=== PATIENT | male | born 1945 | race Caucasian/White ===

== ENCOUNTER → 2024-03-26 14:04 | Outpatient (CLI) | payer OTHER, SELFPAY ==
--- NOTE | 2024-03-26 14:12 | CR.HP_ITS ---
CR - History & Physical General Arrival date:: 03/26/24 Arrival time:: 14:13 Date of Referral:: 02/23/24 Date of CR Evaluation:: 03/26/24 Referring Physician: CLINTON Primary Diagnosis: CAD s/p successful PCI of LAD and RCA History of Present Cardiac Event Onset Date PTCA or coronary stenting:: Yes (01/27/2024 onset) Vessel: LAD, RCA Sleep Disorder Evaluation Hx of Sleep Apnea: Yes Do you snore loudly (louder than talking or can be heard through closed doors)?: No Do you often feel tired/ fatigued/ sleepy during daytime?: No Has anyone observed you stop breathing during sleep?: No History of Hypertension (for STOP score): Yes STOP Results: Negative Advanced Directives Advanced Directives Power of Joint Finisher: No Living Will: No Advance Directives Information Provided: No Advance Directives on File: No DNR Order?:: No Past Medical History Covid-19 Screening Physicial Symptoms Other Clinical Concerns Exposure Risk Pertinent Comorbidities 65 years or older:: Yes Has a serious heart condition:: Yes Has liver disease:: Yes Social History Smoking History Smoking Status: Former smoker Years Smokin Packs Smoked per Day: 2 (stopped in 1988) Alcohol Use Alcohol Usage: No Substance Abuse Hx Substance Use: No Occupation Occupation (List type of work in comments):: Retired Hobbies, Recreation, Social Activities Hobbies: Other (hunting and fishing) Recreational Activities: I am able to engage in all my recreational activities Social Environment Status Marital Status: Current Living Arrangements Living Environment:: Alone Safety Do you feel safe in your surroundings?: Yes Assistance Do you need any assistance at home?: no Review of Systems Review of Systems Hints Review of Present Symptoms: Reports Fatigue, Heart Arrhythmia/Irregularities, Appetite - Normal, Appetite - Special Diet and Sleep - Normal; Denies Shortness of Breath at Rest, Shortness of Breath with Exertion, PVD, Operative Discomfort, Angina, Wound Healing, Dizziness/Lightheadedness or Sexual Changes Pain Is Patient Pain Free?: Yes Pain Location: neck, upper extremity and lower extremity Pain Level: 6/10 Risk Factor Assessment Chief Complaint Chief Complaint: CAD s/p successful PCI of LAD and RCA Vital Signs Pulse Ox: 96 Blood Pressure: 100/60 Pulse Pulse Rate: 90 Pulse Rhythm: Regular Hypertension How long have you been treated?: 20 years Blood Pressure Sitting - Left Arm: 100/60 Obesity Height: 6 ft 3 in Weight:: 240 lb Weight in Pounds: 240.0 lbs Body Mass Index (BMI): 29.9 Nutritional Referral for Obesity: No Physical Inactivity Physical Inactivity: Reg Exercise 30 min/day Risk Stratification Risk Guidelines: Lowest Risk: Risk Factor for Smoking, Moderate Risk: Risk Factor for Dyslipidemia, Risk Factor for Diabetes, Risk Factor for Obesity and Risk Factor for Sedentary Lifestyle and Highest Risk: Risk Factor for Hypertension and Risk Factor for Depression For Smoking Smoking Risk Guidelines For Dyslipidemia Dyslipidemia Risk Guidelines For Diabetes Mellitus Diabetes Risk Guidelines For Obesity/Overweight Obesity/Overweight Risk Guidelines For Hypertension Hypertension Risk Guidelines For Sedentary Lifestyle Sedentary Lifestyle Risk Guidelines For Depression Depression Risk Guidelines Motivation Motivation to Participate On a scale of 1 to 10, how prepared are you to commit to attending program?: 10 What do you see as barriers to successfully being able to complete the program?: nothing What do you see as the benefits of succesfully completing the program? In other words, what do you hope to get out of participating in the program?: more energy Are there issues you are dealing with that will interfere with completing the program?: no Do you have a spouse or signficant other, family or friends who will help suppo rt you to complete the program?: yes
--- NOTE | 2024-03-26 14:21 | CR.ITP_ITS ---
Diagnosis General Information Admitting Diagnosis: CAD s/p successful PCI of LAD and RCA Personal Learning Style:: Audio/Visual Barriers to Learning: Hearing Impairment Stage of change r/t lifestyle modifications:: Contemplation Gave educational material for:: Treating Heart Disease, How The Heart Works, What it means to have Heart Disease, How Coronary Artery Disease is Diagnosed, Heart Procedures, What Heart Medications Do, Risk Factors & Modifications, Living an Active Life, Nutrition, Emotions & Heart Disease, Stress Management & Relaxation and Sleep Disorders & Heart Disease Education/Goals Cardiac Rehabilitation Goals Personal Goals: Initial Assessment: Improve energy level and Improve muscle strength and endurance Scale for measuring improvement of personal goals Diagnosis & Disease Process Outcomes/Goals: Pt IDs own risk factors & lifestyle modifications by Session 10, Verbalizes symptoms of angina & response by session 3., Pt independently manages and Other Additional Outcomes/Goals: Plan/Interventions: Assist Pt to ID & engage in lifestyle modification to reduce CVD risk, Instruct on individual risk factors, Review symptoms of angina & emergency actions, Review secondary diagnosis & identify educational needs. and Other see comment 30 day Reassessments:: Not Met 30 day Reassessments:: Not Met 30 day Reassessments:: Not Met 30 day Reassessments:: Not Met Final Reassessments:: Not Met Safety Referral to Physical Therapy: No Fall Risk Assessed:: Yes Assistive Devices:: None Exercise - Initial Assessment Visit Date of Eval: 03/26/24 (initial eval ) Mets: Pre-: >3 METS for 30 minutes by discharge, >5 METS for 30 minutes by discharge, >7 METS for 30 minutes by discharge and Unable to meet goal due to: (see comment below) Physician Prescribed Exercise Modalities: Treadmill, Rower, Rosalba Formandyne AD-7, SciFit Stepper, The JetstreamFit Pro- II Ergometer and The JetstreamFit Lateral Maturity Checker Frequency: 2x/week for 18 weeks [36 sessions] and 3x/week for 12 weeks [36 sessions] Intensity: 60-80% of age predicted maximum heart rate reserve Duration: 30 - 45 minutes Current METSs:: 3 Target Heart Rate:: 86-108 Resting Blood Pressure: 100/60 Outcomes & Goals Goals:: Verbalizes understanding of THR, RPE & goal METS by session 6, Documents in home exercise log/reports 30 min aerobic 5 day/wk by DC, Demonstrates accurate pulse taking by DC and Other additional outcome/goals: see below Intervention & Plan Exercise Program Goals: Instruct on personal THR & RPE, Instruct on MET level & personal MET goal, Show patient to take own pulse /validate performance until accurate, Instruct on home exercise and Other additional plan/int Physical Activity Home Exercise Physical Activity - Home Exercise: Safe Exercise, Warm-up, Self-monitoring, Cool-Down, Home Exercise > 30 min Daily and Sitting Time <3 hours/daily Outcomes & Goals Outcomes/Goals: Demonstrates correct Warm-up/exercise Cool-Down (S3) if = 2.5 METs, Verbalizes symptoms of exercise intolerance by Session 3 (S3), Demonstrate safe equipment use (S3) & follows exercise prescrition (6) and Other: See below Intervention & Plan Plan/Intervention: Instruct warm-up & cool-down if exercising at > 2 METs, Instruct on symptoms of exercise intolerance & actions to take, Instruct & monitor on saf, Assess intial functional capacity & safety risk and Other See below Nutrition - Initial Assessment Program Goals Nutrition Program Goals Patient has diagnosis of Hyperlipidemia (ICD E78)?: No Visit Date of Eval: 03/26/24 (initial eval ) Cholesterol/Lipids (Other Core Measures) Determine presence & major risk factors that modify LDL goal: Hypertension or hypertensive medication, Low HDL cholesterol <40 mg/dL*, Family history of premature CHD in Male < 55 years: female <65 yearsFa and Age men > 45 years; women >/= 55 years Outcomes/Goals: Pt IDs own risk factors & lifestyle modifications by Session 10, Verbalizes symptoms of angina & response by session 3., Pt independently manages and Other Additional Outcomes/Goals: Intervention/Plan: Advocate for lipid panel cholesterol medication if applicable, Instruct on personal lipid levels & lipid goals/NCEP guidelines, Instruct on cholesterol and Other additional plan/int Referral to dietitian:: No (declines) Diabetes (Other Core Measures) Diabetes Type: Not Applicable Weight Mgt (Other Care) Height: 6 ft 3 in Weight:: 240 lb BMI: 29.9 Diagnosis Overweight/Obesity BMI> 30% ICD-10 E66: No Diagnosis High BMI/Morbid Obesity BMI> 35% ICD-10 Z68: No Outcomes/Goals: Pt sets, maintains & shows weight loss goal & trend during rehab and Other additional outcomes/goals Intervention/Plan: Instruct on ideal BMI & set weight loss goal w/patient, Assist pt to ID & incorporate diet changes for weight loss by S9, Refer to Structured Weight Loss program as appropriate, Encourage goal of using 250- 300dcal per session for weight loss and Other additional plan/interventions Healthy Eating Habits Will attend diet classes:: Yes Outcomes/Goals:: Consume diet rich in vegs,fruits,whole grain/high fiber,fish,lean meat, Limit sat/trans fats,cholesterol & added salts & sugars and Other additional outcome/goals: Intervention/Plan:: Assess current eating habits and Other Additional plan/interventions Education Gave educational materials for:: Signs & symptoms of hypoglycemia, Signs & symptoms of hyperglycemia, Relate diabetes to coronary artery disease and Healthy eating Core - Initial Assessment Visit Date of Eval: 03/26/24 (initial eval) Medication Compliance Preventative Medication(s):: Aspirin, LYLY inhibitor, Clopidogrel/P2Y12 inhibit, Statin/lipid and Beta duncan H/O mental health issues: depression, anxiety, or addiction?: Yes Doesn?t believe in the benefits of treatment?: No Believes medications are unnecessary or harmful?: No Has a concern about medication side effects?: No Expresses concern over the cost of medications?: No Outcomes/Goals: Verbalizes medications,desired effect & common side effects @ DC, Pt self-reports following medication regimen, Keeps card in wallet w/medications listed by DC and Other additional outcome/goals: Interventions/plans: Instruct on medication effects & side effects, Review medication list w/patient every two weeks, Instruct importance of taking meds as ordered & assist problem solving and Other additional Tobacco Use Tobacco Use: Non-smoker How long ago did you quit using tobacco products?: Greater than or equal to 6 months ago Years Smokin (stopped in 1988) Hypertension Hypertension Diagnosis:: Hypertension ICD-10 I10 Resting Blood Pressure:: 100/60 [employer] Hypertension Guidelines Outcomes/Goals: Able to verbalize/achieve optimal blood pressure <130/80, Incorporates diet changes & exercise for blood pressure control by DC and Other additional outcomes/goals Interventions/plan: Instruct on optimal blood pressure, hypertension & medications, Instruct on effects of sodium, alcohol, stress, exercise &hy pertension and Other additional plan/interventions Tobacco Cessation Referral Smoking Cessation Referral:: No Individual Education/Counseling:: No Education Schedule Given:: Yes Psychosocial - Initial Assess VIsit Date of Eval: 03/26/24 (initial eval ) History of previous Mental disease:: Yes History of Emotional Disorders: Anxious and Depression Self-reported stressors Other/Comments:: Pt denies any feelings of anxiety of depression Target Goals Target Goals Psychosocial Test Tool Used:: Elisabetans Dejon QOL Cardiac and PHQ-9 Questionnaire phq-9 Severity Referral to Behavioral Health PS - Interventions: Yes: Attend Stress Management Classes Outcomes/Goals: See list Psychosocial Outcomes/Goals:: ID's personal stressors & 2 strategies to manage stress by discharge and Other Additional outcome/goals: Intervention/Plan: See List Interventions/Plan:: Assess stressors,coping strategies & signs of derpression on admission, Instruct/assist pt to develop coping & personal stress Mgt strategies, Refer to Behavioral Health if appropriate, Refer to Physician if appropriate, Instruct patient to recognize signs & symptoms of depression, Instruct patient to recog and Other additional plan/intervention Patient Health Questionnaire PHQ-9 Screening Initial Assessment: 1. Little interest or pleasure in doing things: Not at all 2. Feeling down, depressed, or hopeless: Not at all 3. Trouble falling or staying asleep, or sleeping too much: Not at all 4. Feeling tired or having little energy: Several days 5. Poor appetite or overeating: Not at all 6. Feeling bad about yourself -- or that you are a failure or have let yourself or your family down: Not at all 7. Trouble concentrating on things, such as reading the newspaper or watching television: Not at all 8. Moving or speaking so slowly that other people could have noticed. Or the opposite - being so fidgety or restless that you have been moving around a lot more than usual: Not at all 9. Thoughts that you would be better off , or of hurting yourself in some way: Not at all How difficult have these problems made it for you to do your work, take care of things at home, or get along with other people?: Somewhat difficult Total Score: 1 MAXIMILIANO-Q SV Test Statements CAD is a disease of the arteries in the heart: False Examples of risk factors for heart disease: True Angina is chest pain or discomfort: True The benefits of resistance training include: True Eating more meat and dairy products: False Anti-platelet medications such as aspirin are important: True The only effective way to manage stress: False An exercise warm-up slowly increases heart rate: I Don't Know Prepared, processed foods usually have high sodium: True Depression is common after a heart attack: I Don't Know The statin medications lower cholesterol: True To control blood pressure, lower the amount of sodium: True If someone gets chest discomfort during walking: False Transfats are partially hydrogenated vegetable oils: I Don't Know Sleep apnea that is not treated increases the risk: I Don't Know To control cholesterol, one should become a vegetarian: I Don't Know Someone knows if he/she is exercising at the right level: I Don't Know Diabetes cannot be prevented with exercise & health eating: I Don't Know Stress is a large risk for heart attack: True A diet that can help lower blood pressure is rich in: True Total Score Total Correct Responses: 13 Self-Efficacy 6-Item Scale Initial Assessment: We would like to know how confident you are in doing certain activities. Please select your confidence level for: Fatigue Select Number: 5 Physical Discomfort or Pain Select Number: 5 Emotional Distress Select Number: 7 Other Symptoms or Health Problems Select Number: 5 Different Tasks and Activities Select Number: 10 Medication Select Number: 10 Total Score:: 7 Nutrition Survey Nutrition Survey Instructions Scoring Instructions Nutrition Survey Initial: Have you lost >10 lbs over the past 2 months without trying?: No Are you following a special diet at home for diabetes, low fat, or low salt?: Yes Are you interested in meeting with a dietitian for help understanding your diet?: No Do you eat less than 3 meals a day?: No Do you eat fatty meats (tee, sausage, ribs, etc), fried foods, desserts, large amounts of salad dressings, margarine, butter, or cheese most days?: No Do you have food allergies? [Enter types in comment field]: No Do you eat in restaurants more than 3 times a week?: No Do you season food with salt, seasoning salt, or garlic salt?: No Do you used canned, boxed, frozen meals, or soups, seasoning packets?: No Total Score:: 1 Exercise - 30-day Assessment Physician Prescribed Exercise Modalities: Treadmill, RowerRosalba AD-7, SciFit Stepper, SciFit Pro- II Ergometer and SciFit Lateral [place] Exercise - 60-day Assessment Physician Prescribed Exercise Modalities: Treadmill, Rower, Rosalba Kelseyne AD-7, SciFit Stepper, SciFit Pro- II Ergometer and SciFit Lateral [place] Exercise - 90-day Assessment Physician Prescribed Exercise Modalities: Treadmill, Rower, Schwinn Airdyne AD-7, SciFit Stepper, SciFit Pro- II Ergometer and SciFit Lateral Maturity Checker Exercise - Final/Discharge Physician Prescribed Exercise Modalities: Treadmill, Rower, Schwinn Airdyne AD-7, SciFit Stepper, SciFit Pro- II Ergometer and SciFit Lateral [place] Frequency: 2x/week for 18 weeks [36 sessions] and 3x/week for 12 weeks [36 sessions] Intensity: 60-80% of age predicted maximum heart rate reserve Current METSs:: 3 Target Heart Rate:: 86-108 Nutrition - 30-Day Assessment Weight Mgt (Other Care) Height: 6 ft 3 in Weight:: 240 lb BMI: 29.9 Nutrition - 60-Day Assessment Weight Mgt (Other Care) Height: 6 ft 3 in Weight:: 240 lb BMI: 29.9 Core - 30-Day Assessment Tobacco Use Years Smokin (stopped in 1988) Core - Final Assessment Hypertension Resting Blood Pressure:: 100/60 [employer] Hypertension Guidelines Core - 60-Day Assessment Hypertension Resting Blood Pressure:: 100/60 [employer] Hypertension Guidelines Psychosocial - 30-Day Assess Target Goals Target Goals Referral to Behavioral Health PS - Interventions: Yes: Attend Stress Management Classes Psychosocial - 60-Day Assess Target Goals Target Goals Referral to Behavioral Health PS - Interventions: Yes: Attend Stress Management Classes Psychosocial - 90-Day Assess Target Goals Target Goals Referral to Behavioral Health PS - Interventions: Yes: Attend Stress Management Classes Psychosocial - Final Assessmen Target Goals Target Goals Referral to Behavioral Health PS - Interventions: Yes: Attend Stress Management Classes Nutrition - 90-Day Assessment Weight Mgt (Other Care) Height: 6 ft 3 in Weight:: 240 lb BMI: 29.9 Nutrition - Final Assessment Program Goals Patient has diagnosis of Hyperlipidemia (ICD E78)?: No Weight Mgt (Other Care) Height: 6 ft 3 in Weight:: 240 lb BMI: 29.9
[2024-03-26 14:37] VITALS: BP 100/60; PULSE 90; O2SAT 96
[2024-03-26 15:05] VITALS: BP 100/60
[2024-03-26 15:11] VITALS: BP 100/60; BMI 29.9
[2024-03-26 15:12] VITALS: BMI 29.9
== END ==
LOC: CR 14:08
PROVIDERS: PCP Internal Medicine
DX: I25.10 Atherosclerotic heart disease of native coronary artery without angina pectoris (principal)

== ENCOUNTER 2024-04-18 14:15 | Outpatient (RCR) | payer OTHER, SELFPAY ==
[2024-03-26 15:11] VITALS: BMI 29.9
== END 2024-04-21 23:59 ==
LOC: CR 14:15
PROVIDERS: PCP Internal Medicine
DX: I25.10 Atherosclerotic heart disease of native coronary artery without angina pectoris (principal); Z95.5 Presence of coronary angioplasty implant and graft
CPT/HCPCS: 93798

== ENCOUNTER 2024-05-21 14:15 | Outpatient (RCR) | payer OTHER, SELFPAY ==
[2024-03-26 15:11] VITALS: BMI 29.9
--- NOTE | 2024-04-25 10:31 | PCM.CR.ITP ---
Exercise - Initial Assessment Visit Session #:: 10 Physician Prescribed Exercise Modalities: Schwinn Airdyne AD-7, SciFit Stepper and SciFit Lateral [place] Nutrition - Initial Assessment Weight Mgt (Other Care) Height: 6 ft 3 in Weight:: 237 lb 8 oz BMI: 29.7 Core - Initial Assessment Tobacco Use Years Smokin (stopped in 1988) Psychosocial - Initial Assess Target Goals Target Goals Referral to Behavioral Health PS - Interventions: Yes: Attend Stress Management Classes Patient Health Questionnaire PHQ-9 Screening 30-Day Re-eval Assessment: 1. Little interest or pleasure in doing things: Not at all 2. Feeling down, depressed, or hopeless: Not at all 3. Trouble falling or staying asleep, or sleeping too much: Not at all 4. Feeling tired or having little energy: Several days 5. Poor appetite or overeating: Not at all 6. Feeling bad about yourself -- or that you are a failure or have let yourself or your family down: Not at all 7. Trouble concentrating on things, such as reading the newspaper or watching television: Not at all 8. Moving or speaking so slowly that other people could have noticed. Or the opposite - being so fidgety or restless that you have been moving around a lot more than usual: Not at all 9. Thoughts that you would be better off , or of hurting yourself in some way: Not at all How difficult have these problems made it for you to do your work, take care of things at home, or get along with other people?: Somewhat difficult Total Score: 1 Self-Efficacy 6-Item Scale 30-Day Re-eval Assessment: We would like to know how confident you are in doing certain activities. Please select your confidence level for: Fatigue Select Number: 5 Physical Discomfort or Pain Select Number: 5 Emotional Distress Select Number: 7 Other Symptoms or Health Problems Select Number: 5 Different Tasks and Activities Select Number: 10 Medication Select Number: 10 Total Score:: 7 Nutrition Survey Nutrition Survey Instructions Scoring Instructions Exercise - 30-day Assessment Visit Date of Eval: 04/25/24 Session #:: 10 Physician Prescribed Exercise Modalities: Schwinn Airdyne AD-7, SciFit Stepper and SciFit Lateral [place] Frequency: 3x/week for 12 weeks [36 sessions] Intensity: 60-80% of age predicted maximum heart rate reserve Duration: 30 - 45 minutes Current METSs:: 3.7 Target Heart Rate:: 86-108 Current RPE:: 12 Maximum Excercise HR:: 105 Resting Blood Pressure: 126/70 Maximum Exercise Blood Pressure: 130/74 EKG Type: SB-ST w/BBB w/ occas PVC's, rare vent couplet. Outcomes & Goals Goals:: Verbalizes understanding of THR, RPE & goal METS by session 6, Documents in home exercise log/reports 30 min aerobic 5 day/wk by DC, Demonstrates accurate pulse taking by DC and Other additional outcome/goals: see below Intervention & Plan Exercise Program Goals: Instruct on personal THR & RPE, Instruct on MET level & personal MET goal, Show patient to take own pulse /validate performance until accurate, Instruct on home exercise and Other additional plan/int 30-day Reassessments 30 day Reassessments:: Progressing Reassessment Notes & Comments:: RPE explained to pt. Pt is demonstrates understanding Physical Activity Home Exercise Physical Activity - Home Exercise: Safe Exercise, Warm-up, Self-monitoring, Cool-Down, Home Exercise > 30 min Daily and Sitting Time <3 hours/daily Outcomes & Goals Outcomes/Goals: Demonstrates correct Warm-up/exercise Cool-Down (S3) if = 2.5 METs, Verbalizes symptoms of exercise intolerance by Session 3 (S3), Demonstrate safe equipment use (S3) & follows exercise prescrition (6) and Other: See below Intervention & Plan Plan/Intervention: Instruct warm-up & cool-down if exercising at > 2 METs, Instruct on symptoms of exercise intolerance & actions to take, Instruct & monitor on saf, Assess intial functional capacity & safety risk and Other See below 30-day Reassessments 30 day Reassessments:: Progressing Reassessment Notes & Comments:: warm up explained and demonstrated to pt. Pt is able to return demonstration. Exercise - 60-day Assessment Physician Prescribed Exercise Modalities: Rosalba Aguilar AD-7, SciFit Stepper and SciFit Lateral [place] Exercise - 90-day Assessment Physician Prescribed Exercise Modalities: Rosalba Kelseyne AD-7, SciFit Stepper and SciFit Lateral [place] Exercise - Final/Discharge Physician Prescribed Exercise Modalities: Rosalba Kelseyne AD-7, SciFit Stepper and SciFit Lateral [place] Nutrition - 30-Day Assessment Program Goals Nutrition Program Goals Patient has diagnosis of Hyperlipidemia (ICD E78)?: No Visit Date of Eval: 04/25/24 Session #:: 10 Cholesterol/Lipids (Other Core Measures) Determine presence & major risk factors that modify LDL goal: Hypertension or hypertensive medication, Low HDL cholesterol <40 mg/dL*, Family history of premature CHD in Male < 55 years: female <65 yearsFa and Age men > 45 years; women >/= 55 years Outcomes/Goals: Pt IDs own risk factors & lifestyle modifications by Session 10, Verbalizes symptoms of angina & response by session 3., Pt independently manages and Other Additional Outcomes/Goals: Intervention/Plan: Advocate for lipid panel cholesterol medication if applicable, Instruct on personal lipid levels & lipid goals/NCEP guidelines, Instruct on cholesterol and Other additional plan/int 30-day Reassessments:: Progressing Reassessment Notes & Comments:: risk factors reviewed with pt. Lifestyle modifications reviewed. Diabetes (Other Core Measures) Diabetes Type: Not Applicable Weight Mgt (Other Care) Height: 6 ft 3 in Weight:: 237 lb 8 oz BMI: 29.7 Diagnosis Overweight/Obesity BMI> 30% ICD-10 E66: No Diagnosis High BMI/Morbid Obesity BMI> 35% ICD-10 Z68: No Outcomes/Goals: Pt sets, maintains & shows weight loss goal & trend during rehab and Other additional outcomes/goals Intervention/Plan: Instruct on ideal BMI & set weight loss goal w/patient, Assist pt to ID & incorporate diet changes for weight loss by S9, Refer to Structured Weight Loss program as appropriate, Encourage goal of using 250-300dcal per session for weight loss and Other additional plan/interventions 30 day Reassessments:: Progressing Reassessment Notes & Comments:: pt has lost 2 lbs so far Healthy Eating Habits Will attend diet classes:: Yes Outcomes/Goals:: Consume diet rich in vegs,fruits,whole grain/high fiber,fish,lean meat, Limit sat/trans fats,cholesterol & added salts & sugars and Other additional outcome/goals: Intervention/Plan:: Assess current eating habits and Other Additional plan/interventions 30-day Reassessments:: Progressing Reassessment Notes & Comments:: Pt has attended nutrition class. Pt encouraged to keep a food log. Education Gave educational materials for:: Signs & symptoms of hypoglycemia, Signs & symptoms of hyperglycemia, Relate diabetes to coronary artery disease and Healthy eating Nutrition - 60-Day Assessment Weight Mgt (Other Care) Height: 6 ft 3 in Weight:: 237 lb 8 oz BMI: 29.7 Core - 30-Day Assessment Visit Date of Eval: 04/25/24 Session #:: 10 Medication Compliance Preventative Medication(s):: Aspirin, LYLY inhibitor, Clopidogrel/P2Y12 inhibit, Statin/lipid and Beta duncan H/O mental health issues: depression, anxiety, or addiction?: Yes Doesn?t believe in the benefits of treatment?: No Believes medications are unnecessary or harmful?: No Has a concern about medication side effects?: No Expresses concern over the cost of medications?: No Outcomes/Goals: Verbalizes medications,desired effect & common side effects @ DC, Pt self-reports following medication regimen, Keeps card in wallet w/medications listed by DC and Other additional outcome/goals: Interventions/plans: Instruct on medication effects & side effects, Review medication list w/patient every two weeks, Instruct importance of taking meds as ordered & assist problem solving and Other additional 30-day Reassessments:: Progressing Reassessment Notes & Comments:: Benefits of taking meds as prescribed stressed to pt. Pt demonstrates understanding. Tobacco Use Tobacco Use: Non-smoker Years Smokin (stopped in 1988) Do you use smokeless tobacco?: No 30-day Reassessments:: Met Reassessment Notes & Comments:: Pt is currently a nonsmoker Hypertension Hypertension Diagnosis:: Hypertension ICD-10 I10 Resting Blood Pressure:: 126/70 [place] [employer] Hypertension Guidelines Peak Exercise Blood Pressure:: 130/74 Outcomes/Goals: Able to verbalize/achieve optimal blood pressure <130/80, Incorporates diet changes & exercise for blood pressure control by DC and Other additional outcomes/goals Interventions/plan: Instruct on optimal blood pressure, hypertension & medications, Instruct on effects of sodium, alcohol, stress, exercise &hypertension and Other additional plan/interventions 30 day Reassessments:: Progressing Reassessment Notes & Comments:: Pt's BP's are within AHA's normal limits on most days. Low sodium diet and weight loss encouraged. Tobacco Cessation Referral Smoking Cessation Referral:: No Individual Education/Counseling:: No Education Schedule Given:: Yes Psychosocial - 30-Day Assess VIsit Date of Eval: 04/25/24 Session #:: 10 History of previous Mental disease:: Yes History of Emotional Disorders: Anxious and Depression (pt denies feelings of anxiety and depression at this time.) Target Goals Target Goals Psychosocial Test Tool Used:: Ferrans Power QOL Cardiac and PHQ-9 Questionnaire phq-9 Severity Referral to Behavioral Health PS - Interventions: Yes: Attend Stress Management Classes Outcomes/Goals: See list Psychosocial Outcomes/Goals:: ID's personal stressors & 2 strategies to manage stress by discharge and Other Additional outcome/goals: Intervention/Plan: See List Interventions/Plan:: Assess stressors,coping strategies & signs of derpression on admission, Instruct/assist pt to develop coping & personal stress Mgt strategies, Refer to Behavioral Health if appropriate, Refer to Physician if appropriate, Instruct patient to recognize signs & symptoms of depression, Instruct patient to recog and Other additional plan/intervention 30-day Reassessments: 30 day Reassessments:: Met Reassessment Notes & Comments:: pt denies psychosocial issues at this time. Psychosocial - 60-Day Assess Target Goals Target Goals Referral to Behavioral Health PS - Interventions: Yes: Attend Stress Management Classes Outcomes/Goals: See list Psychosocial Outcomes/Goals:: ID's personal stressors & 2 strategies to manage stress by discharge and Other Additional outcome/goals: Psychosocial - 90-Day Assess Target Goals Target Goals Referral to Behavioral Health PS - Interventions: Yes: Attend Stress Management Classes Psychosocial - Final Assessmen Target Goals Target Goals Referral to Behavioral Health PS - Interventions: Yes: Attend Stress Management Classes Nutrition - 90-Day Assessment Weight Mgt (Other Care) Height: 6 ft 3 in Weight:: 237 lb 8 oz BMI: 29.7 Nutrition - Final Assessment Weight Mgt (Other Care) Height: 6 ft 3 in Weight:: 237 lb 8 oz BMI: 29.7
[2024-04-25 10:37] VITALS: BP 126/70
[2024-04-25 10:50] VITALS: BP 126/70; BMI 29.7
== END 2024-05-22 23:59 ==
LOC: CR 14:15
PROVIDERS: PCP Internal Medicine
DX: I25.10 Atherosclerotic heart disease of native coronary artery without angina pectoris (principal)
CPT/HCPCS: 93798

== ENCOUNTER 2024-06-22 14:30 | Outpatient (RCR) | payer OTHER, SELFPAY ==
[2024-04-25 10:50] VITALS: BMI 29.7
[2024-05-23 00:19] VITALS: BP 126/70
--- NOTE | 2024-05-25 11:01 | PCM.CR.ITP ---
Exercise - Initial Assessment Physician Prescribed Exercise Modalities: Rosalba Aguilar AD-7, SciFit Stepper and SciFit Lateral [employer] Nutrition - Initial Assessment Weight Mgt (Other Care) Height: 6 ft 3 in Weight:: 235 lb BMI: 29.3 Core - Initial Assessment Hypertension Resting Blood Pressure:: 96/58 [place] [employer] Hypertension Guidelines Psychosocial - Initial Assess Target Goals Target Goals Referral to Behavioral Health PS - Interventions: Yes: Attend Stress Management Classes Patient Health Questionnaire PHQ-9 Screening 60-Day Re-eval Assessment: 1. Little interest or pleasure in doing things: Not at all 2. Feeling down, depressed, or hopeless: Not at all 3. Trouble falling or staying asleep, or sleeping too much: Not at all 4. Feeling tired or having little energy: Several days 5. Poor appetite or overeating: Not at all 6. Feeling bad about yourself -- or that you are a failure or have let yourself or your family down: Not at all 7. Trouble concentrating on things, such as reading the newspaper or watching television: Not at all 8. Moving or speaking so slowly that other people could have noticed. Or the opposite - being so fidgety or restless that you have been moving around a lot more than usual: Not at all 9. Thoughts that you would be better off , or of hurting yourself in some way: Not at all How difficult have these problems made it for you to do your work, take care of things at home, or get along with other people?: Somewhat difficult Total Score: 1 Self-Efficacy 6-Item Scale 60-Day Re-eval Assessment: We would like to know how confident you are in doing certain activities. Please select your confidence level for: Fatigue Select Number: 5 Physical Discomfort or Pain Select Number: 5 Emotional Distress Select Number: 7 Other Symptoms or Health Problems Select Number: 5 Different Tasks and Activities Select Number: 10 Medication Select Number: 10 Total Score:: 7 Nutrition Survey Nutrition Survey Instructions Scoring Instructions Exercise - 30-day Assessment Physician Prescribed Exercise Modalities: Rosalba Aguilar AD-7, SciFit Stepper and SciFit Lateral [place] Exercise - 60-day Assessment Visit Date of Eval: 05/25/24 Session #:: 19 Physician Prescribed Exercise Modalities: Rosalba Aguilar AD-7, SciFit Stepper and SciFit Lateral [place] Frequency: 3x/week for 12 weeks [36 sessions] Intensity: 60-80% of age predicted maximum heart rate reserve Duration: 30 - 45 minutes Current METSs:: 4.6 Target Heart Rate:: 86-108 Current RPE:: 12-13 Maximum Excercise HR:: 101 Resting Blood Pressure: 126/62 Maximum Exercise Blood Pressure: 132/82 EKG Type: NSR to ST w/BBB with a rare pac, occas pvc, rare vent couplet Outcomes & Goals Goals:: Verbalizes understanding of THR, RPE & goal METS by session 6, Documents in home exercise log/reports 30 min aerobic 5 day/wk by DC, Demonstrates accurate pulse taking by DC and Other additional outcome/goals: see below Intervention & Plan Exercise Program Goals: Instruct on personal THR & RPE, Instruct on MET level & personal MET goal, Show patient to take own pulse /validate performance until accurate, Instruct on home exercise and Other additional plan/int Physical Activity Home Exercise Physical Activity - Home Exercise: Safe Exercise, Warm-up, Self-monitoring, Cool-Down, Home Exercise > 30 min Daily and Sitting Time <3 hours/daily Outcomes & Goals Outcomes/Goals: Demonstrates correct Warm-up/exercise Cool-Down (S3) if = 2.5 METs, Verbalizes symptoms of exercise intolerance by Session 3 (S3), Demonstrate safe equipment use (S3) & follows exercise prescrition (6) and Other: See below Intervention & Plan Plan/Intervention: Instruct warm-up & cool-down if exercising at > 2 METs, Instruct on symptoms of exercise intolerance & actions to take, Instruct & monitor on saf, Assess intial functional capacity & safety risk and Other See below 30-day Reassessments 30 day Reassessments:: Progressing Reassessment Notes & Comments:: Proper warm up demonstrated and explained to pt. Pt is able to return demonstration Exercise - 90-day Assessment Physician Prescribed Exercise Modalities: Rosalba DORADO-7, SciFit Stepper and SciFit Lateral [employer] Exercise - Final/Discharge Physician Prescribed Exercise Modalities: Rosalba Aguilar AD-7, SciFit Stepper and SciFit Lateral [place] Nutrition - 30-Day Assessment Weight Mgt (Other Care) Height: 6 ft 3 in Weight:: 235 lb BMI: 29.3 Nutrition - 60-Day Assessment Program Goals Nutrition Program Goals Patient has diagnosis of Hyperlipidemia (ICD E78)?: No Visit Date of Eval: 05/25/24 Session #:: 19 Cholesterol/Lipids (Other Core Measures) Determine presence & major risk factors that modify LDL goal: Hypertension or hypertensive medication, Low HDL cholesterol <40 mg/dL*, Family history of premature CHD in Male < 55 years: female <65 yearsFa and Age men > 45 years; women >/= 55 years Outcomes/Goals: Pt IDs own risk factors & lifestyle modifications by Session 10, Verbalizes symptoms of angina & response by session 3., Pt independently manages and Other Additional Outcomes/Goals: Intervention/Plan: Advocate for lipid panel cholesterol medication if applicable, Instruct on personal lipid levels & lipid goals/NCEP guidelines, Instruct on cholesterol and Other additional plan/int Diabetes (Other Core Measures) Diabetes Type: Not Applicable Weight Mgt (Other Care) Height: 6 ft 3 in Weight:: 235 lb BMI: 29.3 Diagnosis Overweight/Obesity BMI> 30% ICD-10 E66: No Diagnosis High BMI/Morbid Obesity BMI> 35% ICD-10 Z68: No Outcomes/Goals: Pt sets, maintains & shows weight loss goal & trend during rehab and Other additional outcomes/goals Intervention/Plan: Instruct on ideal BMI & set weight loss goal w/patient, Assist pt to ID & incorporate diet changes for weight loss by S9, Refer to Structured Weight Loss program as appropriate, Encourage goal of using 250-300dcal per session for weight loss and Other additional plan/interventions Healthy Eating Habits Will attend diet classes:: Yes Outcomes/Goals:: Consume diet rich in vegs,fruits,whole grain/high fiber,fish,lean meat, Limit sat/trans fats,cholesterol & added salts & sugars and Other additional outcome/goals: Intervention/Plan:: Assess current eating habits and Other Additional plan/interventions 30-day Reassessments:: Progressing Reassessment Notes & Comments:: Pt has lost 2 more lbs. Pt understands the importance of a heart healthy low sodium diet. Core - Final Assessment Tobacco Use Years Smokin (stopped in 1988) Hypertension Resting Blood Pressure:: 96/58 [place] [employer] Hypertension Guidelines Core - 60-Day Assessment Visit Date of Eval: 05/25/24 Session #:: 19 Medication Compliance Preventative Medication(s):: Aspirin, LYLY inhibitor, Clopidogrel/P2Y12 inhibit, Statin/lipid and Beta duncan H/O mental health issues: depression, anxiety, or addiction?: Yes Doesn?t believe in the benefits of treatment?: No Believes medications are unnecessary or harmful?: No Has a concern about medication side effects?: No Expresses concern over the cost of medications?: No Outcomes/Goals: Verbalizes medications,desired effect & common side effects @ DC, Pt self-reports following medication regimen, Keeps card in wallet w/medications listed by DC and Other additional outcome/goals: Interventions/plans: Instruct on medication effects & side effects, Review medication list w/patient every two weeks, Instruct importance of taking meds as ordered & assist problem solving and Other additional Tobacco Use Tobacco Use: Non-smoker Years Smokin (stopped in 1988) Hypertension Hypertension Diagnosis:: Hypertension ICD-10 I10 Resting Blood Pressure:: 126/62 Resting Blood Pressure:: 96/58 [place] [employer] Hypertension Guidelines Peak Exercise Blood Pressure:: 132/82 Outcomes/Goals: Able to verbalize/achieve optimal blood pressure <130/80, Incorporates diet changes & exercise for blood pressure control by DC and Other additional outcomes/goals Interventions/plan: Instruct on optimal blood pressure, hypertension & medications, Instruct on effects of sodium, alcohol, stress, exercise &hypertension and Other additional plan/interventions 30 day Reassessments:: Progressing Reassessment Notes & Comments:: Pt is encouraged to continue to lose weight and consume a low sodium diet to help lower his BP's. Tobacco Cessation Referral Smoking Cessation Referral:: No Individual Education/Counseling:: No Education Schedule Given:: Yes Psychosocial - 30-Day Assess Target Goals Target Goals Referral to Behavioral Health PS - Interventions: Yes: Attend Stress Management Classes Outcomes/Goals: See list Psychosocial Outcomes/Goals:: ID's personal stressors & 2 strategies to manage stress by discharge and Other Additional outcome/goals: Psychosocial - 60-Day Assess VIsit Date of Eval: 05/25/24 Session #:: 19 History of previous Mental disease:: Yes History of Emotional Disorders: Anxious and Depression (Pt denies feelings of anxiety or depression at this time) Target Goals Target Goals Psychosocial Test Tool Used:: Ferrans Power QOL Cardiac and PHQ-9 Questionnaire phq-9 Severity Referral to Behavioral Health PS - Interventions: Yes: Attend Stress Management Classes Outcomes/Goals: See list Psychosocial Outcomes/Goals:: ID's personal stressors & 2 strategies to manage stress by discharge and Other Additional outcome/goals: Intervention/Plan: See List Interventions/Plan:: Assess stressors,coping strategies & signs of derpression on admission, Instruct/assist pt to develop coping & personal stress Mgt strategies, Refer to Behavioral Health if appropriate, Refer to Physician if appropriate, Instruct patient to recognize signs & symptoms of depression, Instruct patient to recog and Other additional plan/intervention 30-day Reassessments: 30 day Reassessments:: Progressing Reassessment Notes & Comments:: Pt denies feelings of anxiety or depression at this time Psychosocial - 90-Day Assess Target Goals Target Goals Referral to Behavioral Health PS - Interventions: Yes: Attend Stress Management Classes Psychosocial - Final Assessmen Target Goals Target Goals Referral to Behavioral Health PS - Interventions: Yes: Attend Stress Management Classes Nutrition - 90-Day Assessment Weight Mgt (Other Care) Height: 6 ft 3 in Weight:: 235 lb BMI: 29.3 Nutrition - Final Assessment Weight Mgt (Other Care) Height: 6 ft 3 in Weight:: 235 lb BMI: 29.3
[2024-05-25 11:20] VITALS: BP 126/62; BP 96/58; BMI 29.3
== END 2024-06-22 23:59 ==
LOC: CR 14:30
PROVIDERS: PCP Internal Medicine
DX: I25.10 Atherosclerotic heart disease of native coronary artery without angina pectoris (principal)

== ENCOUNTER 2024-07-13 14:30 | Outpatient (RCR) | payer OTHER, MEDICARE, SELFPAY ==
[2024-05-25 11:20] VITALS: BMI 29.3
[2024-06-23 00:44] VITALS: BP 126/62; BP 126/70; BP 96/58
--- NOTE | 2024-06-26 07:04 | CR.ITP_ITS ---
Exercise - Initial Assessment Physician Prescribed Exercise Modalities: Rower, SciFit Stepper and SciFit Lateral Gratis Nutrition - Initial Assessment Weight Mgt (Other Care) Height: 6 ft 3 in Weight:: 235 lb BMI: 29.3 Psychosocial - Initial Assess Target Goals Target Goals Referral to Behavioral Health PS - Interventions: Yes: Attend Stress Management Classes Patient Health Questionnaire PHQ-9 Screening 90-Day Re-eval Assessment: 1. Little interest or pleasure in doing things: Not at all 2. Feeling down, depressed, or hopeless: Not at all 3. Trouble falling or staying asleep, or sleeping too much: Not at all 4. Feeling tired or having little energy: Several days 5. Poor appetite or overeating: Not at all 6. Feeling bad about yourself -- or that you are a failure or have let yourself or your family down: Not at all 7. Trouble concentrating on things, such as reading the newspaper or watching television: Not at all 8. Moving or speaking so slowly that other people could have noticed. Or the opposite - being so fidgety or restless that you have been moving around a lot more than usual: Not at all 9. Thoughts that you would be better off , or of hurting yourself in some way: Not at all How difficult have these problems made it for you to do your work, take care of things at home, or get along with other people?: Somewhat difficult Total Score: 1 Self-Efficacy 6-Item Scale 90-Day Re-eval Assessment: We would like to know how confident you are in doing certain activities. Please select your confidence level for: Fatigue Select Number: 5 Physical Discomfort or Pain Select Number: 5 Emotional Distress Select Number: 7 Other Symptoms or Health Problems Select Number: 5 Different Tasks and Activities Select Number: 10 Medication Select Number: 10 Total Score:: 7 Nutrition Survey Nutrition Survey Instructions Scoring Instructions Exercise - 30-day Assessment Physician Prescribed Exercise Modalities: Rower, SciFit Stepper and SciFit Lateral Administrative Associate Exercise - 60-day Assessment Physician Prescribed Exercise Modalities: Rower, SciFit Stepper and SciFit Lateral Administrative Associate Exercise - 90-day Assessment Visit Date of Eval: 06/26/24 Session #:: 29 Physician Prescribed Exercise Modalities: Rower, SciFit Stepper and SciFit Lateral Administrative Associate Frequency: 3x/week for 12 weeks [36 sessions] Intensity: 60-80% of age predicted maximum heart rate reserve Duration: 30 - 45 minutes Current METSs:: 5.2 Target Heart Rate:: 86-115 Current RPE:: 12-13 Maximum Excercise HR:: 139 Resting Blood Pressure: 112/60 Maximum Exercise Blood Pressure: 160/80 EKG Type: NSR to ST w/BBB w/rare PAC, occas PVC, occas vent bigem, trigem, rare coupl Outcomes & Goals Goals:: Verbalizes understanding of THR, RPE & goal METS by session 6, Documents in home exercise log/reports 30 min aerobic 5 day/wk by DC and Demonstrates accurate pulse taking by DC Intervention & Plan Exercise Program Goals: Instruct on personal THR & RPE, Instruct on MET level & personal MET goal, Show patient to take own pulse /validate performance until accurate and Instruct on home exercise Physical Activity Home Exercise Physical Activity - Home Exercise: Safe Exercise, Warm-up, Self-monitoring, Cool-Down, Home Exercise > 30 min Daily and Sitting Time <3 hours/daily Outcomes & Goals Outcomes/Goals: Demonstrates correct Warm-up/exercise Cool-Down (S3) if = 2.5 METs, Verbalizes symptoms of exercise intolerance by Session 3 (S3), Demonstrate safe equipment use (S3) & follows exercise prescrition (6) and Other: See below Intervention & Plan Plan/Intervention: Instruct warm-up & cool-down if exercising at > 2 METs, Instruct on symptoms of exercise intolerance & actions to take, Instruct & monitor on saf, Assess intial functional capacity & safety risk and Other See below 30-day Reassessments 30 day Reassessments:: Progressing Reassessment Notes & Comments:: Proper cool down explained to pt. Pt can return demonstration. Exercise - Final/Discharge Physician Prescribed Exercise Modalities: Rower, SciFit Stepper and SciFit Lateral Gratis Nutrition - 30-Day Assessment Weight Mgt (Other Care) Height: 6 ft 3 in Weight:: 235 lb BMI: 29.3 Nutrition - 60-Day Assessment Weight Mgt (Other Care) Height: 6 ft 3 in Weight:: 235 lb BMI: 29.3 Core - 30-Day Assessment Hypertension [place] [employer] Hypertension Guidelines Reassessment Notes & Comments:: Pt's BP's are within AHA normal limits on most days. Core - Final Assessment Hypertension [place] [employer] Hypertension Guidelines Reassessment Notes & Comments:: Pt's BP's are within AHA normal limits on most days. Core - Day Assessment Visit Date of Eval: 06/26/24 Session #:: 29 Medication Compliance Preventative Medication(s):: Aspirin, LYLY inhibitor, Clopidogrel/P2Y12 inhibit, Statin/lipid and Beta duncan H/O mental health issues: depression, anxiety, or addiction?: Yes Doesn?t believe in the benefits of treatment?: No Believes medications are unnecessary or harmful?: No Has a concern about medication side effects?: No Expresses concern over the cost of medications?: No Outcomes/Goals: Verbalizes medications,desired effect & common side effects @ DC, Pt self-reports following medication regimen, Keeps card in wallet w/medications listed by DC and Other additional outcome/goals: Interventions/plans: Instruct on medication effects & side effects, Review medication list w/patient every two weeks, Instruct importance of taking meds as ordered & assist problem solving and Other additional Tobacco Use Tobacco Use: Non-smoker How long ago did you quit using tobacco products?: Greater than or equal to 6 months ago Years Smokin (Pt stopped in 1988) 30-day Reassessments:: Met Hypertension Hypertension Diagnosis:: Hypertension ICD-10 I10 Resting Blood Pressure:: 112/60 [place] [employer] Hypertension Guidelines Peak Exercise Blood Pressure:: 160/80 Outcomes/Goals: Able to verbalize/achieve optimal blood pressure <130/80, Incorporates diet changes & exercise for blood pressure control by DC and Other additional outcomes/goals Interventions/plan: Instruct on optimal blood pressure, hypertension & medications, Instruct on effects of sodium, alcohol, stress, exercise &hypertension and Other additional plan/interventions 30 day Reassessments:: Met Reassessment Notes & Comments:: Pt's BP's are within AHA normal limits on most days. Tobacco Cessation Referral Smoking Cessation Referral:: No Individual Education/Counseling:: No Education Schedule Given:: Yes Psychosocial - 30-Day Assess Target Goals Target Goals Referral to Behavioral Health PS - Interventions: Yes: Attend Stress Management Classes Psychosocial - 60-Day Assess Target Goals Target Goals Referral to Behavioral Health PS - Interventions: Yes: Attend Stress Management Classes Psychosocial - 90-Day Assess VIsit Date of Eval: 06/26/24 Session #:: 29 History of previous Mental disease:: Yes History of Emotional Disorders: Anxious and Depression (Pt denies feelings of anxiety or depression at this time) Target Goals Target Goals Psychosocial Test Tool Used:: Shaniqua [employer] QOL Cardiac and PHQ-9 Questionnaire phq-9 Severity Referral to Behavioral Health PS - Interventions: Yes: Attend Stress Management Classes Outcomes/Goals: See list Psychosocial Outcomes/Goals:: ID's personal stressors & 2 strategies to manage stress by discharge and Other Additional outcome/goals: Intervention/Plan: See List Interventions/Plan:: Assess stressors,coping strategies & signs of derpression on admission, Instruct/assist pt to develop coping & personal stress Mgt strategies, Refer to Behavioral Health if appropriate, Refer to Physician if appropriate, Instruct patient to recognize signs & symptoms of depression, Instruct patient to recog and Other additional plan/intervention 30-day Reassessments: 30 day Reassessments:: Met Reassessment Notes & Comments:: Pt denies feelings of anxiety or depression at this time Psychosocial - Final Assessmen Target Goals Target Goals Referral to Behavioral Health PS - Interventions: Yes: Attend Stress Management Classes Nutrition - 90-Day Assessment Program Goals Nutrition Program Goals Patient has diagnosis of Hyperlipidemia (ICD E78)?: No Visit Date of Eval: 06/26/24 Session #:: 29 Cholesterol/Lipids (Other Core Measures) Determine presence & major risk factors that modify LDL goal: Cigarette smoking, Hypertension or hypertensive medication, Low HDL cholesterol <40 mg/dL*, Family history of premature CHD in Male < 55 years: female <65 yearsFa and Age men > 45 years; women >/= 55 years Outcomes/Goals: Pt IDs own risk factors & lifestyle modifications by Session 10, Verbalizes symptoms of angina & response by session 3., Pt independently manages and Other Additional Outcomes/Goals: Intervention/Plan: Advocate for lipid panel cholesterol medication if applicable , Instruct on personal lipid levels & lipid goals/NCEP guidelines, Instruct on cholesterol and Other additional plan/int Diabetes (Other Core Measures) Diabetes Type: Not Applicable Weight Mgt (Other Care) Height: 6 ft 3 in Weight:: 235 lb BMI: 29.3 Diagnosis Overweight/Obesity BMI> 30% ICD-10 E66: No Diagnosis High BMI/Morbid Obesity BMI> 35% ICD-10 Z68: No Outcomes/Goals: Pt sets, maintains & shows weight loss goal & trend during rehab and Other additional outcomes/goals Intervention/Plan: Instruct on ideal BMI & set weight loss goal w/patient, Prudencio t pt to ID & incorporate diet changes for weight loss by S9, Refer to Structured Weight Loss program as appropriate, Encourage goal of using 250-300dcal per session for weight loss and Other additional plan/interventions 30 day Reassessments:: Progressing Healthy Eating Habits Will attend diet classes:: Yes Outcomes/Goals:: Consume diet rich in vegs,fruits,whole grain/high fiber,fish,lean meat, Limit sat/trans fats,cholesterol & added salts & sugars and Other additional outcome/goals: Intervention/Plan:: Assess current eating habits and Other Additional plan/interventions 30-day Reassessments:: Progressing Reassessment Notes & Comments:: Pt continues to lose weight and understands the benefits. Education Gave educational materials for:: Signs & symptoms of hypoglycemia, Signs & symptoms of hyperglycemia, Relate diabetes to coronary artery disease and Healthy eating Nutrition - Final Assessment Weight Mgt (Other Care) Height: 6 ft 3 in Weight:: 235 lb BMI: 29.3
[2024-06-26 07:09] VITALS: BP 112/60
[2024-06-26 07:38] VITALS: BP 112/60; BMI 29.3
== END 2024-07-20 23:59 ==
LOC: CR 14:30
PROVIDERS: PCP Internal Medicine
DX: I25.10 Atherosclerotic heart disease of native coronary artery without angina pectoris (principal)
CPT/HCPCS: 93798

== ENCOUNTER 2024-08-16 08:00 | Outpatient (RCR) | payer SELFPAY ==
[2024-06-26 07:38] VITALS: BMI 29.3
== END 2024-08-20 23:59 ==
LOC: CR 08:00
PROVIDERS: PCP Internal Medicine
DX: Z00.00 Encounter for general adult medical examination without abnormal findings (principal)

== ENCOUNTER 2024-09-18 08:00 | Outpatient (RCR) | payer SELFPAY ==
[2024-06-26 07:38] VITALS: BMI 29.3
== END 2024-09-19 23:59 ==
LOC: CR 08:00
PROVIDERS: PCP Internal Medicine
DX: Z00.00 Encounter for general adult medical examination without abnormal findings (principal)

== ENCOUNTER 2024-10-18 08:00 | Outpatient (RCR) | payer SELFPAY ==
[2024-06-26 07:38] VITALS: BMI 29.3
== END 2024-10-20 23:59 ==
LOC: CR 08:00
PROVIDERS: PCP Internal Medicine
DX: Z00.00 Encounter for general adult medical examination without abnormal findings (principal)

== ENCOUNTER 2024-11-15 08:00 | Outpatient (RCR) | payer SELFPAY ==
[2024-06-26 07:38] VITALS: BMI 29.3
== END 2024-11-19 23:59 ==
LOC: CR 08:00
PROVIDERS: PCP Internal Medicine
DX: Z00.00 Encounter for general adult medical examination without abnormal findings (principal)

== ENCOUNTER 2024-12-20 08:00 | Outpatient (RCR) | payer SELFPAY ==
[2024-06-26 07:38] VITALS: BMI 29.3
== END 2024-12-20 23:59 ==
LOC: CR 08:00
PROVIDERS: PCP Internal Medicine
DX: Z00.00 Encounter for general adult medical examination without abnormal findings (principal)

== ENCOUNTER 2025-01-17 08:00 | Outpatient (RCR) | payer SELFPAY ==
[2024-06-26 07:38] VITALS: BMI 29.3
== END 2025-01-20 23:59 ==
LOC: CR 08:00
PROVIDERS: PCP Internal Medicine
DX: Z00.00 Encounter for general adult medical examination without abnormal findings (principal)

== ENCOUNTER → 2025-01-17 | Outpatient (CLI) | payer OTHER, SELFPAY ==
[2024-06-26 07:38] VITALS: BMI 29.3
--- NOTE | 2025-01-17 14:12 | CT_ITS ---
PROCEDURE: CTA HEAD W/WO CONTRAST 01/17/2025 REASON FOR EXAM: HOLLENHORST PLAQUE TECHNIQUE: Procedure Code: [id number] Modality: CT Procedure: CTA HEAD W/WO CONTRAST Multiplanar Sagittal and Coronal images were obtained. Three-dimensional reconstructions CONTRAST: The amount of contrast administered was not specified One or more dose reduction techniques were used (e.g., Automated exposure control, adjustment of the mA and/or kV according to patient size, use of iterative reconstruction technique). RADIATION DOSE SUMMARY: Radiation dose not specified FINDINGS: Initial study of the brain without contrast demonstrates no intracranial mass, hemorrhage or edema. The angiographic study demonstrates patent distal vertebral arteries. No basilar stenosis. Patent basilar tip. 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 The contrast bolus is moderately suboptimal. Calcified plaque in the precavernous and cavernous carotid arteries. Normal left and right M1 segments. No visible disruption of the proximal M2 branches, allowing for the use of thick 1.25 mm sections. Negative for venous thrombosis. CT/CTA Head W/WO Contrast IMPRESSION: CT angiogram of the head within normal limits. Reading Location[facility]
--- NOTE | 2025-01-17 14:16 | CT_ITS ---
PROCEDURE: CT CHEST, ABD, PEL W/CONTRAST 01/17/2025 REASON FOR EXAM: ABN WEIGHT LOSS TECHNIQUE: Chest, abdomen and pelvis CT with intravenous contrast. Coronal and Sagittal reconstruction series were provided. One or more dose reduction techniques were used (e.g., Automated exposure control, adjustment of the mA and/or kV according to patient size, use of iterative reconstruction technique. PATIENT PREPARATION: Per protocol ORAL CONTRAST TYPE: Given CONTRAST: Isovue 370 VOLUME: 90mL RADIATION DOSE SUMMARY: CTDlvol: 23.6 mGy DLP: 3285.66 mGycm COMPARISON: None FINDINGS: CT CHEST: Hardware: None Lymph nodes: Small benign-appearing axillary lymph nodes. Small benign- appearing mediastinal lymph nodes. Heart and Vasculature: The heart is not enlarged. Coronary artery calcification. Atherosclerotic calcifications of the thoracic aorta. Pulmonary arteries are unremarkable. Lungs and Airways: The lungs are clear. No pulmonary nodule or consolidation seen. Pleura: No pleural effusion. Bones: Degenerative changes of the thoracic spine. CT ABDOMEN/PELVIS: Liver: Diffuse fatty infiltration. Gallbladder: Unremarkable. Spleen: There is a 1 point 7 cm cyst in the posterior mid lateral aspect of the spleen. Pancreas: Normal size without evidence of mass surrounding inflammation or ductal dilation. Adrenals: Unremarkable Kidneys: There is a 5.2 cm by 5 cm cyst in the posterior upper pole of the right kidney. No evidence of hydronephrosis. 2.2 cm cyst in the anterior lower pole of the right kidney. Mild degree of bilateral renal cortical thinning. Bladder: Not completely filled. Mild degree of diffuse bladder wall thickening. Bowel: Colonic diverticulosis without diverticulitis. Appendix: Unremarkable Lymph nodes: Unremarkable. Vasculature: Mild diffuse atherosclerotic calcifications are noted. Peritoneum / Retroperitoneum: Unremarkable Bones: Degenerative changes of the spine. CT/CT Chest, Abd, Pel w/Contrast IMPRESSION: Bilateral renal cysts. Small cyst in the spleen. Fatty infiltration of the liver. Sigmoid diverticulosis. Reading Location: [id number]
--- OUTSIDE RECORDS SUMMARY | 2025-01-17 19:43 | XMS RPT_ITS | CCD ---
Author Organization [facility] Care Team Providers Care Pocket Machine Operator Name Role Phone Sigifredo Trimble MD Primary Care Provider ANGI KWONG Attending Unavailable ANGI KWONG Admitting Unavailable TRIMBLE, SIGIFREDO G Primary Care Unavailable PRISCILLA CANO Admitting Unavailable TRIMBLE, SIGIFREDO G Primary Care Unavailable LAUREN DE PAZ Referring Unavailable ADRIANA RAO Attending Unavaila DANIELLE Aviles Consulting UnavailARLINE Elliott Consulting Unavailab le TRIMBLE, SIGIFREDO G Primary Care Unavailable EDGAR BLOOM JR Attending Unavaila VIOLET Dickens Admitting Unavailable CONKLE-LAGROUXSKINNY Referring Unavaila ble TRIMBLE, SIGIFREDO G Primary Care Unavailable CONKLE-SKINNY GÓMEZ Attending Unavaila LAUREN River Attending Unavailable TRIMBLE, SIGIFREDO G Primary Care Unavailable SELF Referring Unavailable TRIMBLE, SIGIFREDO G Primary Care Unavailable Laverne Ash MD Unavailable LAVERNE ASH Attending Unavailable TRIMBLE, SIGIFREDO G Primary Care Unavailable ZOYA PARDO Attending Unavailable TRIMBLE, SIGIFREDO G Primary Care Unavailable Dr. Sigifredo Trimble MD Primary Care Provider [facility] [place] Attending [place] [facility] [facility] [place] Referring Provider Unavailable Dr. Sigifredo Trimble MD Attending Provider Dr. Sigifredo Trimble MD Primary Care Provider [facility] Referring Provider Unavailable [facility] [place] Attending Provider Unavailable Dr. Sigifredo Trimble MD Primary Care Provider Dr. Sigifredo Trimble MD [facility] [place] Attending Provider Unavailable Trimble, Sigifredo [facility] [place] Att[place] Unavailable Trimble, Sigifredo [facility] [place] Att[place] Unavailable Trimble, Sigifredo Attending Unavailable Trimble, Sigifredo Referring Unavailable Trimble, Sigifredo Primary Care Unavailable Trimble, Sigifredo Primary Care Unavailable Trimble, Sigifredo Att[facility] [place] Referring Unavailable Trimble, Sigifredo [facility] [place] [facility] Un[facility] Att[facility] Unavailable Trimble, Sigifredo [facility] [place] [facility] Un[facility] [place] [facility] Unavailable Trimble, Sigifredo [facility] [place] [facility] [place] Att[facility] Unavailable Trimble, Sigifredo [facility] [place] Referring Unavailable Trimble, Sigifredo [facility] [place] Att[place] Unavailable Trimble, Sigifredo [facility] [place] Att[place] Unavailable Trimble, Sigifredo [facility] [place] Att[facility] Unavailable Trimble, Sigifredo [facility] [place] [facility] Referring Unavailable Trimble, Sigifredo [facility] [place] Att[place] Unavailable Medications Current Medications Medication Drug Class(es) Dates Sig (Normalized) Sig (Original) aspirin 81 mg delayed release oral tablet (14 sources) Platelet Aggregation Inhibitor, Nonsteroidal Anti-inflammatory Drug Start: 02-18-2014 aspirin, enteric coated (ASPIRIN, ENTERIC COATED) 81 mg EC tablet Take 81 mg by mouth. 02/18/2014 Active atorvastatin 40 mg oral tablet (14 sources) HMG-CoA Reductase Inhibitor Start: 01-04-2024 End: 02-08-2025 take 1 tablet by mouth once daily atorvastatin (LIPITOR) 40 mg tablet Take 1 tablet by mouth once daily. 90 tablet 3 02/09/2024 02/08/2025 Active cholecalciferol 0.05 mg oral tablet (14 sources) Vitamin D Start: 05-19-2022 cholecalciferol (VITAMIN D3) 50 mcg (2,000 unit) tablet Take 50 mcg by mouth. 05/19/2022 Active clopidogrel 75 mg oral tablet (12 sources) P2Y12 Platelet Inhibitor Start: 01-29-2024 End: 02-08-2025 take 1 tablet by mouth once daily clopidogrel (PLAVIX) 75 mg tablet Take 1 tablet by mouth once daily. 90 tablet 3 02/09/2024 02/08/2025 Active famotidine 20 mg oral tablet (14 sources) Histamine-2 Receptor Antagonist Start: 02-17-2024 take 1 tablet by mouth once daily famotidine (PEPCID) 20 mg tablet Take 1 tablet by mouth once daily. 02/17/2024 Active End: 02-17-2024 take 1 tablet by mouth twice daily famotidine (PEPCID) 20 mg tablet Take 20 mg by mouth two times a day. 02/17/2024 Discontinued finasteride 5 mg oral tablet (12 sources) 5-alpha Reductase Inhibitor take 1 tablet by mouth once daily finasteride (PROSCAR) 5 mg tablet Take 5 mg by mouth once daily. Active ketoconazole 20 mg/ml topical cream (14 sources) Azole Antifungal Start: 4 ketoconazole (NIZORAL) 2 % cream Apply to affected area. 01/04/2024 Active lisinopril 20 mg oral tablet (14 sources) Angiotensin Converting Enzyme Inhibitor Start: 4 End: 5 take 1 tablet by mouth once daily lisinopril (ZESTRIL) 20 mg tablet Take 1 tablet by mouth once daily. 90 tablet 3 02/09/2024 02/08/2025 Active loratadine 10 mg oral tablet (14 sources) Start: 4 loratadine (CLARITIN) 10 mg tablet Take 10 mg by mouth. 01/04/2024 Active 24 hr metoprolol succinate 50 mg extended release oral tablet (3 sources) beta-Adrenergic Duncan Start: 4 take 1 tablet by mouth once daily metoprolol succinate ER (TOPROL XL) 50 mg 24 hr tablet Take 1 tablet by mouth once daily. 90 tablet 3 05/02/2024 Active Start: 03-16-2024 take 1 tablet by shantal th once daily metoprolol succinate ER (TOPROL XL) 25 mg 24 hr tablet Take 1 tablet by mouth once daily. 90 tablet 3 03/16/2024 Active Start: 03-07-2024 End: 03-07-2024 take 1 tablet by mouth once daily metoprolol succinate ER (TOPROL XL) 25 mg 24 hr tablet Take 1 tablet by mouth once daily. 90 tablet 3 03/07/2024 03/07/2024 Discontinued Completed/Discontinued Medications Medication Drug Class(es) Dates Sig (Normalized) Sig (Original) doxazosin 2 mg oral tablet (1 source) alpha-Adrenergic Duncan Start: 01-04-2024 End: 01-25-2024 doxazosin (CARDURA) 2 mg tablet Take 2 mg by mouth. 01/04/2024 01/25/2024 Discontinued perflutren lipid microspheres 1.1 mg/mL 1.3 mL injection (DEFINITY) (1 source) Start: 01-31-2024 End: 01-31-2024 1.3 mL, INTRAVENOUS, NEEDED, 1 dose, Starting on Tue01/31/24 at 0832, Until Tue01/31/24 at 0838, per Cardiology protocol, for use during Echo only., Dilute 1.3 mL Definity with 8.7 mL preservative-free saline. If no IV access, insert saline lock prior to administering contrast. Discontinue saline lock post exam. If patient has central line or IVAD, may access for exam, flush and deaccess once exam complete per line specific nursing protocol. Problems Active Problems Problem Classification Problem Date Documented Date Episodic/Chronic Adjustment disorders (14 sources) Adjustment disorder with mixed anxiety and depressed mood; Translations: [Adjustment disorder with mixed anxiety and depressed mood] Onset: 01-20-2024 01-20-2024 Chronic Cardiac dysrhythmias (15 sources) Multiple premature ventricular complexes; Translations: [Ventricular premature depolarization] Onset: 01-20-2024 01-21-2024 Chronic Cataract (14 sources) Cataract; Translations: [Unspecified cataract] Onset: 01-20-2024 01-20-2024 Chronic Conditions associated with dizziness or vertigo (1 source) Conditions associated with dizziness or vertigo Onset: 01-17-2024 Coronary atherosclerosis and other heart disease (20 sources) Coronary arteriosclerosis; Translations: [Atherosclerotic heart disease of [place] coronary artery with other forms of angina pectoris] Onset: 01-20-2024 01-25-2024 Chronic Esophageal disorders (14 sources) Gastroesophageal reflux disease without esophagitis; Translations: [Gastro-esophageal reflux disease without esophagitis] Onset: 01-20-2024 01-20-2024 Chronic Essential hypertension (12 sources) Essential hypertension; Translations: [Essential (primary) hypertension] Onset: 01-27-2024 01-27-2024 Chronic Osteoarthritis (14 sources) Osteoarthritis; Translations: [Unspecified osteoarthritis, unspecified site] Onset: 01-20-2024 01-20-2024 Chronic Other ear and sense organ disorders (14 sources) Hearing loss; Translations: [Unspecified hearing loss, unspecified ear] Onset: 01-20-2024 01-20-2024 Chronic Other liver diseases (14 sources) Chronic liver disease; Translations: [Liver disease, unspecified] Onset: 01-20-2024 01-20-2024 Chronic Other nutritional; endocrine; and metabolic disorders (7 sources) Obese class I; Translations: [Obesity, unspecified] Onset: 02-16-2024 02-16-2024 Chronic Residual codes; unclassified (15 sources) Obstructive sleep apnea syndrome; Translations: [Obstructive sleep apnea (adult) (pediatric)] Onset: 01-20-2024 01-20-2024 Chronic Retinal detachments; defects; vascular occlusion; and retinopathy (1 source) Retinal artery branch occlusion, unspecified eye; Translations: [Retinal artery branch occlusion, unspecified eye] Onset: 01-16-2025 Chronic Past or Other Problems Problem Classification Problem Date Documented Date Episodic/Chronic Cardiac dysrhythmias (20 sources) Palpitations; Translations: [Palpitations] Onset: 01-21-2024 01-21-2024 Episodic Conditions associated with dizziness or vertigo (20 sources) Orthostatic hypotension; Translations: [Dizziness and giddiness] Onset: 01-24-2024 01-24-2024 Episodic Neoplasms of unspecified nature or uncertain behavior (15 sources) Neoplasm of adrenal gland; Translations: [Neoplasm of unspecified behavior of endocrine glands and other parts of nervous system] Onset: 01-20-2024 01-20-2024 Episodic Other aftercare (14 sources) Patient encounter status; Translations: [Aftercare following joint replacement surgery] Onset: 04-23-2021 Resolved: 08-13-2021 08-13-2021 Chronic Other connective tissue disease (14 sources) Atrophy of muscle of left thigh; Translations: [Muscle wasting and atrophy, not elsewhere classified, left thigh] Onset: 04-23-2021 Resolved: 08-13-2021 08-13-2021 Episodic Other nervous system disorders (14 sources) Difficulty walking; Translations: [Difficulty in walking, not elsewhere classified] Onset: 04-23-2021 Resolved: 08-13-2021 08-13-2021 Chronic Other non-traumatic joint disorders (14 sources) Stiffness of left knee; Translations: [Stiffness of left knee, not elsewhere classified] Onset: 04-23-2021 Resolved: 08-13-2021 08-13-2021 Episodic Other screening for suspected conditions (not mental disorders or infectious disease) (14 sources) Thallium stress test abnormal; Translations: [Abnormal result of other cardiovascular function study] Onset: 01-24-2024 01-24-2024 Episodic Syncope (20 sources) Syncope; Translations: [Syncope and collapse] Onset: 01-20-2024 01-20-2024 Episodic Results Test Name Value Interpretation Reference Range Facility [facility] KENDRICK LOOMIS ([id number]) 1945 M Date Time Provider Department 07/24/24 LAVERNE ASH During your visit today, we recorded the following information about you: Gli Hill RN 07/24/2024 9:35 AM Signed Fax received from [facility] received, placed in folder to be scanned into chart Allergies As of Date: 07/24/2024 (No Known Allergies) Date Reviewed: 03/07/2024 Reviewed by: Laverne Ash MD - Fully Assessed Prescriptions as of 07/24/2024 - metoprolol succinate ER (TOPROL XL) 50 mg 24 hr tablet Take 1 tablet by mouth once daily. - famotidine (PEPCID) 20 mg tablet Take 1 tablet by mouth once daily. - atorvastatin (LIPITOR) 40 mg tablet Take 1 tablet by mouth once daily. - clopidogrel (PLAVIX) 75 mg tablet Take 1 tablet by mouth once daily. - lisinopril (ZESTRIL) 20 mg tablet Take 1 tablet by mouth once daily. - finasteride (PROSCAR) 5 mg tablet Take 5 mg by mouth once daily. - aspirin, enteric coated (ASPIRIN, ENTERIC COATED) 81 mg EC tablet Take 81 mg by mouth. - loratadine (CLARITIN) 10 mg tablet Take 10 mg by mouth. - ketoconazole (NIZORAL) 2 % cream Apply to affected area. - cholecalciferol (VITAMIN D3) 50 mcg (2,000 unit) tablet Take 50 mcg by mouth. 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] 01/20/2024 Cataract [H26.9] 01/20/2024 Gastroesophageal reflux disease without esophag*01/20/2024 KAKE (hard of hearing) [H91.90] 01/20/2024 OA (osteoarthritis) [M19.90] 01/20/2024 Chronic liver disease [K76.9] 01/20/2024 DONNA (obstructive sleep apnea) [G47.33] 01/20/2024 Coronary artery disease involving [place] heart *01/20/2024 Syncope [R55] 01/20/2024 Near syncope [R55] 01/20/2024 Palpitations [R00.2] 01/21/2024 PVC's (premature ventricular contractions) [I49*01/21/2024 Orthostatic lightheadedness [R42] 01/24/2024 Abnormal nuclear stress test [R94.39] 01/24/2024 Primary hypertension [I10] 01/27/2024 CAD in [place] artery [I25.10] 01/27/2024 Lightheadedness [R42] 02/16/2024 Obesity, Class I, BMI 30-34.9 [E66.811] 02/16/2024 Sinus bradycardia [R00.1] 02/17/2024 Encounter Status:Closed by GIL HILL on 07/24/24 [facility] Telephone (CARDST) ----- KENDRICK LOOMIS ([id number]) 1945 M Date Time Provider Department 05/02/24 LAVERNE ASH CARDSRafiq During your visit today, we recorded the following information about you: Jackie Banuelos RN 05/02/2024 3:22 PM Signed Received incoming transferred phone call from Clementina at [facility]. Clementina stated patient has been in Cardiac rehab program for about 3 weeks. Previously noted couplets and ectopy. Today patient has triplets and increased ectopy. Also patients resting HR has increased to 90s-low 100's BPM. HR while exercising 130 BPM. Patient asymptomatic per Clementina. Inquired Clementina to fax over any records /reports to office for Dr. Ash to review. Fax number provided. Aware will forward to Dr. Ash for review/advise. Waiting fax reports at this time Laverne sAh MD 05/02/2024 4:13 PM Signed I would like him to increase the dose of Toprol to 50 mg daily. He can take the 2 tablets of 25 mg that he has at present. This will help his heart rate and prevent PVCs and couplets as well as triplets. Laverne Ash MD 05/02/2024 4:14 PM Signed I have reviewed the records from [facility] about his cardiac rehabilitation and arrhythmia. I would like him to increase the dose of Toprol to 50 mg daily. He can take the 2 tablets of 25 mg that he has at present. This will help his heart rate and prevent PVCs and couplets as well as triplets. Gil Hill RN 05/02/2024 4:25 PM Signed Spoke with patient, verbalized understanding. Is requesting that his metoprolol to [place] pharmacy please. Patient has been identified by name and date of : Yes Last office visit in this department: 03/07/2024 RX INSTRUCTIONS: Patient aware RX will be sent to pharmacy. No need to notify patient. Patient phones requesting refills as follows: Requested Prescriptions Pending Prescriptions Disp Refills metoprolol succinate ER (TOPROL XL) 50 mg 24 hr tablet 90 tablet 3 Sig: Take 1 tablet by mouth once daily. Signed Prescriptions Disp Refills metoprolol succinate ER (TOPROL XL) 50 mg 24 hr tablet 90 tablet 3 Sig: Take 1 tablet by mouth once daily. Authorizing Provider: LAVERNE ASH Please review and advise. JUDE Hu Qarab Hasnain, MD 05/02/2024 4:27 PM Signed I signed the prescription for the [place] pharmacy for Toprol 50 mg. Jackie Banuelos RN 05/03/2024 8:27 AM Addendum Called [facility], spoke with Corey (educational programming director). Aware of Toprol increase and cardiology office previously informed patient as well. No further question or concerns. Jackie Banuelos RN 05/03/2024 9:11 AM Signed Received fax cardiac rehab reports sent to medical records Allergies As of Date: 05/02/2024 (No Known Allergies) Date Reviewed: 03/07/2024 Reviewed by: Laverne Ash MD - Fully Assessed Reason for Visit: Patient Update [1234] Cardiac Rehab [3551] Order(s):metoprolol succinate ER (TOPROL XL) 50 mg 24 hr tabletTake 1 tablet by mouth once daily.Disp: 90 tabletRfl: 3 Prescriptions as of 05/03/2024 - metoprolol succinate ER (TOPROL XL) 50 mg 24 hr tablet Take 1 tablet by mouth once daily. - famotidine (PEPCID) 20 mg tablet Take 1 tablet by mouth once daily. - atorvastatin (LIPITOR) 40 mg tablet Take 1 tablet by mouth once daily. - clopidogrel (PLAVIX) 75 mg tablet Take 1 tablet by mouth once daily. - lisinopril (ZESTRIL) 20 mg tablet Take 1 tablet by mouth once daily. - finasteride (PROSCAR) 5 mg tablet Take 5 mg by mouth once daily. - aspirin, enteric coated (ASPIRIN, ENTERIC COATED) 81 mg EC tablet Take 81 mg by mouth. - loratadine (CLARITIN) 10 mg tablet Take 10 mg by mouth. - ketoconazole (NIZORAL) 2 % cream Apply to affected area. - cholecalciferol (VITAMIN D3) 50 mcg (2,000 unit) tablet Take 50 mcg by mouth. 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] 01/20/2024 Cataract [H26.9] 01/20/2024 Gastroesophageal reflux disease without esophag*01/20/2024 KAKE (hard of hearing) [H91.90] 01/20/2024 OA (osteoarthritis) [M19.90] 01/20/2024 Chronic liver disease [K76.9] 01/20/2024 DONNA (obstructive sleep apnea) [G47.33] 01/20/2024 Coronary artery disease involving [place] heart *01/20/2024 Syncope [R55] 01/20/2024 Near syncope [R55] 01/20/2024 Palpitations [R00.2] 01/21/2024 PVC's (premature ventricular contractions) [I49*01/21/2024 Orthostatic lightheadedness [R42] 01/24/2024 Abnormal nuclear stress test [R94.39] 01/24/2024 Primary hypertens (more content not included)... Normal [facility] CR - History AND Physicalon 03-26-2024 CR - History & Physical [facility] Re[facility] [address] [place] [address] CR - History Physical MR#: [id number] Acct: [id number] Name: KENDRICK LOOMIS Rep #: [id number] : 1945 78 From: Corey DOUGLAS, RVT PCP: Dr. Sigifredo Trimble MD DOS: 03/26/24 CR - History Physical General Arrival date:: 03/26/24 Arrival time:: 14:13 Date of Referral:: 02/23/24 Date of CR Evaluation:: 03/26/24 Referring Physician: CLINTON Primary Diagnosis: CAD s/p successful PCI of LAD and RCA History of Present Cardiac Event Onset Date PTCA or coronary stenting:: Yes (01/27/2024 onset) Vessel: LAD, RCA Sleep Disorder Evaluation Hx of Sleep Apnea: Yes Do you snore loudly (louder than talking or can be heard through closed doors)?: No Do you often feel tired/ fatigued/ sleepy during daytime?: No Has anyone observed you stop breathing during sleep?: No History of Hypertension (for STOP score): Yes STOP Results: Negative Advanced Directives Advanced Directives Power of Pantry Steward/Stewardess: No Living Will: No Advance Directives Information Provided: No Advance Directives on File: No DNR Order?:: No Past Medical History Covid-19 Screening Physicial Symptoms Other Clinical Concerns Exposure Risk Pertinent Comorbidities 65 years or older:: Yes Has a serious heart condition:: Yes Has liver disease:: Yes Social History Smoking History Smoking Status: Former smoker Years Smokin Packs Smoked per Day: 2 (stopped in 1988) Alcohol Use Alcohol Usage: No Substance Abuse Hx Substance Use: No Occupation Occupation (List type of work in comments):: Retired Hobbies, Recreation, Social Activities Hobbies: Other (hunting and fishing) Recreational Activities: I am able to engage in all my recreational activities Social Environment Status Marital Status: Current Living Arrangements Living Environment:: Alone Safety Do you feel safe in your surroundings?: Yes Assistance Do you need any assistance at home?: no Review of Systems Review of Systems Hints Review of Present Symptoms: Reports Fatigue, Heart Arrhythmia/Irregularities , Appetite - Normal, Appetite - Special Diet and Sleep - Normal; Denies Shortness of Breath at Rest, Shortness of Breath with Exertion, PVD, Operative Discomfort, Angina, Wound Healing, Dizziness/Lightheadedness or Sexual Changes Pain Is Patient Pain Free?: Yes Pain Location: neck, upper extremity and lower extremity Pain Level: 10/30 Risk Factor Assessment Chief Complaint Chief Complaint: CAD s/p successful PCI of LAD and RCA Vital Signs Pulse Ox: 96 Blood Pressure: 100/60 Pulse Pulse Rate: 90 Pulse Rhythm: Regular Hypertension How long have you been treated?: 20 years Blood Pressure Sitting - Left Arm: 100/60 Obesity Height: 6 ft 3 in Weight:: 240 lb Weight in Pounds: 240.0 lbs Body Mass Index (BMI): 29.9 Nutritional Referral for Obesity: No Physical Inactivity Physical Inactivity: Reg Exercise 30 min/day Risk Stratification Risk Guidelines: Lowest Risk: Risk Factor for Smoking, Moderate Risk: Risk Factor for Dyslipidemia, Risk Factor for Diabetes, Risk Factor for Obesity and Risk Factor for Sedentary Lifestyle and Highest Risk: Risk Factor for Hypertension and Risk Factor for Depression For Smoking Smoking Risk Guidelines For Dyslipidemia Dyslipidemia Risk Guidelines For Diabetes Mellitus Diabetes Risk Guidelines For Obesity/Overweight Obesity/Overweight Risk Guidelines For Hypertension Hypertension Risk Guidelines For Sedentary Lifestyle Sedentary Lifestyle Risk Guidelines For Depression Depression Risk Guidelines Motivation Motivation to Participate On a scale of 1 to 10, how prepared are you to commit to attending program?: 10 What do you see as barriers to successfully being able to complete the program?: nothing What do you see as the benefits of succesfully completing the program? In other words, what do you hope to get out of participating in the program?: more energy Are there issues you are dealing with that will interfere with completing the program?: no Do you have a spouse or signficant other, family or friends who will help support you to complete the program?: yes 03/26/24 151 Date Corey DOUGLAS, RVT Outcome assessment reviewed. Exercise plan approved as documented. Treatment plan and goals support patient needs/abilities. Continue with current plan. I certify the patient demonstrates improvement and remains willing and capable of participation. the patient continues to benefit from cardiac rehab services/training. The patient may continue at current intensity, endurance and modality and progress per protocol. 03/26/24 [id number] Cosigner Signature: Date Sabas Villafana MD CC: Signed [facility] 03-16-2024 [facility] Telephone (CARDST) ----- KENDRICK LOOMIS ([id number]) 1945 M Date Time Provider Department 03/16/24 LAVERNE ASH During your visit today, we recorded the following information about you: Troy Piedra 03/16/2024 12:09 PM Signed Patient called and asked if Dr Ash has reviewed the results of the Holter monitor. Please advise Jackie Banuelos RN 03/16/2024 1:11 PM Signed Forward to Dr. Ash Please advise on Zio results. 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 Predominant underlying rhythm was Sinus Rhythm. First Degree AV Block was present. Bundle Branch Block/IVCD was present. 3 Ventricular Tachycardia runs occurred, the run with the fastest interval lasting 4 beats with a max rate of 146 bpm, the longest lasting 7 beats with an avg rate of 107 bpm. 24 Supraventricular Tachycardia runs occurred, the run with the fastest interval lasting 6 beats with a max rate of 203 bpm, the longest lasting 27.9 secs with an avg rate of 96 bpm. Some episodes of Supraventricular Tachycardia may be possible Atrial Tachycardia with variable block. Isolated SVEs were rare (<1.0%), SVE Couplets were rare (<1.0%), and SVE Triplets were rare (<1.0%). Isolated VEs were occasional (1.7%, [id number]), VE Couplets were rare (<1.0%, 397), and VE Triplets were rare (< 1.0%, 30). Ventricular Bigeminy and Trigeminy were present. Laverne Ash MD 03/16/2024 8:57 PM Signed I reviewed his event monitor. He has few extra beats and will benefit from Toprol 25 mg daily that I have ordered today Gil Hill, JUDE 03/19/2024 9:19 AM Signed Spoke with patient, verbalized understanding. Patient is inquiring om if it is ok for him to start cardiac rehab now? (He stated he was waiting for the monitor results to come back prior to starting) ANTONIO: 03/07/2024- Blue CAD status post 3 stents to the right and left coronary arteries. - Zio patch until 03/09 - continue with DAPT (Plavix and Aspirin 81 mg daily). - continue with blood pressure maintenance, uptitrating lisinopril as necessary - recommend cardiac rehabilitation s/p URMILA placement at [place] that will be started next week Forward to Dr. Ash. Please advise. Mahesh Ruiz 03/20/2024 9:04 AM Signed Patient calling about restarting Cardiac Rehab and if Dr. Ash cleared him yet. He said they keep calling him wanting to schedule him in an open slot that they have and can't hold it much longer. Please advise patient when we have an answer from Dr. Ash. He's asking to be called at [phone]. Thank you, Gil Ann, JUDE 03/20/2024 1:46 PM Signed Laverne Ash MD Yes, patient can start cardiac rehabilitation now. Attempt to call x1, LDVM. PSS, upon return call, OK to relay message Allergies As of Date: 03/16/2024 (No Known Allergies) Date Reviewed: 03/07/2024 Reviewed by: Laverne Ash MD - Fully Assessed Reason for Visit: Results [95] Order(s):metoprolol succinate ER (TOPROL XL) 25 mg 24 hr tabletTake 1 tablet by mouth once daily.Disp: 90 tabletRfl: 3 Prescriptions as of 03/20/2024 - metoprolol succinate ER (TOPROL XL) 25 mg 24 hr tablet Take 1 tablet by mouth once daily. - famotidine (PEPCID) 20 mg tablet Take 1 tablet by mouth once daily. - atorvastatin (LIPITOR) 40 mg tablet Take 1 tablet by mouth once daily. - clopidogrel (PLAVIX) 75 mg tablet Take 1 tablet by mouth once daily. - lisinopril (ZESTRIL) 20 mg tablet Take 1 tablet by mouth once daily. - finasteride (PROSCAR) 5 mg tablet Take 5 mg by mouth once daily. - aspirin, enteric coated (ASPIRIN, ENTERIC COATED) 81 mg EC tablet Take 81 mg by mouth. - loratadine (CLARITIN) 10 mg tablet Take 10 mg by mouth. - ketoconazole (NIZORAL) 2 % cream Apply to affected area. - cholecalciferol (VITAMIN D3) 50 mcg (2,000 unit) tablet Take 50 mcg by mouth. 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 Normal [facility] CNOVon 03-07-2024 CNOV Office Visit (CARDST ) ----- KENDRICK LOOMIS ([id number]) 1945 M Date Time Provider Department 03/07/24 1:00 PM LAVERNE ASH During your visit today, we recorded the following information about you: Pulse Blood pressure 76/minute 148/76 Laverne Ash MD 05/04/2024 4:58 PM Addendum [facility] Department of Cardiovascular Medicine SECTION OF REGIONAL CARDIOLOGY [facility] March 07, 2024 OUTPATIENT VISIT TYPE Follow Up Follow up after recent hospitalization (02/16/2024 - 02/17/2024) for lightheadedness. Patient records from [facility] reviewed. HISTORY OF PRESENT ILLNESS: Mr. Loomis is a 78 year old male with past medical hx of DONNA on Bipap, obesity, HTN CAD, recent hospital stay for palpitations/presyncope with finding of + stress test at [place], transferred to [facility] where he underwent cardiac catheterization and URMILA placement in distal RCA and proximal LAD (01/27/2024). He was hospitalized recently at [facility] for lightheadedness. He presented with lightheadedness while driving. Patient stated he was driving when he suddenly felt lightheaded and dizzy for a few minutes but then resolved. States he had a fluttering sensation in his chest at the time, but no chest tightness or pain. After the episode he felt unwell and his legs felt weak. Denied any chest pain/SOB/palpitations/new leg edema. Reported that he had been feeling well after the stent placement and this was the first time he had an episode of dizziness since placement of the stents. Patient here today for cardiology follow up. Currently wearing Zio Patch and will wear until 03/09. He has an adrenal mass which is being followed by the [facility]. Patient has no symptoms of chest pain. Patient has mild exertional shortness of breath. Dizziness - No Palpitations - Intermittent Leg swelling - No Fatigue - No Snoring - Yes Sleep apnea - Yes Reports he is taking DAPT. Reports good compliance with his BIPAP at night. Drinks one cup of coffee/tea per day. He does not drink soda but drinks green tea intermittently. Patient does not smoke tobacco products. Patient denies alcohol use. Patient denies recreational drug use / abuse. Social History Tobacco Use Smoking status: Former Types: Cigarettes Smokeless tobacco: Never Vaping Use Vaping status: Never Used Substance Use Topics Alcohol use: Not Currently Drug use: Never No family history on file. PAST MEDICAL HISTORY Diagnosis Date Aftercare following left knee joint replacement surgery 04/23/2021 Arthritis Coronary artery disease Hypertension Sleep apnea PAST SURGICAL HISTORY Procedure Laterality Date CARDIAC CATHETERIZATION HX ORTHOPEDICS SURGERY HX REVIEW OF SYSTEMS: SYSTEMIC: No fever, chills, or change in weight or appetite HEENT: No recent change in vision or hearing. Respiratory: No hemoptysis, cough. CARDIOVASCULAR: See HPI. GI: No recent nausea, vomiting or diarrhea. : No recent hematuria or dysuria. SKIN: No recent itching or eruption. PSYCH: No recent active anxiety or depression. HEMATOLOGY/ONCOLOGY: No recent diagnosis of bleeding or cancer. ENDOCRINE: No recent polyuria or heat intolerance. NEURO: No recent TIA, stroke or seizures. MSK / RHEUMATOLOGY: No recent active connective tissue disease. Rest of the review of system is unremarkable. ALLERGIES No Known Allergies CURRENT MEDICATIONS: famotidine (PEPCID) 20 mg tablet Take 1 tablet by mouth once daily. atorvastatin (LIPITOR) 40 mg tablet Take 1 tablet by mouth once daily. clopidogrel (PLAVIX) 75 mg tablet Take 1 tablet by mouth once daily. lisinopril (ZESTRIL) 20 mg tablet Take 1 tablet by mouth once daily. finasteride (PROSCAR) 5 mg tablet Take 5 mg by mouth once daily. aspirin, enteric coated (ASPIRIN, ENTERIC COATED) 81 mg EC tablet Take 81 mg by mouth. loratadine (CLARITIN) 10 mg tablet Take 10 mg by mouth. cholecalciferol (VITAMIN D3) 50 mcg (2,000 unit) tablet Take 50 mcg by mouth. ketoconazole (NIZORAL) 2 % cream Apply to affected area. PHYSICAL EXAM: BP 148/76 Pulse 76 There is no height or weight on file to calculate BMI. After resting for 10 minutes repeat blood pressure taken in the left brachial artery was 138/72 mmHg Last 2 Encounter Wt Readings: Date: Wt: 02/16/2024 110.2 kg (242 lb 15.2 oz) 02/16/2024 109.3 kg (241 lb) Awake, alert, oriented times 3. Patient is not in acute respiratory distress. SKIN: No petechial rash or ecchymosis noted. Head : Normocephalic. Face is symmetrical NECK: Supple. No JVD. No carotid bruit. No thyromegaly. ENT: Pharyngeal structures are crowded and uvula is well visualized. Mallampati 4 LUNGS: Clear to auscultation bilaterally. CARDIAC: Normal S1 and S2, no systolic murmur. ABDOMEN: Soft, nontender, bowel (more content not included)... Normal [facility] 02-20-2024 CNPN Telephone (CARDST) ----- KENDRICK LOOMIS ([id number]) 1945 M Date Time Provider Department 02/20/24 LAVERNE ASH During your visit today, we recorded the following information about you: Troy Piedra 02/20/2024 10:14 AM Signed Patient called and asked if its okay for him to do PT. Please advise Skye Sanders, RN 02/20/2024 11:41 AM Signed Attempt made to reach patient - call unable to be placed (number out of service per recorded message). Contact made with Arlette (patient's sister) who states she will relay message to patient regarding contacting his PCP for advice regarding PT participation. If calls back please warm call / call cardiology department to see if nurse available phone transfer Rehana Lemus 02/20/2024 1:19 PM Signed PT returned call. I spoke with Nila who told me I could relay the message below. Message relayed and PT expressed understanding. Pt will reach out to PCP to advise when to begin physical therapy. Thank you Allergies As of Date: 02/20/2024 (No Known Allergies) Date Reviewed: 02/17/2024 Reviewed by: Louise Cerrato RN - Fully Assessed Reason for Visit: Patient Question [1057] Prescriptions as of 02/20/2024 - famotidine (PEPCID) 20 mg tablet Take 1 tablet by mouth once daily. - atorvastatin (LIPITOR) 40 mg tablet Take 1 tablet by mouth once daily. - clopidogrel (PLAVIX) 75 mg tablet Take 1 tablet by mouth once daily. - lisinopril (ZESTRIL) 20 mg tablet Take 1 tablet by mouth once daily. - finasteride (PROSCAR) 5 mg tablet Take 5 mg by mouth once daily. - aspirin, enteric coated (ASPIRIN, ENTERIC COATED) 81 mg EC tablet Take 81 mg by mouth. - loratadine (CLARITIN) 10 mg tablet Take 10 mg by mouth. - ketoconazole (NIZORAL) 2 % cream Apply to affected area. - cholecalciferol (VITAMIN D3) 50 mcg (2,000 unit) tablet Take 50 mcg by mouth. 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] 01/20/2024 Cataract [H26.9] 01/20/2024 Gastroesophageal reflux disease without esophag*01/20/2024 KAKE (hard of hearing) [H91.90] 01/20/2024 OA (osteoarthritis) [M19.90] 01/20/2024 Chronic liver disease [K76.9] 01/20/2024 DONNA (obstructive sleep apnea) [G47.33] 01/20/2024 Coronary artery disease involving [place] heart *01/20/2024 Syncope [R55] 01/20/2024 Near syncope [R55] 01/20/2024 Palpitations [R00.2] 01/21/2024 PVC's (premature ventricular contractions) [I49*01/21/2024 Orthostatic lightheadedness [R42] 01/24/2024 Abnormal nuclear stress test [R94.39] 01/24/2024 Primary hypertension [I10] 01/27/2024 CAD in [place] artery [I25.10] 01/27/2024 Lightheadedness [R42] 02/16/2024 Obesity, Class I, BMI 30-34.9 [E66.9] 02/16/2024 Sinus bradycardia [R00.1] 02/17/2024 Encounter Status:Closed by SKYE SANDERS on 02/20/24 Normal [facility] ALLIED HEALTHon 02-17-2024 ALLIED HEALTH HNO ID: [id number] Author: EDITH BROWN Tech Service: Radiology Author Type: Grooving Machine Operator Type: Allied Health Filed: 02/17/2024 14:39 Note Text: Radiology Service Progress Note PATIENT NAME: Kendrick Loomis DATE OF SERVICE: February 17, 2024 TIME: 2:39 PM PATIENT IDENTITY VERIFICATION COMPLETED USING TWO (2) IDENTIFIERS: Name and Date of confirmed by patient verbally and Name and Date of confirmed by identification band. FALL SCREENING: Has the patient had 2 falls in the last year or 1 fall with injury or currently using an Ambulatory Assistive Device (Walker, Cane, Wheelchair, Crutches, etc.)? Inpatient: Screened on floor PATIENT GENDER DATA: Male PATIENT RELEVANT IMPLANT DATA REVIEWED: Not Applicable PATIENT PRESENTS WITH AN IMPLANTABLE OR ATTACHED IMPREGNATOR AND DRIER: N/A RADIOLOGY DEPARTMENT: Ultrasound PERIPHERAL IV DATA: Not applicable SIGNED BY: Kelly Barrientos February 17, 2024 2:39 PM [facility] Basic metabolic 2000 panelon 02-17-2024 Anion gap [Moles/Vol] 8 mmol/L Normal 8-15 [facility] Comment on above: Order Comment: Speci men Type: BLOOD SPECIMEN Ordering Facility: [facility] Address: [address] [place] [address] Performed By: #### 2 777-1, 46624-6 #### [facility] CLIA [id number] [address] [place] [address] [place] Calcium [Mass/Vol] 9.2 mg/dL Normal 8.5-10.2 [facility] Comment on above: Order Comment: Speci men Type: BLOOD SPECIMEN Ordering Facility: [facility] Address: [address] [place] [address] Performed By: #### 2 777-1, 67166-9 #### [facility] CLIA [id number] [address] [place] [address] [place] Chloride [Moles/Vol] 103 mmol/L Normal 98-107 [facility] Comment on above: Order Comment: Speci men Type: BLOOD SPECIMEN Ordering Facility: [facility] Address: [address] [place] [address] Performed By: #### 2 777-1, 81607-3 #### [facility] CLIA [id number] [address] [place] [address] [place] CO2 [Moles/Vol] 26 mmol/L Normal 22-30 [facility] Comment on above: Order Comment: Speci men Type: BLOOD SPECIMEN Ordering Facility: [facility] Address: [address] [place] [address] Performed By: #### 2 777-1, 71978-8 #### [facility] CLIA [id number] [address] [place] [address] [place] Creatinine [Mass/Vol] 1.20 mg/dL Normal 0.73-1.22 [facility] Comment on above: Order Comment: Speci men Type: BLOOD SPECIMEN Ordering Facility: [facility] Address: [address] [place] [address] Performed By: #### 2 777-1, 79747-5 #### [facility] CLIA [id number] [address] Creatinine and Glomerular filtration rate.predicted panel (S/P/Bld) 63 mL/min/1.73m??? Normal >=60 [facility] Comment on above: Order Comment: Speci men Type: BLOOD SPECIMEN Ordering Facility: [facility] Address: [address] [place] [address] Result Comment: Hilda mated Glomerular Filtration Rate (eGFR) is calculated using the 2020 CKD-EPI creatinine equation. This equation utilizes serum creatinine, sex, and age as parameters. The creatinine assay has traceable calibration to isotope dilution-mass spectrometry. Refer to KDIGO guidelines for clinical interpretation. In patients with unstable renal function, e.g. those with acute kidney injury, the eGFR may not accurately reflect actual GFR. Performed By: #### 2 777-1, 23628-8 #### [facility] CLIA [id number] [address] [place] [address] [place] Glucose [Mass/Vol] 101 mg/dL High 74-99 [facility] Comment on above: Order Comment: Thom nagel Type: BLOOD SPECIMEN Ordering Facility: [facility] Address: [address] [place] [address] Result Comment: The [place] Diabetes [employer] (ADA) provides guidance for cutoff values for fasting glucose and random glucose. The ADA defines fasting as no caloric intake for at least 8 hours. Fasting plasma glucose results between 100 to 125 mg/dL indicate increased risk for diabetes (prediabetes). Fasting plasma glucose results greater than or equal to 126 mg/dL meet the criteria for diagnosis of diabetes. In the absence of unequivocal hyperglycemia, results should be confirmed by repeat testing. In a patient with classic symptoms of hyperglycemia or hyperglycemic crisis, random plasma glucose results greater than or equal to 200 mg/dL meet the criteria for diagnosis of diabetes. Reference: Standards of Medical Care in Diabetes 2016, [place] [employer] Association. Diabetes Care. 2016.39(Suppl 1). Performed By: #### 2 777-1, 98609-1 #### [facility] CLIA [id number] [address] [place] Potassium [Moles/Vol] 4.6 mmol/L Normal 3.7-5.1 [facility] Comment on above: Order Comment: Thom nagel Type: BLOOD SPECIMEN Ordering Facility: [facility] Address: [address] [place] [id number] Performed By: #### 2 777-1, 22930-6 #### [facility] CLIA [id number] [address] [place] [address] [place] Sodium [Moles/Vol] 137 mmol/L Normal 136-144 [facility] Comment on above: Order Comment: Thom nagel Type: BLOOD SPECIMEN Ordering Facility: [facility] Address: [address] [place], [place] [id number] Performed By: #### 2 777-1, 04865-5 #### [facility] CLIA [id number] [address] [place] [address] [place] [facility] Urea nitrogen [Mass/Vol] 15 mg/dL Normal 9-24 [facility] Comment on above: Order Comment: Speci men Type: BLOOD SPECIMEN Ordering Facility: [facility] Address: [facility] [place] [id number] Performed By: #### 2 777-1, 13974-6 #### [facility] CLIA [id number] [address] [place] [id number] [facility] [place] CASE MGT INIT ASSESon 2023 CASE MGT INIT ASSES HNO ID: [id number] Author: CHIN DUENAS RN Service: ? Author Type: Registered Nurse Type: Care Mgt Initial Assessment Filed: 02/17/2024 11:33 Note Text: CARE MANAGEMENT: ASSESSMENT AND DISCHARGE PLAN SERVICE DATE: February 17, 2024 SERVICE TIME: 11:28 AM PCP: Sigifredo Trimble MD Primary Contact: Extended Emergency Contact Information Primary Emergency Contact: Arlette Smith Mobile Relation: Sister Secondary Emergency Contact: Magdy Hooker Mobile Relation: Relative Admission Status: Observation Insurance Provider: [employer] A[employer] MEDICARE PPO Discharge Planning requested by: Per Department Practice Potential Transition Plans Home Advance Directives Current Advance Directive: Health Care Power of Pantry Steward/Stewardess;Living Will In Chart: No Current Living Arrangements and Support Lives with: Alone Type of Residence: Private Residence (House) Does the patient have to climb stairs at home?: Yes;stairs within the home Support: Family members, Friends/neighbors How do you manage to accomplish the following: Independent: Ambulation;Transportation to appointments/community;Ba the/Shower;Dress;Meals/Me al Prep;Going to the bathroom;Medication Management Current Services/Equipment Current Post-Acute Service(s): DME Current DME Type: Bi-level Positive Airway Pressure Current Post-Acute Service(s) Provider: BIPAP - provider unknown Discharge Planning Patient Goal(s): Be able to go home, General wellness [place] of Choice Explained: [place] of Choice Given: No Reason Not Given: No placements necessary Are you interested in bedside delivery of your medications? No Discharge Planning Participant(s): Patient Patient/Family Comments: Caregiver Assessment: Caregiver is ready, willing and able to meet the patient's needs as recommended by the inter-professional team: No Transport at Discharge: Transportation Arrangements: Car Needs Prior to Discharge: Needs Prior to Discharge: To Be Determined Post-Acute Discharge Plan: EMR reviewed. Patient is 78 years old admitted for lightheadedness. Cardiology consult. CM me with patient to complete assessment. Patient is from home alone and IPTA. Patient with strong family support. Patient with recent cardiac stent placement this month. Patient in the process of establishing outpatient cardiac rehab. Patient uses BIPAP at (provider unknown). Anticipate basic needs upon discharge. Patient will have DC transport. CM will follow. SIGNATURE: Chin Duenas RN PATIENT NAME: Kendrick Loomis DATE: February 17, 2024 TIME: 11:28 AM CONTACT #: [phone] Normal [facility] CBC panel Auto (Bld)on 02-16 Erythrocyte distribution width (RBC) [Ratio] 12.5 % Normal 11.5-15.0 [facility] Comment on above: Order Comment: Thom nagel Type: BLOOD SPECIMEN Ordering Facility: [facility] Address: [address] [place] [address] Performed By: #### 2 777-1, 14400-5 #### [facility] CLIA [id number] [address] STATES OF [facility] Hematocrit (Bld) [Volume fraction] 42.9 % Normal 39.0-51.0 [facility] Comment on above: Order Comment: Thom nagel Type: BLOOD SPECIMEN Ordering Facility: [facility] Address: [address] [place] [address] Performed By: #### 2 777-1, 47964-1 #### [facility] CLIA [id number] [address] [place] Hemoglobin (Bld) [Mass/Vol] 14.4 g/dL Normal 13.0-17.0 [facility] Comment on above: Order Comment: Thom nagel Type: BLOOD SPECIMEN Ordering Facility: [facility] Address: [address] [place] [address] Performed By: #### 2 777-1, 45264-7 #### [facility] CLIA [id number] [address] MCH (RBC) [Entitic mass] 31.9 pg Normal 26.0-34.0 [facility] Comment on above: Order Comment: Speci men Type: BLOOD SPECIMEN Ordering Facility: [facility] Address: [address] [place] [address] Performed By: #### 2 777-1, 35471-1 #### [facility] CLIA [id number] [address] MCHC (RBC) [Mass/Vol] 33.6 g/dL Normal 30.5-36.0 [facility] Comment on above: Order Comment: Speci men Type: BLOOD SPECIMEN Ordering Facility: [facility] Address: [address] [place] [address] Performed By: #### 2 777-1, 23294-8 #### [facility] CLIA [id number] [address] MCV (RBC) [Entitic vol] 94.9 fL Normal 80.0-100.0 [facility] Comment on above: Order Comment: Speci men Type: BLOOD SPECIMEN Ordering Facility: [facility] Address: [address] [place] [address] Performed By: #### 2 777-1, 55805-8 #### [facility] CLIA [id number] [address] Nucleated RBC (Bld) [#/Vol] 10*3/uL Normal <0.01 [facility] Comment on above: Order Comment: Speci men Type: BLOOD SPECIMEN Ordering Facility: [facility] Address: [address] [place] [address] Performed By: #### 2 777-1, 67129-6 #### [facility] CLIA [id number] [address] Platelet mean volume (Bld) [Entitic vol] 10.8 fL Normal 9.0-12.7 [facility] Comment on above: Order Comment: Speci men Type: BLOOD SPECIMEN Ordering Facility: [facility] Address: [address] [place] [address] Performed By: #### 2 777-1, 68403-7 #### [facility] CLIA [id number] [address] [place] Platelets (Bld) [#/Vol] 192 10*3/uL Normal 150-400 [facility] Comment on above: Order Comment: Speci men Type: BLOOD SPECIMEN Ordering Facility: [facility] Address: [address] [place] [address] Performed By: #### 2 777-1, 64098-4 #### [facility] CLIA [id number] [address] [place] RBC (Bld) [#/Vol] 4.52 10*6/uL Normal 4.20-6.[address] [facility] Comment on above: Order Comment: Speci men Type: BLOOD SPECIMEN Ordering Facility: [facility] Address: [address] [place] [address] Performed By: #### 2 777-1, 83946-5 #### [facility] CLIA [id number] [address] [place] WBC (Bld) [#/Vol] 7.92 10*3/uL Normal 3.70-11.[address] [facility] Comment on above: Order Comment: Speci men Type: BLOOD SPECIMEN Ordering Facility: [facility] Address: [address] [place] [address] Performed By: #### 2 777-1, 91561-4 #### [facility] CLIA [id number] [address] [place] CNCOon 02-17-2024 CNCO Letter Text Normal [facility] CNDSon 02-17-2024 CNDS HNO ID: [id number] Author: EDGAR BLOOM JR, MD Service: Hospital Medicine Author Type: Physician Type: Discharge Summary Filed: 02/17/2024 18:03 Note Text: DISCHARGE SUMMARY PATIENT NAME: Kendrick Loomis Code Status: Full Code Highest Readmission Risk Score: 11 The 30 day readmissions risk score is derived from an internally validated risk model which evaluates patient level characteristics, utilization history, medication orders and lab results up until the day of discharge. Patients with a score of 40 or above are considered highest risk for readmission. Specific patient level drivers will be listed at the bottom of the summary. Admission Information Admission Information ADMIT DATE: 02/16/2024 DISCHARGE DATE: 02/17/2024 [facility] TE[facility]: [facility] Doctor: Edgar Bloom Primary Care Provider: Sigifredo Trimble MD My Medical Team Members: Treatment Team: Attending Provider: Edgar Bloom MD Primary Service: , [facility] Consulting: Arline Fair, MY CONDITION AT DISCHARGE: Stable REASON I WAS IN THE HOSPITAL: Lightheadedness SUMMARY OF WHAT HAPPENED WHILE I WAS IN THE HOSPITAL: You were admitted to the hospital on 02/16/24 after an episode of lightheadedness while you were driving. You felt like you might pass out. An abnormal heart rhythm was suspected. You were placed on a heart monitor which showed a slow heart rate in the 50s, but not too slow. Cardiology was consulted. An Ultrasound of your Carotid arteries did not show any significant blockages that could cause lightheadedness. An outpatient heart monitor (Zio Patch) for 2 weeks was recommended. Your blood pressure remained stable with position changes (laying to sitting to standing). You were discharged to home on 02/17/24. 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 Follow-up with Cardiology as scheduled on 03/07/24. Follow-up with your PCP in 1-2 weeks. Follow-up sooner for any recurrent episodes. You should not drive until your heart evaluation is complete. OTHER PROBLEMS/DIAGNOSIS: Principal Problem: Lightheadedness Active Problems: Sinus bradycardia CAD in [place] artery DONNA (obstructive sleep apnea) Adjustment disorder with mixed anxiety and depressed mood Adrenal gland neoplasm Gastroesophageal reflux disease without esophagitis Primary hypertension Obesity, Class I, BMI 30-34.9 Resolved Problems: * No resolved hospital problems. * OPERATIONS PERFORMED WHILE IN THE HOSPITAL: None IMPORTANT TEST/PROCEDURES: No procedures performed TEST RESULTS NOT AVAILABLE AT THIS TIME: No pending results Discharge Disposition Discharge Disposition: Home With Self Care Activity When You Leave the Hospital No driving for: Until heart evaluation is complete Resume pre-hospital activity Diet Instructions Low Cholesterol Low Salt Follow Up Appointments Follow-Up Appointment 1-2 weeks (appointment requested) When: In: Sigifredo Trimble MD [phone] [facility] [address] PCP Requested Referral Follow-Up Appointment As scheduled on 03/07/24 When: In: Laverne Ash MD [phone] [id number] [facility] [address] PCP Requested Referral Additional Provider to Provider Information: This is a 78 yo M, with a PMH of CAD (s/p URMILA to distal RCA and proximal LAD 01/27/24), HTN, Hyperlipidemia, DONNA on CPAP, PVCs, GERD, Fatty Liver Disease, Adrenal Neoplasm and BPH, who presented to the [facility] ED on 02/16/24 after an episode of lightheadedness while driving. He reported that while he was driving, he started to feel lightheaded and felt like he might pass out. This was associated with a fluttering feeling in his chest. He pulled over and went to [facility]. He continued to feel off for a while but was back to his baseline in the ED. He denied any fevers, chills or chest pain. He had had episodes of lightheadedness in the past. In the ED, BP 130/90 and HR 87. Na 133, K 4.0, Cr 1.2, Mg 1.8, WBC 8.0, Hgb 14.8. HS Troponins 25 - 23 - 23. EKG showed NSR, HR 72 and a RBBB. D-dimer 650. CXR showed NAD. CT Brain showed NAD, chronic ischemic changes and volume loss. CTA Chest showed no PE, simple cyst upper pole right kidney, a 19 mm left adrenal nodule and indeterminate peripheral lesion in the spleen measuring 17 mm (recommend CT Adrenal wo/w IV contrast mass evaluation if not evaluated in the past). He was transferred to [facility] for observation. cardiac monitor technician showed sinus bradycardia in the 50s, down to the 40s when sleeping. He had no tachyarrhythmias. He denied any recurrent symptoms. Cardiology was consulted and recommended Carotid Dopplers and an outpatient Zio Patch for 2 weeks. US of Carotid Arteries showed a 30-49% R ICA narrowing, no hemodynamically significant lesion seen in the left carotid arteries and modera (more content not included)... Normal [facility] 02-17-2024 [facility] Telephone (CARDST) ----- KENDRICK LOOMIS ([id number]) 1945 M Date Time Provider Department 02/17/24 LAVERNE ASH During your visit today, we recorded the following information about you: Junior Deluca MA 02/17/2024 11:25 AM Signed ----- Message from Laverne Ash MD sent at 02/17/2024 11:17 AM EDT ----- This patient needs a follow-up appointment after his hospital admission. I can see him on 07 March in the afternoon appointments. Junior Deluca MA 02/17/2024 11:26 AM Signed Left Message for Patient [place] would like to see you Mar 07@1pm already scheduled just need to make sure this works for patient Allergies As of Date: 02/17/2024 (No Known Allergies) Date Reviewed: 02/17/2024 Reviewed by: Louise Cerrato, JUDE - Fully Assessed Prescriptions as of 02/17/2024 - atorvastatin (LIPITOR) 40 mg tablet Take 1 tablet by mouth once daily. - clopidogrel (PLAVIX) 75 mg tablet Take 1 tablet by mouth once daily. - lisinopril (ZESTRIL) 20 mg tablet Take 1 tablet by mouth once daily. - finasteride (PROSCAR) 5 mg tablet Take 5 mg by mouth once daily. - aspirin, enteric coated (ASPIRIN, ENTERIC COATED) 81 mg EC tablet Take 81 mg by mouth. - loratadine (CLARITIN) 10 mg tablet Take 10 mg by mouth. - ketoconazole (NIZORAL) 2 % cream Apply to affected area. - cholecalciferol (VITAMIN D3) 50 mcg (2,000 unit) tablet Take 50 mcg by mouth. - famotidine (PEPCID) 20 mg tablet Take 20 mg by mouth two times a day. Facility-Administered Medications as of 02/17/2024 - aspirin, enteric coated 81 mg tab(s) - clopidogrel 75 mg tab(s) (PLAVIX) - atorvastatin 40 mg tab(s) (LIPITOR) - lisinopril 20 mg tab(s) (ZESTRIL) - famotidine 20 mg tab(s) (PEPCID) - finasteride 5 mg tab(s) (PROSCAR) - prochlorperazine 10 mg injection (COMPAZINE) - melatonin 3 mg tab(s) - benzocaine-menthol 1 Lozenge (CEPACOL) - polyethylene glycol 3350 17 g packet - acetaminophen 1,000 mg tab(s) (TYLENOL) - traMADol 50 mg tab(s) (ULTRAM) Problem List As Of Date 02/17/2024 Noted Resolved Aftercare following left knee joint replacement*04/23/2021 08/13/2021 Difficulty walking [R26.2] 04/23/2021 08/13/2021 Stiffness of knee joint, left [M25.662] 04/23/2021 08/13/2021 Muscle wasting and atrophy, not elsewhere class*04/23/2021 08/13/2021 Adjustment disorder with mixed anxiety and depr*01/20/2024 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] 01/20/2024 Cataract [H26.9] 01/20/2024 Gastroesophageal reflux disease without esophag*01/20/2024 KAKE (hard of hearing) [H91.90] 01/20/2024 OA (osteoarthritis) [M19.90] 01/20/2024 Chronic liver disease [K76.9] 01/20/2024 DONNA (obstructive sleep apnea) [G47.33] 01/20/2024 Coronary artery disease involving [place] heart *01/20/2024 Syncope [R55] 01/20/2024 Near syncope [R55] 01/20/2024 Palpitations [R00.2] 01/21/2024 PVC's (premature ventricular contractions) [I49*01/21/2024 Orthostatic lightheadedness [R42] 01/24/2024 Abnormal nuclear stress test [R94.39] 01/24/2024 Primary hypertension [I10] 01/27/2024 CAD in [place] artery [I25.10] 01/27/2024 Lightheadedness [R42] 02/16/2024 Obesity, Class I, BMI 30-34.9 [E66.9] 02/16/2024 Encounter Status:Closed by JUNIOR DELUCA on 02/17/24 [facility] Telephone (CARDST) ----- JESSCIAKENDRICK Roger ([id number]) 1945 M Date Time Provider Department 02/17/24 LAVERNE ASH During your visit today, we recorded the following information about you: Jackie Banuelos RN 02/17/2024 3:14 PM Signed Laverne Ash MD1 hour ago (1:38 PM) Can you send him a Zio patch for two weeks Note Zio monitor registration faxed to [facility]. Confirmation [place] Results Report received, sending is complete. Allergies As of Date: 02/17/2024 (No Known Allergies) Date Reviewed: 02/17/2024 Reviewed by: Louise Cerrato RN - Fully Assessed Reason for Visit: Orders [681] Prescriptions as of 02/17/2024 - atorvastatin (LIPITOR) 40 mg tablet Take 1 tablet by mouth once daily. - clopidogrel (PLAVIX) 75 mg tablet Take 1 tablet by mouth once daily. - lisinopril (ZESTRIL) 20 mg tablet Take 1 tablet by mouth once daily. - finasteride (PROSCAR) 5 mg tablet Take 5 mg by mouth once daily. - aspirin, enteric coated (ASPIRIN, ENTERIC COATED) 81 mg EC tablet Take 81 mg by mouth. - loratadine (CLARITIN) 10 mg tablet Take 10 mg by mouth. - ketoconazole (NIZORAL) 2 % cream Apply to affected area. - cholecalciferol (VITAMIN D3) 50 mcg (2,000 unit) tablet Take 50 mcg by mouth. - famotidine (PEPCID) 20 mg tablet Take 20 mg by mouth two times a day. Facility-Administered Medications as of 02/17/2024 - influenza vaccine ts 180 mcg (Patients 65 years and older) (PF) 0.5 mL injection (FLUZONE HIGH DOSE ) - aspirin, enteric coated 81 mg tab(s) - clopidogrel 75 mg tab(s) (PLAVIX) - atorvastatin 40 mg tab(s) (LIPITOR) - lisinopril 20 mg tab(s) (ZESTRIL) - famotidine 20 mg tab(s) (PEPCID) - finasteride 5 mg tab(s) (PROSCAR) - prochlorperazine 10 mg injection (COMPAZINE) - melatonin 3 mg tab(s) - benzocaine-menthol 1 Lozenge (CEPACOL) - polyethylene glycol 3350 17 g packet - acetaminophen 1,000 mg tab(s) (TYLENOL) - traMADol 50 mg tab(s) (ULTRAM) Problem List As Of Date 02/17/2024 Noted Resolved Aftercare following left knee joint replacement*04/23/2021 08/13/2021 Difficulty walking [R26.2] 04/23/2021 08/13/2021 Stiffness of knee joint, left [M25.662] 04/23/2021 08/13/2021 Muscle wasting and atrophy, not elsewhere class*04/23/2021 08/13/2021 Adjustment disorder with mixed anxiety and depr*01/20/2024 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] 01/20/2024 Cataract [H26.9] 01/20/2024 Gastroesophageal reflux disease without esophag*01/20/2024 KAKE (hard of hearing) [H91.90] 01/20/2024 OA (osteoarthritis) [M19.90] 01/20/2024 Chronic liver disease [K76.9] 01/20/2024 DONNA (obstructive sleep apnea) [G47.33] 01/20/2024 Coronary artery disease involving [place] heart *01/20/2024 Syncope [R55] 01/20/2024 Near syncope [R55] 01/20/2024 Palpitations [R00.2] 01/21/2024 PVC's (premature ventricular contractions) [I49*01/21/2024 Orthostatic lightheadedness [R42] 01/24/2024 Abnormal nuclear stress test [R94.39] 01/24/2024 Primary hypertension [I10] 01/27/2024 CAD in [place] artery [I25.10] 01/27/2024 Lightheadedness [R42] 02/16/2024 Obesity, Class I, BMI 30-34.9 [E66.9] 02/16/2024 Encounter Status:Closed by JACKIE BANUELOS on 02/17/24 [facility] CONSULTon 02-17-2024 CONSULT HNO ID: [id number] Author: LAVERNE ASH MD Service: Clinical Cardiology Author Type: Physician Type: Consults Filed: 02/17/2024 11:17 Note Text: CONSULT: CARDIOLOGY SERVICE SERVICE DATE: 02/17/2024 SERVICE TIME: 8:36 AM Consult requested by: Edgar Bloom Jr.* PCP: Sigifredo Trimble MD REASON FOR CONSULT: Lightheadedness [R42] HISTORY OF PRESENT ILLNESS: Mr. Loomis is a 78 year old male with past medical hx of DONNA on Bipap, obesity, HTN CAD, recent hospital stay for palpitations/presyncope with finding of + stress test at [place], transferred to [facility] where he underwent cardiac catheterization and URMILA placement in distal RCA and proximal LAD presenting with lightheadedness while driving today. Patient stated he was driving when he suddenly felt lightheaded and dizzy for a few minutes but then resolved. States he had a fluttering sensation in his chest at the time, but no chest tightness or pain. After the episode he felt unwell and his legs felt weak. Denied any chest pain/SOB/palpitations/new leg edema. Reported that he had been feeling well after the stent placement and this was the first time he had an episode of dizziness since placement of the stents. Reports he is taking DAPT. Reports good compliance with his BIPAP at night. Drinks one cup of coffee/tea per day. PAST MEDICAL HISTORY Diagnosis Date Aftercare following left knee joint replacement surgery 04/23/2021 Arthritis Coronary artery disease Hypertension Sleep apnea PAST SURGICAL HISTORY Procedure Laterality Date CARDIAC CATHETERIZATION HX ORTHOPEDICS SURGERY HX No family history on file. Social History Tobacco Use Smoking status: Former Types: Cigarettes Smokeless tobacco: Never Vaping Use Vaping status: Never Used Substance Use Topics Alcohol use: Not Currently Drug use: Never Prior to Admission Medications Prescriptions Last Dose Informant Patient Reported? Taking? aspirin, enteric coated (ASPIRIN, ENTERIC COATED) 81 mg EC tablet 02/15/2024 Yes Yes Sig: Take 81 mg by mouth. atorvastatin (LIPITOR) 40 mg tablet 02/16/2024 No Yes Sig: Take 1 tablet by mouth once daily. cholecalciferol (VITAMIN D3) 50 mcg (2,000 unit) tablet 02/16/2024 Yes Yes Sig: Take 50 mcg by mouth. clopidogrel (PLAVIX) 75 mg tablet 02/15/2024 No Yes Sig: Take 1 tablet by mouth once daily. famotidine (PEPCID) 20 mg tablet 02/15/2024 Yes Yes Sig: Take 20 mg by mouth two times a day. finasteride (PROSCAR) 5 mg tablet 02/15/2024 Yes Yes Sig: Take 5 mg by mouth once daily. ketoconazole (NIZORAL) 2 % cream Yes No Sig: Apply to affected area. lisinopril (ZESTRIL) 20 mg tablet 02/16/2024 No Yes Sig: Take 1 tablet by mouth once daily. loratadine (CLARITIN) 10 mg tablet 02/16/2024 Yes Yes Sig: Take 10 mg by mouth. Facility-Administered Medications: None Current Facility-Administered Medications Medication Dose Route Frequency aspirin, enteric coated 81 mg tab(s) 81 mg ORAL DAILY clopidogrel 75 mg tab(s) (PLAVIX) 75 mg ORAL DAILY atorvastatin 40 mg tab(s) (LIPITOR) 40 mg ORAL DAILY lisinopril 20 mg tab(s) (ZESTRIL) 20 mg ORAL DAILY famotidine 20 mg tab(s) (PEPCID) 20 mg ORAL DAILY finasteride 5 mg tab(s) (PROSCAR) 5 mg ORAL DAILY prochlorperazine 10 mg injection (COMPAZINE) 10 mg INTRAVENOUS q 6 H PRN melatonin 3 mg tab(s) 3 mg ORAL AT BEDTIME PRN benzocaine-menthol 1 Lozenge (CEPACOL) 1 Lozenge MUCOUS MEMBRANE (TOPICAL MOUTH AND THROAT) q 2 H PRN polyethylene glycol 3350 17 g packet 17 g ORAL DAILY PRN acetaminophen 1,000 mg tab(s) (TYLENOL) 1,000 mg ORAL q 6 H PRN traMADol 50 mg tab(s) (ULTRAM) 50 mg ORAL q 6 H PRN ALLERGIES No Known Allergies REVIEW OF SYSTEMS: SYSTEMIC: No fever, chills, or change in weight or appetite HEENT: No recent change in vision or hearing. Respiratory: No hemoptysis, cough. Mild exertional SOB is present CARDIOVASCULAR: See HPI. GI: No recent nausea, vomiting or diarrhea. : No recent hematuria or dysuria. SKIN: No recent itching or eruption. PSYCH: No recent active anxiety or depression. HEMATOLOGY/ONCOLOGY: No recent diagnosis of bleeding or cancer. ENDOCRINE: No recent polyuria or heat intolerance. NEURO: No recent TIA, stroke or seizures. RHEUMATOLOGY: No recent active connective tissue disease. REST OF THE REVIEW OF SYSTEMS IS UNREMARKABLE. Objective PHYSICAL EXAM: Patient Vitals for the past 24 hrs: BP Temp Temp src Pulse Resp SpO2 Height Weight 02/17/24 0800 -- -- -- (!) 54 -- -- -- -- 02/17/24 0400 161/76 -- -- (!) 47 -- -- -- -- 02/17/24 0300 161/76 36.4 ?C (97.5 ?F) Axillary (!) 54 16 99 % -- -- 02/17/24 0000 -- -- -- (!) 54 -- -- -- -- 02/16/24 2212 158/85 -- -- -- -- -- 190.5 cm (6' 3) 110.2 kg (242 lb 15.2 oz) Body mass index is 30.37 kg/m?. No intake or output data in the 24 hours ending 02/17/24 0836 General: Pt is able to communicate. Patient is not in acute respiratory distress. SKIN: No rash or lumps. Eyes. (more content not included)... Normal [facility] CAROTID BILon 02-17-2024 CAROTID RUBEN * * *Final Report* * * DATE OF EXAM: Feb 17 2024 2:39PM AKANKSHA 1077 - CAROTID RUBEN / PROCEDURE REASON: Transient ischemic attack (TIA) * * * * Physician Interpretation * * * * Duplex Ultrasound with Color Flow analysis of Carotid Arteries: HISTORY: Transient ischemic attack (TIA) TECHNIQUE: Grayscale and color-flow Doppler ultrasound were used to examine the carotid arterial systems bilaterally.Images stored and permanent archive. RESULT: FINDINGS: Plaque: moderate amount of plaque in the distal common and proximal internal carotid arteries is seen bilaterally ICA Peak Systolic Velocity (cm/sec) Right: 139 Left: 116 ICA End Diastolic Velocity (cm/sec) Right: 28 Left: 37 CCA Peak Systolic Velocity (cm/sec) Right: 128 Left: 93 ECA Peak Systolic Velocity (cm/sec) Right: 120 Left: 86 Vertebrals Right: Antegrade Left: Antegrade ICA/CCA Systolic Velocity Ratio Right: 1.1 Left: 1.2 ICA Stenosis Estimation per NASCET criteria. Right: 30-49% Left: <30% IMPRESSION: 1. Findings in the RIGHT internal carotid suggest 30-49% narrowing 2. No hemodynamically significant lesion is seen in the LEFT carotid arteries 3. Moderate plaque formation distal common proximal internal carotid arteries. Consulting Project Director: PSCAlex Transcribe Date/Time: Feb 17 2024 3:29P Dictated by : TG VIVAR DO This examination was interpreted and the report reviewed and electronically signed by: TG VIVAR DO on Feb 17 2024 3:37PM EST [id number] [facility] 02-16-2024 ALLIED [facility]ALTH HNO ID: [id number] Author: JUAN BARBER CT Service: Radiology Author Type: Technologist Type: Allied Health Filed: 02/16/2024 18:33 Note Text: Radiology Service Progress Note DATE OF SERVICE: February 16, 2024 TIME: 6:33 PM PATIENT IDENTITY VERIFICATION COMPLETED USING TWO (2) STANDARD IDENTIFIERS: Name and Date of confirmed by patient verbally and Name and Date of confirmed by identification band. FALL SCREENING: Has the patient had 2 falls in the last year or 1 fall with injury or currently using an Ambulatory Assistive Device (Walker, Cane, Wheelchair, Crutches, etc.)? No PATIENT GENDER DATA: Male PATIENT RELEVANT IMPLANT DATA REVIEWED: Not Applicable PATIENT PRESENTS WITH AN IMPLANTABLE OR ATTACHED IMPREGNATOR AND DRIER: No ALLERGIES: Reviewed and unchanged CONTRAST ALLERGY: NO. EXAM: CT -CONTRAST INDUCED NEPHROPATHY RISK FACTORS: Patient age > 60 years CREATININE: Creatinine Date Value Ref Range Status 02/16/2024 1.16 0.73 - 1.22 mg/dL Final 01/28/2024 1.08 0.73 - 1.22 mg/dL Final 01/27/2024 1.20 0.73 - 1.22 mg/dL Final Estimated Glomerular Filtration Rate Date Value Ref Range Status 02/16/2024 65 >=60 mL/min/1.73m? Final Comment: Estimated Glomerular Filtration Rate (eGFR) is calculated using the 2020 CKD-EPI creatinine equation. This equation utilizes serum creatinine, sex, and age as parameters. The creatinine assay has traceable calibration to isotope dilution-mass spectrometry. Refer to KDIGO guidelines for clinical interpretation. In patients with unstable renal function, e.g. those with acute kidney injury, the eGFR may not accurately reflect actual GFR. P.O.C.T. RESULTS: POC done: Yes, See Lab Tab February 16, 2024 TREATMENT: N/A PERIPHERAL IV DATA: Inpatient - refer to LDA documentation RADIOLOGY DEPARTMENT: CT; Exam(s) Completed: PE Study SIGNATURE: GABY Bernal PATIENT NAME: Kendrick Loomis DATE: February 16, 2024 TIME: 6:33 PM Normal [facility] ALLIED HEALTH HNO ID: [id number] Author: MAXIMILIANO MUNOZ RT(R) Service: ? Author Type: Technologist Type: Allied Health Filed: 02/16/2024 17:46 Note Text: Radiology Service Progress Note PATIENT NAME: Kendrick Loomis DATE OF SERVICE: February 16, 2024 TIME: 5:46 PM PATIENT IDENTITY VERIFICATION COMPLETED USING TWO (2) IDENTIFIERS: Name and Date of confirmed by patient verbally. FALL SCREENING: Has the patient had 2 falls in the last year or 1 fall with injury or currently using an Ambulatory Assistive Device (Walker, Cane, Wheelchair, Crutches, etc.)? Emergency Room Patient: Screened in ED PATIENT GENDER DATA: Male PATIENT RELEVANT IMPLANT DATA REVIEWED: Not Applicable PATIENT PRESENTS WITH AN IMPLANTABLE OR ATTACHED IMPREGNATOR AND DRIER: No RADIOLOGY DEPARTMENT: General X-ray: Exam(s) Completed: Chest X-Ray PERIPHERAL IV DATA: Not applicable SIGNED BY: RT Rafaela(R) February 16, 2024 5:46 PM Normal [facility] ALLIED HEALTH HNO ID: [id number] Author: JUAN BARBER CT Service: Radiology Author Type: Technologist Type: Allied Health Filed: 02/16/2024 17:29 Note Text: Radiology Service Progress Note PATIENT NAME: Kendrick Loomis DATE OF SERVICE: February 16, 2024 TIME: 5:28 PM PATIENT IDENTITY VERIFICATION COMPLETED USING TWO (2) IDENTIFIERS: Name and Date of confirmed by patient verbally and Name and Date of confirmed by identification band. FALL SCREENING: Has the patient had 2 falls in the last year or 1 fall with injury or currently using an Ambulatory Assistive Device (Walker, Cane, Wheelchair, Crutches, etc.)? No PATIENT GENDER DATA: Male PATIENT RELEVANT IMPLANT DATA REVIEWED: Not Applicable PATIENT PRESENTS WITH AN IMPLANTABLE OR ATTACHED IMPREGNATOR AND DRIER: No RADIOLOGY DEPARTMENT: CT; Exam(s) Completed: Brain PERIPHERAL IV DATA: Not applicable SIGNED BY: GABY Bernal February 16, 2024 5:28 PM Normal [facility] Basic metabolic 2000 panelon 02-16-2024 Anion gap [Moles/Vol] 13 mmol/L Normal 8-15 [facility] Comment on above: Order Comment: Speci men Type: BLOOD SPECIMEN Ordering Facility: [facility] Address: [address] [place] [address] Performed By: #### L [id number] #### [facility] CLIA [id number] [address] [place] [address] [place] Calcium [Mass/Vol] 9.6 mg/dL Normal 8.5-10.2 [facility] Comment on above: Order Comment: Speci men Type: BLOOD SPECIMEN Ordering Facility: [facility] Address: [address] [place] [address] Performed By: #### L [id number] #### [facility] CLIA [id number] [address] [place] [id number] [place] Chloride [Moles/Vol] 99 mmol/L Normal 98-107 [facility] Comment on above: Order Comment: Speci men Type: BLOOD SPECIMEN Ordering Facility: [facility] Address: [address] [place] [address] Performed By: #### L [id number] #### [facility] CLIA [id number] [address] [place] [address] [place] CO2 [Moles/Vol] 21 mmol/L Low 22-30 [facility] Comment on above: Order Comment: Thom nagel Type: BLOOD SPECIMEN Ordering Facility: [facility] Address: [address] [place] [address] Performed By: #### L [id number] #### [facility] CLIA [id number] [address] [place] [address] [place] Creatinine [Mass/Vol] 1.16 mg/dL Normal 0.73-1.22 [facility] Comment on above: Order Comment: Thom nagel Type: BLOOD SPECIMEN Ordering Facility: [facility] Address: [address] [place] [address] Performed By: #### L [id number] #### [facility] CLIA [id number] [address] [place] [address] Creatinine and Glomerular filtration rate.predicted panel (S/P/Bld) 65 mL/min/1.73m??? Normal >=60 [facility] Comment on above: Order Comment: Thom nagel Type: BLOOD SPECIMEN Ordering Facility: [facility] Address: [address] [place] [address] Result Comment: Hilda mated Glomerular Filtration Rate (eGFR) is calculated using the 2020 CKD-EPI creatinine equation. This equation utilizes serum creatinine, sex, and age as parameters. The creatinine assay has traceable calibration to isotope dilution-mass spectrometry. Refer to KDIGO guidelines for clinical interpretation. In patients with unstable renal function, e.g. those with acute kidney injury, the eGFR may not accurately reflect actual GFR. Performed By: #### L [id number] #### [facility] CLIA [id number] [address] [place] [id number] [place] Glucose [Mass/Vol] 115 mg/dL High 74-99 [facility] Comment on above: Order Comment: Thom nagel Type: BLOOD SPECIMEN Ordering Facility: [facility] Address: [address] [place] [address] Result Comment: The [place] [employer] (ADA) provides guidance for cutoff values for fasting glucose and random glucose. The ADA defines fasting as no caloric intake for at least 8 hours. Fasting plasma glucose results between 100 to 125 mg/dL indicate increased risk for diabetes (prediabetes). Fasting plasma glucose results greater than or equal to 126 mg/dL meet the criteria for diagnosis of diabetes. In the absence of unequivocal hyperglycemia, results should be confirmed by repeat testing. In a patient with classic symptoms of hyperglycemia or hyperglycemic crisis, random plasma glucose results greater than or equal to 200 mg/dL meet the criteria for diagnosis of diabetes. Reference: Standards of Medical Care in Diabetes 2016, [place] [employer]. Diabetes Care. 2016.39(Suppl 1). Performed By: #### L [id number] #### [facility] CLIA [id number] [address] [place] [address] [place] Potassium [Moles/Vol] 4.0 mmol/L Normal 3.7-5.1 [facility] Comment on above: Order Comment: Speci men Type: BLOOD SPECIMEN Ordering Facility: [facility] Address: [address] [place] [address] Performed By: #### L [id number] #### [facility] CLIA [id number] [address] [place] [address] [place] Sodium [Moles/Vol] 133 mmol/L Low 136-144 [facility] Comment on above: Order Comment: Thom men Type: BLOOD SPECIMEN Ordering Facility: [facility] Address: [address] [place] [address] Performed By: #### L [id number] #### [facility] CLIA [id number] [address] [place] [address] [place] Urea nitrogen [Mass/Vol] 16 mg/dL Normal 9-24 [facility] Comment on above: Order Comment: Thom men Type: BLOOD SPECIMEN Ordering Facility: [facility] Address: [address] [id number] Performed By: #### L [id number] #### [facility] CLIA [id number] [address] [place] [address] [place] CBC W Auto Differential pane l (Bld)on 02-16-2024 Basophils (Bld) [#/Vol] 0.03 10*3/uL Normal <0.11 [facility] Comment on above: Order Comment: Speci men Type: BLOOD SPECIMEN Ordering Facility: [facility] Address: [address] [place] [address] Performed By: #### L [id number] #### [facility] CLIA [id number] [address] [place] [address] [place] Basophils/100 WBC (Bld) 0.4 % Normal [facility] Comment on above: Order Comment: Speci men Type: BLOOD SPECIMEN Ordering Facility: [facility] Address: [address] [place] [address] Performed By: #### L [id number] #### [facility] CLIA [id number] [address] [place] [address] [place] Differential cell count method Nom (Bld) Auto Normal [facility] Comment on above: Order Comment: Speci men Type: BLOOD SPECIMEN Ordering Facility: [facility] Address: [address] [place] [address] Performed By: #### L [id number] #### [facility] CLIA [id number] [address] [place] [address] [place] Eosinophils (Bld) [#/Vol] 0.07 10*3/uL Normal <0.46 [facility] Comment on above: Order Comment: Speci men Type: BLOOD SPECIMEN Ordering Facility: [facility] Address: [address] [place] [address] Performed By: #### L [id number] #### [facility] CLIA [id number] [address] [place] Eosinophils/100 WBC (Bld) 0.9 % Normal [facility] Comment on above: Order Comment: Speci men Type: BLOOD SPECIMEN Ordering Facility: [facility] Address: [address] [place] [address] Performed By: #### L [id number] #### [facility] CLIA [id number] [address] [place] [address] [place] Erythrocyte distribution width (RBC) [Ratio] 12.3 % Normal 11.5-15.0 [facility] Comment on above: Order Comment: Speci men Type: BLOOD SPECIMEN Ordering Facility: [facility] Address: [address] [place] [address] Performed By: #### L [id number] #### [facility] CLIA [id number] [address] [place] [address] [place] Hematocrit (Bld) [Volume fraction] 42.6 % Normal 39.0-51.0 [facility] Comment on above: Order Comment: Speci men Type: BLOOD SPECIMEN Ordering Facility: [facility] Address: [address] [place] [address] Performed By: #### L [id number] #### [facility] CLIA [id number] [address] [place], [place] [id number] [place] Hemoglobin (Bld) [Mass/Vol] 14.8 g/dL Normal 13.0-17.0 [facility] Comment on above: Order Comment: Speci men Type: BLOOD SPECIMEN Ordering Facility: [facility] Address: [address] [place] [address] Performed By: #### L [id number] #### [facility] CLIA [id number] [address] [place] [address] [place] Immature granulocytes (Bld) [#/Vol] 10*3/uL Normal <0.10 [facility] Comment on above: Order Comment: Speci men Type: BLOOD SPECIMEN Ordering Facility: [facility] Address: [address] [place] [address] Performed By: #### L [id number] #### [facility] CLIA [id number] [address] [place] [address] [place] Immature granulocytes/100 WBC (Bld) 0.1 % Normal [facility] Comment on above: Order Comment: Speci men Type: BLOOD SPECIMEN Ordering Facility: [facility] Address: [address] [place] [address] Performed By: #### L [id number] #### [facility] CLIA [id number] [address] [place], [place] [address] [place] [address] [place] Lymphocytes (Bld) [#/Vol] 1.04 10*3/uL Normal 1.00-4.00 [facility] Comment on above: Order Comment: Speci men Type: BLOOD SPECIMEN Ordering Facility: [facility] Address: [address] [place] [address] Performed By: #### L [id number] #### [facility] CLIA [id number] [address] [place] [address] Lymphocytes/100 WBC (Bld) 13.0 % Normal [facility] Comment on above: Order Comment: Speci men Type: BLOOD SPECIMEN Ordering Facility: [facility] Address: [address] [place] [address] Performed By: #### L [id number] #### [facility] CLIA [id number] [address] [place] MCH (RBC) [Entitic mass] 32.5 pg Normal 26.0-34.0 [facility] Comment on above: Order Comment: Speci men Type: BLOOD SPECIMEN Ordering Facility: [facility] Address: [address] [place] [address] Performed By: #### L [id number] #### [facility] CLIA [id number] [address] [place], [place] [address] [place] [address] [place] MCHC (RBC) [Mass/Vol] 34.7 g/dL Normal 30.5-36.0 [facility] Comment on above: Order Comment: Speci men Type: BLOOD SPECIMEN Ordering Facility: [facility] Address: [address] [place] [address] Performed By: #### L [id number] #### [facility] CLIA [id number] [address] [place] MCV (RBC) [Entitic vol] 93.6 fL Normal 80.0-100.0 [facility] Comment on above: Order Comment: Speci men Type: BLOOD SPECIMEN Ordering Facility: [facility] Address: [address] [place] [address] Performed By: #### L [id number] #### [facility] CLIA [id number] [address] [place] [address] [place] Monocytes (Bld) [#/Vol] 0.64 10*3/uL Normal <0.87 [facility] Comment on above: Order Comment: Speci men Type: BLOOD SPECIMEN Ordering Facility: [facility] Address: [address] [place] [address] Performed By: #### L [id number] #### [facility] CLIA [id number] [address] [place] Monocytes/100 WBC (Bld) 8.0 % Normal [facility] Comment on above: Order Comment: Speci men Type: BLOOD SPECIMEN Ordering Facility: [facility] Address: [address] [place] [address] Performed By: #### L [id number] #### [facility] CLIA [id number] [address] [place] [address] [place] Neutrophils (Bld) [#/Vol] 6.18 10*3/uL Normal 1.45-7.50 [facility] Comment on above: Order Comment: Speci men Type: BLOOD SPECIMEN Ordering Facility: [facility] Address: [address] [place] [address] Performed By: #### L [id number] #### [facility] CLIA [id number] [address] [place] Neutrophils/100 WBC (Bld) 77.6 % Normal [facility] Comment on above: Order Comment: Speci men Type: BLOOD SPECIMEN Ordering Facility: [facility] Address: [address] [place] [address] Performed By: #### L [id number] #### [facility] CLIA [id number] [address] [place] [address] [place] Nucleated RBC (Bld) [#/Vol] Normal [facility] Comment on above: Order Comment: Speci men Type: BLOOD SPECIMEN Ordering Facility: [facility] Address: [address] [place] [address] Performed By: #### L [id number] #### [facility] CLIA [id number] [address] [place] [address] [place] Nucleated RBC/100 WBC (Bld) [Ratio] Normal [facility] Comment on above: Order Comment: Speci men Type: BLOOD SPECIMEN Ordering Facility: [facility] Address: [address] [place] [address] Performed By: #### L [id number] #### [facility] CLIA [id number] [address] [place] [address] [place] Platelet mean volume (Bld) [Entitic vol] 10.9 fL Normal 9.0-12.7 [facility] Comment on above: Order Comment: Speci men Type: BLOOD SPECIMEN Ordering Facility: [facility] Address: [address] [place] [address] Performed By: #### L [id number] #### [facility] CLIA [id number] [address] [place] [address] [place] Platelets (Bld) [#/Vol] 187 10*3/uL Normal 150-400 [facility] Comment on above: Order Comment: Speci men Type: BLOOD SPECIMEN Ordering Facility: [facility] Address: [address] [place] [address] Performed By: #### L [id number] #### [facility] CLIA [id number] [address] [place] [address] [place] RBC (Bld) [#/Vol] 4.55 10*6/uL Normal 4.20-6.00 [facility] Comment on above: Order Comment: Speci men Type: BLOOD SPECIMEN Ordering Facility: [facility] Address: [address] [place] [address] Performed By: #### L [id number] #### [facility] CLIA [id number] [address] [place] [address] [facility] [place] WBC (Bld) [#/Vol] 7.97 10*3/uL Normal 3.70-11.00 [facility] Comment on above: Order Comment: Speci men Type: BLOOD SPECIMEN Ordering Facility: [facility] Address: [address] [place] [address] Performed By: #### L [id number] #### [facility] CLIA [id number] [address] [place] [address] [facility] CT BRAIN WO IVCONon 02-16-20 CT BRAIN WO IVCON * * *Final Report* * * DATE OF EXAM: Feb 16 2024 5:23PM [facility] 0504 - CT BRAIN WO IVCON / PROCEDURE REASON: Dizziness, non-specific * * * * Physician Interpretation * * * * EXAMINATION: CT BRAIN WO IVCON CLINICAL HISTORY: Dizziness TECHNIQUE: Serial axial images without IV contrast were obtained from the vertex to the foramen magnum. MQ: CTBWO_3 CT Radiation dose: Integrated Dose-Length Product (DLP) for this visit = 706.22 mGy*cm CT Dose Reduction Employed: No dose reduction techniques were required COMPARISON: 01/21/2024 RESULT: Localizer images: No additional findings. Post-operative change: None. Acute change: No evidence of an acute infarct or other acute parenchymal process. Hemorrhage: No evidence of acute intracranial hemorrhage. ECASS hemorrhagic transformation score: Not Applicable Mass Lesion / Mass Effect: There is no evidence of an intracranial mass or extraaxial fluid collection. No significant mass effect. Chronic change: Scattered patchy foci of low attenuation are present within supratentorial white matter which is a nonspecific finding but likely represents mild microvascular ischemia. Parenchyma: There is mild generalized volume loss. Ventricles: Ventricular enlargement concordant with the degree of parenchymal volume loss. Paranasal sinuses and skull base: The visualized paranasal sinuses are grossly clear. The skull base and imaged soft tissues are unremarkable. IMPRESSION: No CT evidence of an acute intracranial process or hemorrhage. Chronic ischemic changes and volume loss. Consulting Project Director: SABINA Transcribe Date/Time: Feb 16 2024 5:26P Dictated by : JUAN DANIEL SERRANO MD This examination was interpreted and the report reviewed and electronically signed by: JUAN DANIEL SERRANO MD on Feb 16 2024 5:30PM EST [id number] Normal [facility] CT CHEST W IVCON PEon 2023 CT CHEST W IVCON PE * * *Final Report* * * DATE OF EXAM: Feb 16 2024 6:32PM [facility] 0540 - CT CHEST W IVCON PE / PROCEDURE REASON: Pulmonary embolism (PE) suspected, high prob * * * * Physician Interpretation * * * * EXAMINATION: CHEST CT WITH CONTRAST (PULMONARY EMBOLISM PROTOCOL) CLINICAL HISTORY: The patient is a 78-year-old male with recent cardiac stent placement to developed sudden onset of dizziness and lightheadedness. There is an elevated d-dimer. Technique: Spiral CT acquisition of the chest from the thoracic inlet to the upper abdomen following IV contrast. Axial 1 and 3 mm thick slices plus coronal and sagittal reformatted images. MQ: CTCP_5 Contrast: 100 mL Omnipaque [address] Radiation dose: Integrated Dose-length product (DLP) for this visit = 633.83 mGy*cm CT Dose Reduction Employed: Automated exposure control(AEC) and iterative recon Comparison: No relevant prior studies available. RESULT: Limitations: None. Evaluation for thromboembolic disease: - Right heart chambers: No thromboembolic disease. - Main pulmonary arteries: No thromboembolic disease. - Lobar pulmonary arteries: No thromboembolic disease. - Segmental pulmonary arteries: No thromboembolic disease. - Subsegmental pulmonary arteries: No thromboembolic disease. - Additional pulmonary artery findings: The main pulmonary artery is normal in caliber. Lines, tubes, and devices: None. Lung parenchyma and airways: There is some linear atelectasis in the lingula. No consolidation. No suspicious pulmonary nodule. The central airways are patent. Pleural space: No pleural effusion. No pleural thickening. Lower neck, lymph nodes, and mediastinum: The imaged thyroid gland is normal. No lymphadenopathy in the supraclavicular, axillary, mediastinal, or hilar regions. Heart, pericardium, and thoracic vessels: The thoracic aorta is normal in caliber. The cardiac chambers are normal in size. Some coronary artery atherosclerotic calcifications are noted, although the study is not optimized for coronary assessment. Coronary stents are also identified. No pericardial effusion or thickening. Bones and soft tissues: No destructive bone lesion. Chest wall is unremarkable. Upper abdomen: There is a 6 cm simple cyst of the upper pole of the right kidney. There is a 17 mm low-attenuation lesion of the posterior lateral aspect of the spleen. No other abnormality in the imaged upper abdomen. Localizer images: Lungs appear clear. Abdominal bowel gas pattern is normal. IMPRESSION: No CT evidence of pulmonary embolism. There is no other active disease in the chest. There is a simple cyst of the upper pole of the right kidney that requires no further follow-up. There is a 19 mm left adrenal nodule. There is an indeterminate peripheral lesion in the spleen measuring 17 mm. This lesion can be followed up at the same time the left adrenal nodule is evaluated. 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 COMMUNICATION: Results will be communicated with the ordering provider via [employer] staff message or phone message by [employer] within 2 business days of report finalization. Algorithms for management of incidental imaging findings can be found on the [facility] Intranet Sharepoint site at: [email or web address] [email or web address]/ [email or web address] Consulting Project Director: SABINA Transcribe Date/Time: Feb 16 2024 6:42P Dictated by : VALDEMAR MOSCOSO MD This examination was interpreted and the report reviewed and electronically signed by: VALDEMAR MOSCOSO MD on Feb 16 2024 6:52PM EST [id number] ACTIONABLE Invalid Interpretation Code [facility] D dimer FEU PPP-mCncon 02-15 Fibrin D-dimer FEU (PPP) [Mass/Vol] 650 ng/mL FEU High <500 [facility] Comment on above: Order Comment: Speci men Type: BLOOD SPECIMEN [facility]ing Facility: [facility] Address: [address] [place] [address] Performed By: #### B [id number] #### [facility] [place] [id number] [address] [place], [place] [id number] [facility] ECG COMPLETEon 02-16-2024 ECG COMPLETE Ventricular Rate : 7 2 BPM Atrial Rate : 72 BPM P-R Interval : 176 ms QRS Duration : 140 ms Q-T Interval : 432 ms QTC Calculation(Bazett) : 473 ms Calculated P Phoenix : 40 degrees Calculated R Phoenix : -30 degrees Calculated T Phoenix : 14 degrees NORMAL SINUS RHYTHM LEFT AXIS DEVIATION RIGHT BUNDLE BRANCH BLOCK ABNORMAL ECG NO PREVIOUS ECGS AVAILABLE Confirmed by MD CROWDER VINAYAK ([id number]) on 02/18/2024 10:19:22 PM NAME : KENDRICK LOOMIS PID : [id number] : 1945 Gender : Male Race : ORD : [id number] Procedure Date : Feb 16 2024 17:47:44 Edit Date : Feb 18 2024 22:19:23 Diagnosis: NORMAL SINUS RHYTHM LEFT AXIS DEVIATION RIGHT BUNDLE BRANCH BLOCK ABNORMAL ECG NO PREVIOUS ECGS AVAILABLE Confirmed by MD CROWDER VINAYAK ([id number]) on 02/18/2024 10:19:22 PM Test Reason : Dizziness Location : 191 : [facility] ED Overread By : MD CROWDER VINAYAK Edited By : MD CROWDER VINAYAK Referred By : , Acquired by : KELTON SANABRIA Normal [facility] ECG COMPLETE Ventricular Rate : 8 7 BPM Atrial Rate : 87 BPM P-R Interval : 172 ms QRS Duration : 140 ms Q-T Interval : 400 ms QTC Calculation(Bazett) : 481 ms Calculated P Phoenix : 51 degrees Calculated R Phoenix : -24 degrees Calculated T Phoenix : 24 degrees SINUS RHYTHM WITH FREQUENT PREMATURE VENTRICULAR COMPLEXES RIGHT BUNDLE BRANCH BLOCK ABNORMAL ECG NO PREVIOUS ECGS AVAILABLE Confirmed by MD CROWDER VINAYAK ([id number]) on 02/18/2024 10:19:18 PM NAME : KENDRICK LOOMIS PID : [id number] : 1945 Gender : Male Race : ORD : [id number] Procedure Date : Feb 16 2024 16:28:10 Edit Date : Feb 18 2024 22:19:21 Diagnosis: SINUS RHYTHM WITH FREQUENT PREMATURE VENTRICULAR COMPLEXES RIGHT BUNDLE BRANCH BLOCK ABNORMAL ECG NO PREVIOUS ECGS AVAILABLE Confirmed by MD CROWDER VINAYAK ([id number]) on 02/18/2024 10:19:18 PM Test Reason : Chest Pain Location : 191 : [facility] Overread By : MD CROWDER VINAYAK Edited By : MD CROWDER VINAYAK Referred By : , Acquired by : KELTON SANABRIA [facility] ED NOTEon 02-16-2024 ED NOTE HNO ID: [id number] Author: ANDRESSA MCPHERSON, JUDE Service: ? Author Type: Registered Nurse Type: ED Notes Filed: 02/16/2024 20:27 Note Text: Repot to rafiq pardo rn [facility] ED NOTE HNO ID: [id number] Author: ANDRESSA MCPHERSON, JUDE Service: ? Author Type: Registered Nurse Type: ED Notes Filed: 02/16/2024 20:14 Note Text: Meal tray delivered to pt [facility] ED NOTE HNO ID: [id number] Author: CLEMENTINA SWIFT, JUDE Service: Emergency Medicine Author Type: Registered Nurse Type: ED Notes Filed: 02/16/2024 19:53 Note Text: Transfer line called with bed assignment [facility] 245-1 -report number [phone] -[facility] called for transport,eta 1 hour [facility] ED NOTE HNO ID: [id number] Author: ANDRESSA MCPHERSON, JUDE Service: ? Author Type: Registered Nurse Type: ED Notes Filed: 02/16/2024 16:28 Note Text: Pt had cardiac stents placed on 01-26 pt has been feeling better. Today pt was driving and felt dizzy and lightheaded. Pt felt like he was going to pass out, pt states his bp has been running low lately. Pt also reports some numbness in his R arm. [facility] ED PROV NOTEon 02-16-2024 ED PROV NOTE HNO ID: [id number] Author: SKINNY MANE DO Service: Emergency Medicine Author Type: Physician Type: ED Provider Notes Filed: 02/16/2024 23:51 Note Text: ED Provider Note Patient Name: Kendrick Loomis : 1945 SERVICE DATE: 02/16/24 History Patient presents with: Dizziness Kendrick Loomis is a 78 year old male with history of multiple chronic medical problems who presents with Dizziness. - Symptoms began today. - Severity: moderate - Timing: intermittent - Quality: lightheaded - Symptoms are associated with lightheaded, feeling like he is going to pass out. - Symptoms are not associated with abdominal pain, chest pain, chills, diarrhea, fever, nausea, shortness of breath, URI symptoms, vomiting, syncope, palpitations, room spinning sensation. Patient reports he was driving and started to feel lightheaded almost like he was going to pass out. He states he pulled off and went into [employer]. He states that he continued to feel off. He states that he occasionally gets headaches, but denies headache currently. He denies numbness or weakness. No syncope. No palpitations. No chest pain or shortness of breath. No abdominal pain. No vomiting or diarrhea. He did have cardiac stents placed on 01/27/24 at [facility]. He reports he is on Plavix and aspirin. PAST MEDICAL HISTORY Diagnosis Date Aftercare following left knee joint replacement surgery 04/23/2021 Arthritis Coronary artery disease Hypertension Sleep apnea PAST SURGICAL HISTORY Procedure Laterality Date CARDIAC CATHETERIZATION HX ORTHOPEDICS SURGERY HX No family history on file. Social History Tobacco Use Smoking status: Former Types: Cigarettes Smokeless tobacco: Never Vaping Use Vaping status: Never Used Substance and Sexual Activity Alcohol use: Not Currently Drug use: Never Sexual activity: Not on file ALLERGIES No Known Allergies Review of Systems Constitutional: Negative for chills and fever. Eyes: Negative for visual disturbance. Respiratory: Negative for cough and shortness of breath. Cardiovascular: Negative for chest pain, palpitations and leg swelling. Gastrointestinal: Negative for abdominal pain, nausea and vomiting. Musculoskeletal: Negative for neck stiffness. Skin: Negative for rash. Neurological: Positive for dizziness, light-headedness and headaches (Occasionally, intermittently, no headache currently). Negative for syncope, weakness and numbness. Psychiatric/Behavioral: Negative for agitation and confusion. Physical Exam Vitals [02/16/24 1628] BP Pulse Temp Temp src Resp SpO2 Weight Height 130/90 87 36.9 ?C (98.4 ?F) Temporal Art 20 100 % 109.3 kg (241 lb) -- Physical Exam Vitals and nursing note reviewed. Constitutional: Appearance: He is not toxic-appearing or diaphoretic. HENT: Head: Normocephalic and atraumatic. Mouth/Throat: Mouth: Mucous membranes are moist. Eyes: Extraocular Movements: Extraocular movements intact. Conjunctiva/sclera: Conjunctivae normal. Pupils: Pupils are equal, round, and reactive to light. Cardiovascular: Rate and Rhythm: Normal rate and regular rhythm. Pulses: Normal pulses. Pulmonary: Effort: Pulmonary effort is normal. Breath sounds: Normal breath sounds. Abdominal: General: Abdomen is flat. Bowel sounds are normal. There is no distension. Palpations: Abdomen is soft. Tenderness: There is no abdominal tenderness. Skin: General: Skin is warm and dry. Capillary Refill: Capillary refill takes less than 2 seconds. Neurological: General: No focal deficit present. Mental Status: He is alert and oriented to person, place, and time. GCS: GCS eye subscore is 4. GCS verbal subscore is 5. GCS motor subscore is 6. Cranial Nerves: Cranial nerves 2-12 are intact. Sensory: Sensation is intact. Motor: Motor function is intact. Coordination: Lxafin-Fcpu-Ftvaom Test normal. Diagnostic Testing ED Labs Ordered and Reviewed BASIC METABOLIC PANEL - Abnormal; Notable for the following components: Result Value Ref Range Glucose 115 (*) 74 - 99 mg/dL Sodium 133 (*) 136 - 144 mmol/L CO2 21 (*) 22 - 30 mmol/L All other components within normal limits HIGH SENSITIVITY TROPONIN T (INITIAL) - Abnormal; Notable for the following components: MELL High Sensitivity 25 (*) <12 ng/L All other components within normal limits D-DIMER - Abnormal; Notable for the following components: D Dimer 650 (*) <500 ng/mL FEU All other components within normal limits Narrative: 500 ng/mL FEU is the D Dimer cutoff to exclude DVT (deep vein thrombosis) and PE (pulmonary embolism) in patients with a low pre test probability. Supplemental Comment: In patients over 50 years with a low pre test probability for DVT and/or PE, an age adjusted D dimer cutoff can be calculated as [age x 10] ng/mL FEU. For example, a patient of 88 years would have an age adjusted D dimer cutoff of 880 ng/mL FEU. (more content not included)... Normal [facility] Fibrin D-dimer FEU (PPP) [Ma ss/Vol]on 02-16-2024 D DIMER AGE-RELATED CUTOFF 760 ng/mL FEU Normal [facility] Comment on above: Order Comment: Macoi men Type: BLOOD SPECIMEN Ordering Facility: [facility] Address: [address] [place] [address] Performed By: #### B [id number] #### [facility] CLIA [id number] [address] [place] [address] [place] HIGH SENSITIVITY TROPONIN T (INITIAL)on 02-16-2024 Troponin T.cardiac High sensitivity method [Mass/Vol] 25 ng/L High <12 [facility] Comment on above: Order Comment: Speci men Type: BLOOD SPECIMEN Ordering Facility: [facility] Address: [address] [place] [address] Performed By: #### L [id number] #### [facility] CLIA [id number] [address] [place] [id number] [place] [facility] HIGH SENSITIVITY TROPONIN T (SECOND)on 02-16-2024 Troponin T.cardiac High sensitivity method [Mass/Vol] 23 ng/L High <12 [facility] Comment on above: Order Comment: Speci men Type: BLOOD SPECIMEN Ordering Facility: [facility] Address: [address] [place] [address] Performed By: #### L [id number] #### [facility] CLIA [id number] [address] [place] [address] [facility] HIGH SENSITIVITY TROPONIN T (THIRD) 3 HRS AFTER INITIALon 02-16-2024 Troponin T.cardiac High sensitivity method [Mass/Vol] 23 ng/L High <12 [facility] Comment on above: Order Comment: Speci men Type: BLOOD SPECIMEN Ordering Facility: [facility] Address: [address] [place] [address] Performed By: #### B CRET1 #### [facility] CLIA [id number] [address] [place] [address] [place] HISTORY PHYSICALon HISTORY PHYSICAL HNO ID: [id number] Author: VIOLET LYMAN MD Service: Hospital Medicine Author Type: Physician Type: H&P Filed: 02/16/2024 22:54 Note Text: HISTORY AND PHYSICAL EXAMINATION PRIMARY CARE PHYSICIAN: Sigifredo Trimble MD HPI: 78 yo man with hx of DONNA on Bipap, obesity, HTN CAD, recent hospital stay for palpitations/presyncope with finding of + stress test at [facility] leading to URMILA x2 at [facility] presenting with lightheadedness while driving today. He reports it lasted maybe about 15-20 mins and went away. Associated with it was a fluttering feeling in his chest. No chest pain leg swelling or ULLOA. No fevers chills URI symptoms cough sputum. PAST MEDICAL HISTORY Diagnosis Date Aftercare following left knee joint replacement surgery 04/23/2021 Arthritis Coronary artery disease Hypertension Sleep apnea PAST SURGICAL HISTORY Procedure Laterality Date CARDIAC CATHETERIZATION HX ORTHOPEDICS SURGERY HX No family history on file. Social History Tobacco Use Smoking status: Former Types: Cigarettes Smokeless tobacco: Never Vaping Use Vaping status: Never Used Substance Use Topics Alcohol use: Not Currently Drug use: Never atorvastatin (LIPITOR) 40 mg tablet, Take 1 tablet by mouth once daily., Disp: 90 tablet, Rfl: 3, 02/16/2024 clopidogrel (PLAVIX) 75 mg tablet, Take 1 tablet by mouth once daily., Disp: 90 tablet, Rfl: 3, 02/15/2024 lisinopril (ZESTRIL) 20 mg tablet, Take 1 tablet by mouth once daily., Disp: 90 tablet, Rfl: 3, 02/16/2024 finasteride (PROSCAR) 5 mg tablet, Take 5 mg by mouth once daily., Disp: , Rfl: , 02/15/2024 aspirin, enteric coated (ASPIRIN, ENTERIC COATED) 81 mg EC tablet, Take 81 mg by mouth., Disp: , Rfl: , 02/15/2024 loratadine (CLARITIN) 10 mg tablet, Take 10 mg by mouth., Disp: , Rfl: , 02/16/2024 cholecalciferol (VITAMIN D3) 50 mcg (2,000 unit) tablet, Take 50 mcg by mouth., Disp: , Rfl: , 02/16/2024 famotidine (PEPCID) 20 mg tablet, Take 20 mg by mouth two times a day., Disp: , Rfl: , 02/15/2024 ketoconazole (NIZORAL) 2 % cream, Apply to affected area., Disp: , Rfl: ALLERGIES No Known Allergies REVIEW OF SYSTEMS: Review of Systems Respiratory: Negative for shortness of breath. Cardiovascular: Negative for chest pain. Gastrointestinal: Negative for abdominal pain. EXAM: BP 158/85 Ht 190.5 cm (6' 3) Wt 110.2 kg (242 lb 15.2 oz) BMI 30.37 kg/m? Body mass index is 30.37 kg/m?. Physical Exam Constitutional: General: He is not in acute distress. Appearance: He is not diaphoretic. HENT: Head: Normocephalic. Cardiovascular: Rate and Rhythm: Normal rate. Pulmonary: Effort: Pulmonary effort is normal. Abdominal: General: There is no distension. Palpations: Abdomen is soft. Musculoskeletal: General: No swelling. Skin: General: Skin is warm. Neurological: Mental Status: He is alert and oriented to person, place, and time. DATA: Assessment: Mr. Loomis, your 78 years have been affected by DONNA on Bipap, obesity, HTN CAD, recent hospital stay for palpitations/presyncope with finding of + stress test at [facility] leading to UMRILA x2 at [facility] . You presented to the hospital with transient lightheadedness and palpitations. Workup so far doesn't show signs of stent thrombosis, PE, or other acute disease. Patient reports his left [facility] nod[facility] and not new for him. Will watch for tachy/cuba arrhythmias overnight and would recommend checking orthostatics tomorrow later morning after receiving his am meds. Will consult cardiology to discuss if he should wear a Zio patch on discharge. Problem list: Transient lightheadedness Mild hyponatremia Kidney cyst Adrenal nodule Risk: Leg blood clot prevention : low risk Code status: full SIGNATURE: Violet Lyman MD DATE: 02/16/2024 TIME: 10:45 PM Normal [facility] Magnesium SerPl-mCncon 02-15 Magnesium [Mass/Vol] 1.8 mg/dL Normal 1.7-2.3 [facility] Comment on above: Order Comment: Speci men Type: BLOOD SPECIMEN Ordering Facility: [facility] Address: [address] [place] [address] Performed By: #### L [id number] #### [facility] CLIA [id number] [address] [place] [address] [facility] PT panel Coag (PPP)on 2023 INR Coag (PPP) [Relative time] 1.0 {INR} Normal 0.9-1.3 [facility] Comment on above: Order Comment: Thom nagel Type: BLOOD SPECIMEN Ordering Facility: [facility] Address: [address] [place] [id number] Result Comment: Vera min K Antagonist (VKA) Therapeutic Range: INR 2 to 3 (Target INR of 2.5) Note: For patients treated with VKA drugs, such as warfarin, the [place] [employer] 2012 Guideline recommends a therapeutic INR range of 2 to 3 (target INR of 2.5). This recommendation includes high-risk patients with antiphospholipid syndrome with previous arterial or venous thromboembolism, current-generation mechanical or bioprosthetic aortic heart valve replacement. Note: Patients with mechanical aortic valve replacement and additional risk factors for thromboembolic events (atrial fibrillation, previous thromboembolism, LV dysfunction, hypercoagulable conditions) or an older generation mechanical AVR (i.e., ball in-Cage) or any mechanical MVR should have a INR therapeutic range of 2.5 to 3.5 (target INR of 3). Abraham GH, et al. Chest 2012, 141:7S-47S Juan F RA et al. [facility] 2017, 70: 252-289 Performed By: #### B CRET1 #### [facility] CLIA [id number] [address] [place] [address] [place] [facility] PT Coag (PPP) [Time] 10.6 s Normal <13.1 [facility] Comment on above: Order Comment: Thom nagel Type: BLOOD SPECIMEN Ordering Facility: [facility] Address: [address] [place] [id number] Performed By: #### B CRET1 #### [facility] CLIA [id number] [address] [place] [address] [place] XR CHEST 1V FRONTALon 2023 XR CHEST 1V FRONTAL * * *Final Report* * * DATE OF EXAM: Feb 16 2024 5:45PM LDX 5290 - XR CHEST 1V FRONTAL / PROCEDURE REASON: Dizziness * * * * Physician Interpretation * * * * EXAMINATION: CHEST RADIOGRAPH (SINGLE VIEW AP OR PA) CLINICAL HISTORY: Dizziness MQ: XC1_5 Comparison: 01/17/2024. RESULT: Lines, tubes, and devices: None. Lungs and pleura: No consolidation. No lung mass. No pleural effusion. Cardiomediastinal silhouette: Stable cardiomediastinal silhouette. Other: There are mild degenerative changes involving the left shoulder joint. IMPRESSION: Stable exam with no acute radiographic abnormality. Consulting Project Director: PSCB Transcribe Date/Time: Feb 16 2024 5:47P Dictated by : CATHIE LEWIS MD This examination was interpreted and the report reviewed and electronically signed by: CATHIE LEWIS MD on Feb 16 2024 5:48PM EST [id number] Normal [facility] 02-10-2024 [facility] Telephone (CARDFV) ----- KENDRICK LOOMIS ([id number]) 1945 M Date Time Provider Department 02/10/24 ZOYA PARDO [facility] During your visit today, we recorded the following information about you: Carly Santiago PSS 02/10/2024 9:07 AM Signed Pt had been seen on 02/09/[address] Pardo. Pt stated Dr Pardo never mentioned what pts restrictions were and when he can start physical therapy. Please advise. FREDDY Busby Renee, RN 02/10/2024 11:54 AM Signed Adelaide Quach RN 02/10/2024 11:54 AM Signed Called and spoke to patient regarding message below. Verbalizes understanding. Allergies As of Date: 02/10/2024 (No Known Allergies) Date Reviewed: 02/09/2024 Reviewed by: Vicky Mansfield MA - Fully Assessed Reason for Visit: Patient Question [3871] Prescriptions as of 02/10/2024 - atorvastatin (LIPITOR) 40 mg tablet Take 1 tablet by mouth once daily. - clopidogrel (PLAVIX) 75 mg tablet Take 1 tablet by mouth once daily. - lisinopril (ZESTRIL) 20 mg tablet Take 1 tablet by mouth once daily. - finasteride (PROSCAR) 5 mg tablet Take 5 mg by mouth once daily. - aspirin, enteric coated (ASPIRIN, ENTERIC COATED) 81 mg EC tablet Take 81 mg by mouth. - loratadine (CLARITIN) 10 mg tablet Take 10 mg by mouth. - ketoconazole (NIZORAL) 2 % cream Apply to affected area. - cholecalciferol (VITAMIN D3) 50 mcg (2,000 unit) tablet Take 50 mcg by mouth. - famotidine (PEPCID) 20 mg tablet Take 20 mg by mouth two times a day. 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] 01/20/2024 Cataract [H26.9] 01/20/2024 Gastroesophageal reflux disease without esophag*01/20/2024 KAKE (hard of hearing) [H91.90] 01/20/2024 OA (osteoarthritis) [M19.90] 01/20/2024 Chronic liver disease [K76.9] 01/20/2024 DONNA (obstructive sleep apnea) [G47.33] 01/20/2024 Coronary artery disease involving [place] heart *01/20/2024 Syncope [R55] 01/20/2024 Near syncope [R55] 01/20/2024 Palpitations [R00.2] 01/21/2024 PVC's (premature ventricular contractions) [I49*01/21/2024 Orthostatic lightheadedness [R42] 01/24/2024 Abnormal nuclear stress test [R94.39] 01/24/2024 Primary hypertension [I10] 01/27/2024 CAD in [place] artery [I25.10] 01/27/2024 Encounter Status:Closed by ADELAIDE QUACH on 02/10/24 Normal [facility] CNOVon 02-09-2024 CN Office Visit ([facility]) ----- KENDRICK LOOMIS ([id number]) 1945 Date Time Provider Department 02/09/24 3:30 PM ZOYA PARDO [facility] During your visit today, we recorded the following information about you: Pulse Blood pressure Weight Height 77/minute 124/76 112.3 kg 1.905 m Zoya Pardo MD 02/10/2024 11:50 AM Signed [facility] Department of Cardiovascular Medicine [facility] OUTPATIENT VISIT DATE February 09, 2024 OUTPATIENT VISIT TYPE Established Patient PRIMARY CARE PHYSICIAN: [place] [address] REFERRING PHYSICIAN: D[facility] PAEZ [facility] [place] CHIEF COMPLAINT: Office Follow-Up Visit HISTORY OF PRESENT ILLNESS: Mr. Loomis is a 78 year old male who presents today for follow up . Had complex stent to rca and lad. He denies chest pain, shortness of breath, orthopnea, cough, edema, palpitations, PND, lightheadedness or syncope. 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) Near syncope Palpitations PVC's (premature ventricular contractions) Abnormal nuclear stress test Orthostatic lightheadedness CAD in [place] artery Primary hypertension RISK FACTORS FOR CORONARY ARTERY DISEASE: PAST MEDICAL HISTORY Diagnosis Date Aftercare following left knee joint replacement surgery 04/23/2021 Arthritis Coronary artery disease Hypertension Sleep apnea PAST SURGICAL HISTORY Procedure Laterality Date ORTHOPEDICS SURGERY HX SOCIAL HISTORY Social History Tobacco Use Smoking status: Former Types: Cigarettes Substance Use Topics Alcohol use: Not Currently Drug use: Never No family history on file. ALLERGIES: ALLERGIES No Known Allergies MEDICATIONS: clopidogrel (PLAVIX) 75 mg tablet Take 1 tablet by mouth once daily. finasteride (PROSCAR) 5 mg tablet Take 5 mg by mouth once daily. aspirin, enteric coated (ASPIRIN, ENTERIC COATED) 81 mg EC tablet Take 81 mg by mouth. atorvastatin (LIPITOR) 40 mg tablet Take 40 mg by mouth. lisinopril (ZESTRIL) 20 mg tablet Take 20 mg by mouth. loratadine (CLARITIN) 10 mg tablet Take 10 mg by mouth. ketoconazole (NIZORAL) 2 % cream Apply to affected area. cholecalciferol (VITAMIN D3) 50 mcg (2,000 unit) tablet Take 50 mcg by mouth. famotidine (PEPCID) 20 mg tablet Take 20 mg by mouth two times a day. REVIEW OF SYSTEMS: GENERAL: Negative for: Weight loss or gain, HEENT: Negative for: Headache, Impaired Vision, NECK: Negative for: Swelling, Pain, GASTROINTESTINAL: Negative for: Trouble swallowing, Heartburn, SKIN: Negative for: Rashes, Itching HEMATOLOGICAL/LYMPHATIC: Negative for: bleeding I personally interviewed, confirmed and edited the above information if obtained by others. PHYSICAL EXAMINATION: BP 124/76 Pulse 77 Ht 190.5 cm (6' 3) Wt 112.3 kg (247 lb 9.2 oz) SpO2 97% BMI 30.94 kg/m? General: Well appearing, in no acute distress. Skin: No clubbing, no cyanosis. Eyes: Extra ocular movements intact Neck: No jugular venous distention, no carotid bruits, carotids have a normal upstroke, no palpable thyromegaly. Lungs: Clear to auscultation bilaterally, no wheezing or rhonchi. Heart: Regular rhythm, PMI not displaced, S1, S2 normal, no S3, no S4, no heaves, no rub and no murmur. Extremities: No peripheral edema . Grade 2/4 distal pulses bilaterally. Neuro: Oriented to person, place and time, alert. CARDIOVASCULAR MEDICINE TESTING: Electrocardiogram: unchanged from previous tracings Recent Lab Values 01/21/2024 LDL 32 HDL 37 Comment for LDL at 4:48 AM on 01/21/2024: <100 mg/dL, Optimal 100-129 mg/dL, Near optimal/above optimal 130-159 mg/dL, Borderline high 160-189 mg/dL, High >189 mg/dL, Very high Secondary prevention optimal LDL Cholesterol levels are recommended to be < 70 mg/dL Comment for HDL at 4:48 AM on 01/21/2024: 40-59 mg/dL, Acceptable >59 mg/dL, High: Negative risk factor for coronary heart disease <40 mg/dL, Low: Positive risk factor for coronary heart disease I have personally reviewed the tests above. IMPRESSION: Mr. Loomis is a 78 year old male stable . (I25.119) Coronary artery disease involving [place] heart with angina pectoris, unspecified vessel or lesion type (HCC) (primary encounter diagnosis) I have reviewed the medications, adjusted it and renew it for another year. During this visit PLAN AND RECOMMENDATIONS: Lipid is managed and blood testing is done by pcp Continue present treatment CONTACT INFORMATION: MD Danielle [facility] Department of Cardiovascular Medicine Heart and V[facility] Cardiology [id number] [place] [address] [address] [place], [place] [address] (more content not included)... Normal [facility] ECG COMPLETEon 02-09-2024 ECG COMPLETE Ventricular Rate : 7 3 BPM Atrial Rate : 73 BPM P-R Interval : 174 ms QRS Duration : 144 ms Q-T Interval : 408 ms QTC Calculation(Bazett) : 449 ms Calculated P Phoenix : 61 degrees Calculated R [place] : -26 degrees Calculated T [place] : 27 degrees NORMAL SINUS RHYTHM COMPLETE RIGHT BUNDLE BRANCH BLOCK ABNORMAL ECG Confirmed by MAHESH WALTON M.D. ([id number]) on 02/15/2024 11:34:52 PM NAME : KENDRICK LOOMIS PID : [id number] : 1945 Gender : Male Race : ORD : [id number] Procedure Date : Feb 09 2024 15:12:55 Edit Date : Feb 15 2024 23:34:56 Diagnosis: NORMAL SINUS RHYTHM COMPLETE RIGHT BUNDLE BRANCH BLOCK ABNORMAL ECG Confirmed by MAHESH WALTON M.D. ([id number]) on 02/15/2024 11:34:52 PM Test Reason : I25.119 Coronary artery disease involving [place] heart with angina pectoris, un Location : 225 : F[facility]ARD Overread By : MAHESH WALTON M.D. Edited By : MAHESH WALTON M.D. Referred By : Serjio Acquired by : Tita north [facility] Braden 02-06-2024 CNPN Telephone (CATHMN) ----- JESSICAKENDRICK Roger ([id number]) 1945 M Date Time Provider Department 02/06/24 OSCAR FLOWERS During your visit today, we recorded the following information about you: Mike Vanessa 02/06/2024 3:51 PM Signed Pt called stating that he sees Dr. Peacock which is an site foreman at [facility]. He wanted to know why he is scheduled to see Dr. Flowers at [facility]. Pt is unable to get transportation to this location. Pt can be reached at [phone] Laverne Ash MD 02/17/2024 1:38 PM Signed Can you send him a Zio patch for two weeks Jackie Banuelos RN 02/17/2024 2:[address] Ash note placed in a new encounter Allergies As of Date: 02/06/2024 (No Known Allergies) Date Reviewed: 01/28/2024 Reviewed by: Katie Yuen, JUDE - Fully Assessed Reason for Visit: Patient Question [1477] Primary Visit Diagnosis:Coronary artery disease involving [place] coronary artery of [place] heart with angina pectoris (HCC) [I25.119] Order(s):OUTSIDE VENDOR CARDIAC OUTPATIENT EXTENDED RHYTHM RECORDING (WITHOUT TELEMETRY) [[id number]] Order #: [id number]: 1 Prescriptions as of 02/17/2024 - atorvastatin (LIPITOR) 40 mg tablet Take 1 tablet by mouth once daily. - clopidogrel (PLAVIX) 75 mg tablet Take 1 tablet by mouth once daily. - lisinopril (ZESTRIL) 20 mg tablet Take 1 tablet by mouth once daily. - finasteride (PROSCAR) 5 mg tablet Take 5 mg by mouth once daily. - aspirin, enteric coated (ASPIRIN, ENTERIC COATED) 81 mg EC tablet Take 81 mg by mouth. - loratadine (CLARITIN) 10 mg tablet Take 10 mg by mouth. - ketoconazole (NIZORAL) 2 % cream Apply to affected area. - cholecalciferol (VITAMIN D3) 50 mcg (2,000 unit) tablet Take 50 mcg by mouth. - famotidine (PEPCID) 20 mg tablet Take 20 mg by mouth two times a day. Facility-Administered Medications as of 02/17/2024 - influenza vaccine ts 180 mcg (Patients 65 years and older) (PF) 0.5 mL injection (FLUZONE HIGH DOSE ) - aspirin, enteric coated 81 mg tab(s) - clopidogrel 75 mg tab(s) (PLAVIX) - atorvastatin 40 mg tab(s) (LIPITOR) - lisinopril 20 mg tab(s) (ZESTRIL) - famotidine 20 mg tab(s) (PEPCID) - finasteride 5 mg tab(s) (PROSCAR) - prochlorperazine 10 mg injection (COMPAZINE) - melatonin 3 mg tab(s) - benzocaine-menthol 1 Lozenge (CEPACOL) - polyethylene glycol 3350 17 g packet - acetaminophen 1,000 mg tab(s) (TYLENOL) - traMADol 50 mg tab(s) (ULTRAM) Problem List As Of Date 02/06/2024 Noted Resolved Aftercare following left knee joint replacement*04/23/2021 08/13/2021 Difficulty walking [R26.2] 04/23/2021 08/13/2021 Stiffness of knee joint, left [M25.662] 04/23/2021 08/13/2021 Muscle wasting and atrophy, not elsewhere class*04/23/2021 08/13/2021 Adjustment disorder with mixed anxiety and depr*01/20/2024 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] 01/20/2024 Cataract [H26.9] 01/20/2024 Gastroesophageal reflux disease without esophag*01/20/2024 KAKE (hard of hearing) [H91.90] 01/20/2024 OA (osteoarthritis) [M19.90] 01/20/2024 Chronic liver disease [K76.9] 01/20/2024 DONNA (obstructive sleep apnea) [G47.33] 01/20/2024 Coronary artery disease involving [place] heart *01/20/2024 Syncope [R55] 01/20/2024 Near syncope [R55] 01/20/2024 Palpitations [R00.2] 01/21/2024 PVC's (premature ventricular contractions) [I49*01/21/2024 Orthostatic lightheadedness [R42] 01/24/2024 Abnormal nuclear stress test [R94.39] 01/24/2024 Primary hypertension [I10] 01/27/2024 CAD in [place] artery [I25.10] 01/27/2024 Encounter Status:Closed by JACKIE BANUELOS on 02/17/24 [facility] Braden 02-01-2024 CNPN Telephone (CATHMN) ----- KENDRICK LOOMIS ([id number]) 1945 M Date Time Provider Department 02/01/24 OSCAR FLOWERS CATHPOLLY During your visit today, we recorded the following information about you: Allergies As of Date: 02/01/2024 (No Known Allergies) Date Reviewed: 01/28/2024 Reviewed by: Katie Yuen, JUDE - Fully Assessed Reason for Visit: Appointment [186] Cmt: Appt reminder sent via mail Prescriptions as of 02/01/2024 - clopidogrel (PLAVIX) 75 mg tablet Take 1 tablet by mouth once daily. - finasteride (PROSCAR) 5 mg tablet Take 5 mg by mouth once daily. - aspirin, enteric coated (ASPIRIN, ENTERIC COATED) 81 mg EC tablet Take 81 mg by mouth. - atorvastatin (LIPITOR) 40 mg tablet Take 40 mg by mouth. - lisinopril (ZESTRIL) 20 mg tablet Take 20 mg by mouth. - loratadine (CLARITIN) 10 mg tablet Take 10 mg by mouth. - ketoconazole (NIZORAL) 2 % cream Apply to affected area. - cholecalciferol (VITAMIN D3) 50 mcg (2,000 unit) tablet Take 50 mcg by mouth. - famotidine (PEPCID) 20 mg tablet Take 20 mg by mouth two times a day. 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] 01/20/2024 Cataract [H26.9] 01/20/2024 Gastroesophageal reflux disease without esophag*01/20/2024 KAKE (hard of hearing) [H91.90] 01/20/2024 OA (osteoarthritis) [M19.90] 01/20/2024 Chronic liver disease [K76.9] 01/20/2024 DONNA (obstructive sleep apnea) [G47.33] 01/20/2024 Coronary artery disease involving [place] heart *01/20/2024 Syncope [R55] 01/20/2024 Near syncope [R55] 01/20/2024 Palpitations [R00.2] 01/21/2024 PVC's (premature ventricular contractions) [I49*01/21/2024 Orthostatic lightheadedness [R42] 01/24/2024 Abnormal nuclear stress test [R94.39] 01/24/2024 Primary hypertension [I10] 01/27/2024 CAD in [place] artery [I25.10] 01/27/2024 Encounter Status:Closed by LINSEY RICHTER on 02/01/24 Normal [facility] ECHOon 01-31-2024 CONCLUSIONS: - Exam indication: Shortness of Breath - The left ventricle is normal in size. There is no left ventricular hypertrophy. Left ventricular systolic function is normal. EF = 62 5% (2D biplane) Definity contrast used for endocardial border detection. - The right ventricle is moderately dilated. Right ventricular systolic function is normal. Tricuspid annular displacement is 2.5 cm. - The right atrial cavity is mildly dilated. - There are no significant valvular abnormalities. - The visualized aorta is dilated with a maximal dimension of 4.[address]/MR angiography if clinically indicated. - The patient has not had a prior [facility] echocardiographic exam for comparison. * * * Final * * * [facility] Echocardiography Report: Transthoracic Echo [facility] Date of service: 01/31/2024 8:02:55 AM Ordering physician: [facility] PROVIDER Indication: Shortness of Breath Technologist: Clementina Stevens RD Nurse: Sheela Ambriz RN Interpreting physician: Matt Crowder MD PATIENT: Name: KENDRICK LOOMIS : 1945 Age: 78 years Gender: M Primary rhythm: sinus. Height: 190.50 cm BSA: 2.46 m Weight: 114.40 kg BMI: 31.5 kg/m Heart rate 64 bpm Blood pressure 143/74 mmHg Color Doppler was utilized to interrogate the cardiac valves assessed and spectral Doppler was utilized to determine the flow velocities and pressure gradients reported in this exam. MEASUREMENTS: Value Indexed Normal Max aortic dimension 4.2 cm Ao < 3.8 Left atrium diameter 3.4 cm (2D) Left atrial volume 69 ml (biplane A-L) 28 ml/m Edmunod <= 34 LV ID (diastole) 4.7 cm (2D) 1.91 cm/m LV ID (systole) 3.5 cm (2D) 1.44 cm/m IVS, leaflet tips 1.0 cm (2D) Posterior wall thickness 1.0 cm (2D) Left ventricular mass 157 g (2D) 64 g/m LV stroke volume 104 ml (2D biplane) LV cardiac output 7.0 l/min (2D biplane) 2.9 l/min/m LVOT stroke volume 54 ml 22 ml/m LVOT cardiac output 3.4 l/min 1.4 l/min/m LV end diastolic volume 169 ml (2D biplane) 68.7 ml/m 34<=EDVi<75 LV end systolic volume 65 ml (2D biplane) 26.3 ml/m Ejection Fraction 62 % (2D biplane) EF > 52 FINDINGS: LEFT VENTRICLE The left ventricle is normal in size. There is no left ventricular hypertrophy. Left ventricular systolic function is normal. Grade I left ventricular diastolic dysfunction. Mitral annular lateral E/e': 6.2. Mitral annular septal E/e': 6.8. Definity contrast used for endocardial border detection. Wall Motion: All scored segments are normal. RIGHT VENTRICLE The right ventricle is moderately dilated. Right ventricular systolic function is normal. RV systolic tissue Doppler velocity is 13.2 cm/s. Tricuspid annular displacement is 2.5 cm. Estimated right ventricular systolic pressure is 19 mmHg consistent with normal pulmonary artery pressures. Estimated right atrial pressure is 3 mmHg based on IVC assessment. LEFT ATRIUM The left atrial cavity is normal in size. RIGHT ATRIUM The right atrial cavity is mildly dilated. Inferior Vena Cava: The inferior vena cava appears normal measuring 1.6 cm. The vessel decreases greater than 50 percent with inspiration. MITRAL VALVE The mitral valve leaflets are structurally normal. There is no mitral valve regurgitation. The pressure half time is 111 msec. The peak mitral E/A ratio is 0.49. The average mitral E/e' ratio is 6.5. The mitral flow deceleration time is 381 msec. TRICUSPID VALVE The tricuspid valve leaflets are structurally normal. There is trace tricuspid valve regurgitation. AORTIC VALVE The aortic valve cusps are structurally normal. There is no aortic valve regurgitation. Tricuspid aortic valve. The peak gradient is 9 mmHg (peak velocity = 146.2 cm/s). The mean gradient is 5 mmHg. The LVOT mean velocity is 56.8 cm/s. The LVOT diameter is 2.1 cm. The aortic VTI is 27.2 cm. The mean velocity in the aortic valve is 101.0 cm/s. The dimensionless valve index is 0.56. AV area is 1.98 cm (0.80 cm /m ) by continuity, VTI. The LVOT stroke volume index is 22 ml/m . PULMONIC VALVE The pulmonic valve cusps are structurally normal. There is no pulmonic valve regurgitation. AORTA The visualized aorta is dilated. Measurements - Aortic valve annulus 2.1 cm. Sinus: 4.2 cm. Sinotubular junction 3.3 cm. Mid ascending aorta 3.5 cm. PULMONARY ARTERIES The pulmonary arteries are normal. PERICARDIUM There is an epicardial fat pad. [facility] Echocardiography Echocardiography Rep ort: Transthoracic Echo [facility] Date of service: 01/31/2024 8:02:55 AM Ordering physician: [facility] PROVIDER Indication: Shortness of Breath Technologist: Clementina Stevens RDCS Nurse: Sheela Ambriz RN Interpreting physician: Matt Crowder MD PATIENT: Name: KENDRICK LOOMIS : 1945 Age: 78 years Gender: M Primary rhythm: sinus. Height: 190.50 cm BSA: 2.46 m Weight: 114.40 kg BMI: 31.5 kg/m Heart rate 64 bpm Blood pressure 143/74 mmHg Color Doppler was utilized to interrogate the cardiac valves assessed and spectral Doppler was utilized to determine the flow velocities and pressure gradients reported in this exam. MEASUREMENTS: Value Indexed Normal Max aortic dimension 4.2 cm Ao < 3.8 Left atrium diameter 3.4 cm (2D) Left atrial volume 69 ml (biplane A-L) 28 ml/m Edmundo <= 34 LV ID (diastole) 4.7 cm (2D) 1.91 cm/m LV ID (systole) 3.5 cm (2D) 1.44 cm/m IVS, leaflet tips 1.0 cm (2D) Posterior wall thickness 1.0 cm (2D) Left ventricular mass 157 g (2D) 64 g/m LV stroke volume 104 ml (2D biplane) LV cardiac output 7.0 l/min (2D biplane) 2.9 l/min/m LVOT stroke volume 54 ml 22 ml/m LVOT cardiac output 3.4 l/min 1.4 l/min/m LV end diastolic volume 169 ml (2D biplane) 68.7 ml/m 34<=EDVi<75 LV end systolic volume 65 ml (2D biplane) 26.3 ml/m Ejection Fraction 62 % (2D biplane) EF > 52 FINDINGS: LEFT VENTRICLE The left ventricle is normal in size. There is no left ventricular hypertrophy. Left ventricular systolic function is normal. Grade I left ventricular diastolic dysfunction. Mitral annular lateral E/e': 6.2. Mitral annular septal E/e': 6.8. Definity contrast used for endocardial border detection. Wall Motion: All scored segments are normal. RIGHT VENTRICLE The right ventricle is moderately dilated. Right ventricular systolic function is normal. RV systolic tissue Doppler velocity is 13.2 cm/s. Tricuspid annular displacement is 2.5 cm. Estimated right ventricular systolic pressure is 19 mmHg consistent with normal pulmonary artery pressures. Estimated right atrial pressure is 3 mmHg based on IVC assessment. LEFT ATRIUM The left atrial cavity is normal in size. RIGHT ATRIUM The right atrial cavity is mildly dilated. Inferior Vena Cava: The inferior vena cava appears normal measuring 1.6 cm. The vessel decreases greater than 50 percent with inspiration. MITRAL VALVE The mitral valve leaflets are structurally normal. There is no mitral valve regurgitation. The pressure half time is 111 msec. The peak mitral E/A ratio is 0.49. The average mitral E/e' ratio is 6.5. The mitral flow deceleration time is 381 msec. TRICUSPID VALVE The tricuspid valve leaflets are structurally normal. There is trace tricuspid valve regurgitation. AORTIC VALVE The aortic valve cusps are structurally normal. There is no aortic valve regurgitation. Tricuspid aortic valve. The peak gradient is 9 mmHg (peak velocity = 146.2 cm/s). The mean gradient is 5 mmHg. The LVOT mean velocity is 56.8 cm/s. The LVOT diameter is 2.1 cm. The aortic VTI is 27.2 cm. The mean velocity in the aortic valve is 101.0 cm/s. The dimensionless valve index is 0.56. AV area is 1.98 cm (0.80 cm /m ) by continuity, VTI. The LVOT stroke volume index is 22 ml/m . PULMONIC VALVE The pulmonic valve cusps are structurally normal. There is no pulmonic valve regurgitation. AORTA The visualized aorta is dilated. Measurements - Aortic valve annulus 2.1 cm. Sinus: 4.2 cm. Sinotubular junction 3.3 cm. Mid ascending aorta 3.5 cm. PULMONARY ARTERIES The pulmonary arteries are normal. PERICARDIUM There is an epicardial fat pad. CONCLUSIONS: - Exam indication: Shortness of Breath - The left ventricle is normal in size. There is no left ventricular hypertrophy. Left ventricular systolic function is normal. EF = 62 5% (2D biplane) Definity contrast used for endocardial border detection. - The right ventricle is moderately dilated. Right ventricular systolic function is normal. Tricuspid annular displacement is 2.5 cm. - The right atrial cavity is mildly dilated. - There are no significant valvular abnormalities. - The visualized aorta is dilated with a maximal dimension of 4.[address]/MR angiography if clinically indicated. - The patient has not had a prior CC echocardiographic exam for comparison. * * * Final * * * [facility] [employer] [facility] Image : [id number] [facility] NURSING PROGon 01-31-2024 NURSING PROG HNO ID: [id number] Author: BRIAN AMBRIZ RN Service: ? Author Type: Registered Nurse Type: Nursing Progress Note Filed: 01/31/2024 08:44 Note Text: #22 Darren yu AC per Gabby Pickett RN. 1 attempt. Site clear, flushes easily. Venigard to site. Pt diana w/o c/o [facility] CNPNon 01-30-2024 CNPN Telephone (REFPHY) ----- LOOMISKENDRICK Roger ([id number]) 1945 M Date Time Provider Department 01/30/24 NO ONE (HISTORICAL) REFPHY During your visit today, we recorded the following information about you: YeungChloe 01/30/2024 8:55 AM Signed Patient: Kendrick Kana Loomis Date of : 1945 Patient phone number: [phone] Referring Provider for the encounter: Sigifredo Trimble Requesting Provider: n/a Reason for requesting visit (RFV/signs and symptoms/diagnosis): Coronary atherosclerosis due to calcified coronary lesion ([id number]). Person calling: caregiver: Chloe Return call to: self Medical Records/Insurance Card scanned into [employer] Yes Comments: Allergies As of Date: 01/30/2024 (No Known Allergies) Date Reviewed: 01/28/2024 Reviewed by: Katie Yuen, JUDE - Fully Assessed Reason for Visit: External Referrals/resources [909] Prescriptions as of 01/30/2024 - clopidogrel (PLAVIX) 75 mg tablet Take 1 tablet by mouth once daily. - finasteride (PROSCAR) 5 mg tablet Take 5 mg by mouth once daily. - aspirin, enteric coated (ASPIRIN, ENTERIC COATED) 81 mg EC tablet Take 81 mg by mouth. - atorvastatin (LIPITOR) 40 mg tablet Take 40 mg by mouth. - lisinopril (ZESTRIL) 20 mg tablet Take 20 mg by mouth. - loratadine (CLARITIN) 10 mg tablet Take 10 mg by mouth. - ketoconazole (NIZORAL) 2 % cream Apply to affected area. - cholecalciferol (VITAMIN D3) 50 mcg (2,000 unit) tablet Take 50 mcg by mouth. - famotidine (PEPCID) 20 mg tablet Take 20 mg by mouth two times a day. 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] 01/20/2024 Cataract [H26.9] 01/20/2024 Gastroesophageal reflux disease without esophag*01/20/2024 KAKE (hard of hearing) [H91.90] 01/20/2024 OA (osteoarthritis) [M19.90] 01/20/2024 Chronic liver disease [K76.9] 01/20/2024 DONNA (obstructive sleep apnea) [G47.33] 01/20/2024 Coronary artery disease involving [place] heart *01/20/2024 Syncope [R55] 01/20/2024 Near syncope [R55] 01/20/2024 Palpitations [R00.2] 01/21/2024 PVC's (premature ventricular contractions) [I49*01/21/2024 Orthostatic lightheadedness [R42] 01/24/2024 Abnormal nuclear stress test [R94.39] 01/24/2024 Primary hypertension [I10] 01/27/2024 CAD in [place] artery [I25.10] 01/27/2024 Encounter Status:Closed by CHLOE YEUNG on 01/30/24 Normal [facility] Basic metabolic 2000 panelon 01-28-2024 Anion gap [Moles/Vol] 11 mmol/L Normal 8-15 [facility] Comment on above: Order Comment: Speci men Type: BLOOD SPECIMEN Ordering Facility: [facility] Address: [address] [place] [address] Performed By: #### 2 4321-2 #### [facility] CLIA [id number] [address] [place] [address] [place] Calcium [Mass/Vol] 9.0 mg/dL Normal 8.5-10.2 [facility] Comment on above: Order Comment: Macoi men Type: BLOOD SPECIMEN Ordering Facility: [facility] Address: [address] [place] [address] Performed By: #### 2 4321-2 #### [facility] CLIA [id number] [place] [address] [place] Chloride [Moles/Vol] 106 mmol/L Normal 98-107 [facility] Comment on above: Order Comment: Speci men Type: BLOOD SPECIMEN Ordering Facility: [facility] Address: [address] [place] [address] Performed By: #### 2 4321-2 #### [facility] CLIA [id number] [place] [address] [place] CO2 [Moles/Vol] 22 mmol/L Normal 22-30 [facility] Comment on above: Order Comment: Thom nagel Type: BLOOD SPECIMEN Ordering Facility: [facility] Address: [address] [place] [address] Performed By: #### 2 4321-2 #### [facility] CLIA [id number] [place] [address] [place] Creatinine [Mass/Vol] 1.08 mg/dL Normal 0.73-1.22 [facility] Comment on above: Order Comment: Thom men Type: BLOOD SPECIMEN Ordering Facility: [facility] Address: [address] [place] [address] Performed By: #### 2 4321-2 #### [facility] CLIA [id number] [address] [place] [address] Creatinine and Glomerular filtration rate.predicted panel (S/P/Bld) 71 mL/min/1.73m??? Normal >=60 [facility] Comment on above: Order Comment: Thom nagel Type: BLOOD SPECIMEN Ordering Facility: [facility] Address: [address] [place] [address] Result Comment: Hilda mated Glomerular Filtration Rate (eGFR) is calculated using the 2020 CKD-EPI creatinine equation. This equation utilizes serum creatinine, sex, and age as parameters. The creatinine assay has traceable calibration to isotope dilution-mass spectrometry. Refer to KDIGO guidelines for clinical interpretation. In patients with unstable renal function, e.g. those with acute kidney injury, the eGFR may not accurately reflect actual GFR. Performed By: #### 2 4321-2 #### [facility] CLIA [id number] [address] [place] [address] [place] Glucose [Mass/Vol] 104 mg/dL High 74-99 [facility] Comment on above: Order Comment: Thom shona Type: BLOOD SPECIMEN Ordering Facility: [facility] Address: [address] [place] [address] Result Comment: The [place] Diabetes [employer] (ADA) provides guidance for cutoff values for fasting glucose and random glucose. The ADA defines fasting as no caloric intake for at least 8 hours. Fasting plasma glucose results between 100 to 125 mg/dL indicate increased risk for diabetes (prediabetes). Fasting plasma glucose results greater than or equal to 126 mg/dL meet the criteria for diagnosis of diabetes. In the absence of unequivocal hyperglycemia, results should be confirmed by repeat testing. In a patient with classic symptoms of hyperglycemia or hyperglycemic crisis, random plasma glucose results greater than or equal to 200 mg/dL meet the criteria for diagnosis of diabetes. Reference: Standards of Medical Care in Diabetes 2016, [place] [employer]. Diabetes Care. 2016.39(Suppl 1). Performed By: #### 2 4321-2 #### [facility] CLIA [id number] [address] [place] [address] [place] Potassium [Moles/Vol] 4.1 mmol/L Normal 3.7-5.1 [facility] Comment on above: Order Comment: Thom nagel Type: BLOOD SPECIMEN Ordering Facility: [facility] Address: [address] [place] [address] Performed By: #### 2 4321-2 #### [facility] CLIA [id number] [address] [place] [address] [place] Sodium [Moles/Vol] 139 mmol/L Normal 136-144 [facility] Comment on above: Order Comment: Thom nagel Type: BLOOD SPECIMEN Ordering Facility: [facility] Address: [address] [place] [address] Performed By: #### 2 4321-2 #### [facility] CLIA [id number] [address] [place] [address] [place] Urea nitrogen [Mass/Vol] 15 mg/dL Normal 9-24 [facility] Comment on above: Order Comment: Macoi shona Type: BLOOD SPECIMEN Ordering Facility: [facility] Address: [address] [place] [address] Performed By: #### 2 4321-2 #### [facility] CLIA [id number] [address] [place] [address] [place] CBC panel Auto (Bld)on 01-27 Erythrocyte distribution width (RBC) [Ratio] 12.9 % Normal 11.5-15.0 [facility] Comment on above: Order Comment: Thom nagel Type: BLOOD SPECIMEN Ordering Facility: [facility] Address: [address] [place] [address] Performed By: #### 5 8410-2 #### [facility] CLIA [id number] [address] [place] [address] [place] Hematocrit (Bld) [Volume fraction] 40.3 % Normal 39.0-51.0 [facility] Comment on above: Order Comment: Speci men Type: BLOOD SPECIMEN Ordering Facility: [facility] Address: [address] [place] [address] Performed By: #### 5 8410-2 #### [facility] CLIA [id number] [address] [place] [address] [place] Hemoglobin (Bld) [Mass/Vol] 13.7 g/dL Normal 13.0-17.0 [facility] Comment on above: Order Comment: Speci men Type: BLOOD SPECIMEN Ordering Facility: [facility] Address: [address] [place] [address] Performed By: #### 5 8410-2 #### [facility] CLIA [id number] [address] [place] [address] [place] MCH (RBC) [Entitic mass] 31.9 pg Normal 26.0-34.0 [facility] Comment on above: Order Comment: Speci men Type: BLOOD SPECIMEN Ordering Facility: [facility] Address: [address] [place] [address] Performed By: #### 5 8410-2 #### [facility] CLIA [id number] [address] [place] [address] [place] MCHC (RBC) [Mass/Vol] 34.0 g/dL Normal 30.5-36.0 [facility] Comment on above: Order Comment: Speci men Type: BLOOD SPECIMEN Ordering Facility: [facility] Address: [address] [place] [address] Performed By: #### 5 8410-2 #### [facility] CLIA [id number] [address] [place] [address] [place] MCV (RBC) [Entitic vol] 93.9 fL Normal 80.0-100.0 [facility] Comment on above: Order Comment: Speci men Type: BLOOD SPECIMEN Ordering Facility: [facility] Address: [address] [place] [address] Performed By: #### 5 8410-2 #### [facility] CLIA [id number] [place] [address] [place] Nucleated RBC (Bld) [#/Vol] 10*3/uL Normal <0.01 [facility] Comment on above: Order Comment: Speci men Type: BLOOD SPECIMEN Ordering Facility: [facility] Address: [address] [place] [address] Performed By: #### 5 8410-2 #### [facility] CLIA [id number] [address] [place] [address] [place] Platelet mean volume (Bld) [Entitic vol] 11.1 fL Normal 9.0-12.7 [facility] Comment on above: Order Comment: Speci men Type: BLOOD SPECIMEN Ordering Facility: [facility] Address: [address] [place] [address] Performed By: #### 5 8410-2 #### [facility] CLIA [id number] [address] [place] [address] [place] Platelets (Bld) [#/Vol] 184 10*3/uL Normal 150-400 [facility] Comment on above: Order Comment: Speci men Type: BLOOD SPECIMEN Ordering Facility: [facility] Address: [address] [place] [address] Performed By: #### 5 8410-2 #### [facility] CLIA [id number] [address] [place] [address] [place] RBC (Bld) [#/Vol] 4.29 10*6/uL Normal 4.20-6.00 [facility] Comment on above: Order Comment: Speci men Type: BLOOD SPECIMEN Ordering Facility: [facility] Address: [address] [place] [address] Performed By: #### 5 8410-2 #### [facility] CLIA [id number] [address] [place] [address] [place] WBC (Bld) [#/Vol] 7.70 10*3/uL Normal 3.70-11.00 [facility] Comment on above: Order Comment: Speci men Type: BLOOD SPECIMEN Ordering Facility: [facility] Address: [address] [place] [address] Performed By: #### 5 8410-2 #### [facility] CLIA [id number] [address] [place] CNDSon 01-28-2024 CNDS HNO ID: [id number] Author: ANGI KWONG MD Service: ? Author Type: Physician Type: Discharge Summary Filed: 01/28/2024 20:40 Note Text: Internal Medicine discharge summery PATIENT NAME: Kendrick Loomis Discharge DATE: 01/28/2024 SUBJECTIVE: This is a patient with PMH CKD, DONNA uses cpap, HTN, HLD, chronic back pain, fatty liver, GERD, adrenal neoplasm, CAD sp cardiac cath 01/25/2024 which showed severe triple vessel disease. Patient c/o dizziness/lightheadedness , heart fluttering, pre syncopal, was admitted to [facility], transferred to [facility], had an abnormal NM stress test, and cardiac cath underwent outpatient stress test, which came back abnormal. He was admitted to the hospital. Interventional Cardiology was consulted, underwent cardiac catheterization and intervention Angioplasty and Synergy (Drug Eluting Stent) Placement in Distal RCA Angioplasty and Synergy (Drug Eluting Stent) Placement in Proximal LAD IVUS in LAD and RCA No new complain no cp no sob no abd pain Clear by consultants to D/C meds reviewed /condition is stable emphasize on F/u 1 week with PCP as well as consultants Phone number and cards provided by the consultants and RN Question answered Total time over 30 ms Last EKG reviewed Last CXR reviewed [facility] consultants notes reviewed Labs reviewed Hemoglobin A1C Date Value Ref Range Status 01/21/2024 5.2 4.3 - 5.6 % Final Comment: [place] [employer] guidelines indicate that patients with HgbA1c in the range 5.7-6.4% are at increased risk for development of diabetes, and intervention by lifestyle modification may be beneficial. HgbA1c greater or equal to 6.5% is considered diagnostic of diabetes. 01/27/242099 01/28/24 0000 01/28/24 0400 01/28/24 0710 BP: 127/69 119/78 116/69 134/76 Pulse: (!) 59 (!) 50 (!) 51 (!) 56 Resp: 16 Temp: 36.3 ?C (97.3 ?F) TempSrc: Temporal SpO2: 96% 98% Weight: Height: GENERAL:no distress, cooperative LUNGS: Lungs clear to auscultation. No wheezing,ronchi or rales./CARDIAC: S1 , S2; ABDOMEN: Abdomen soft, non-tender NEURO: same /no new rash ENT unremarkable Plan D/W consultants/PT/available family Medication List START taking these medications clopidogrel 75 mg tablet Commonly known as: PLAVIX Take 1 tablet by mouth once daily. Start taking on: January 29, 2024 CONTINUE taking these medications aspirin, enteric coated 81 mg EC tablet Commonly known as: ASPIRIN, ENTERIC COATED atorvastatin 40 mg tablet Commonly known as: LIPITOR cholecalciferol 50 mcg (2,000 unit) tablet Commonly known as: VITAMIN D3 famotidine 20 mg tablet Commonly known as: PEPCID ketoconazole 2 % cream Commonly known as: NIZORAL lisinopril 20 mg tablet Commonly known as: ZESTRIL loratadine 10 mg tablet Commonly known as: CLARITIN PROSCAR 5 mg tablet Generic drug: finasteride Where to Get Your Medications These medications were sent to [facility] [address] [place] [address] Hours: Tuesday-Tuesday: 7am-7pm, Sat: 9am-1pm clopidogrel 75 mg tablet Angi Kwong MD [facility] ECG COMPLETEon 01-28-2024 ECG COMPLETE Ventricular Rate : 4 9 BPM Atrial Rate : 48 BPM P-R Interval : 188 ms QRS Duration : 157 ms Q-T Interval : 463 ms QTC Calculation(Bazett) : 418 ms Calculated P Phoenix : 40 degrees Calculated R [place] : -42 degrees Calculated T [place] : 21 degrees Sinus bradycardia RBBB and LAFB Abnormal ECG Confirmed by KRISTIAN NGUYỄN, ERIAC W (34) on 01/31/2024 1:20:26 PM NAME : KENDRICK LOOMIS PID : [id number] : 1945 Gender : Male Race : ORD : [id number] Procedure Date : Jan 28 2024 07:35:54 Edit Date : Jan 31 2024 13:25:55 Diagnosis: Sinus bradycardia RBBB and LAFB Abnormal ECG Confirmed by ERICA TOWNSEND MD (34) on 01/31/2024 1:20:26 PM Test Reason : Post-OP Location : 400 : [facility] 3P31 Overread By : ERICA TOWNSEND MD Edited By : ERICA TOWNSEND MD Referred By : , Acquired by : GERARDO POLK [facility] NURSING PROGon 01-28-2024 NURSING PROG HNO ID: [id number] Author: KATIE YUEN, RN Service: Nursing Author Type: Registered Nurse Type: Nursing Progress Note Filed: 01/28/2024 12:08 Note Text: 1205: pt ready for d/c. Left unit via wheelchair in stable condition. IV and tele removed. Instructions reviewed with patient. Plavix picked up by pt at pharmacy. R radial restrictions went over with pt Normal [facility] Basic metabolic 2000 panelon 01-27-2024 Anion gap [Moles/Vol] 12 mmol/L Normal 8-15 [facility] Comment on above: Order Comment: Speci men Type: BLOOD SPECIMEN Ordering Facility: [facility] Address: [address] [place] [address] Performed By: #### 2 4321-2 #### [facility] CLIA [id number] [address] [place] [address] [place] Calcium [Mass/Vol] 9.7 mg/dL Normal 8.5-10.2 [facility] Comment on above: Order Comment: Speci men Type: BLOOD SPECIMEN Ordering Facility: [facility] Address: [address] [place] [address] Performed By: #### 2 4321-2 #### [facility] CLIA [id number] [address] [place] [address] [place] Chloride [Moles/Vol] 103 mmol/L Normal 98-107 [facility] Comment on above: Order Comment: Speci men Type: BLOOD SPECIMEN Ordering Facility: [facility] Address: [address] [place] [address] Performed By: #### 2 4321-2 #### [facility] CLIA [id number] [address] [place] [address] [place] CO2 [Moles/Vol] 25 mmol/L Normal 22-30 [facility] Comment on above: Order Comment: Speci men Type: BLOOD SPECIMEN Ordering Facility: [facility] Address: [address] [place] [address] Performed By: #### 2 4321-2 #### [facility] CLIA [id number] [address] [place] [address] [place] Creatinine [Mass/Vol] 1.20 mg/dL Normal 0.73-1.22 [facility] Comment on above: Order Comment: Speci men Type: BLOOD SPECIMEN Ordering Facility: [facility] Address: [address] [place] [address] Performed By: #### 2 4321-2 #### [facility] CLIA [id number] [address] [place] [address] OF [facility] Creatinine and Glomerular filtration rate.predicted panel (S/P/Bld) 63 mL/min/1.73m??? Normal >=60 [facility] Comment on above: Order Comment: Speci men Type: BLOOD SPECIMEN Ordering Facility: [facility] Address: [address] [place] [address] Result Comment: Hilda mated Glomerular Filtration Rate (eGFR) is calculated using the 2020 CKD-EPI creatinine equation. This equation utilizes serum creatinine, sex, and age as parameters. The creatinine assay has traceable calibration to isotope dilution-mass spectrometry. Refer to KDIGO guidelines for clinical interpretation. In patients with unstable renal function, e.g. those with acute kidney injury, the eGFR may not accurately reflect actual GFR. Performed By: #### 2 4321-2 #### [facility] CLIA [id number] [address] [place] [address] [place] Glucose [Mass/Vol] 110 mg/dL High 74-99 [facility] Comment on above: Order Comment: Speci men Type: BLOOD SPECIMEN Ordering Facility: [facility] Address: [address] [place] [address] Result Comment: The [place] Diabetes [employer] (ADA) provides guidance for cutoff values for fasting glucose and random glucose. The ADA defines fasting as no caloric intake for at least 8 hours. Fasting plasma glucose results between 100 to 125 mg/dL indicate increased risk for diabetes (prediabetes). Fasting plasma glucose results greater than or equal to 126 mg/dL meet the criteria for diagnosis of diabetes. In the absence of unequivocal hyperglycemia, results should be confirmed by repeat testing. In a patient with classic symptoms of hyperglycemia or hyperglycemic crisis, random plasma glucose results greater than or equal to 200 mg/dL meet the criteria for diagnosis of diabetes. Reference: Standards of Medical Care in Diabetes 2016, [place] [employer]. Diabetes Care. 2016.39(Suppl 1). Performed By: #### 2 4321-2 #### [facility] CLIA [id number] [address] [place] [address] [place] Potassium [Moles/Vol] 4.0 mmol/L Normal 3.7-5.1 [facility] Comment on above: Order Comment: Thom nagel Type: BLOOD SPECIMEN Ordering Facility: [facility] Address: [address] [place] [address] Performed By: #### 2 4321-2 #### [facility] CLIA [id number] [address] [place] [address] [place] Sodium [Moles/Vol] 140 mmol/L Normal 136-144 [facility] Comment on above: Order Comment: Thom nagel Type: BLOOD SPECIMEN Ordering Facility: [facility] Address: [address] [place] [address] Performed By: #### 2 4321-2 #### [facility] CLIA [id number] [address] [place] [address] [place] Urea nitrogen [Mass/Vol] 17 mg/dL Normal 9-24 [facility] Comment on above: Order Comment: Thom nagel Type: BLOOD SPECIMEN Ordering Facility: [facility] Address: [address] [place] [address] Performed By: #### 2 4321-2 #### [facility] CLIA [id number] [address] [place] [address] [place] ECG COMPLETEon 01-27-2024 ECG COMPLETE Ventricular Rate : 6 1 BPM Atrial Rate : 60 BPM P-R Interval : 188 ms QRS Duration : 158 ms Q-T Interval : 464 ms QTC Calculation(Bazett) : 468 ms Calculated P [place] : 48 degrees Calculated R [place] : -46 degrees Calculated T [place] : 42 degrees Sinus rhythm RBBB and LAFB Abnormal ECG Confirmed by TURNER LOVE MD ([id number]) on 02/06/2024 3:49:33 PM NAME : KENDRICK LOOMIS PID : [id number] : 1945 Gender : Male Race : ORD : [id number] Procedure Date : Jan 27 2024 14:41:56 Edit Date : Feb 06 2024 15:49:36 Diagnosis: Sinus rhythm RBBB and LAFB Abnormal ECG Confirmed by TURNER LOVE MD ([id number]) on 02/06/2024 3:49:33 PM Test Reason : Chest Pain Location : 400 : FVEKG 225 Overread By : TURNER LOVE MD Edited By : TURNER LOVE MD Referred By : , Acquired by : [id number], Normal [facility] HISTORY PHYSICALon HISTORY PHYSICAL HNO ID: [id number] Author: ANGI KWONG MD Service: ? Author Type: Physician Type: H&P Filed: 01/28/2024 09:22 Note Text: Kendrick Loomis [id number] 01/27/2024 Angi Kwong MD SUBJECTIVE: This is a patient with PMH CKD, DONNA uses cpap, HTN, HLD, chronic back pain, fatty liver, GERD, adrenal neoplasm, CAD sp cardiac cath 01/25/2024 which showed severe triple vessel disease. Patient c/o dizziness/lightheadedness , heart fluttering, pre syncopal, was admitted to [facility], transferred to [facility], had an abnormal NM stress test, and cardiac cath underwent outpatient stress test, which came back abnormal. He was admitted to the hospital. Interventional Cardiology was consulted, underwent cardiac catheterization and intervention Angioplasty and Synergy (Drug Eluting Stent) Placement in Distal RCA Angioplasty and Synergy (Drug Eluting Stent) Placement in Proximal LAD IVUS in LAD and RCA ASSESSMENT AND PLAN: 1. abnormal stress test. Coronary artery disease. Interventional Cardiology consulted, underwent cardiac cath with intervention Angioplasty and Synergy (Drug Eluting Stent) Placement in Distal RCA Angioplasty and Synergy (Drug Eluting Stent) Placement in Proximal LAD IVUS in LAD and RCA 2. [facility] statin Monitor reading and adjust treatment as needed. 3. Hypertension. Resume home medication. 4. DONNA cpap 5. CRF per records f/u cmp post cath Discussed with the consultants. We will follow up. PAST MEDICAL HISTORY 04/23/2021: Aftercare following left knee joint replacement surgery No date: Arthritis No date: Coronary artery disease No date: Hypertension No date: Sleep apnea Social History Tobacco Use Smoking status: Former Types: Cigarettes Substance Use Topics Alcohol use: Not Currently Drug use: Never History reviewed. No pertinent family history. PAST SURGICAL HISTORY No date: ORTHOPEDICS SURGERY HX Lab Results Component Value Date HBA1C 5.2 01/21/2024 R.O.S negative other than HPI AND PMH all other SYS reviewed and negative. Current Facility-Administered Medications Medication Dose Route Frequency Provider Last Rate Last Admin atorvastatin 40 mg tab(s) (LIPITOR) 40 mg ORAL AT BEDTIME Zoya Pardo MD 40 mg at 01/27/242043 lisinopril 20 mg tab(s) (ZESTRIL) 20 mg ORAL DAILY Zoya Pardo MD famotidine 20 mg tab(s) (PEPCID) 20 mg ORAL BID Zoya Pardo MD 20 mg at 01/27/242043 finasteride 5 mg tab(s) (PROSCAR) 5 mg ORAL DAILY Zoya Pardo MD aspirin 81 mg chewable tab(s) 81 mg ORAL DAILY Zoya Pardo MD [START ON 01/28/2024] clopidogrel 75 mg tab(s) (PLAVIX) 75 mg ORAL DAILY Zoya Pardo MD NaCl 0.9% iv flush bag 20 mL INTRAVENOUS PRN Zoya Pardo MD No intake or output data in the 24 hours ending 01/27/242147 DATA: CBC: No results for input(s): WBC, RBC, HB, HCT, PLT, MCV, MCH, MPV, RDW in the last 24 hours. CMP: Recent Labs 01/27/24 1032 NA 140 K 4.0 CHLOR 103 CO2 25 BUN 17 CREAT 1.20 GLUC 110* CA 9.7 ANION 12 Glucose (mg/dL) Date Value 01/27/2024 110 (H) BUN (mg/dL) Date Value 01/27/2024 17 Creatinine (mg/dL) Date Value 01/27/2024 1.20 Sodium (mmol/L) Date Value 01/27/2024 140 Potassium (mmol/L) Date Value 01/27/2024 4.0 Chloride (mmol/L) Date Value 01/27/2024 103 CO2 (mmol/L) Date Value 01/27/2024 25 Protein, Total (g/dL) Date Value 01/23/2024 6.4 Albumin (g/dL) Date Value 01/23/2024 4.1 Calcium, Total (mg/dL) Date Value 01/27/2024 9.7 Alkaline Phosphatase (U/L) Date Value 01/23/2024 104 Bilirubin, Total (mg/dL) Date Value 01/23/2024 0.5 AST (U/L) Date Value 01/23/2024 21 ALT (U/L) Date Value 01/23/2024 14 Hemoglobin (g/dL) Date Value 01/23/2024 14.0 Hematocrit (%) Date Value 01/23/2024 41.1 WBC (k/uL) Date Value 01/23/2024 7.09 [facility] consultants notes reviewed Most recent images Reviewed Last EKG/Rhythm reviewed 01/27/24 19301/27/24195801/27/24199901/27/24 2100 BP: 160/79 153/90 127/69 Pulse: (!) 59 (!) 59 (!) 58 (!) 59 Resp: 19 16 Temp: 36.7 ?C (98 ?F) TempSrc: Temporal SpO2: 98% 97% 96% 96% Weight: Height: SKIN: No rashes . ENT mucosa, Normal/nose normal NECK: no jugulovenous distention NO lymphadenopathy LUNGS:No wheezing,no ronchi no rales. CARDIAC: S1 and S2 ABDOMEN: Abdomen soft, non-tender. EXTREMITIES: Extremities normal. NEURO: non focal PULSES: + pedal / radial No edema No goiter No carotid bruits. Angi Kwong MD [facility] HISTORY PHYSICAL HNO ID: [id number] Author: TOLU DAMIAN APRN.LUNCHROOM ATTENDANT Service: Cardiovascular Medicine Author Type: Nurse Practitioner Type: H&P Filed: 01/27/2024 11:55 Note Text: UPDATED HANDP PRE-CARDIAC CATHETERIZATION SERVICE DATE: 01/27/2024 SERVICE TIME: 11:34 AM PROCEDUREALIST: Surgeons and Role: * Zoya Pardo MD - Primary PHYSICAL EXAM MUST BE COMPLETED ON ADMISSION The History and Physical (completed in the past 30 days) has been reviewed and the patient has been examined. The contents accurately reflect the patient's condition with the following additions or revisions since the HANDP was completed on 01/20/2024 Planned Procedure: Percutaneous Coronary Intervention (PCI) of LAD, RCA Primary Indication for Procedure: Angina Equivalent and sp cardiac cath on 01/25/2024 showed stenosis LAD 75% mid, LCX 65% stenosis, RCA 80% mid AND 75% distal stenosis High Risk Features: History of Prior CABG: No History of Prior PCI: No Cardiomyopathy: No Anti-ischemic Meds in Past 2 Weeks: none Ejection Fraction: 72% from Previous Stress Test Risk Appropriateness: Angina Class in Past 2 Weeks: Class III - Marked limitation of ordinary physical activity Cardiogenic Shock: NoHeart Failure: None Stress Test Performed: Yes, Stress Nuclear completed on 01/24/2024 Results Showed; Positive, Extent of Ischemia; Intermediate, minimal <10% ischemia apical inferior EKG Assessment: Normal, RBBB Family History of Premature CAD: None Evaluation for Preop Clearance: no HISTORY OF BLEEDING: No This HANDP can be found in the Electronic Medical Record dated 01/20/2024. Assessment: Cardiac risk assessment completed with detailed review of cardiac test/results as documented above. A 78 yr old male with past medical history of CKD, DONNA uses cpap, HTN, HLD, chronic back pain, fatty liver, GERD, adrenal neoplasm, CAD sp cardiac cath 01/25/2024 which showed severe triple vessel disease. Patient c/o dizziness/lightheadedness , heart fluttering, pre syncopal, was admitted to [facility], transferred to [facility], had an abnormal NM stress test, and cardiac cath. He denies chest pain, sob today. Here today for PCI/stent of LAD AND RCA. Patient gets care at [facility] but no beds were available when he was hospitalzied. Plan: cbc and BMP EKG. Results reviewed. Proceed with Cardiac Cath as scheduled. I spent a total of 20 minutes on the date of the service which included preparing to see the patient, [id number] patient care, completing clinical documentation, obtaining and/or reviewing separately obtained history, performing a medically appropriate examination, counseling and educating the patient/family/caregiver, and ordering medications, tests, or procedures. SIGNATURE: Tolu Damian APRN.CNP PATIENT NAME: Kendrick Loomis DATE: January 27, 2024 TIME: 11:34 AM [facility] NURSING PROGon 01-27-2024 NURSING PROG HNO ID: [id number] Author: LAUREN MONTEZ RN Service: Nursing Author Type: Registered Nurse Type: Nursing Progress Note Filed: 01/27/2024 21:38 Note Text: 1930 Pt arrived to unit from post procedural unit in stable condition. Tele SR/SB on monitor. Right radial cath site free from hematoma or bleeding Right radial pulse palpable. Pt oriented to room and plan of care [facility] NURSING PROG HNO ID: [id number] Author: JACKIE RODRIGUEZ RN Service: Nursing Author Type: Registered Nurse Type: Nursing Progress Note Filed: 01/27/2024 20:10 Note Text: Nursing Progress Note Topic of Note: Daily Note PATIENT NAME: Kendrick Loomis Patient Location: [facility]/ [facility] Room: [facility] ( INVASIVE CARDIOLOGY) 1450 Assumed care of pt. Cardiac Rehab at bedside. Dr Pardo at bedside, aware of CP, EKG reviewed. R radial site free from bleeding and hematoma. + R radial pulse. Movement and sensation intact to RUE. Pt aware of movement and bedrest restrictions. Tele-SB. 1645 Passive deflation of TR band started. 2 cc air removed. Site remains free from bleeding and hematoma. 1845 TR band removed and site dressed with 2x2 and tegaderm. Site remains free from bleeding and hematoma. 1929 Report called to CPPU RN. Pt transferred to CPPU in stable condition. This note was completed by: Jackie Rodriguez [facility] NURSING PROG HNO ID: [id number] Author: WINIFRED JACOB RN Service: Nursing Author Type: Registered Nurse Type: Nursing Progress Note Filed: 01/27/2024 14:46 Note Text: Nursing Progress Note Topic of Note: post procedure PATIENT NAME: Kendrick Loomis Patient Location: [facility]/ [facility] Room: [facility] ( INVASIVE CARDIOLOGY) 1433 Pt to geophysical laboratory supervisor recovery s/p DESx3 via R radial artery. Pt report from Yamile ROQUE at bedside. Pt R radial TR band inflated and WNL via window, no drainage, no hematoma. Ppp. Pt VSS, c/o CP 5/10. STAT EKG in process. O2via nc applied. IVF infusing. Resp even and unlabored. IV patent. SR on tele. Pt educated on recovery, call ferrell, bedrest, limiting RUE limb movement, and TR band deflation. States understanding. This note was completed by: Winifred Jacob [facility] OPERATIVE NOon 01-27-2024 OPERATIVE NO HNO ID: [id number] Author: ZOYA PARDO MD Service: Cardiovascular Medicine Author Type: Physician Type: Operative Report Filed: 01/27/2024 14:30 Note Text: [facility] [employer] [facility] PROCEDURE REPORT SERVICE DATE: 01/27/2024 SERVICE TIME: HEMODIALYSIS PATIENT CARE SPECIALIST: Zoya Pardo MD ATTENDING: Zoya Pardo MD PRIMARY CARE PHYSICIAN: Sigifredo Trimble MD REFERRING PROVIDER: [facility] STUDY OF HEALTH and AGING SCALE:2=Well CARDIOVASCULAR INSTABILITY:No PRE-PROCEDURE DIAGNOSIS: Abnormal Stress Test POST PROCEDURE DIAGNOSIS: Successful PCI of LAD and RCA PROCEDURE: Angioplasty and Synergy (Drug Eluting Stent) Placement in Distal RCA Angioplasty and Synergy (Drug Eluting Stent) Placement in Proximal LAD IVUS in LAD and RCA MODERATE SEDATION: Moderate Sedation provided by Cardiology Nursing Staff. Moderate sedation consisting of continuous ECG, pulse oximetry and cardiopulmonary monitoring was performed by the Cardiology Nurse, overseen by supervising physician, for an intra-service time of 1 hr. 20 min. Sedative Medications: Drug: Versed Dose: 1.5 mg Route: IV Drug: Fentanyl Dose: 125 mcg Route: IV PRIORITY AT TIME OF PROCEDURE: Elective SITE OF ENTRY: Radial:Right Radial CONTRAST: Omnipaque 350 mg Iodine/mL (iohexol injection, solution): 95 mL PERCUTANEOUS CORONARY INTERVENTION: The catheterization angiogram was reviewed affirming the patient was indicated for PCI. The patient was taken to the cardiac geophysical laboratory supervisor where the entry site was prepped and draped in a sterile manner. Heparin was given for anticoagulation. Under local anesthesic with 2% Lidocaine, the vessel was cannulated with micropuncture technique using an arterial needle and Ultrasound was used to visualize and guide the entry into the vessal and a 5F sheath was introduced. A guiding catheter was advanced under fluoroscopy and the vessel was engaged. Using standard protocol, angioplasty was performed and cardiac stent(s) were placed in the following vessel(s). ADDITIONAL PROCEDURES INTERROGATION AND ASSESSMENT OF LESION: The guidewire engaged the LAD. The guide wire was advanced crossing the lesion and IVUS device was advanced over the guide wire. The lesion was interrogated; images were obtained and recorded. Measurements were completed for lumen and vessel diameter/area. The percent of stenosis was confirmed. Pre PCI: Morphology: none calcified Diameter: 4.0*mm Post PCI: Media dissection: No Stent Apposition: Yes Stent Expansion: Yes The guidewire engaged the RCA. The guide wire was advanced crossing the lesion and IVUS device was advanced over the guide wire. The lesion was interrogated; images were obtained and recorded. Measurements were completed for lumen and vessel diameter/area. The percent of stenosis was confirmed. Pre PCI: Morphology: none calcified Diameter: 4.0-4.5*mm Post PCI: Media dissection: No Stent Apposition: Yes Stent Expansion: Yes LAD Lesion Type: Class C Guiding Catheter(s): EBU 3.5 Pre Dilatation Balloon Size: 3.5 mm X 20 mm 90% Stenosis Location: Proximal Pre DIPIKA Blood Flow: 3 Proximal Stent Placed: Type: Synergy (Drug Eluting Stent) Size: 4.0 mm Length: 24 mm Post Dilatation Balloon Size: 4.0 mm X 20 mm Post DIPIKA Blood Flow: 3 Result: Successful. RCA Lesion Type: Class C Guiding Catheter(s): XBRCA Pre Dilatation Balloon Size: 3.5 mm X 20 mm 99% Stenosis Location: Distal, Tortuous, Ectatic Pre DIPIKA Blood Flow: 3 Distal Stent Placed: Type: Synergy (Drug Eluting Stent) Size: 4.0 mm Length: 48 Post Dilatation Balloon Size: 4.5 mm X 12 mm Tandem stent synergy 3.5x8 Post DIPIKA Blood Flow: 3 Result: Successful. The sheath was removed and hemostatsis was established using manual pressure using wrist band. There was no bleeding at the end of the procedure. The pt was returned to the recovery room in a stable condition. ESTIMATED BLOOD LOSS: Less Than Minimal Unless Noted Here. COMPLICATIONS: None SPECIMENS: No specimens obtained unless noted here. CONDITION: Stable RECOMMENDATIONS: Follow protocol of post-op orders. SIGNATURE: Zoya Pardo MD PATIENT NAME: Kendrick Loomis DATE: January 27, 2024 TIME: 2:23 PM [facility] PT EDon 01-27-2024 PT ED HNO ID: [id number] Author: FRANCINE ROQUE RN Service: Cardiac Rehab Author Type: Registered Nurse Type: Patient Education Filed: 01/27/2024 14:57 Note Text: CARDIAC REHABILITATION PATIENT EDUCATION PROGRESS NOTE Name: Kendrick Loomis Date of Service: 01/27/2024 Time of Service: 2:56 PM ASSESSMENT: Risk Factors Identified: Gender Hypertension Significant Medical History: chronic liver disease RECOMMENDATIONS: Patient interested in Phase II Outpatient Cardiac Rehab: Yes. Facility Preferred: closer to home DIAGNOSIS: Percutaneous Cardiac Intervention: URMILA PCI Teaching Points: -Basic Anatomy and Disease Process -Personal Modifiable Risk Factor Identification -Activity/Physical Exercise Recommendations -Prescribed Medication Reviewed -When patient should call provider -Outpatient Cardiac Rehabilitation READINESS TO LEARN: Cognitive Ability: Alert and Oriented Motivation to Learn: Interested Family Support: None - Unavailable/disinterested Instruction Provided To: Patient Patient Learns Best By: Individual Instruction, Written Instruction - Hand-outs, and Verbal Instruction Factors Affecting Learning: None Physical Limitations Affecting Learning: None LEARNING RESPONSE: Method Of Instruction: Individual instruction Patient/Family Response: Verbalizes understanding of: all recommendations Follow-up Plan: No further educational needs identified at this time. Instructional Aids Used: Anatomical Model/Drawing Cardiac Rehabilitation Brochure Educational Binder [facility] Cardiac Rehab Programs Signature: Francine roque RN Pager: vida Date: January 27, 2024 Time: 2:56 PM [facility] CNCOon 01-25-2024 CNCO Letter Text [facility] CNDSon 01-25-2024 CNDS HNO ID: [id number] Author: ADRIANA RAO MD Service: Hospital Medicine Author Type: Physician Type: Discharge Summary Filed: 01/25/2024 14:56 Note Text: DISCHARGE SUMMARY PATIENT NAME: Kendrick Loomis ADMISSION DATE: 01/20/2024 DISCHARGE DATE:01/25/2024 ATTENDING PHYSICIAN: Adriana Rao,* Code Status: Full Code PCP: Sigifredo Trimble MD Highest Readmission Risk Score: 10 The 30 day readmissions risk score is derived from an internally validated risk model which evaluates patient level characteristics, utilization history, medication orders and lab results up until the day of discharge. Patients with a score of 40 or above are considered highest risk for readmission. Specific patient level drivers will be listed at the bottom of the summary. TRANSITIONS OF CARE CRITICAL ISSUES: THOMAS MEDICATION CHANGES: Stopped Doxazosin REASON FOR HOSPITALIZATION/PRINCIPAL DIAGNOSES: Coronary Artery Disease HOSPITAL PROBLEMS: Principal Problem: Syncope (POA: Yes) Active Problems: Adjustment disorder with mixed anxiety and depressed mood (POA: Yes) Adrenal gland neoplasm (POA: Yes) Cataract (POA: Yes) Gastroesophageal reflux disease without esophagitis (POA: Yes) KAKE (hard of hearing) (POA: Yes) OA (osteoarthritis) (POA: Yes) Chronic liver disease (POA: Yes) DONNA (obstructive sleep apnea) (POA: Yes) Coronary artery disease involving [place] coronary artery of [place] heart without angina pectoris (POA: Yes) Near syncope (POA: Yes) Palpitations (POA: Unknown) PVC's (premature ventricular contractions) (POA: Unknown) Orthostatic lightheadedness (POA: Unknown) Abnormal nuclear stress test (POA: Unknown) Resolved Problems: * No resolved hospital problems. * HOSPITAL COURSE: 78 year old male with PMHx of adjustment disorder, adrenal gland neoplasm, cataract, colon polyps, GERD, KAKE, OA, chronic liver disease, DONNA, CAD and HTN presented with near syncope and palpitations. His hs-cTnT was minimally elevated around 30 with no acute EKG changes. He was seen by cardiology and subsequently had a nuclear stress test done which showed less than 10% fixed defect/ischemia in the RCA territory. Subsequently left heart catheterization was done showed a mid LAD stenosis of 70%, proximal RCA 80% and mid RCA 75% stenosis. He remained asymptomatic and is being discharged home in a stable condition with outpatient PCI at [facility]. OPERATIONS/PROCEDURE DURING THIS HOSPITALIZATION: Procedure(s) (LRB): CORONARY ANGIO W CATH PLACE W IMAGE INJECT AND INTERP W LT HEART CATH W INJECT LT VENTRGRAPHY (N/A) CONSULTS DURING HOSPITALIZATION: Treatment Team: Attending Provider: Adriana Rao MD Consulting: Danielle Alex DO PATIENT CONDITION AT DISCHARGE: Stable DISCHARGE DISPOSITION: Home with Self Care Discharge Physical Exam: VITAL SIGNS: BP 132/67 Pulse (!) 57 Temp 36.4 ?C (97.5 ?F) (Oral) Resp 18 Ht 190.5 cm (6' 3) Wt 116 kg (255 lb 11.7 oz) SpO2 97% BMI 31.96 kg/m? GENERAL: Alert, no distress, cooperative OROPHARYNX: Lips, mucosa, and tongue normal. Teeth and gums normal. Oropharynx normal. LUNGS: Lungs clear to auscultation, Good diaphragmatic excursion CARDIAC: Normal S1 and S2; no rubs, murmurs, or gallops ABDOMEN: Abdomen soft, non-tender, BS normal, No masses or organomegaly EXTREMITIES: Normal exam of the extremities NEURO: Negative WOUND/SURGICAL SITE CARE: None SUPPLIES OR EQUIPMENT: None DIET: Resume pre-hospital diet ACTIVITY AND EXERCISE: Resume pre-hospital activity FOLLOW UP APPOINTMENTS: Future Appointments Date Time Provider Department Center 01/31/2024 8:00 AM CARD/PULM LAB [facility] ALLERGIES No Known Allergies DISCHARGE MEDICATION: Medication List CONTINUE taking these medications aspirin, enteric coated 81 mg EC tablet Commonly known as: ASPIRIN, ENTERIC COATED atorvastatin 40 mg tablet Commonly known as: LIPITOR cholecalciferol 50 mcg (2,000 unit) tablet Commonly known as: VITAMIN D3 famotidine 20 mg tablet Commonly known as: PEPCID ketoconazole 2 % cream Commonly known as: NIZORAL lisinopril 20 mg tablet Commonly known as: ZESTRIL loratadine 10 mg tablet Commonly known as: CLARITIN STOP taking these medications doxazosin 2 mg tablet Commonly known as: CARDURA The patient's risk for 30-day readmission is determined using the following contributing factors: Pt variables contributing to increased readmission risk: 19 Most Recent BUN Result 14 Active Medication Orders 9.3 First Resulted Calcium During Admission 2 Number of Previous ED Visits (6 mos.) 1 Previous ED Visit (6 mos.)? 1 Insurance - Private Coverage 1 Discharge Disposition - Home Plan of care discussed with Provider, RN, Patient I have performed the [id number] and relevant services for a total of >30 minutes. SIGNATURE: Adriana Rao MD (more content not included)... [facility] 01-25-2024 [facility] Telephone ([facility]) ----- KENDRICK LOOMIS ([id number]) 1945 Date Time Provider Department 01/25/24 PAULAGeeta BIANCABlanche Cardona [facility] During your visit today, we recorded the following information about you: Real Isaac HUC 01/25/2024 3:37 PM Signed Received order to schedule Cardiac Stent at . Contacted patient and scheduled for TuesdayJanuary 26. Patient is making arrangements for a ride. Phone number to [facility] provided [phone] he will call if need to reschedule. Instructions provided per protocol. Thank You, Real Isaac Allergies As of Date: 01/25/2024 (No Known Allergies) Date Reviewed: 01/25/2024 Reviewed by: Funmilayo Medrano, RN - Fully Assessed Reason for Visit: Procedure Scheduling [Other] Cmt: Heart Cath Prescriptions as of 01/25/2024 - aspirin, enteric coated (ASPIRIN, ENTERIC COATED) 81 mg EC tablet Take 81 mg by mouth. - atorvastatin (LIPITOR) 40 mg tablet Take 40 mg by mouth. - lisinopril (ZESTRIL) 20 mg tablet Take 20 mg by mouth. - loratadine (CLARITIN) 10 mg tablet Take 10 mg by mouth. - ketoconazole (NIZORAL) 2 % cream Apply to affected area. - cholecalciferol (VITAMIN D3) 50 mcg (2,000 unit) tablet Take 50 mcg by mouth. - famotidine (PEPCID) 20 mg tablet Take 20 mg by mouth two times a day. Facility-Administered Medications as of 01/25/2024 - polyethylene glycol 3350 17 g packet - acetaminophen 650 mg tab(s) (TYLENOL) - carboxymethylcellulose sodium 1 Drop (CELLUVISC) - finasteride 5 mg tab(s) (PROSCAR) - atorvastatin 40 mg tab(s) (LIPITOR) - melatonin 6 mg tab(s) - aspirin, enteric coated 81 mg tab(s) - cetirizine 10 mg tab(s) (ZYRTEC) - ketoconazole 2 % cream (NIZORAL) - cholecalciferol 2,000 Units tab(s) (VITAMIN D3) - pantoprazole DR 40 mg tab(s) (PROTONIX) - NaCl 0.9% iv flush bag - ondansetron orally disintegrating 4 mg tab(s) (ZOFRAN ODT) - ondansetron (PF) 4 mg injection (ZOFRAN) Problem List As Of Date 01/25/2024 Noted Resolved Aftercare following left knee joint replacement*04/23/2021 08/13/2021 Difficulty walking [R26.2] 04/23/2021 08/13/2021 Stiffness of knee joint, left [M25.662] 04/23/2021 08/13/2021 Muscle wasting and atrophy, not elsewhere class*04/23/2021 08/13/2021 Adjustment disorder with mixed anxiety and depr*01/20/2024 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] 01/20/2024 Cataract [H26.9] 01/20/2024 Gastroesophageal reflux disease without esophag*01/20/2024 KAKE (hard of hearing) [H91.90] 01/20/2024 OA (osteoarthritis) [M19.90] 01/20/2024 Chronic liver disease [K76.9] 01/20/2024 DONNA (obstructive sleep apnea) [G47.33] 01/20/2024 Coronary artery disease involving [place]*01/20/2024 Syncope [R55] 01/20/2024 Near syncope [R55] 01/20/2024 Palpitations [R00.2] 01/21/2024 PVC's (premature ventricular contractions) [I49*01/21/2024 Orthostatic lightheadedness [R42] 01/24/2024 Abnormal nuclear stress test [R94.39] 01/24/2024 Encounter Status:Closed by REAL ISAAC on 01/25/24 [facility] OPERATIVE NOon 01-25-2024 OPERATIVE NO HNO ID: [id number] Author: DANIELLE ALEX DO Service: Cardiovascular Disease Author Type: Physician Type: Operative Report Filed: 01/25/2024 12:42 Note Text: [facility] Department of Cardiovascular Medicine SECTION OF [facility] CARDIOLOGY/[facility] INSPECTOR AIR CARRIER PROCEDURE REPORT PATIENT NAME: Kendrick Loomsi SERVICE DATE: January 25, 2024 SERVICE TIME: 10:10 AM HEMODIALYSIS PATIENT CARE SPECIALIST: Danielle Alex DO ATTENDING: Adriana Rao,Abhijit PRIMARY CARE PHYSICIAN: Sigifredo Trimble MD REFERRING PROVIDER: SURINAMESE STUDY OF HEALTH and AGING SCALE:3=Managing Well CARDIOVASCULAR INSTABILITY:No PRE-PROCEDURE DIAGNOSIS: Abnormal Stress Test POST PROCEDURE DIAGNOSIS: Left main trunk was normal Left anterior descending artery 70% mid stenosis after the takeoff of the diagonal branch. Circumflex artery is 65% proximal stenosis at the level of first obtuse marginal branch that was relatively small vessel. Dominant right coronary artery had 80% mid to distal stenosis followed by 75% distal stenosis prior to the takeoff of medium size posterior descending and posterolateral branches with mild diffuse disease throughout. Normal left ventricular systolic function. PROCEDURE: Left Heart Catheterization LV Gram MODERATE SEDATION: Moderate Sedation provided by Cardiology Nursing Staff. Moderate sedation consisting of continuous ECG, pulse oximetry and cardiopulmonary monitoring was performed by the Cardiology Nurse, overseen by supervising physician. Sedative Medications: Drug: Versed Dose: 2 mg Route: IV Drug: Fentanyl Dose: 25 mcg Route: IV PRIORITY AT TIME OF PROCEDURE: Elective SITE OF ENTRY: Radial:Right Radial CONTRAST: Omnipaque 300 mg Iodine/mL (iohexol injection, solution): 65 mL LEFT HEART CATHETERIZATION AND FINDINGS: The patient was taken to the cardiac geophysical laboratory supervisor where the entry site was prepped and draped in a sterile manner. Under local anesthesic with 2% Lidocaine, the vessel was cannulated with micropuncture technique using an arterial needle and a 5F sheath was introduced. Selective injections were made in the left and right coronary arteries and various right, left and oblique views were obtained. The aortic valve was crossed and hemodynamic measurements were recorded. LV Angiogram was performed. ADDITIONAL PROCEDURES CORONARY ANGIOGRAPHY: LEFT MAIN TRUNK: No Stenosis LEFT ANTERIOR DESCENDIN% mid stenosis after the takeoff of the diagonal branch. DIAGONAL #1: Mild to moderate diffuse disease DIAGONAL #2: Mild to moderate diffuse disease LEFT CIRCUMFLEX: 65% mid stenosis at the level of the takeoff of a relatively small first obtuse marginal branch. MARGINAL #1: Mild to moderate diffuse disease and was a relatively small vessel DOMINANT: NO RIGHT CORONARY: Dominant vessel with 80% mid stenosis followed by 75% distal stenosis prior to the takeoff of medium size posterior descending and posterolateral branches that had mild to moderate diffuse disease. LV GRAM: LVEF: Normal (65% ) WALL MOTION: Normal MITRAL VALVE REGURGITATION: Not Assessed HEMODYNAMICS: LVEDP: 16 LV - AORTA: No Gradient The sheath was removed and hemostatsis was established using manual pressure using wrist band. There was no bleeding at the end of the procedure. The pt was returned to the recovery room in a stable condition. ESTIMATED BLOOD LOSS: Less Than Minimal Unless Noted Here. SEDATION TIME: 45 minutes COMPLICATIONS: None SPECIMENS: No specimens obtained unless noted here. CONDITION: Stable RECOMMENDATIONS: Case discussed with Dr. Handy Pardo and agrees for stent placement of the left anterior descending artery and RCA as an outpatient in the next 1 to 2 weeks at [facility]. SIGNATURE: Danielle Alex DO PATIENT NAME: Kendrick Loomis DATE: January 25, 2024 TIME: 10:10 AM [facility] ALLIED HEALTH 01-24-2024 ALLIED HEALTH HNO ID: [id number] Author: SHEELA ANGELES CNMT Service: Radiology Author Type: Technologist Type: Allied Health Filed: 01/24/2024 11:03 Note Text: RADIOLOGY SERVICE PROGRESS NOTE SERVICE DATE: 01/24/2024 SERVICE TIME: 10:50 AM PATIENT IDENTITY VERIFICATION COMPLETED USING TWO (2) STANDARD IDENTIFIERS: Name and Date of confirmed by patient verbally and Name and Date of confirmed by identification band FALL SCREENING: Has the patient had 2 falls in the last year or 1 fall with injury or currently using an Ambulatory Assistive Device (Walker, Cane, Wheelchair, Crutches, etc.)? Inpatient: Screened on floor PATIENT GENDER DATA: .male ALLERGIES: Reviewed and unchanged MEDICATIONS REVIEWED: Not applicable PATIENT RELEVANT IMPLANT DATA REVIEWED: Not Applicable PATIENT PRESENTS WITH AN IMPLANTABLE OR ATTACHED IMPREGNATOR AND DRIER: No CREATININE: Creatinine Date Value Ref Range Status 01/23/2024 1.24 (H) 0.73 - 1.22 mg/dL Final 01/22/2024 1.19 0.73 - 1.22 mg/dL Final 01/21/2024 1.23 (H) 0.73 - 1.22 mg/dL Final Estimated Glomerular Filtration Rate Date Value Ref Range Status 01/23/2024 60 >=60 mL/min/1.73m? Final Comment: Estimated Glomerular Filtration Rate (eGFR) is calculated using the 2020 CKD-EPI creatinine equation. This equation utilizes serum creatinine, sex, and age as parameters. The creatinine assay has traceable calibration to isotope dilution-mass spectrometry. Refer to KDIGO guidelines for clinical interpretation. In patients with unstable renal function, e.g. those with acute kidney injury, the eGFR may not accurately reflect actual GFR. P.O.C.T. RESULTS: N/A January 24, [address] PERFORMED: No IV SITE: Inpatient - refer to LDA documentation POST EXAM PIV STATUS: Inpatient see [facility] documentation PROCEDURE TYPE: NM Stress: 12.8 mCi [id number] was administered IV for Rest Imaging at 9:40 by mg. 35.9 mCi [id number] was administered IV for Stress Imaging at 10:44 by mm. PATIENT DISCHARGED TO: Patient taken to IP transport area for return to RNF/ICU/ED. A Diagnostic radioactive procedure has taken place, with no further precautions necessary other than routine body substance precautions. More information regarding radiation safety can be found using this link: [email or web address] %[email or web address] 20Diagnostic%20Nuclear%20 Medicine%20Procedures.pdf SIGNATURE: Sheela Angeles [facility] PATIENT NAME: Kendrick Loomis DATE: January 24, 2024 TIME: 10:50 AM PAGER/CONTACT #: Normal [facility] NM CARDIAC PERF STRESS/PHARM on 01-24-2024 NM CARDIAC PERF STRESS/PHARM * * *Final Report* * * DATE OF EXAM: Jan 24 2024 11:52AM TYRA 0006 - NM CARDIAC PERF STRESS/PHARM / PROCEDURE REASON: Frequent premature ventricular contractions (PVCs) * * * * Physician Interpretation * * * * Stress Administrative Support Assistant Report: [facility] Date of service: 01/24/2024 10:12:06 AM Supervising physician: Mariela Romano MD PATIENT: Name: KENDRICK LOOMIS Age: 78 years Gender: M The supervising physician was in the department and immediately available. * * * Final * * * ADDENDUM TO PRIOR REPORT Electronically amended by Gato Govea MD on 01/24/2024 at 12:32:48 PM. PATIENT: Name: KENDRICK LOOMIS Age: 78 years Gender: M CONCLUSIONS: 1. SPECT Perfusion Study: Abnormal. 2. There is minimal (<10%) ischemia (apical inferior) superimposed on small (<10%) fixed perfusion defect in the territory of the RCA (inferior/inferolateral). SSS=7, SDS=1. 3. TID Ratio is at upper limits of normal 1.21. 4. Left ventricle is normal in size. The left ventricle systolic function is normal. 5. Right ventricle is normal in size. The right ventricle systolic function is normal. 6. This is an intermediate risk scan. Gated Stress IR:3D LVEF % 72 Prior Study Comparison No prior nuclear cardiology exam available for comparison. Nuclear Med Report:1-Day Gated SPECT Myocardial Perfusion with Regadenoson Stress: Myocardial perfusion imaging was performed at rest 30 minutes following the IV injection of the radiotracer. The patient received 0.4 mg of regadenoson, via rapid IV push, immediately followed by radiotracer IV. Gated post stress tomographic imaging was performed 30 to 60 minutes later. See administered radiotracer and doses below. [facility] Date of service: 01/24/2024 10:12:06 AM Ordering Physician: DANIELLE ALEX. Requesting Physician: Indication: Arrhythmia Interpreting physician: Gato Govea MD Height: 190.50 cm BSA: 2.45 m? Weight: 113.40 kg BMI: 31.2 kg/m? Exam Type: Rest Stress Radiopharm: Tc-99m Tetrofosmin Tc-99m Tetrofosmin Dosage(mCi): 12.8 35.9 Atten Correction: not performed not performed Stress Agent: Regadenoson 0.4mg Supply provided from [facility] Resting Blood Press: 171/68 mmHg Image Quality The overall study imaging quality was deemed to be good. FINDINGS: Stress IR:3D Gated Stress IR:3D LVEF: 72 % ED Volume: 118 ml ES Volume: 33 ml TID: 1.21 Perfusion Findings Stress IR:3D - Summed Score=7 There is a moderate perfusion defect in the inferior wall. There is a mild perfusion defect in the posterior wall and apical inferior segment. All remaining scored segments show normal perfusion. Rest IR:3D - Summed Score=6 There is a moderate perfusion defect in the inferior wall. There is a mild perfusion defect in the posterior wall. All remaining scored segments show normal perfusion. Stress IR:3D Rest IR:3D Summed Score=7 Summed Score=6 LEFT VENTRICLE The left ventricle is normal in size. Left ventricular systolic function is normal. Right Ventricle The right ventricle is normal in size. Right ventricle systolic function is normal. * * * Final (Updated) * * * Stress ECG Report: [facility] Date of service: 01/24/2024 10:12:06 AM Ordering physician: DANIELLE ALEX rx specialist: Jacinda [employer] Pricing Consultant: Vicky Rodriguez Interpreting physician: Mariela Romano MD Patient name: KENDRICK LOOMIS Age: 78 years Gender: M Height: 190.50 cm BSA: 2.45 m? Weight: 113.40 kg BMI: 31.2 kg/m? Indication: Encounter for screening for cardiovascular disorders Stress ECG Conclusion: Conclusion: Normal Stress ECG Summary: The patient's resting heart rate was 65 bpm and blood pressure was 171/68 mmHg. The test was terminated due to end of protocol. Other symptoms during the test included SOB. The maximum heart rate was 111 bpm, which is 77% of the predicted heart rate for age. Peak blood pressure was 143/67 mmHg. The double product achieved was [address]. Medications: Last Used PROSCAR LIPITOR ASPIRIN PROTONIX LISINOPRIL CARDURA PEPCID Resting ECG: Normal Sinus Rhythm and RBBB Symptoms at rest: No symptoms Pharamcologic Protocol: Regadenoson Stress Exercise Table: +-----+---+---+---+ Stage HR SYS CAROL +-----+---+---+---+ 1 96 129 63 +-----+---+---+---+ 2 111 143 67 +-----+---+---+---+ 3 102 134 61 +-----+---+---+---+ 4 102 103 78 +-----+---+---+---+ 5 94 129 68 +-----+---+---+---+ 6 89 141 67 +-----+---+---+---+ +-----+---+---+---+ HR (more content not included)... Normal [facility] NURSING PROGon 01-24-2024 NURSING PROG HNO ID: [id number] Author: IVIS ALLEN, RN Service: Nursing Author Type: Registered Nurse Type: Nursing Progress Note Filed: 01/24/2024 16:27 Note Text: Other: 0740 Pt. is alert and oriented x3 with updated on plan of care. 0920 Pt. went down to Nuclear for test. 1210 Pt. denies any shortness of breath with declines any chest pain.and updated on plan of care. 1615 Dr. Lopez informing nurse that he spoke to Dr. Waldo wraying nuclear stress test results wit new orders. 1620 Pt. aware of the time for cardiac catherization for tomorrow at 9:00am.and NPO after midnight. Normal [facility] CBC panel Auto (Bld)on 01-22 Erythrocyte distribution width (RBC) [Ratio] 12.5 % Normal 11.5-15.0 [facility] Comment on above: Order Comment: Speci men Type: BLOOD SPECIMEN Ordering Facility: [facility] Address: [address] [place], [place] [address] Performed By: #### 5 8410-2 #### [facility] CLIA [id number] [address] Hematocrit (Bld) [Volume fraction] 41.1 % Normal 39.0-51.0 [facility] Comment on above: Order Comment: Speci men Type: BLOOD SPECIMEN Ordering Facility: [facility] Address: [address] [place] [address] Performed By: #### 5 8410-2 #### [facility] CLIA [id number] [address] [place] Hemoglobin (Bld) [Mass/Vol] 14.0 g/dL Normal 13.0-17.0 [facility] Comment on above: Order Comment: Speci men Type: BLOOD SPECIMEN Ordering Facility: [facility] Address: [address] [place] [address] Performed By: #### 5 8410-2 #### [facility] CLIA [id number] [address] MCH (RBC) [Entitic mass] 32.3 pg Normal 26.0-34.0 [facility] Comment on above: Order Comment: Speci men Type: BLOOD SPECIMEN Ordering Facility: [facility] Address: [address] [place] [address] Performed By: #### 5 8410-2 #### [facility] CLIA [id number] [address] [place] MCHC (RBC) [Mass/Vol] 34.1 g/dL Normal 30.5-36.0 [facility] Comment on above: Order Comment: Speci men Type: BLOOD SPECIMEN Ordering Facility: [facility] Address: [address] [place] [address] Performed By: #### 5 8410-2 #### [facility] CLIA [id number] [address] MCV (RBC) [Entitic vol] 94.7 fL Normal 80.0-100.0 [facility] Comment on above: Order Comment: Speci men Type: BLOOD SPECIMEN Ordering Facility: [facility] Address: [address] [place] [address] Performed By: #### 5 8410-2 #### [facility] CLIA [id number] [address] [place] [address] [place] Nucleated RBC (Bld) [#/Vol] 10*3/uL Normal <0.01 [facility] Comment on above: Order Comment: Speci men Type: BLOOD SPECIMEN Ordering Facility: [facility] Address: [address] [place] [address] Performed By: #### 5 8410-2 #### [facility] CLIA [id number] [address] [place] Platelet mean volume (Bld) [Entitic vol] 10.8 fL Normal 9.0-12.7 [facility] Comment on above: Order Comment: Speci men Type: BLOOD SPECIMEN Ordering Facility: [facility] Address: [address] [place] [address] Performed By: #### 5 8410-2 #### [facility] CLIA [id number] [address] [place] Platelets (Bld) [#/Vol] 186 10*3/uL Normal 150-400 [facility] Comment on above: Order Comment: Speci men Type: BLOOD SPECIMEN Ordering Facility: [facility] Address: [address] [place] [address] Performed By: #### 5 8410-2 #### [facility] CLIA [id number] [address] RBC (Bld) [#/Vol] 4.34 10*6/uL Normal 4.20-6.[address] [facility] Comment on above: Order Comment: Speci men Type: BLOOD SPECIMEN Ordering Facility: [facility] Address: [address] [place] [address] Performed By: #### 5 8410-2 #### [facility] CLIA [id number] [address] [place] WBC (Bld) [#/Vol] 7.09 10*3/uL Normal 3.70-11.[address] [facility] Comment on above: Order Comment: Speci men Type: BLOOD SPECIMEN Ordering Facility: [facility] Address: [address] [place] [address] Performed By: #### 5 8410-2 #### [facility] CLIA [id number] [address] [place] [address] [facility] [place] Comprehensive metabolic 2000 panelon 01-23-2024 Albumin [Mass/Vol] 4.1 g/dL Normal 3.9-4.9 [facility] Comment on above: Order Comment: Speci men Type: BLOOD SPECIMEN Ordering Facility: [facility] Address: [address] [place] [address] Performed By: #### 2 777-1, 90920-6 #### [facility] CLIA [id number] [address] [place] [address] [place] ALP [Catalytic activity/Vol] 104 U/L Normal 38-113 [facility] Comment on above: Order Comment: Speci men Type: BLOOD SPECIMEN Ordering Facility: [facility] Address: [address] [place] [address] Performed By: #### 2 777-1, 30067-8 #### [facility] CLIA [id number] [address] [place] [address] [place] ALT [Catalytic activity/Vol] 14 U/L Normal 10-54 [facility] Comment on above: Order Comment: Speci men Type: BLOOD SPECIMEN Ordering Facility: [facility] Address: [address] [place] [address] Performed By: #### 2 777-1, 17803-2 #### [facility] CLIA [id number] [address] [place] Anion gap [Moles/Vol] 11 mmol/L Normal 8-15 [facility] Comment on above: Order Comment: Speci men Type: BLOOD SPECIMEN Ordering Facility: [facility] Address: [address] [place] [address] Performed By: #### 2 777-1, 43063-8 #### [facility] CLIA [id number] [address] [place] AST [Catalytic activity/Vol] 21 U/L Normal 14-40 [facility] Comment on above: Order Comment: Speci men Type: BLOOD SPECIMEN Ordering Facility: [facility] Address: [address] [place] [address] Performed By: #### 2 777-1, 35811-8 #### [facility] CLIA [id number] [address] [place] [address] [place] Bilirubin [Mass/Vol] 0.5 mg/dL Normal 0.2-1.3 [facility] Comment on above: Order Comment: Speci men Type: BLOOD SPECIMEN Ordering Facility: [facility] Address: [address] [place] [address] Performed By: #### 2 777-1, 10044-6 #### [facility] CLIA [id number] [address] [place] [address] [place] Calcium [Mass/Vol] 9.2 mg/dL Normal 8.5-10.2 [facility] Comment on above: Order Comment: Speci men Type: BLOOD SPECIMEN Ordering Facility: [facility] Address: [address] [place] [address] Performed By: #### 2 777-1, 94674-3 #### [facility] CLIA [id number] [address] [place] [address] [place] Chloride [Moles/Vol] 102 mmol/L Normal 98-107 [facility] Comment on above: Order Comment: Speci men Type: BLOOD SPECIMEN Ordering Facility: [facility] Address: [address] [place] [address] Performed By: #### 2 777-1, 07409-5 #### [facility] CLIA [id number] [address] [place] [address] [place] CO2 [Moles/Vol] 26 mmol/L Normal 22-30 [facility] Comment on above: Order Comment: Speci men Type: BLOOD SPECIMEN Ordering Facility: [facility] Address: [address] [place] [address] Performed By: #### 2 777-1, 79937-8 #### [facility] CLIA [id number] [address] [place] [address] [place] Creatinine [Mass/Vol] 1.24 mg/dL High 0.73-1.22 [facility] Comment on above: Order Comment: Thom nagel Type: BLOOD SPECIMEN Ordering Facility: [facility] Address: [address] [place] [address] Performed By: #### 2 777-1, 36256-3 #### [facility] CLIA [id number] [address] [place] [address] [place] Creatinine and Glomerular filtration rate.predicted panel (S/P/Bld) 60 mL/min/1.73m??? Normal >=60 [facility] Comment on above: Order Comment: Thom nagel Type: BLOOD SPECIMEN Ordering Facility: [facility] Address: [address] [place] [address] Result Comment: Hilda mated Glomerular Filtration Rate (eGFR) is calculated using the 2020 CKD-EPI creatinine equation. This equation utilizes serum creatinine, sex, and age as parameters. The creatinine assay has traceable calibration to isotope dilution-mass spectrometry. Refer to KDIGO guidelines for clinical interpretation. In patients with unstable renal function, e.g. those with acute kidney injury, the eGFR may not accurately reflect actual GFR. Performed By: #### 2 777-1, 84425-5 #### [facility] CLIA [id number] [address] [place] [address] [place] Glucose [Mass/Vol] 104 mg/dL High 74-99 [facility] Comment on above: Order Comment: Thom nagel Type: BLOOD SPECIMEN Ordering Facility: [facility] Address: [address] [place] [address] Result Comment: The [place] [employer] (ADA) provides guidance for cutoff values for fasting glucose and random glucose. The ADA defines fasting as no caloric intake for at least 8 hours. Fasting plasma glucose results between 100 to 125 mg/dL indicate increased risk for diabetes (prediabetes). Fasting plasma glucose results greater than or equal to 126 mg/dL meet the criteria for diagnosis of diabetes. In the absence of unequivocal hyperglycemia, results should be confirmed by repeat testing. In a patient with classic symptoms of hyperglycemia or hyperglycemic crisis, random plasma glucose results greater than or equal to 200 mg/dL meet the criteria for diagnosis of diabetes. Reference: Standards of Medical Care in Diabetes 2016, [place] [employer]. Diabetes Care. 2016.39(Suppl 1). Performed By: #### 2 777-1, 92014-9 #### [facility] CLIA [id number] [address] [place] [address] [place] Potassium [Moles/Vol] 4.6 mmol/L Normal 3.7-5.1 [facility] Comment on above: Order Comment: Speci men Type: BLOOD SPECIMEN Ordering Facility: [facility] Address: [address] [place] [address] Performed By: #### 2 777-1, 07355-3 #### [facility] CLIA [id number] [address] [place] [address] [place] Protein [Mass/Vol] 6.4 g/dL Normal 6.3-8.0 [facility] Comment on above: Order Comment: Speci men Type: BLOOD SPECIMEN Ordering Facility: [facility] Address: [address] [place] [address] Performed By: #### 2 777-1, 22061-1 #### [facility] CLIA [id number] [address] [place] [address] [place] Sodium [Moles/Vol] 139 mmol/L Normal 136-144 [facility] Comment on above: Order Comment: Speci men Type: BLOOD SPECIMEN Ordering Facility: [facility] Address: [address] [place] [address] Performed By: #### 2 777-1, 48650-5 #### [facility] CLIA [id number] [address] [place] [address] [place] Urea nitrogen [Mass/Vol] 19 mg/dL Normal 9-24 [facility] Comment on above: Order Comment: Speci men Type: BLOOD SPECIMEN Ordering Facility: [facility] Address: [address] [place] [address] Performed By: #### 2 777-1, 27735-9 #### [facility] CLIA [id number] [address] [place] [address] [place] Magnesium SerPl-mCncon 01-22 Magnesium [Mass/Vol] 2.0 mg/dL Normal 1.7-2.3 [facility] Comment on above: Order Comment: Speci men Type: BLOOD SPECIMEN Ordering Facility: [facility] Address: [address] [place] [address] Performed By: #### 2 777-1, 00169-5 #### [facility] CLIA [id number] [address] [place] [address] [facility] Phosphate SerPl-mCncon 01-22 Phosphate [Mass/Vol] 3.5 mg/dL Normal 2.7-4.8 [facility] Comment on above: Order Comment: Speci men Type: BLOOD SPECIMEN Ordering Facility: [facility] Address: [address] [place] [address] Performed By: #### 2 777-1, 08760-7 #### [facility] CLIA [id number] [address] [place] [address] [place] CASE MGT INIT ASSESon 2023 CASE MGT INIT ASSES HNO ID: [id number] Author: TAWNY TEJADA RN Service: ? Author Type: Registered Nurse Type: Care Mgt Initial Assessment Filed: 01/22/2024 09:36 Note Text: CARE MANAGEMENT: ASSESSMENT AND DISCHARGE PLAN SERVICE DATE: January 22, 2024 SERVICE TIME: 9:32 AM blunger machine operator spoke with patient at bedside to complete Care Management Assessment. Introduction made and role of Care Management explained. PCP: Sigifredo Trimble MD patient confirmed Primary Contact: Primary Emergency Contact: Arlette Smith Mobile Relation: Sister Secondary Emergency Contact: Magdy Hooker Mobile Relation: Nephew Admission Status: Observation Insurance Provider: [facility] [employer] Patient confirms that he does not want to transfer to a [facility]. Discharge Planning requested by: Per Department Practice Potential Transition Plans Home Advance Directives Current Advance Directive: Living Will In Chart: No Current Living Arrangements and Support Lives with: Alone Type of Residence: Private Residence (House) (House: 2 Story with Basement and 5 Entry Steps) Does the patient have to climb stairs at home?: Yes;stairs outside the home;stairs within the home Support: Family members How do you manage to accomplish the following: Independent: Ambulation;Bathe/Shower;D ress;Meals/Meal Prep;Going to the bathroom;Medication Management;Transportation to appointments/community Current Services/Equipment Current Post-Acute Service(s): DME Current DME Type: Cane, Shower seat, Bi-level Positive Airway Pressure (Blood Pressure Monitor. Pulse Ox.) Current Post-Acute Service(s) Provider: None Discharge Planning Patient Goal(s): General wellness, Be able to go home [place] of Choice Explained: [place] of Choice Given: No (Discharge Needs: To be Determined) Are you interested in bedside delivery of your medications? No Patient Preference: [facility] Discharge Planning Participant(s): Patient Patient/Family Comments: Patient reports he plans to return home at discharge. Patient reports his family will transport. Sister: Arlette Smith [phone] or Nephew: Magdy Hooker [phone]. Family phone numbers confirmed with patient. Caregiver Assessment: Caregiver is ready, willing and able to meet the patient's needs as recommended by the inter-professional team: No Caregiver needed Transport at Discharge: Transportation Arrangements: Car Destination: Home Needs Prior to Discharge: Needs Prior to Discharge: To Be Determined Post-Acute Discharge Plan: From home. Lives alone. Reports Independent. Retired. Drives. Active Services: None per patient DME: listed above as reported by patient. Discharge Plan: Home Discharge Transportation: Family CM Dept to Follow. SIGNATURE: Tawny Tejada RN PATIENT NAME: Kendrick Loomis DATE: January 22, 2024 TIME: 9:32 AM CONTACT #: [phone] Normal [facility] CBC panel Auto (Bld)on 01-21 Erythrocyte distribution width (RBC) [Ratio] 12.7 % Normal 11.5-15.0 [facility] Comment on above: Order Comment: Thom nagel Type: BLOOD SPECIMEN Ordering Facility: [facility] Address: [address] [place] [address] Performed By: #### 5 8410-2 #### [facility] CLIA [id number] [address] [place] [address] [place] Hematocrit (Bld) [Volume fraction] 41.4 % Normal 39.0-51.0 [facility] Comment on above: Order Comment: Thom nagel Type: BLOOD SPECIMEN Ordering Facility: [facility] Address: [address] [id number] Performed By: #### 5 8410-2 #### [facility] CLIA [id number] [address] Hemoglobin (Bld) [Mass/Vol] 14.1 g/dL Normal 13.0-17.0 [facility] Comment on above: Order Comment: Speci men Type: BLOOD SPECIMEN Ordering Facility: [facility] Address: [address] [place] [address] Performed By: #### 5 8410-2 #### [facility] CLIA [id number] [address] MCH (RBC) [Entitic mass] 32.1 pg Normal 26.0-34.0 [facility] Comment on above: Order Comment: Speci men Type: BLOOD SPECIMEN Ordering Facility: [facility] Address: [address] [place] [address] Performed By: #### 5 8410-2 #### [facility] CLIA [id number] [address] MCHC (RBC) [Mass/Vol] 34.1 g/dL Normal 30.5-36.0 [facility] Comment on above: Order Comment: Speci men Type: BLOOD SPECIMEN Ordering Facility: [facility] Address: [address] [place] [address] Performed By: #### 5 8410-2 #### [facility] CLIA [id number] [address] MCV (RBC) [Entitic vol] 94.3 fL Normal 80.0-100.0 [facility] Comment on above: Order Comment: Speci men Type: BLOOD SPECIMEN Ordering Facility: [facility] Address: [address] [place] [address] Performed By: #### 5 8410-2 #### [facility] CLIA [id number] [address] Nucleated RBC (Bld) [#/Vol] 10*3/uL Normal <0.01 [facility] Comment on above: Order Comment: Speci men Type: BLOOD SPECIMEN Ordering Facility: [facility] Address: [address] [place] [address] Performed By: #### 5 8410-2 #### [facility] CLIA [id number] [address] [place] [address] [place] Platelet mean volume (Bld) [Entitic vol] 10.5 fL Normal 9.0-12.7 [facility] Comment on above: Order Comment: Speci men Type: BLOOD SPECIMEN Ordering Facility: [facility] Address: [address] [place] [address] Performed By: #### 5 8410-2 #### [facility] CLIA [id number] [address] [place] [address] [place] Platelets (Bld) [#/Vol] 181 10*3/uL Normal 150-400 [facility] Comment on above: Order Comment: Speci men Type: BLOOD SPECIMEN Ordering Facility: [facility] Address: [address] [place] [address] Performed By: #### 5 8410-2 #### [facility] CLIA [id number] [address] [place] [address] [place] RBC (Bld) [#/Vol] 4.39 10*6/uL Normal 4.20-6.[address] [facility] Comment on above: Order Comment: Speci men Type: BLOOD SPECIMEN Ordering Facility: [facility] Address: [address] [place] [address] Performed By: #### 5 8410-2 #### [facility] CLIA [id number] [address] [place] [address] [place] WBC (Bld) [#/Vol] 7.40 10*3/uL Normal 3.70-11.[address] [facility] Comment on above: Order Comment: Speci men Type: BLOOD SPECIMEN Ordering Facility: [facility] Address: [address] [place] [address] Performed By: #### 5 8410-2 #### [facility] CLIA [id number] [address] [place] [address] [facility] [place] Comprehensive metabolic 2000 panelon 01-22-2024 Albumin [Mass/Vol] 4.1 g/dL Normal 3.9-4.9 [facility] Comment on above: Order Comment: Speci men Type: BLOOD SPECIMEN Ordering Facility: [facility] Address: [address] [place] [address] Performed By: #### 1 23-9, 34986-2, 2776- #### [facility] CLIA [id number] [address] [place] ALP [Catalytic activity/Vol] 105 U/L Normal 38-113 [facility] Comment on above: Order Comment: Speci men Type: BLOOD SPECIMEN Ordering Facility: [facility] Address: [address] [place] [address] Performed By: #### 1 23-9, 02334-8, 2776- #### [facility] CLIA [id number] [address] [place] ALT [Catalytic activity/Vol] 16 U/L Normal 10-54 [facility] Comment on above: Order Comment: Speci men Type: BLOOD SPECIMEN Ordering Facility: [facility] Address: [address] [place] [address] Performed By: #### 1 23-9, 93922-5, 2776- #### [facility] CLIA [id number] [address] [place] Anion gap [Moles/Vol] 12 mmol/L Normal 8-15 [facility] Comment on above: Order Comment: Speci men Type: BLOOD SPECIMEN Ordering Facility: [facility] Address: [address] [place] [address] Performed By: #### 1 23-9, 08383-7, 2776- #### [facility] CLIA [id number] [address] [place] [address] [place] AST [Catalytic activity/Vol] 25 U/L Normal 14-40 [facility] Comment on above: Order Comment: Speci men Type: BLOOD SPECIMEN Ordering Facility: [facility] Address: [address] [place] [address] Performed By: #### 1 9123-9, 96040-7, 7-1 #### [facility] CLIA [id number] [address] [place] [address] [place] Bilirubin [Mass/Vol] 0.6 mg/dL Normal 0.2-1.3 [facility] Comment on above: Order Comment: Speci men Type: BLOOD SPECIMEN Ordering Facility: [facility] Address: [address] [place] [address] Performed By: #### 1 9123-9, 97463-2, 277-1 #### [facility] CLIA [id number] [address] [place] [address] [place] Calcium [Mass/Vol] 9.2 mg/dL Normal 8.5-10.2 [facility] Comment on above: Order Comment: Speci men Type: BLOOD SPECIMEN Ordering Facility: [facility] Address: [address] [place] [address] Performed By: #### 1 9123-9, 76043-9, 2776- #### [facility] CLIA [id number] [address] [place] [address] [place] Chloride [Moles/Vol] 102 mmol/L Normal 98-107 [facility] Comment on above: Order Comment: Speci men Type: BLOOD SPECIMEN [facility]ing Facility: [facility] Address: [address] [place] [address] Performed By: #### 1 9123-9, 12451-8, 2776- #### [facility] CLIA [id number] [address] [place] [address] [place] CO2 [Moles/Vol] 24 mmol/L Normal 22-30 [facility] Comment on above: Order Comment: Speci men Type: BLOOD SPECIMEN Ordering Facility: [facility] Address: [address] [place] [address] Performed By: #### 1 9123-9, 50672-6, 2776-1 #### [facility] CLIA [id number] [address] [place] [address] [place] Creatinine [Mass/Vol] 1.19 mg/dL Normal 0.73-1.22 [facility] Comment on above: Order Comment: Speci men Type: BLOOD SPECIMEN Ordering Facility: [facility] Address: [address] [place] [address] Performed By: #### 1 9123-9, 89679-2, 2777- #### [facility] CLIA [id number] [address] [place] Creatinine and Glomerular filtration rate.predicted panel (S/P/Bld) 63 mL/min/1.73m??? Normal >=60 [facility] Comment on above: Order Comment: Thom nagel Type: BLOOD SPECIMEN Ordering Facility: [facility] Address: [address] [place] [address] Result Comment: Hilda mated Glomerular Filtration Rate (eGFR) is calculated using the 2020 CKD-EPI creatinine equation. This equation utilizes serum creatinine, sex, and age as parameters. The creatinine assay has traceable calibration to isotope dilution-mass spectrometry. Refer to KDIGO guidelines for clinical interpretation. In patients with unstable renal function, e.g. those with acute kidney injury, the eGFR may not accurately reflect actual GFR. Performed By: #### 1 9123-9, 27980-5, 2777- #### [facility] CLIA [id number] [address] [place] [address] [place] Glucose [Mass/Vol] 105 mg/dL High 74-99 [facility] Comment on above: Order Comment: Thom nagel Type: BLOOD SPECIMEN Ordering Facility: [facility] Address: [address] [place] [address] Result Comment: The [place] [employer] (ADA) provides guidance for cutoff values for fasting glucose and random glucose. The ADA defines fasting as no caloric intake for at least 8 hours. Fasting plasma glucose results between 100 to 125 mg/dL indicate increased risk for diabetes (prediabetes). Fasting plasma glucose results greater than or equal to 126 mg/dL meet the criteria for diagnosis of diabetes. In the absence of unequivocal hyperglycemia, results should be confirmed by repeat testing. In a patient with classic symptoms of hyperglycemia or hyperglycemic crisis, random plasma glucose results greater than or equal to 200 mg/dL meet the criteria for diagnosis of diabetes. Reference: Standards of Medical Care in Diabetes 2016, [place] [employer]. Diabetes Care. 2016.39(Suppl 1). Performed By: #### 1 9123-9, 62056-9, 2777- #### [facility] CLIA [id number] [address] [place] [address] [place] Potassium [Moles/Vol] 4.3 mmol/L Normal 3.7-5.1 [facility] Comment on above: Order Comment: Speci men Type: BLOOD SPECIMEN Ordering Facility: [facility] Address: [address] [place] [address] Performed By: #### 1 9123-9, 73962-5, 2777-1 #### [facility] CLIA [id number] [address] [place] [address] [place] Protein [Mass/Vol] 6.4 g/dL Normal 6.3-8.0 [facility] Comment on above: Order Comment: Speci men Type: BLOOD SPECIMEN Ordering Facility: [facility] Address: [address] [place] [address] Performed By: #### 1 9123-9, 67214-0, 277-1 #### [facility] CLIA [id number] [address] [place] [address] [place] Sodium [Moles/Vol] 138 mmol/L Normal 136-144 [facility] Comment on above: Order Comment: Speci men Type: BLOOD SPECIMEN [facility]ing Facility: [facility] Address: [address] [place] [address] Performed By: #### 1 9123-9, 63898-2, 2777-1 #### [facility] CLIA [id number] [address] [place] [address] [place] Urea nitrogen [Mass/Vol] 17 mg/dL Normal 9-24 [facility] Comment on above: Order Comment: Speci men Type: BLOOD SPECIMEN Ordering Facility: [facility] Address: [address] [place] [address] Performed By: #### 1 9123-9, 58181-1, 2777-1 #### [facility] CLIA [id number] [address] [place] [address] [place] Magnesium SerPl-mCncon 01-21 Magnesium [Mass/Vol] 1.9 mg/dL Normal 1.7-2.3 [facility] Comment on above: Order Comment: Speci men Type: BLOOD SPECIMEN Ordering Facility: [facility] Address: [address] [place], [place] [address] Performed By: #### 1 9123-9, 99843-0, 2777-1 #### [facility] CLIA [id number] [address] [place] [address] [place] Phosphate SerPl-mCncon 01-21 Phosphate [Mass/Vol] 3.3 mg/dL Normal 2.7-4.8 [facility] Comment on above: Order Comment: Speci men Type: BLOOD SPECIMEN [facility]ing Facility: [facility] Address: [address] [place], [place] [address] Performed By: #### 1 9123-9, 70945-0, 2777-1 #### [facility] CLIA [id number] [address] [id number] [place] ALLIED HEALTHon 01-21-2024 ALLIED HEALTH HNO ID: [id number] Author: ANSHU SYED CT Service: Radiology Author Type: Technologist Type: Allied Health Filed: 01/21/2024 00:11 Note Text: Radiology Service Progress Note PATIENT NAME: Kendrick Loomis DATE OF SERVICE: January 21, 2024 TIME: 12:11 AM PATIENT IDENTITY VERIFICATION COMPLETED USING TWO (2) IDENTIFIERS: Name and Date of confirmed by patient verbally and Name and Date of confirmed by identification band. FALL SCREENING: Has the patient had 2 falls in the last year or 1 fall with injury or currently using an Ambulatory Assistive Device (Walker, Cane, Wheelchair, Crutches, etc.)? Inpatient: Screened on floor PATIENT GENDER DATA: Male PATIENT RELEVANT IMPLANT DATA REVIEWED: Not Applicable PATIENT PRESENTS WITH AN IMPLANTABLE OR ATTACHED IMPREGNATOR AND DRIER: No RADIOLOGY DEPARTMENT: CT; Exam(s) Completed: Brain PERIPHERAL IV DATA: Not applicable SIGNED BY: GABY Funez January 21, 2024 12:11 AM Normal [facility] CBC panel Auto (Bld)on 01-20 Erythrocyte distribution width (RBC) [Ratio] 12.8 % Normal 11.5-15.0 [facility] Comment on above: Order Comment: Speci men Type: BLOOD SPECIMEN [facility] Facility[facility] Address: [address] [place], [place] [address] Performed By: #### 5 8410-2 #### [facility] CLIA [id number] [address] Hematocrit (Bld) [Volume fraction] 43.1 % Normal 39.0-51.0 [facility] Comment on above: Order Comment: Speci men Type: BLOOD SPECIMEN Ordering Facility: [facility] Address: [address] [place] [address] Performed By: #### 5 8410-2 #### [facility] CLIA [id number] [address] OF [facility] Hemoglobin (Bld) [Mass/Vol] 14.4 g/dL Normal 13.0-17.0 [facility] Comment on above: Order Comment: Speci men Type: BLOOD SPECIMEN Ordering Facility: [facility] Address: [address] [place] [address] Performed By: #### 5 8410-2 #### [facility] CLIA [id number] [address] MCH (RBC) [Entitic mass] 31.9 pg Normal 26.0-34.0 [facility] Comment on above: Order Comment: Speci men Type: BLOOD SPECIMEN Ordering Facility: [facility] Address: [address] [place] [address] Performed By: #### 5 8410-2 #### [facility] CLIA [id number] [address] MCHC (RBC) [Mass/Vol] 33.4 g/dL Normal 30.5-36.0 [facility] Comment on above: Order Comment: Speci men Type: BLOOD SPECIMEN Ordering Facility: [facility] Address: [address] [place] [address] Performed By: #### 5 8410-2 #### [facility] CLIA [id number] [address] MCV (RBC) [Entitic vol] 95.6 fL Normal 80.0-100.0 [facility] Comment on above: Order Comment: Speci men Type: BLOOD SPECIMEN Ordering Facility: [facility] Address: [address] [place] [address] Performed By: #### 5 8410-2 #### [facility] CLIA [id number] [address] [place] [address] [place] Nucleated RBC (Bld) [#/Vol] 10*3/uL Normal <0.01 [facility] Comment on above: Order Comment: Speci men Type: BLOOD SPECIMEN Ordering Facility: [facility] Address: [address] [place] [address] Performed By: #### 5 8410-2 #### [facility] CLIA [id number] [address] [place] [address] [place] Platelet mean volume (Bld) [Entitic vol] 10.9 fL Normal 9.0-12.7 [facility] Comment on above: Order Comment: Speci men Type: BLOOD SPECIMEN [facility]ing Facility: [facility] Address: [address] [place] [address] Performed By: #### 5 8410-2 #### [facility] CLIA [id number] [address] [place] [address] [place] Platelets (Bld) [#/Vol] 188 10*3/uL Normal 150-400 [facility] Comment on above: Order Comment: Speci men Type: BLOOD SPECIMEN Ordering Facility: [facility] Address: [address] [place] [address] Performed By: #### 5 8410-2 #### [facility] CLIA [id number] [address] [place] [address] [place] RBC (Bld) [#/Vol] 4.51 10*6/uL Normal 4.20-6.[address] [facility] Comment on above: Order Comment: Speci men Type: BLOOD SPECIMEN Ordering Facility: [facility] Address: [address] [place] [address] Performed By: #### 5 8410-2 #### [facility] CLIA [id number] [address] [place] [address] [place] WBC (Bld) [#/Vol] 8.41 10*3/uL Normal 3.70-11.[address] [facility] Comment on above: Order Comment: Speci men Type: BLOOD SPECIMEN [facility]ing Facility: [facility] Address: [address], [place] [address] Performed By: #### 5 8410-2 #### [facility] CLIA [id number] [address] [place] [address] [place] CONSULTon 01-21-2024 CONSULT HNO ID: [id number] Author: DANIELLE ALEX DO Service: Cardiovascular Disease Author Type: Physician Type: Consults Filed: 01/21/2024 10:11 Note Text: [facility] Department of Cardiovascular Medicine SECTION OF [facility] Consultation Note Name: Kendrick Loomis : 1945 Primary Physician: Sigifredo Trimble MD Consulting Physician: Adriana Rao,* Primary Shampoo Technician: [facility] SERVICE DATE: January 21, 2024 Assessment/ Plan: Probable orthostatic lightheadedness/dizziness secondary to possible hypotension. Patient states he has been running some low blood pressures recently but stable thus far here in the hospital. I question the possibility of side effects from doxazosin. 2. Frequent PVCs and palpitations. Patient will undergo an echocardiogram and Lexiscan nuclear stress test prior to discharge for further evaluation. 3. Benign prostatic hypertrophy. Patient requested to be started on Proscar while in the hospital since his urologist had recommended and consider discontinuing doxazosin due to side effects/orthostatic hypotension. History: Kendrick Loomis is a 78 year old male who presents with PMHx of adjustment disorder, adrenal gland neoplasm, cataract, colon polyps, GERD, KAKE, OA, chronic liver disease, DONNA, CAD, HTN. He [facility] the [facility] of [facility] care through the [facility], and has been working with his PCP to get a full cardiac evaluation. Of note he has been seen prior with similar symptoms, in which workup was negative and he was discharged home. He states that he has had labile blood pressures with episodes of hypotension. He describes these symptoms as sudden onset with flushing, palpitations, lightheadedness, cold sweats and overall unwell feeling. Today, his EKG was c/f multiple PVCs and bigeminy. He had improvement spontaneously, without any intervention. He had a slight troponin elevation, however they are flat. Patient is currently scheduled on 01/30 for an OP ECHO. Due to the frequent recurrence of these episodes patient requested admission. Patient was transferred to [facility] for further management of his pre-syncope and PVC's. Subjective PAST MEDICAL HISTORY 04/23/2021: Aftercare following left knee joint replacement surgery PAST SURGICAL HISTORY No date: ORTHOPEDICS SURGERY HX No family history on file. Social History Tobacco Use Smoking status: Former Types: Cigarettes Substance Use Topics Alcohol use: Not Currently Drug use: Never Current Facility-Administered Medications Medication Dose Route Frequency aspirin, enteric coated 81 mg tab(s) 81 mg ORAL DAILY cetirizine 10 mg tab(s) (ZYRTEC) 10 mg ORAL DAILY ketoconazole 2 % cream (NIZORAL) TOPICAL DAILY cholecalciferol 2,000 Units tab(s) (VITAMIN D3) 2,000 Units ORAL DAILY pantoprazole DR 40 mg tab(s) (PROTONIX) 40 mg ORAL DAILY (6 AM) NaCl 0.9% iv flush bag 20 mL INTRAVENOUS PRN ondansetron orally disintegrating 4 mg tab(s) (ZOFRAN ODT) 4 mg ORAL q 6 H PRN Or ondansetron (PF) 4 mg injection (ZOFRAN) 4 mg INTRAVENOUS q 6 H PRN sodium chloride 0.9 % (flush) 2-10 mL (BD POSIFLUSH) 2-10 mL INTRAVENOUS DIRECTED PRN And perflutren lipid microspheres 1.1 mg/mL 1.3 mL injection (DEFINITY) 1.3 mL INTRAVENOUS DIRECTED PRN [START ON 01/22/2024] atorvastatin 40 mg tab(s) (LIPITOR) 40 mg ORAL DAILY [START ON 01/22/2024] doxazosin 2 mg tab(s) (CARDURA) 2 mg ORAL DAILY carboxymethylcellulose sodium 1 Drop (CELLUVISC) 1 Drop BOTH EYES PRN Allergies As of Date: 01/20/2024 (No Known Allergies) Fully Assessed 01/20/2024 REVIEW OF SYSTEMS: GENERAL: Negative for: Weight loss or gain, Fever or Chills NECK: Negative for: Swelling, Pain, Stiffness RESPIRATORY: Negative for: Cough, Blood in Sputum GASTROINTESTINAL: Negative for: Trouble swallowing, Heartburn, Change in bowel habits, Blood in stool, Dark black stools MUSCULOSKELETAL: Negative for: Severe Muscle or joint pain, Stiffness , Joint swelling NEUROLOGIC/PSYCHIATRIC: Negative for: Paralysis, Numbness, Tingling, Tremor SKIN: Negative for: Rashes, Itching HEMATOLOGICAL/LYMPHATIC: Negative for: Easy bruising , Easy bleeding ENDOCRINE: Negative for: Heat or cold intolerance, Excessive sweating, Frequent urination All other review of systems, per history of present illness. Objective PHYSICAL EXAMINATION: BP 145/78 Pulse 62 Temp 36.5 ?C (97.7 ?F) (Oral) Resp 18 Ht 190.5 cm (6' 3) Wt 114.4 kg (252 lb 3.3 oz) SpO2 97% BMI 31.52 kg/m? BP 145/78 Pulse 62 Temp (Src) 97.7 (Oral) Resp 18 Ht 6' 3 (1.91m) Wt 252 lb 3.3 oz (114.4kg) SpO2 97% BMI 31.52 kg/(m2). O2 Therapy: Room Air General: Well appearing, in no acute distress. Skin: No clubbing, no cyanosis. Eyes: Extra ocular movements intact Neck: No jugular venous distention, no carotid bruits, carotids have a normal upstroke (more content not included)... Normal [facility] CT BRAIN WO IVCONon 01-21-20 CT BRAIN WO IVCON * * *Final Report* * * DATE OF EXAM: Jan 21 2024 12:09AM [facility] 0504 - CT BRAIN WO IVCON / PROCEDURE REASON: Syncope, simple, normal neuro exam * * * * Physician Interpretation * * * * EXAMINATION: CT BRAIN WO IVCON CLINICAL HISTORY: Syncope TECHNIQUE: Serial axial images without IV contrast were obtained from the vertex to the foramen magnum. MQ: CTBWO_3 CT Radiation dose: Integrated Dose-Length Product (DLP) for this visit = 748 mGy*cm CT Dose Reduction Employed: Automated exposure control(AEC) and iterative recon COMPARISON: None. RESULT: Post-operative change: None. Acute change: No evidence of an acute infarct or other acute parenchymal process. Hemorrhage: No evidence of acute intracranial hemorrhage. ECASS hemorrhagic transformation score: Not Applicable Mass Lesion / Mass Effect: There is no evidence of an intracranial mass or extraaxial fluid collection. No significant mass effect. Chronic change: Scattered patchy foci of low attenuation are present within supratentorial white matter which is a nonspecific finding but likely represents mild microvascular ischemia. Parenchyma: There is mild generalized volume loss. The brain parenchyma is otherwise within normal limits for age. Ventricles: The ventricles are within normal limits of size and configuration for age. Paranasal sinuses and skull base: The visualized paranasal sinuses are grossly clear. The skull base and imaged soft tissues are unremarkable. Localizer images: Unremarkable IMPRESSION: No acute intracranial abnormality. Consulting Project Director: PSCAlex Transcribe Date/Time: Jan 21 2024 12:32A Dictated by : ABDOULAYE ZARATE MD This examination was interpreted and the report reviewed and electronically signed by: ABDOULAYE ZARATE MD on Jan 21 2024 12:33AM EST [id number] Normal [facility] Comprehensive metabolic 2000 panelon 01-21-2024 Albumin [Mass/Vol] 4.1 g/dL Normal 3.9-4.9 [facility] Comment on above: Order Comment: Thom nagel Type: BLOOD SPECIMEN Ordering Facility: [facility] Address: [address] [place] [address] Performed By: #### 2 777-1, 21266-1 #### [facility] CLIA [id number] [address] STATES OF [facility] ALP [Catalytic activity/Vol] 96 U/L Normal 38-113 [facility] Comment on above: Order Comment: Macoi shona Type: BLOOD SPECIMEN Ordering Facility: [facility] Address: [address] [place] [address] Performed By: #### 2 777-1, 83919-8 #### [facility] CLIA [id number] [address] [place] ALT [Catalytic activity/Vol] 14 U/L Normal 10-54 [facility] Comment on above: Order Comment: Macoi men Type: BLOOD SPECIMEN Ordering Facility: [facility] Address: [address] [place] [address] Performed By: #### 2 777-1, 47360-9 #### [facility] CLIA [id number] [address] STATES OF [facility] Anion gap [Moles/Vol] 11 mmol/L Normal 8-15 [facility] Comment on above: Order Comment: Speci men Type: BLOOD SPECIMEN Ordering Facility: [facility] Address: [address] [place] [address] Performed By: #### 2 777-1, 67625-8 #### [facility] CLIA [id number] [address] [place] [address] [place] AST [Catalytic activity/Vol] 23 U/L Normal 14-40 [facility] Comment on above: Order Comment: Speci men Type: BLOOD SPECIMEN Ordering Facility: [facility] Address: [address] [place] [address] Performed By: #### 2 777-1, 62554-2 #### [facility] CLIA [id number] [address] [place] [address] [place] Bilirubin [Mass/Vol] 0.4 mg/dL Normal 0.2-1.3 [facility] Comment on above: Order Comment: Speci men Type: BLOOD SPECIMEN Ordering Facility: [facility] Address: [address] [place] [address] Performed By: #### 2 777-1, 61537-8 #### [facility] CLIA [id number] [address] [place] [address] [place] Calcium [Mass/Vol] 9.3 mg/dL Normal 8.5-10.2 [facility] Comment on above: Order Comment: Speci men Type: BLOOD SPECIMEN Ordering Facility: [facility] Address: [address] [place] [address] Performed By: #### 2 777-1, 55240-1 #### [facility] CLIA [id number] [address] [place] [address] [place] Chloride [Moles/Vol] 101 mmol/L Normal 98-107 [facility] Comment on above: Order Comment: Speci men Type: BLOOD SPECIMEN Ordering Facility: [facility] Address: [address] [place] [address] Performed By: #### 2 777-1, 23739-8 #### [facility] CLIA [id number] [address] [place] [address] [place] CO2 [Moles/Vol] 26 mmol/L Normal 22-30 [facility] Comment on above: Order Comment: Thom nagel Type: BLOOD SPECIMEN Ordering Facility: [facility] Address: [address] [place] [address] Performed By: #### 2 777-1, 16594-0 #### [facility] CLIA [id number] [address] [place] [address] [place] Creatinine [Mass/Vol] 1.23 mg/dL High 0.73-1.22 [facility] Comment on above: Order Comment: Thom nagel Type: BLOOD SPECIMEN Ordering Facility: [facility] Address: [address] [place] [address] Performed By: #### 2 777-1, 76966-9 #### [facility] CLIA [id number] [address] Creatinine and Glomerular filtration rate.predicted panel (S/P/Bld) 61 mL/min/1.73m??? Normal >=60 [facility] Comment on above: Order Comment: Thom nagel Type: BLOOD SPECIMEN Ordering Facility: [facility] Address: [address] [place] [address] Result Comment: Hilda mated Glomerular Filtration Rate (eGFR) is calculated using the 2020 CKD-EPI creatinine equation. This equation utilizes serum creatinine, sex, and age as parameters. The creatinine assay has traceable calibration to isotope dilution-mass spectrometry. Refer to KDIGO guidelines for clinical interpretation. In patients with unstable renal function, e.g. those with acute kidney injury, the eGFR may not accurately reflect actual GFR. Performed By: #### 2 777-1, 08317-4 #### [facility] CLIA [id number] [address] [place] [address] [place] Glucose [Mass/Vol] 100 mg/dL High 74-99 [facility] Comment on above: Order Comment: Thom nagel Type: BLOOD SPECIMEN Ordering Facility: [facility] Address: [address] [place] [address] Result Comment: The [place] Diabetes Association (ADA) provides guidance for cutoff values for fasting glucose and random glucose. The ADA defines fasting as no caloric intake for at least 8 hours. Fasting plasma glucose results between 100 to 125 mg/dL indicate increased risk for diabetes (prediabetes). Fasting plasma glucose results greater than or equal to 126 mg/dL meet the criteria for diagnosis of diabetes. In the absence of unequivocal hyperglycemia, results should be confirmed by repeat testing. In a patient with classic symptoms of hyperglycemia or hyperglycemic crisis, random plasma glucose results greater than or equal to 200 mg/dL meet the criteria for diagnosis of diabetes. Reference: Standards of Medical Care in Diabetes 2016, [place] [employer]. Diabetes Care. 2016.39(Suppl 1). Performed By: #### 2 777-1, 81255-0 #### [facility] CLIA [id number] [address] [place] [address] [place] Potassium [Moles/Vol] 3.9 mmol/L Normal 3.7-5.1 [facility] Comment on above: Order Comment: Thom nagel Type: BLOOD SPECIMEN Ordering Facility: [facility] Address: [address] [place] [address] Performed By: #### 2 777-1, 50537-9 #### [facility] CLIA [id number] [address] [place] [address] [place] Protein [Mass/Vol] 6.6 g/dL Normal 6.3-8.0 [facility] Comment on above: Order Comment: Thom nagel Type: BLOOD SPECIMEN Ordering Facility: [facility] Address: [address] [place] [address] Performed By: #### 2 777-1, 53689-3 #### [facility] CLIA [id number] [address] STATES [place] Sodium [Moles/Vol] 138 mmol/L Normal 136-144 [facility] Comment on above: Order Comment: Thom nagel Type: BLOOD SPECIMEN Ordering Facility: [facility] Address: [address] [place] [address] Performed By: #### 2 777-1, 02358-8 #### [facility] CLIA [id number] [address] STATES [place] Urea nitrogen [Mass/Vol] 19 mg/dL Normal 9-24 [facility] Comment on above: Order Comment: Thom nagel Type: BLOOD SPECIMEN Ordering Facility: [facility] Address: [address] [place] [address] Performed By: #### 2 777-1, 79398-5 #### [facility] CLIA [id number] [address] OF [facility] HbA1c (Bld)on 01-21-2024 Average glucose Estimated from glycated hemoglobin (Bld) [Mass/Vol] 103 mg/dL Normal [facility] Comment on above: Order Comment: Thom nagel Type: BLOOD SPECIMEN Ordering Facility: [facility] Address: [address] [place] [address] Result Comment: eAG: (Estimated average glucose) is a calculated value from HgbA1c and is sales representative publications of the average blood glucose level in the last 2-3 month period. Performed By: #### 5 5454-3 #### [facility] CLIA [id number] [address] [place] [address] HbA1c (Bld) [Mass fraction] 5.2 % Normal 4.3-5.6 [facility] Comment on above: Order Comment: Thom nagel Type: BLOOD SPECIMEN Ordering Facility: [facility] Address: [address] [place] [address] Result Comment: Amer [place] Diabetes Association guidelines indicate that patients with HgbA1c in the range 5.7-6.4% are at increased risk for development of diabetes, and intervention by lifestyle modification may be beneficial. HgbA1c greater or equal to 6.5% is considered diagnostic of diabetes. Performed By: #### 5 5454-3 #### [facility] CLIA [id number] [address] [place] [address] [place] Lipid 1996 panelon Cholesterol [Mass/Vol] 91 mg/dL Normal <200 [facility] Comment on above: Order Comment: Thom nagel Type: BLOOD SPECIMEN Ordering Facility: [facility] Address: [address] [place] [address] Result Comment: <200 mg/dL, Desirable 200-239 mg/dL, Borderline high >239 mg/dL, High Performed By: #### 2 777-1, 27842-6 #### [facility] CLIA [id number] [address] Cholesterol in HDL [Mass/Vol] 37 mg/dL Low >39 [facility] Comment on above: Order Comment: Thom nagel Type: BLOOD SPECIMEN Ordering Facility: [facility] Address: [address] [place] [address] Result Comment: 40-5 9 mg/dL, Acceptable >59 mg/dL, High: Negative risk factor for coronary heart disease <40 mg/dL, Low: Positive risk factor for coronary heart disease Performed By: #### 2 777-1, 32336-8 #### [facility] CLIA [id number] [address] Cholesterol in LDL [Mass/Vol] 32 mg/dL Normal <100 [facility] Comment on above: Order Comment: Thom nagel Type: BLOOD SPECIMEN Ordering Facility: [facility] Address: [address] [place] [address] Result Comment: <100 mg/dL, Optimal 100-129 mg/dL, Near optimal/above optimal 130-159 mg/dL, Borderline high 160-189 mg/dL, High >189 mg/dL, Very high Secondary prevention optimal LDL Cholesterol levels are recommended to be < 70 mg/dL Performed By: #### 2 777-1, 10832-2 #### [facility] CLIA [id number] [address] Cholesterol in LDL/Cholesterol in HDL [Mass ratio] 0.86 {ratio} Normal <2.54 [facility] Comment on above: Order Comment: Thom nagel Type: BLOOD SPECIMEN Ordering Facility: [facility] Address: [address] [place] [address] Result Comment: Refe rence: 1. National Cholesterol Education Program ATP III Guideline At-A-Glance Quick Desk Reference: National Heart, Lung, and Blood Huson. National Institutes of Health. 2001: NIH Publication No. 01-3305. 2. An International Atherosclerosis Society position paper: global recommendations for the management of dyslipidemia: executive summary, Atherosclerosis. 2014: 232(2):410-413. Performed By: #### 2 777-1, 88259-8 #### [facility] CLIA [id number] [address] OF [place] Cholesterol in VLDL [Mass/Vol] 22 mg/dL Normal <30 [facility] Comment on above: Order Comment: Speci men Type: BLOOD SPECIMEN Ordering Facility: [facility] Address: [address] [place] [address] Performed By: #### 2 777-1, 87478-6 #### [facility] CLIA [id number] [address] [place] [address] [place] Cholesterol non HDL [Mass/Vol] 54 mg/dL Normal <130 [facility] Comment on above: Order Comment: Speci men Type: BLOOD SPECIMEN Ordering Facility: [facility] Address: [address] [place] [address] Result Comment: <130 mg/dL, Optimal 130-159 mg/dL, Near optimal/above optimal 160-189 mg/dL, Borderline high 190-219 mg/dL, High >219 mg/dL, Very high Secondary prevention optimal non HDL Cholesterol levels are recommended to be <100 mg/dL Performed By: #### 2 777-1, 87493-3 #### [facility] CLIA [id number] [address] [place] [address] [facility] [place] Cholesterol.total/Ch olesterol in HDL [Mass ratio] 2.46 {ratio} Normal <5.10 [facility] Comment on above: Order Comment: Speci men Type: BLOOD SPECIMEN Ordering Facility: [facility] Address: [address] [place] [address] Performed By: #### 2 777-1, 26109-1 #### [facility] CLIA [id number] [address] OF [place] FASTING TIME 7 hrs Normal [facility] Comment on above: Order Comment: Speci men Type: BLOOD SPECIMEN Ordering Facility: [facility] Address: [address] [place] [address] Performed By: #### 2 777-1, 44315-0 #### [facility] CLIA [id number] [address] OF [place] Triglyceride [Mass/Vol] 112 mg/dL Normal <150 [facility] Comment on above: Order Comment: Speci men Type: BLOOD SPECIMEN Ordering Facility: [facility] Address: [address] [place] [address] Result Comment: <150 mg/dL, Normal 150-199 mg/dL, Borderline high 200-499 mg/dL, High >499 mg/dL, Very high Performed By: #### 2 777-1, 84174-4 #### [facility] CLIA [id number] [address] [place] [address] [place] Magnesium SerPl-mCncon 01-20 Magnesium [Mass/Vol] 2.1 mg/dL Normal 1.7-2.3 [facility] Comment on above: Order Comment: Speci men Type: BLOOD SPECIMEN Ordering Facility: [facility] Address: [address] [place] [address] Performed By: #### 2 777-1, 12416-4 #### [facility] CLIA [id number] [address] OF [place] NT-proBNP SerPl-mCncon 01-20 Natriuretic peptide.B prohormone N-Terminal [Mass/Vol] 59 pg/mL Normal <450 [facility] Comment on above: Order Comment: Speci men Type: BLOOD SPECIMEN Ordering Facility: [facility] Address: [address] [place] [address] Performed By: #### 2 777-1, 54135-1 #### [facility] CLIA [id number] [address] [place] [address] [place] Phosphate SerPl-mCncon 01-20 Phosphate [Mass/Vol] 3.3 mg/dL Normal 2.7-4.8 [facility] Comment on above: Order Comment: Speci men Type: BLOOD SPECIMEN Ordering Facility: [facility] Address: [address] [place] [address] Performed By: #### 2 777-1, 28999-4 #### [facility] CLIA [id number] [address] [place] [address] [place] TOXICOLOGY SCREEN, ROUTINE U RINEon 01-21-2024 Amphetamines Confirm (U) [Mass/Vol] Negative Normal Negative [facility] Comment on above: Order Comment: Speci men Type: URINE SPECIMEN Ordering Facility: [facility] Address: [address] [place] [address] Result Comment: Cuto ff threshold at 1000 ng/mL. Performed By: #### U TOX2 #### [facility] CLIA [id number] [address] BARBITURATES, URINE Negative Normal Negative [facility] Comment on above: Order Comment: Speci men Type: URINE SPECIMEN Ordering Facility: [facility] Address: [address] [place] [address] Result Comment: Cuto ff threshold at 200 ng/mL. Performed By: #### U TOX2 #### [facility] CLIA [id number] [address] OF [place] BENZODIAZEPINES, UR Negative Normal Negative [facility] Comment on above: Order Comment: Speci men Type: URINE SPECIMEN Ordering Facility: [facility] Address: [address] [place] [address] Result Comment: Cuto ff threshold at 200 ng/mL. Performed By: #### U TOX2 #### [facility] CLIA [id number] [address] Cannabinoids Screen Ql (U) Negative Normal Negative [facility] Comment on above: Order Comment: Speci men Type: URINE SPECIMEN Ordering Facility: [facility] Address: [address] [place] [address] Result Comment: Cuto ff threshold at 50 ng/mL. Performed By: #### U TOX2 #### [facility] CLIA [id number] [address] STATES [place] Cocaine Ql (U) Negative Normal Negative [facility] Comment on above: Order Comment: Speci men Type: URINE SPECIMEN Ordering Facility: [facility] Address: [address] [place] [address] Result Comment: Cuto ff threshold at 300 ng/mL. Performed By: #### U TOX2 #### [facility] CLIA [id number] [address] OF [place] Ethanol (U) [Mass/Vol] <11 Normal <11 [facility] Comment on above: Order Comment: Speci men Type: URINE SPECIMEN Ordering Facility: [facility] Address: [address] [place] [address] Performed By: #### U TOX2 #### [facility] CLIA [id number] [address] Opiates Screen Ql (U) Negative Normal Negative [facility] Comment on above: Order Comment: Speci men Type: URINE SPECIMEN Ordering Facility: [facility] Address: [address] [place] [address] Result Comment: Cuto ff threshold at 300 ng/mL. Performed By: #### U TOX2 #### [facility] CLIA [id number] [address] oxyCODONE cutoff Screen (U) [Mass/Vol] Negative Normal Negative [facility] Comment on above: Order Comment: Speci men Type: URINE SPECIMEN Ordering Facility: [facility] Address: [address] [place] [address] Result Comment: Cuto ff threshold at 100 ng/mL. Performed By: #### U TOX2 #### [facility] CLIA [id number] [address] Phencyclidine Ql (U) Negative Normal Negative [facility] Comment on above: Order Comment: Speci men Type: URINE SPECIMEN Ordering Facility: [facility] Address: [address] [place] [address] Result Comment: Cuto ff threshold at 25 ng/mL. Performed By: #### U TOX2 #### [facility] CLIA [id number] [address] OF [facility] TSH SerPl-aCncon 01-21-2024 TSH Qn 0.912 m[IU]/L Normal 0.270-4.200 [facility] Comment on above: Order Comment: Speci men Type: BLOOD SPECIMEN Ordering Facility: [facility] Address: [address] [place] [address] Performed By: #### 2 777-1, 44341-4 #### [facility] CLIA [id number] [address] [place] [address] [facility] OF [place] URINALYSIS, REFLEX MICROSCOP ICon 01-21-2024 Bilirubin Ql (U) Negative Normal Negative [facility] Comment on above: Order Comment: Speci men Type: BLOOD SPECIMEN Ordering Facility: [facility] Address: [address] [place] [address] Performed By: #### 2 777-1, 55777-9 #### [facility] CLIA [id number] [address] OF [place] Clarity (Unsp spec) Clear Normal Clear [facility] Comment on above: Order Comment: Speci men Type: BLOOD SPECIMEN Ordering Facility: [facility] Address: [address] [place] [address] Performed By: #### 2 777-1, 42855-0 #### [facility] CLIA [id number] [address] Color (U) Yellow Normal Yellow [facility] Comment on above: Order Comment: Speci men Type: BLOOD SPECIMEN Ordering Facility: [facility] Address: [address] [place] [address] Performed By: #### 2 777-1, 51165-4 #### [facility] CLIA [id number] [address] [place] Glucose Test strip (U) [Mass/Vol] Negative Normal Negative [facility] Comment on above: Order Comment: Speci men Type: BLOOD SPECIMEN Ordering Facility: [facility] Address: [address] [place] [address] Performed By: #### 2 777-1, 90064-0 #### [facility] CLIA [id number] [address] [place] [address] [place] Hemoglobin Ql (U) Negative Normal Negative [facility] Comment on above: Order Comment: Speci men Type: BLOOD SPECIMEN Ordering Facility: [facility] Address: [address] [place] [address] Performed By: #### 2 777-1, 92038-2 #### [facility] CLIA [id number] [address] OF [place] Ketones Ql (U) Trace Abnormal Negative [facility] Comment on above: Order Comment: Speci men Type: BLOOD SPECIMEN [facility]ing Facility: [facility] Address: [address] [place] [address] Performed By: #### 2 777-1, 00062-4 #### [facility] CLIA [id number] [address] [place] [address] [place] Leukocyte esterase Test strip Ql (U) Negative Normal Negative [facility] Comment on above: Order Comment: Speci men Type: BLOOD SPECIMEN Ordering Facility: [facility] Address: [address] [place] [address] Performed By: #### 2 777-1, 42590-9 #### [facility] CLIA [id number] [address] [place] [address] [place] Nitrite Ql (U) Negative Normal Negative [facility] Comment on above: Order Comment: Speci men Type: BLOOD SPECIMEN Ordering Facility: [facility] Address: [address] [place] [address] Performed By: #### 2 777-1, 72117-0 #### [facility] CLIA [id number] [address] [place] [address] [place] pH (U) 6.0 [pH] Normal 5.0-8.0 [facility] Comment on above: Order Comment: Speci men Type: BLOOD SPECIMEN Ordering Facility: [facility] Address: [address] [place] [address] Performed By: #### 2 777-1, 52807-4 #### [facility] CLIA [id number] [address] [place] [address] [place] Protein (U) [Mass/Vol] Negative Normal Negative [facility] Comment on above: Order Comment: Speci men Type: BLOOD SPECIMEN Ordering Facility: [facility] Address: [address] [place] [address] Performed By: #### 2 777-1, 37961-1 #### [facility] CLIA [id number] [address] [place] [address] [place] Specific gravity (U) [Rel density] 1.020 Normal 1.005-1.030 [facility] Comment on above: Order Comment: Speclidya nagel Type: BLOOD SPECIMEN Ordering Facility: [facility] Address: [address] [place] [address] Performed By: #### 2 777-1, 22437-9 #### [facility] CLIA [id number] [address] OF [facility] Urobilinogen Ql (U) 0.2 EU/dL Normal 0.2-1.0 EU/dL [facility] Comment on above: Order Comment: Speci men Type: BLOOD SPECIMEN Ordering Facility: [facility] Address: [address] [place] [address] Performed By: #### 2 777-1, 64007-8 #### [facility] CLIA [id number] [address] [place] US KIDNEY/BLADDERon 01-21-20 24 US KIDNEY/BLADDER * * *Final Report* * * DATE OF EXAM: Jan 21 2024 11:32AM MDU 1055 - US KIDNEY/BLADDER / PROCEDURE REASON: Kidney failure, acute * * * * Physician Interpretation * * * * EXAMINATION: RENAL ULTRASOUND HISTORY: Clinical information: Kidney failure, acute TECHNIQUE: Sonography of the kidneys and urinary bladder was performed. Images were obtained and stored in a permanent archive. MQ: UR_1 COMPARISON: None RESULT: Right Kidney: -Renal length: 10.6 cm -Parenchyma: Normal parenchymal echogenicity. Normal parenchymal thickness. -Collecting system: No hydronephrosis. -Calculus: No echogenic, shadowing calculus. -Lesion: 2 simple cysts in the RIGHT kidney the largest measures 5.8 cm and it projects from the upper pole Left Kidney: -Renal length: 11.6 cm -Parenchyma: Normal parenchymal echogenicity. Normal parenchymal thickness. -Collecting system: No hydronephrosis. -Calculus: No echogenic, shadowing calculus. -Lesion: Multiple simple cysts in the LEFT kidney the largest 1.3 cm in the lower pole Bladder: Normal sonographic appearance. IMPRESSION: Multiple simple cysts in each kidney otherwise unremarkable Consulting Project Director: SABINA Transcribe Date/Time: Jan 21 2024 11:40A Dictated by : TG VIVAR, This examination was interpreted and the report reviewed and electronically signed by: TG VIVAR DO on Jan 21 2024 11:43AM EST [id number] Normal [facility] Basic metabolic 2000 panelon 01-20-2024 Anion gap [Moles/Vol] 12 mmol/L Normal 8-15 [facility] Comment on above: Order Comment: Speci men Type: BLOOD SPECIMEN Ordering Facility: [facility] Address: [address] [place] [address] Performed By: #### B CRET1 #### [facility] [place] [facility] CLIA [id number] [address] [place] [address] [place] Calcium [Mass/Vol] 9.4 mg/dL Normal 8.5-10.2 [facility] Comment on above: Order Comment: Speci men Type: BLOOD SPECIMEN Ordering Facility: [facility] Address: [address] [place] [address] Performed By: #### B CRET1 #### [facility] [place] [facility] CLIA [id number] [address] [place] [address] [place] Chloride [Moles/Vol] 104 mmol/L Normal 98-107 [facility] Comment on above: Order Comment: Speci men Type: BLOOD SPECIMEN Ordering Facility: [facility] Address: [address] [place] [address] Performed By: #### B CRET1 #### [facility] [place] [facility] CLIA [id number] [address] [place] [address] [place] CO2 [Moles/Vol] 22 mmol/L Normal 22-30 [facility] Comment on above: Order Comment: Speci men Type: BLOOD SPECIMEN Ordering Facility: [facility] Address: [address] [place] [address] Performed By: #### B CRET1 #### [facility] [place] CLIA [id number] [address] [place] [address] [place] Creatinine [Mass/Vol] 1.25 mg/dL High 0.73-1.22 [facility] Comment on above: Order Comment: Speci men Type: BLOOD SPECIMEN Ordering Facility: [facility] Address: [address] [place] [address] Performed By: #### B CRET1 #### [facility] CLIA [id number] [address] [place], [place] [address] [place] Creatinine and Glomerular filtration rate.predicted panel (S/P/Bld) 60 mL/min/1.73m??? Normal >=60 [facility] Comment on above: Order Comment: Thom nagel Type: BLOOD SPECIMEN Ordering Facility: [facility] Address: [address] [place] [address] Result Comment: Hilda mated Glomerular Filtration Rate (eGFR) is calculated using the 2020 CKD-EPI creatinine equation. This equation utilizes serum creatinine, sex, and age as parameters. The creatinine assay has traceable calibration to isotope dilution-mass spectrometry. Refer to KDIGO guidelines for clinical interpretation. In patients with unstable renal function, e.g. those with acute kidney injury, the eGFR may not accurately reflect actual GFR. Performed By: #### B CRET1 #### [facility] CLIA [id number] [address] [place], [place] [id number] [place] Glucose [Mass/Vol] 114 mg/dL High 74-99 [facility] Comment on above: Order Comment: Thom nagel Type: BLOOD SPECIMEN Ordering Facility: [facility] Address: [address] [place] [address] Result Comment: The [place] Diabetes [employer] (ADA) provides guidance for cutoff values for fasting glucose and random glucose. The ADA defines fasting as no caloric intake for at least 8 hours. Fasting plasma glucose results between 100 to 125 mg/dL indicate increased risk for diabetes (prediabetes). Fasting plasma glucose results greater than or equal to 126 mg/dL meet the criteria for diagnosis of diabetes. In the absence of unequivocal hyperglycemia, results should be confirmed by repeat testing. In a patient with classic symptoms of hyperglycemia or hyperglycemic crisis, random plasma glucose results greater than or equal to 200 mg/dL meet the criteria for diagnosis of diabetes. Reference: Standards of Medical Care in Diabetes 2016, [place] [employer]. Diabetes Care. 2016.39(Suppl 1). Performed By: #### B CRET1 #### [facility] CLIA [id number] [address] [place] [address] [place] Potassium [Moles/Vol] 4.3 mmol/L Normal 3.7-5.1 [facility] Comment on above: Order Comment: Speci men Type: BLOOD SPECIMEN Ordering Facility: [facility] Address: [address] [place] [address] Performed By: #### B CRET1 #### [facility] [place] [facility] CLIA [id number] [address] [place] [address] [place] Sodium [Moles/Vol] 138 mmol/L Normal 136-144 [facility] Comment on above: Order Comment: Speci men Type: BLOOD SPECIMEN Ordering Facility: [facility] Address: [address] [place] [address] Performed By: #### B CRET1 #### [facility] CLIA [id number] [address] [place] [address] [place] Urea nitrogen [Mass/Vol] 22 mg/dL Normal 9-24 [facility] Comment on above: Order Comment: Speci men Type: BLOOD SPECIMEN Ordering Facility: [facility] Address: [address] [place] [address] Performed By: #### B CRET1 #### [facility] [place] [facility] CLIA [id number] [address] [place] [address] [place] CBC W Auto Differential pane l (Bld)on 01-20-2024 Basophils (Bld) [#/Vol] 0.03 10*3/uL Normal <0.11 [facility] Comment on above: Order Comment: Speci men Type: BLOOD SPECIMEN Ordering Facility: [facility] Address: [address] [place] [address] Performed By: #### B CRET1 #### [facility] [place] [facility] CLIA [id number] [address] [place] [address] STATES [facility] Basophils/100 WBC (Bld) 0.6 % Normal [facility] Comment on above: Order Comment: Speci men Type: BLOOD SPECIMEN Ordering Facility: [facility] Address: [address] [place] [address] Performed By: #### B CRET1 #### [facility] [place] [facility] CLIA [id number] [address] [place] [address] [facility] [place] Differential cell count method Nom (Bld) Auto Normal [facility] Comment on above: Order Comment: Speci men Type: BLOOD SPECIMEN Ordering Facility: [facility] Address: [address] [place] [address] Performed By: #### B CRET1 #### [facility] [place] [facility] CLIA [id number] [address] [place] [address] [place] Eosinophils (Bld) [#/Vol] 0.06 10*3/uL Normal <0.46 [facility] Comment on above: Order Comment: Speci men Type: BLOOD SPECIMEN Ordering Facility: [facility] Address: [address] [place] [address] Performed By: #### B CRET1 #### [facility] [place] [facility] CLIA [id number] [address] Eosinophils/100 WBC (Bld) 1.2 % Normal [facility] Comment on above: Order Comment: Speci men Type: BLOOD SPECIMEN Ordering Facility: [facility] Address: [address] [place] [address] Performed By: #### B CRET1 #### [facility] [place] [facility] CLIA [id number] [address] [place] [address] [facility] Erythrocyte distribution width (RBC) [Ratio] 12.7 % Normal 11.5-15.0 [facility] Comment on above: Order Comment: Speci men Type: BLOOD SPECIMEN Ordering Facility: [facility] Address: [address] [place] [address] Performed By: #### B CRET1 #### [facility] [place] [facility] CLIA [id number] [address] [place] [id number] [facility] [place] Hematocrit (Bld) [Volume fraction] 42.9 % Normal 39.0-51.0 [facility] Comment on above: Order Comment: Speci men Type: BLOOD SPECIMEN Ordering Facility: [facility] Address: [address] [place] [address] Performed By: #### B CRET1 #### [facility] [place] [facility] CLIA [id number] [address] [place] [address] [place] Hemoglobin (Bld) [Mass/Vol] 14.3 g/dL Normal 13.0-17.0 [facility] Comment on above: Order Comment: Speci men Type: BLOOD SPECIMEN Ordering Facility: [facility] Address: [address] [place] [address] Performed By: #### B CRET1 #### [facility] [place] [facility] CLIA [id number] [address] [place] [address] [place] Immature granulocytes (Bld) [#/Vol] 10*3/uL Normal <0.10 [facility] Comment on above: Order Comment: Speci men Type: BLOOD SPECIMEN Ordering Facility: [facility] Address: [address] [place] [address] Performed By: #### B CRET1 #### [facility] [place] [facility] CLIA [id number] [address] [place] [address] [place] Immature granulocytes/100 WBC (Bld) 0.2 % Normal [facility] Comment on above: Order Comment: Speci men Type: BLOOD SPECIMEN Ordering Facility: [facility] Address: [address] [place] [address] Performed By: #### B CRET1 #### [facility] [place] [facility] CLIA [id number] [address] [place] [address] [place] Lymphocytes (Bld) [#/Vol] 1.09 10*3/uL Normal 1.00-4.00 [facility] Comment on above: Order Comment: Speci men Type: BLOOD SPECIMEN Ordering Facility: [facility] Address: [address] [place] [address] Performed By: #### B CRET1 #### [facility] [place] [facility] CLIA [id number] [address] [place] [address] [place] Lymphocytes/100 WBC (Bld) 21.0 % Normal [facility] Comment on above: Order Comment: Speci men Type: BLOOD SPECIMEN Ordering Facility: [facility] Address: [address] [place] [address] Performed By: #### B CRET1 #### [facility] [place] [facility] CLIA [id number] [address] [place] [address] [facility] MCH (RBC) [Entitic mass] 32.0 pg Normal 26.0-34.0 [facility] Comment on above: Order Comment: Speci men Type: BLOOD SPECIMEN Ordering Facility: [facility] Address: [address] [place] [address] Performed By: #### B CRET1 #### [facility] [place] [facility] CLIA [id number] [address] [place], [place] [address] [place] [address] [place] MCHC (RBC) [Mass/Vol] 33.3 g/dL Normal 30.5-36.0 [facility] Comment on above: Order Comment: Speci men Type: BLOOD SPECIMEN Ordering Facility: [facility] Address: [address] [place] [address] Performed By: #### B CRET1 #### [facility] [place] [facility] CLIA [id number] [address] [place] MCV (RBC) [Entitic vol] 96.0 fL Normal 80.0-100.0 [facility] Comment on above: Order Comment: Speci men Type: BLOOD SPECIMEN Ordering Facility: [facility] Address: [address] [place] [address] Performed By: #### B CRET1 #### [facility] [place] [facility] CLIA [id number] [address] [place] [address] [facility] Monocytes (Bld) [#/Vol] 0.46 10*3/uL Normal <0.87 [facility] Comment on above: Order Comment: Speci men Type: BLOOD SPECIMEN Ordering Facility: [facility] Address: [address] [place] [address] Performed By: #### B CRET1 #### [facility] [place] [facility] CLIA [id number] [address] [place] [address] [place] Monocytes/100 WBC (Bld) 8.8 % Normal [facility] Comment on above: Order Comment: Speci men Type: BLOOD SPECIMEN Ordering Facility: [facility] Address: [address] [place] [address] Performed By: #### B CRET1 #### [facility] [place] [facility] CLIA [id number] [address] [place] [address] [place] Neutrophils (Bld) [#/Vol] 3.55 10*3/uL Normal 1.45-7.50 [facility] Comment on above: Order Comment: Speci men Type: BLOOD SPECIMEN Ordering Facility: [facility] Address: [address] [place] [address] Performed By: #### B CRET1 #### [facility] [place] [facility] CLIA [id number] [address] [place] [address] [place] Neutrophils/100 WBC (Bld) 68.2 % Normal [facility] Comment on above: Order Comment: Speci men Type: BLOOD SPECIMEN Ordering Facility: [facility] Address: [address] [place] [address] Performed By: #### B CRET1 #### [facility] [place] [facility] CLIA [id number] [address] [place] [address] [place] Nucleated RBC (Bld) [#/Vol] Normal [facility] Comment on above: Order Comment: Speci men Type: BLOOD SPECIMEN Ordering Facility: [facility] Address: [address] [place] [address] Performed By: #### B CRET1 #### [facility] [place] [facility] CLIA [id number] [address] [place] [address] [place] Nucleated RBC/100 WBC (Bld) [Ratio] Normal [facility] Comment on above: Order Comment: Speci men Type: BLOOD SPECIMEN Ordering Facility: [facility] Address: [address] [place] [address] Performed By: #### B CRET1 #### [facility] [place] [facility] CLIA [id number] [address] [place] [address] [facility] Platelet mean volume (Bld) [Entitic vol] 10.2 fL Normal 9.0-12.7 [facility] Comment on above: Order Comment: Speci men Type: BLOOD SPECIMEN Ordering Facility: [facility] Address: [address] [place] [address] Performed By: #### B CRET1 #### [facility] CLIA [id number] [address] [place], [place] [address] [place] [address] [place] Platelets (Bld) [#/Vol] 172 10*3/uL Normal 150-400 [facility] Comment on above: Order Comment: Speci men Type: BLOOD SPECIMEN Ordering Facility: [facility] Address: [address] [place] [address] Performed By: #### B CRET1 #### [facility] CLIA [id number] [address] STATES [facility] RBC (Bld) [#/Vol] 4.47 10*6/uL Normal 4.20-6.00 [facility] Comment on above: Order Comment: Speci men Type: BLOOD SPECIMEN Ordering Facility: [facility] Address: [address] [place] [address] Performed By: #### B CRET1 #### [facility] CLIA [id number] [address] [place], [place] [id number] [place] [address] [place] WBC (Bld) [#/Vol] 5.20 10*3/uL Normal 3.70-11.00 [facility] Comment on above: Order Comment: Speci men Type: BLOOD SPECIMEN Ordering Facility: [facility] Address: [address] [place] [address] Performed By: #### B CRET1 #### [facility] CLIA [id number] [address] [place], [place] [address] [place] [address] OF [facility] ECG COMPLETEon 01-20-2024 ECG COMPLETE Ventricular Rate : 6 6 BPM Atrial Rate : 66 BPM P-R Interval : 182 ms QRS Duration : 136 ms Q-T Interval : 434 ms QTC Calculation(Bazett) : 454 ms Calculated P Phoenix : 64 degrees Calculated R Phoenix : -20 degrees Calculated T Phoenix : 22 degrees NORMAL SINUS RHYTHM RIGHT BUNDLE BRANCH BLOCK ABNORMAL ECG WHEN COMPARED WITH ECG OF 17-Jan-2024 19:30, PREMATURE VENTRICULAR COMPLEXES ARE NO LONGER PRESENT T WAVE INVERSION NO LONGER EVIDENT IN ANTERIOR LEADS Confirmed by MD CROWDER VINAYAK ([id number]) on 01/22/2024 11:54:46 PM NAME : KENDRICK LOOMIS PID : [id number] : 1945 Gender : Male Race : ORD : [id number] Procedure Date : Jan 20 2024 14:23:46 Edit Date : Jan 22 2024 23:54:47 Diagnosis: NORMAL SINUS RHYTHM RIGHT BUNDLE BRANCH BLOCK ABNORMAL ECG WHEN COMPARED WITH ECG OF 17-Jan-2024 19:30, PREMATURE VENTRICULAR COMPLEXES ARE NO LONGER PRESENT T WAVE INVERSION NO LONGER EVIDENT IN ANTERIOR LEADS Confirmed by MD CROWDER VINAYAK ([id number]) on 01/22/2024 11:54:46 PM Test Reason : Chest Pain Location : 191 : [facility] Overread By : MD CROWDER VINAYAK Edited By : MD CROWDER VINAYAK Referred By : , Acquired by : CHICHI SNEED [facility] ED NOTEon 01-20-2024 ED NOTE HNO ID: [id number] Author: CLEMENTINA SWIFT, JUDE Service: Emergency Medicine Author Type: Registered Nurse Type: ED Notes Filed: 01/20/2024 22:40 Note Text: [facility] here, chart and report provided [facility] ED NOTE HNO ID: [id number] Author: CLEMENTINA SWIFT RN Service: Emergency Medicine Author Type: Registered Nurse Type: ED Notes Filed: 01/20/2024 21:49 Note Text: Transfer line called with bed assignment -[facility] 402-2 -report number [phone] -called [facility] for transport, eta 1 hour [facility] ED NOTE HNO ID: [id number] Author: CLEMENTINA SWIFT, RN Service: Emergency Medicine Author Type: Registered Nurse Type: ED Notes Filed: 01/20/2024 20:24 Note Text: [facility], had to leave message for them to call us back [facility] ED NOTE HNO ID: [id number] Author: SHALINI CORDERO RN Service: Emergency Medicine Author Type: Registered Nurse Type: ED Notes Filed: 01/20/2024 19:09 Note Text: [facility] called [facility] through [facility] unsure why patient is opting to come [facility] Advised [facility] De Paz and pt discussed and pt would like to come to [facility]. [facility] states they will [facility] a form for patient to sign, they are unsure if they will be able to get a bed for patient tonight but they will let us know after talking to cardiology through [facility]. Dr. De Paz advised. [facility] ED NOTE HNO ID: [id number] Author: SHALINI CORDERO RN Service: Emergency Medicine Author Type: Registered Nurse Type: ED Notes Filed: 01/20/2024 18:37 Note Text: Called [facility] for transport who requested clinical notes to be faxed. Fax sent to [phone]. Case will be presented to a manager of case. [facility] ED PROV NOTEon 01-20-2024 ED PROV NOTE HNO ID: [id number] Author: LAUREN DE PAZ MD Service: Emergency Medicine Author Type: Physician Type: ED Provider Notes Filed: 01/20/2024 21:42 Note Text: ED Provider Note Patient Name: Kendrick [place]is : 1945 SERVICE DATE: 01/20/24 History Patient presents with: Palpitations The patient is a 78-year-old male presenting today for complaint of palpitations and a near syncopal episode. Patient states that for the last hour he is feels as if his heart has been beating irregularly. He started feel lightheaded. This is with both standing up as well as at rest. States he was at home despite sitting down waiting for the symptoms of past in particular he was feeling palpitations. When he would try to stand up during this time he would feel lightheaded and like he was close to passing out. He states he was here for similar symptoms about 4 days ago. At that point time he was having lightheadedness particularly with standing. He states he had a full evaluation that point time and they allowed him to go home but stated that if his symptoms worsen or if he had any new symptoms he would need to return to the emergency department and would likely recommend admission at that point time. He states has been working with his doctor outpatient to get an echo as well as a stress test. He gets all of his care through the [facility]. He has been new this because he has had extremely labile blood pressures as of recently and has had multiple documented low blood pressures. He denies chest pain or shortness of breath associated with the symptoms. He denies any nausea but does endorse flushing symptoms as well as cold sweats. He actually had an episode when I walked into the room. He was laying in bed and stated that he started to feel lightheaded. He states it was exact same feeling he had at home as well as on the . I reviewed the last physician's notes. There was concern for possible cardiac etiology. I did review the EKG at that time as well. Although the note reads occasional PVCs his EKG actually shows some bigeminy type picture for about 3 beats that was caught on the EKG and then patient will go into normal sinus rhythm with 1 PVC seen on the EKG. It was felt since he was having close follow-up with his primary care physician and was trying to get scheduled for his echo and stress test that the patient could go home particular since the echo was on the and they were trying to get the stress test scheduled within the next 2 weeks. PAST MEDICAL HISTORY 04/23/2021: Aftercare following left knee joint replacement surgery PAST SURGICAL HISTORY No date: ORTHOPEDICS SURGERY HX No family history on file. Social History Tobacco Use Smoking status: Former Types: Cigarettes Smokeless tobacco: Not on file Substance and Sexual Activity Alcohol use: Not Currently Drug use: Never Sexual activity: Not on file ALLERGIES No Known Allergies Review of Systems Constitutional: Negative for activity change, appetite change, chills, fatigue and fever. HENT: Negative for congestion, ear pain, rhinorrhea and sore throat. Respiratory: Negative for cough and shortness of breath. Cardiovascular: Positive for palpitations. Negative for chest pain. Gastrointestinal: Negative for abdominal pain, diarrhea, nausea and vomiting. Genitourinary: Negative for dysuria, frequency and urgency. Musculoskeletal: Negative for arthralgias and myalgias. Skin: Negative for rash and wound. Neurological: Positive for light-headedness. Negative for dizziness and headaches. Psychiatric/Behavioral: Negative for self-injury and suicidal ideas. All other systems reviewed and are negative. Physical Exam Vitals [01/20/24 1359] BP Pulse Temp Temp src Resp SpO2 Weight Height 133/64 82 -- -- 20 98 % 115.7 kg (255 lb) 1.905 m (6' 3) Physical Exam Vitals and nursing note reviewed. Constitutional: General: He is not in acute distress. Appearance: He is well-developed. HENT: Head: Normocephalic and atraumatic. Comments: PVCs Nose: Nose normal. Mouth/Throat: Mouth: Mucous membranes are moist. Pharynx: Oropharynx is clear. Eyes: Extraocular Movements: Extraocular movements intact. Pupils: Pupils are equal, round, and reactive to light. Cardiovascular: Rate and Rhythm: Normal rate. Rhythm irregular. Heart sounds: Normal heart sounds. No murmur heard. No friction rub. No gallop. Pulmonary: Effort: Pulmonary effort is normal. No respiratory distress. Breath sounds: Normal breath sounds. No stridor. No wheezing, rhonchi or rales. Abdominal: General: Bowel sounds are normal. There is no distension. Palpations: Abdomen is soft. Tenderness: There is no abdominal tenderness. There is no guarding. Musculoskeletal: General: Normal range of motion. Cervical back: Normal range of motion and neck supple. Right lower leg: No edema. Left lower leg: No edema. Skin: (more content not included)... Normal [facility] HIGH SENSITIVITY TROPONIN T (INITIAL)on 01-20-2024 Troponin T.cardiac High sensitivity method [Mass/Vol] 33 ng/L High <12 [facility] Comment on above: Order Comment: Thom nagel Type: BLOOD SPECIMEN Ordering Facility: [facility] Address: [address] [place] [address] Performed By: #### L [id number] #### [facility] CLIA [id number] [address] [place] [address] STATES OF [facility] HIGH SENSITIVITY TROPONIN T (SECOND)on 01-20-2024 Troponin T.cardiac High sensitivity method [Mass/Vol] 32 ng/L High <12 [facility] Comment on above: Order Comment: Thom nagel Type: BLOOD SPECIMEN Ordering Facility: [facility] Address: [address] [place] [address] Performed By: #### L [id number] #### [facility] CLIA [id number] [address] [place] [address] [facility] HIGH SENSITIVITY TROPONIN T (THIRD) 3 HRS AFTER INITIALon 01-20-2024 Troponin T.cardiac High sensitivity method [Mass/Vol] 30 ng/L High <12 [facility] Comment on above: Order Comment: Speci men Type: BLOOD SPECIMEN Ordering Facility: [facility] Address: [address] [place] [address] Performed By: #### L [id number] #### [facility] CLIA [id number] [address] [place] [address] [facility] HISTORY PHYSICALon HISTORY PHYSICAL HNO ID: [id number] Author: PRISCILLA CANO MD Service: Hospital Medicine Author Type: Nurse Practitioner Type: H&P Filed: 01/21/2024 06:14 Note Text: ----- Attestation signed by Priscilla Cano MD at 01/21/2024 6:14 AM reviewed documentation and agree with the assessment and plan ----- DEPARTMENT OF HOSPITAL MEDICINE HISTORY AND PHYSICAL EXAM SERVICE DATE: 01/20/2024 SERVICE TIME: 11:23 PM Primary Care Physician: Sigifredo Trimble MD NIGHT AND WEEKEND COVERAGE: [place] COVERAGE: Days: [phone], please page attending physician. Nights: [phone], please page [place] [facility] Night coverage pager [phone]. Subjective CHIEF COMPLAINT: near syncope HPI: This is a 78 year old male with PMHx of adjustment disorder, adrenal gland neoplasm, cataract, colon polyps, GERD, KAKE, OA, chronic liver disease, DONNA, CAD, HTN. [facility] and has been working with his PCP to get a full cardiac evaluation. Of note he has been seen prior with similar symptoms, in which workup was negative and he was discharged home. He states that he has had labile blood pressures with episodes of hypotension. He describes these symptoms as sudden onset with flushing, palpitations, lightheadedness, cold sweats and overall unwell feeling. Today, his EKG was c/f multiple PVCs and bigeminy. He had improvement spontaneously, without any intervention. He had a slight troponin elevation, however they are flat. Patient is currently scheduled on 01/30 for an OP ECHO. Due to the frequent recurrence of these episodes patient requested admission. Patient was transferred to [facility] for further management of his pre-syncope and PVC's. On assessment, patient is resting comfortably in bed in no acute distress. Denies any complaints at this time. PAST MEDICAL HISTORY 04/23/2021: Aftercare following left knee joint replacement surgery PAST SURGICAL HISTORY No date: ORTHOPEDICS SURGERY HX No family history on file. Social History Tobacco Use Smoking status: Former Types: Cigarettes Substance Use Topics Alcohol use: Not Currently Drug use: Never PRIOR TO ADMISSION MEDICATIONS: aspirin, enteric coated (ASPIRIN, ENTERIC COATED) 81 mg EC tablet, Take 81 mg by mouth., Disp: , Rfl: atorvastatin (LIPITOR) 40 mg tablet, Take 40 mg by mouth., Disp: , Rfl: lisinopril (ZESTRIL) 20 mg tablet, Take 20 mg by mouth., Disp: , Rfl: loratadine (CLARITIN) 10 mg tablet, Take 10 mg by mouth., Disp: , Rfl: doxazosin (CARDURA) 2 mg tablet, Take 2 mg by mouth., Disp: , Rfl: ketoconazole (NIZORAL) 2 % cream, Apply to affected area., Disp: , Rfl: cholecalciferol (VITAMIN D3) 50 mcg (2,000 unit) tablet, Take 50 mcg by mouth., Disp: , Rfl: famotidine (PEPCID) 20 mg tablet, Take 20 mg by mouth two times a day., Disp: , Rfl: ALLERGIES No Known Allergies REVIEW OF SYSTEM: Review of Systems Constitutional: Positive for weight loss (intentinal from diet change). Negative for chills, diaphoresis, fever and malaise/fatigue. HENT: Positive for hearing loss. Negative for congestion, sinus pain and sore throat. Eyes: Negative. Respiratory: Negative for cough and shortness of breath. Cardiovascular: Positive for palpitations. Negative for chest pain and leg swelling. Gastrointestinal: Negative for abdominal pain, constipation, diarrhea, heartburn, nausea and vomiting. Genitourinary: Negative for dysuria, frequency and urgency. Musculoskeletal: Negative for falls and myalgias. Skin: Negative. Neurological: Positive for dizziness (intermitent). Negative for tingling, seizures, loss of consciousness, weakness and headaches. Psychiatric/Behavioral: Negative for substance abuse. Objective PHYSICAL EXAM: BP 121/70 Pulse 61 Temp (Src) 97.4 (Oral) Resp 18 Ht 6' 3 (1.91m) Wt 252 lb 3.3 oz (114.4kg) SpO2 96% BMI 31.52 kg/(m2). O2 Therapy: Room Air Physical Exam Performed: Physical Exam Vitals and nursing note reviewed. Constitutional: General: He is not in acute distress. Appearance: He is not ill-appearing, toxic-appearing or diaphoretic. HENT: Head: Atraumatic. Mouth/Throat: Mouth: Mucous membranes are moist. Pharynx: Oropharynx is clear. Comments: Dentures Eyes: Pupils: Pupils are equal, round, and reactive to light. Cardiovascular: Rate and Rhythm: Normal rate and regular rhythm. Pulses: Normal pulses. Heart sounds: Normal heart sounds. Pulmonary: Effort: Pulmonary effort is normal. No respiratory distress. Breath sounds: Normal breath sounds. No stridor. No wheezing, rhonchi or rales. Abdominal: General: Abdomen is flat. Bowel sounds are normal. There is no distension. Palpations: Abdomen is soft. Tenderness: There is no abdominal tenderness. There is no guarding. Musculoske (more content not included)... Normal [facility] Magnesium [facility] Magnesium [Mass/Vol] 2.1 mg/dL Normal 1.7-2.3 [facility] Comment on above: Order Comment: Speci men Type: BLOOD SPECIMEN Ordering Facility: [facility] Address: [address] [place], [place] [address] Performed By: #### B [id number] #### [facility] CLIA [id number] [address] [place] [address] [facility] ED NOTEon 01-18-2024 ED NOTE HNO ID: [id number] Author: SHALINI CORDERO RN Service: Emergency Medicine Author Type: Registered Nurse Type: ED Notes Filed: 01/18/2024 09:28 Note Text: Emergency Services: ED Call Back Questionnaire SERVICE DATE: 01/17/2024 Are you feeling better? Yes Any questions about discharge instructions and follow-up care? No Were you able to make a follow up appointment? Yes Do you have any further questions? No Is there anything that we could have done differently to improve your ED visit? No SIGNATURE: Shalini Cordero RN PATIENT NAME: Kendrick Loomis DATE: January 18, 2024 TIME: 9:28 AM Normal [facility] ED NOTE HNO ID: [id number] Author: HANNAH WALKER RN Service: Emergency Medicine Author Type: Registered Nurse Type: ED Notes Filed: 01/18/2024 02:13 Note Text: Physician at bedside to discuss results and plan of care. Patient is AANDO, wdp., resps unlabored, relaxed facial expression, speech clear. Denies dizziness, chest pain, dyspnea or any other c/o. Agreeable to plan: discharge and continue to fu w PCP (has echocardiogram scheduled next month.) Normal [facility] ED NOTE HNO ID: [id number] Author: HANNAH WALKER RN Service: Emergency Medicine Author Type: Registered Nurse Type: ED Notes Filed: 01/18/2024 01:55 Note Text: Patient ambulated to/from with steady upright gait, accompanied by nurse tech for safety. Denies dizziness or any other c/o. Pending disp [facility] HIGH SENSITIVITY TROPONIN T (THIRD) 3 HRS AFTER INITIALon 01-18-2024 Troponin T.cardiac High sensitivity method [Mass/Vol] 24 ng/L High <12 [facility] Comment on above: Order Comment: Thom nagel Type: BLOOD SPECIMEN Ordering Facility: [facility] Address: [address] [place] [address] Performed By: #### B CRET1 #### [facility] CLIA [id number] [address] [place] [id number] [facility] CBC panel Auto (Bld)on 01-16 Erythrocyte distribution width (RBC) [Ratio] 12.8 % Normal 11.5-15.0 [facility] Comment on above: Order Comment: Speci men Type: BLOOD SPECIMEN Ordering Facility: [facility] Address: [address] [place] [address] Performed By: #### L [id number] #### [facility] CLIA [id number] [address] [place], [place] [address] [facility] Hematocrit (Bld) [Volume fraction] 45.7 % Normal 39.0-51.0 [facility] Comment on above: Order Comment: Speci men Type: BLOOD SPECIMEN Ordering Facility: [facility] Address: [address] [place] [address] Performed By: #### L [id number] #### [facility] CLIA [id number] [address] [place] [address] [facility] [place] Hemoglobin (Bld) [Mass/Vol] 15.0 g/dL Normal 13.0-17.0 [facility] Comment on above: Order Comment: Speci men Type: BLOOD SPECIMEN Ordering Facility: [facility] Address: [address] [place] [address] Performed By: #### L [id number] #### [facility] CLIA [id number] [address] [place] [address] [place] MCH (RBC) [Entitic mass] 32.0 pg Normal 26.0-34.0 [facility] Comment on above: Order Comment: Speci men Type: BLOOD SPECIMEN Ordering Facility: [facility] Address: [address] [place] [address] Performed By: #### L [id number] #### [facility] CLIA [id number] [address] [place] [address] [place] MCHC (RBC) [Mass/Vol] 32.8 g/dL Normal 30.5-36.0 [facility] Comment on above: Order Comment: Speci men Type: BLOOD SPECIMEN Ordering Facility: [facility] Address: [address] [place] [address] Performed By: #### L [id number] #### [facility] CLIA [id number] [address] [place] [address] [place] MCV (RBC) [Entitic vol] 97.4 fL Normal 80.0-100.0 [facility] Comment on above: Order Comment: Speci men Type: BLOOD SPECIMEN Ordering Facility: [facility] Address: [address] [place] [address] Performed By: #### L [id number] #### [facility] CLIA [id number] [address] [place] [address] [place] Platelet mean volume (Bld) [Entitic vol] 10.5 fL Normal 9.0-12.7 [facility] Comment on above: Order Comment: Speci men Type: BLOOD SPECIMEN Ordering Facility: [facility] Address: [address] [place] [address] Performed By: #### L [id number] #### [facility] CLIA [id number] [address] [place] [address] [place] Platelets (Bld) [#/Vol] 189 10*3/uL Normal 150-400 [facility] Comment on above: Order Comment: Speci men Type: BLOOD SPECIMEN Ordering Facility: [facility] Address: [address] [place] [address] Performed By: #### L [id number] #### [facility] CLIA [id number] [address] [place] [address] [place] RBC (Bld) [#/Vol] 4.69 10*6/uL Normal 4.20-6.00 [facility] Comment on above: Order Comment: Speci men Type: BLOOD SPECIMEN Ordering Facility: [facility] Address: [address] [place] [address] Performed By: #### L [id number] #### [facility] CLIA [id number] [address] [place] [address] [place] [facility] WBC (Bld) [#/Vol] 8.41 10*3/uL Normal 3.70-11.00 [facility] Comment on above: Order Comment: Thom nagel Type: BLOOD SPECIMEN Ordering Facility: [facility] Address: [address] [place] [address] Performed By: #### L [id number] #### [facility] CLIA [id number] [address] [place] [address] [facility] [place] CREATININE, ISTATon 01-17-20 24 Creatinine [Mass/Vol] 1.60 mg/dL High 0.60-1.30 [facility] Comment on above: Order Comment: Thom nagel Type: BLOOD SPECIMEN Ordering Facility: [facility] Address: [address] [place] [address] Performed By: #### B CRET1 #### [facility] CLIA [id number] [address] [place] [address] [facility] GFR/1.73 sq M.predicted among non-blacks MDRD (S/P/Bld) [Vol rate/Area] 44 mL/min/1.73m??? Low >=60 [facility] Comment on above: Order Comment: Thom nagel Type: BLOOD SPECIMEN Ordering [facility]: [facility] Address: [address] [place] [address] Result Comment: Hilda mated Glomerular Filtration Rate (eGFR) is calculated using the 2020 CKD-EPI creatinine equation. This equation utilizes serum creatinine, sex, and age as parameters. The creatinine assay has traceable calibration to isotope dilution-mass spectrometry. Refer to KDIGO guidelines for clinical interpretation. In patients with unstable renal function, e.g. those with acute kidney injury, the eGFR may not accurately reflect actual GFR. Performed By: #### B CRET1 #### [facility] CLIA [id number] [address] [place] [address] [facility] [place] Comprehensive metabolic 2000 panelon 01-17-2024 Albumin [Mass/Vol] 4.5 g/dL Normal 3.9-4.9 [facility] Comment on above: Order Comment: Speci men Type: BLOOD SPECIMEN [facility]ing Facility: [facility] Address: [address] [place] [address] Performed By: #### 3 3762-6 #### [facility] CLIA [id number] [address] [place] [address] #### 11751-2 #### [facility] CLIA [id number] [address] ALP [Catalytic activity/Vol] 116 U/L High 38-113 [facility] Comment on above: Order Comment: Speci men Type: BLOOD SPECIMEN Ordering [facility]: [facility] Address: [address] [place] [address] Performed By: #### 3 3762-6 #### [facility] CLIA [id number] [address] [place] [address] #### 71282-3 #### [facility] CLIA [id number] [address] ALT With P-5'-P [Catalytic activity/Vol] 19 U/L Normal 10-54 [facility] Comment on above: Order Comment: Speci men Type: BLOOD SPECIMEN Ordering [facility]: [facility] Address: [address] [place] [address] Performed By: #### 3 3762-6 #### [facility] CLIA [id number] [address] [place] [address] #### 79599-5 #### [facility] CLIA [id number] [address] Anion gap [Moles/Vol] 14 mmol/L Normal 8-15 [facility] Comment on above: Order Comment: Speci men Type: BLOOD SPECIMEN Ordering Facility: [facility] Address: [address] [place] [address] Performed By: #### 3 3762-6 #### [facility] CLIA [id number] [address] #### 08980-6 #### [facility] CLIA [id number] [address] AST With P-5'-P [Catalytic activity/Vol] 26 U/L Normal 14-40 [facility] Comment on above: Order Comment: Speci men Type: BLOOD SPECIMEN Ordering Facility: [facility] Address: [address] [place] [address] Performed By: #### 3 3762-6 #### [facility] CLIA [id number] [address] [place] [address] #### 58916-2 #### [facility] CLIA [id number] [address] Bilirubin [Mass/Vol] 0.4 mg/dL Normal 0.2-1.3 [facility] Comment on above: Order Comment: Speci men Type: BLOOD SPECIMEN [facility]ing [facility]: [facility] Address: [address] [place] [address] Performed By: #### 3 3762-6 #### [facility] CLIA [id number] [address] [place] [address] #### 03940-5 #### [facility] CLIA [id number] [address] Calcium [Mass/Vol] 10.1 mg/dL Normal 8.5-10.2 [facility] Comment on above: Order Comment: Speci men Type: BLOOD SPECIMEN Ordering [facility]: [facility] Address: [address] [place] [address] Performed By: #### 3 3762-6 #### [facility] CLIA [id number] [address] [place] [address] #### 21638-8 #### [facility] CLIA [id number] [address] Chloride [Moles/Vol] 102 mmol/L Normal 98-107 [facility] Comment on above: Order Comment: Speci men Type: BLOOD SPECIMEN [facility]ing [facility]: [facility] Address: [address] [place] [address] Performed By: #### 3 3762-6 #### [facility] CLIA [id number] [address] [place] [address] #### 13023-3 #### [facility] CLIA [id number] [address] CO2 [Moles/Vol] 24 mmol/L Normal 22-30 [facility] Comment on above: Order Comment: Speci men Type: BLOOD SPECIMEN [facility]ing [facility]: [facility] Address: [address] [place] [address] Performed By: #### 3 3762-6 #### [facility] CLIA [id number] [address] [place] [address] #### 72494-8 #### [facility] CLIA [id number] [address] Creatinine [Mass/Vol] 1.54 mg/dL High 0.73-1.22 [facility] Comment on above: Order Comment: Speci men Type: BLOOD SPECIMEN [facility]ing [facility]: [facility] Address: [address] [place] [address] Performed By: #### 3 3762-6 #### [facility] CLIA [id number] [address] [place] [address] #### 74794-3 #### [facility] CLIA [id number] [address] Creatinine and Glomerular filtration rate.predicted panel (S/P/Bld) 46 mL/min/1.73m??? Low >=60 [facility] Comment on above: Order Comment: Speci men Type: BLOOD SPECIMEN [facility]ing [facility]: [facility] Address: [address] [place] [address] Result Comment: Hilda mated Glomerular Filtration Rate (eGFR) is calculated using the 2020 CKD-EPI creatinine equation. This equation utilizes serum creatinine, sex, and age as parameters. The creatinine assay has traceable calibration to isotope dilution-mass spectrometry. Refer to KDIGO guidelines for clinical interpretation. In patients with unstable renal function, e.g. those with acute kidney injury, the eGFR may not accurately reflect actual GFR. Performed By: #### 3 3762-6 #### [facility] CLIA [id number] [address] [place] [address] #### 54002-4 #### [facility] CLIA [id number] [address] STATES [facility] Glucose [Mass/Vol] 106 mg/dL High 74-99 [facility] Comment on above: Order Comment: Speci men Type: BLOOD SPECIMEN [facility]ing Facility: [facility] Address: [address] [place] [address] Result Comment: The [place] [employer] (ADA) provides guidance for cutoff values for fasting glucose and random glucose. The ADA defines fasting as no caloric intake for at least 8 hours. Fasting plasma glucose results between 100 to 125 mg/dL indicate increased risk for diabetes (prediabetes). Fasting plasma glucose results greater than or equal to 126 mg/dL meet the criteria for diagnosis of diabetes. In the absence of unequivocal hyperglycemia, results should be confirmed by repeat testing. In a patient with classic symptoms of hyperglycemia or hyperglycemic crisis, random plasma glucose results greater than or equal to 200 mg/dL meet the criteria for diagnosis of diabetes. Reference: Standards of Medical Care in Diabetes 2016, [place] [employer]. Diabetes Care. 2016.39(Suppl 1). Performed By: #### 3 3762-6 #### [facility] CLIA [id number] [address] [place] [address] #### 02731-6 #### [facility] CLIA [id number] [address] STATES OF [facility] Potassium [Moles/Vol] 4.7 mmol/L Normal 3.7-5.1 [facility] Comment on above: Order Comment: Speci men Type: BLOOD SPECIMEN [facility]ing [facility]: [facility] Address: [address] [place] [address] Performed By: #### 3 3762-6 #### [facility] CLIA [id number] [address] [place] [address] #### 53455-6 #### [facility] CLIA [id number] [address] Protein [Mass/Vol] 7.0 g/dL Normal 6.3-8.0 [facility] Comment on above: Order Comment: Speci men Type: BLOOD SPECIMEN [facility]ing [facility]: [facility] Address: [address] [place] [address] Performed By: #### 3 3762-6 #### [facility] CLIA [id number] [address] [place] [address] #### 44449-9 #### [facility] CLIA [id number] [address] Sodium [Moles/Vol] 140 mmol/L Normal 136-144 [facility] Comment on above: Order Comment: Speci men Type: BLOOD SPECIMEN [facility] Address: [address] [place] [address] Performed By: #### 3 3762-6 #### [facility] CLIA [id number] [address] [place] [address] #### 68446-4 #### [facility] CLIA [id number] [address] Urea nitrogen [Mass/Vol] 25 mg/dL High 9-24 [facility] Comment on above: Order Comment: Speci men Type: BLOOD SPECIMEN [facility]ing [facility]: [facility] Address: [address] [place] [address] Performed By: #### 3 3762-6 #### [facility] CLIA [id number] [address] [place] [address] OF [facility] #### 99960-2 #### [facility] [place] [id number] [address] ECG COMPLETEon 01-17-2024 ECG COMPLETE Ventricular Rate : 9 7 BPM Atrial Rate : 97 BPM P-R Interval : 164 ms QRS Duration : 142 ms Q-T Interval : 382 ms QTC Calculation(Bazett) : 485 ms Calculated P [place] : 44 degrees Calculated R [place] : -33 degrees Calculated T [place] : 33 degrees SINUS RHYTHM WITH FREQUENT PREMATURE VENTRICULAR COMPLEXES LEFT AXIS DEVIATION RIGHT BUNDLE BRANCH BLOCK ABNORMAL ECG NO PREVIOUS ECGS AVAILABLE Confirmed by MD CROWDER VINAYAK ([id number]) on 01/18/2024 11:01:05 PM NAME : KENDRICK LOOMIS PID : [id number] : 1945 Gender : Male Race : ORD : [id number] Procedure Date : Jan 17 2024 19:30:09 Edit Date : Jan 18 2024 23:01:06 Diagnosis: SINUS RHYTHM WITH FREQUENT PREMATURE VENTRICULAR COMPLEXES LEFT AXIS DEVIATION RIGHT BUNDLE BRANCH BLOCK ABNORMAL ECG NO PREVIOUS ECGS AVAILABLE Confirmed by MD CROWDER VINAYAK ([id number]) on 01/18/2024 11:01:05 PM Test Reason : Chest Pain Location : 191 : [facility] ED Overread By : MD CROWDER VINAYAK Edited By : MD CROWDER VINAYAK Referred By : , Acquired by : ARTURO MORRISON [facility] ED NOTEon 01-17-2024 ED NOTE HNO ID: [id number] Author: HANNAH WALKER, JUDE Service: Emergency Medicine Author Type: Registered Nurse Type: ED Notes Filed: 01/17/2024 22:10 Note Text: Call form lab, chemistry analyzer not working. Lab results will be delayed. Physician advised. [facility] ED NOTE HNO ID: [id number] Author: SARINA SALAZAR, JUDE Service: Emergency Medicine Author Type: Registered Nurse Type: ED Notes Filed: 01/17/2024 19:30 Note Text: Pt c/o low bp episodes at home with dizziness episodes that come and go. [facility] [place], warm, dry. No apparent distress. Alert and oriented. Denies CP and SOB Normal [facility] ED PROV NOTEon 01-17-2024 ED PROV NOTE HNO ID: [id number] Author: MIMI ESTRELLA MD Service: Emergency Medicine Author Type: Physician Type: ED Provider Notes Filed: 01/18/2024 07:23 Note Text: ED Provider Note Patient Name: Kendrick Loomis : 1945 SERVICE DATE: 01/17/24 History Patient presents with: Dizziness With past history of hypertension, presents to the emergency department the sister, for concerns over lightheadedness, weakness, a presyncopal type episode. Over the past month patient's had slightly labile blood pressures which his PCP has been following, and has requested outpatient workup including a stress test, echo. Today patient was making some salsa, he took a break sat in the chair because she was feeling fatigue, when he stood up, he is that he was weak, dizzy, felt like he was going to pass out. Patient had no chest pain palpitations or dyspnea at the time. Patient notes he had some indigestion symptoms today however. Patient states he was outside today and went grocery shopping, and working with his dogs and he may have not had as much fluid intake as he normally does. No nausea or vomiting. No recent fevers. Syncope Episode history: Single (Patient had a presyncopal type episode today, when he did get up from his chair, he was weak, dizzy, lightheaded felt he was in a pass out and his symptoms resolved when he sat back down) Timing: Intermittent Chronicity: New Context: standing up Associated symptoms: malaise/fatigue Associated symptoms: no chest pain, no diaphoresis, no difficulty breathing, no nausea, no shortness of breath and no vomiting PAST MEDICAL HISTORY 04/23/2021: Aftercare following left knee joint replacement surgery No past surgical history on file. No family history on file. Social History Tobacco Use Smoking status: Not on file Smokeless tobacco: Not on file Substance and Sexual Activity Alcohol use: Not on file Drug use: Not on file Sexual activity: Not on file ALLERGIES No Known Allergies Review of Systems Constitutional: Positive for malaise/fatigue. Negative for diaphoresis. Respiratory: Negative for shortness of breath. Cardiovascular: Positive for near-syncope. Negative for chest pain. Gastrointestinal: Negative for nausea and vomiting. All other systems reviewed and are negative. Physical Exam Vitals BP Pulse Temp Temp src Resp SpO2 Weight Height 01/17/24192401/17/24192301/17/241924 -- 01/17/24192301/17/24192301/17/241923 -- 110/78 (!) 115 37.2 ?C (99 ?F) 16 97 % 113.4 kg (250 lb) Physical Exam Vitals and nursing note reviewed. Constitutional: General: He is not in acute distress. Appearance: Normal appearance. He is not ill-appearing or toxic-appearing. HENT: Head: Normocephalic and atraumatic. Mouth/Throat: Mouth: Mucous membranes are moist. Pharynx: No oropharyngeal exudate or posterior oropharyngeal erythema. Eyes: General: Right eye: No discharge. Left eye: No discharge. Extraocular Movements: Extraocular movements intact. Cardiovascular: Rate and Rhythm: Normal rate and regular rhythm. Pulses: Normal pulses. Pulmonary: Effort: No respiratory distress. Abdominal: General: There is no distension. Tenderness: There is no abdominal tenderness. There is no right CVA tenderness, left CVA tenderness or guarding. Comments: Soft obese abdomen, no focal rebound guarding peritoneal findings or tenderness Musculoskeletal: Right lower leg: No edema. Left lower leg: No edema. Skin: General: Skin is warm and dry. Neurological: General: No focal deficit present. Mental Status: He is alert and oriented to person, place, and time. Mental status is at baseline. Comments: Patient is ANO x 3, he follows commands, he answers questions appropriately, he has equal facial symmetry, he has equal hand soda dispenser strength, equal upper extremity muscle strength without drift, equal lower extremity muscle strength, pupils are 3, extraocular meds are intact for all adan without nystagmus. Patient is able to rise from a lying to a sitting to a standing position without any assistance, has got negative Romberg, I ambulated patient in the emergency department next to him without assistance, he has a safe and stable non-ataxic gait. Patient had no recurrence of his symptoms with ambulation with me in the hallway Psychiatric: Mood and Affect: Mood normal. Behavior: Behavior normal. Diagnostic Testing ED Labs Ordered and Reviewed - No data to display Procedures ED Course / Clinical Impression Clinical Impressions as of 01/18/24 0719 Pre-syncope Right bundle branch block MDM / Disposition / Plan 78-year-old male patient, past history of hypertension, presents to the emergency room with his sister, for concern of a presyncopal type episode today. Patient is already been following with his PCP, for somewhat labile blood pressures over the past month, and they have start (more content not included)... Normal [facility] Gas and Carbon monoxide pane l (BldV)on 01-17-2024 BASE DEFICIT, VENOUS -1 mmol/L Normal -2-0 [facility] Comment on above: Order Comment: Thom nagel Type: BLOOD SPECIMEN Ordering Facility: [facility] Address: [address] [place] [address] Performed By: #### L [id number] #### [facility] CLIA [id number] [address] [place] [address] [place] Body temperature 98.6 [degF] Normal [facility] Comment on above: Order Comment: Thom nagel Type: BLOOD SPECIMEN Ordering Facility: [facility] Address: [address] [place] [address] Performed By: #### L [id number] #### [facility] CLIA [id number] [address] [place] Calcium.ionized (Bld) [Mass/Vol] 1.21 mmol/L Normal 1.08-1.30 [facility] Comment on above: Order Comment: Thom nagel Type: BLOOD SPECIMEN Ordering Facility: [facility] Address: [address] [place] [address] Performed By: #### L [id number] #### [facility] CLIA [id number] [address] [place] [id number] [place] Calcium.ionized adjusted to pH 7.4 (BldA) [Moles/Vol] 1.19 mmol/L Normal 1.08-1.30 [facility] Comment on above: Order Comment: Thom nagel Type: BLOOD SPECIMEN Ordering Facility: [facility] Address: [address] [place] [address] Performed By: #### L [id number] #### [facility] CLIA [id number] [address] [place] [address] [place] Carboxyhemoglobin (BldV) [Mass fraction] 2.1 % High 0.0-2.0 [facility] Comment on above: Order Comment: Speci men Type: BLOOD SPECIMEN Ordering Facility: [facility] Address: [address] [place] [address] Result Comment: Carb oxyhemoglobin Reference Range for Smokers: 2.0-8.0% Performed By: #### L [id number] #### [facility] CLIA [id number] [address] [place] [address] [place] Chloride [Moles/Vol] 108 mmol/L High 97-105 [facility] Comment on above: Order Comment: Speci men Type: BLOOD SPECIMEN Ordering Facility: [facility] Address: [address] [place] [address] Performed By: #### L [id number] #### [facility] CLIA [id number] [address] [place] [address] [place] CO2 (BldV) [Partial pressure] 43 mm[Hg] Normal 42-55 [facility] Comment on above: Order Comment: Speci men Type: BLOOD SPECIMEN Ordering Facility: [facility] Address: [address] [place] [address] Performed By: #### L [id number] #### [facility] CLIA [id number] [address] [place] [address] [place] Glucose [Mass/Vol] 93 mg/dL Normal 60-105 [facility] Comment on above: Order Comment: Speci men Type: BLOOD SPECIMEN Ordering Facility: [facility] Address: [address] [place] [address] Performed By: #### L [id number] #### [facility] CLIA [id number] [address] [place] [address] [place] HCO3 (Bld) [Moles/Vol] 25 mmol/L Normal 24-28 [facility] Comment on above: Order Comment: Speci men Type: BLOOD SPECIMEN Ordering Facility: [facility] Address: [address] [place] [address] Performed By: #### L [id number] #### [facility] CLIA [id number] [address] [place] [address] [place] Hematocrit (Bld) [Volume fraction] 44.4 % Normal 39.0-51.0 [facility] Comment on above: Order Comment: Speci men Type: BLOOD SPECIMEN Ordering Facility: [facility] Address: [address] [place] [address] Performed By: #### L [id number] #### [facility] CLIA [id number] [address] [place] [address] [place] Hemoglobin (Bld) [Mass/Vol] 14.5 g/dL Normal 13.0-17.0 [facility] Comment on above: Order Comment: Speci men Type: BLOOD SPECIMEN Ordering Facility: [facility] Address: [address] [place] [address] Performed By: #### L [id number] #### [facility] CLIA [id number] [address] [place], [place] [id number] [place] Lactate [Moles/Vol] 1.2 mmol/L Normal 0.5-2.2 [facility] Comment on above: Order Comment: Speci men Type: BLOOD SPECIMEN Ordering Facility: [facility] Address: [address] [place] [address] Performed By: #### L [id number] #### [facility] CLIA [id number] [address] [place] [address] [place] Methemoglobin (Bld) [Mass fraction] % Normal 0.0-1.5 [facility] Comment on above: Order Comment: Speci men Type: BLOOD SPECIMEN Ordering Facility: [facility] Address: [address] [place] [address] Performed By: #### L [id number] #### [facility] CLIA [id number] [address] [place] [address] [facility] [place] Oxygen (BldV) [Partial pressure] 54 mm[Hg] High 35-45 [facility] Comment on above: Order Comment: Speci men Type: BLOOD SPECIMEN Ordering Facility: [facility] Address: [address] [place] [address] Performed By: #### L [id number] #### [facility] CLIA [id number] [address] [place] [address] [place] Oxygen saturation in Venous blood 88 % High 60-85 [facility] Comment on above: Order Comment: Speci men Type: BLOOD SPECIMEN Ordering Facility: [facility] Address: [address] [place] [address] Performed By: #### L [id number] #### [facility] CLIA [id number] [address] [place] [address] [place] Oxyhemoglobin (BldV) [Mass fraction] 85 % Normal 60-85 [facility] Comment on above: Order Comment: Speci men Type: BLOOD SPECIMEN Ordering Facility: [facility] Address: [address] [place] [address] Performed By: #### L [id number] #### [facility] CLIA [id number] [address] [place] [address] [place] pH (BldV) 7.37 [pH] Normal 7.32-7.42 [facility] Comment on above: Order Comment: Speci men Type: BLOOD SPECIMEN Ordering Facility: [facility] Address: [address] [place] [address] Performed By: #### L [id number] #### [facility] CLIA [id number] [address] [id number] [place] Potassium [Moles/Vol] 4.2 mmol/L Normal 3.5-5.0 [facility] Comment on above: Order Comment: Speci men Type: BLOOD SPECIMEN Ordering Facility: [facility] Address: [address] [place] [address] Performed By: #### L [id number] #### [facility] CLIA [id number] [address] [place] [address] [facility] Sodium [Moles/Vol] 143 mmol/L Normal 136-144 [facility] Comment on above: Order Comment: Speci men Type: BLOOD SPECIMEN Ordering Facility: [facility] Address: [address] [place] [address] Performed By: #### L [id number] #### [facility] CLIA [id number] [address] HIGH SENSITIVITY TROPONIN T (INITIAL)on 01-17-2024 Troponin T.cardiac High sensitivity method [Mass/Vol] 28 ng/L High <12 [facility] Comment on above: Order Comment: Speci men Type: BLOOD SPECIMEN Ordering Facility: [facility] Address: [address] [place] [address] Performed By: #### L [id number] #### [facility] CLIA [id number] [address] HIGH SENSITIVITY TROPONIN T (SECOND)on 01-17-2024 Troponin T.cardiac High sensitivity method [Mass/Vol] 26 ng/L High <12 [facility] Comment on above: Order Comment: Speci men Type: BLOOD SPECIMEN Ordering Facility: [facility] Address: [address] [place] [address] Performed By: #### L [id number] #### [facility] CLIA [id number] [address] [place] [address] [facility] Natriuretic peptide.B prohormone N-Terminal [Mass/Vol] <36 Normal <450 [facility] Comment on above: Order Comment: Speci men Type: BLOOD SPECIMEN Ordering Facility: [facility] Address: [address] [place] [address] Performed By: #### 3 [id number] #### [facility] CLIA [id number] [address] #### [id number] #### [facility] CLIA [id number] [address] Urinalysis complete panel (U )on 01-17-2024 Bacteria LM.HPF (Urine sed) [#/Area] Few Abnormal None Seen [facility] Comment on above: Order Comment: Speci men Type: BLOOD SPECIMEN Ordering Facility: [facility] Address: [address] [place] [address] Performed By: #### L [id number] #### [facility] CLIA [id number] [address] Bilirubin Ql (U) Negative Normal Negative [facility] Comment on above: Order Comment: Speci men Type: BLOOD SPECIMEN Ordering Facility: [facility] Address: [address] [place] [address] Performed By: #### L [id number] #### [facility] CLIA [id number] [address] [place] Clarity (Unsp spec) Clear Normal Clear [facility] Comment on above: Order Comment: Speci men Type: BLOOD SPECIMEN Ordering Facility: [facility] Address: [address] [place] [address] Performed By: #### L [id number] #### [facility] CLIA [id number] [address] Color (U) Yellow Normal Yellow [facility] Comment on above: Order Comment: Speci men Type: BLOOD SPECIMEN Ordering Facility: [facility] Address: [address] [place] [address] Performed By: #### L [id number] #### [facility] CLIA [id number] [address] [place] Epithelial cells LM.HPF (Urine sed) [#/Area] Few Normal [facility] Comment on above: Order Comment: Speci men Type: BLOOD SPECIMEN Ordering Facility: [facility] Address: [address] [place] [address] Result Comment: Few Performed By: #### L [id number] #### [facility] CLIA [id number] [address] [place] [address] [facility] Glucose Test strip (U) [Mass/Vol] Negative Normal Negative [facility] Comment on above: Order Comment: Speci men Type: BLOOD SPECIMEN Ordering Facility: [facility] Address: [address] [place] [address] Performed By: #### L [id number] #### [facility] CLIA [id number] [address] [place] [address] [facility] Hemoglobin Ql (U) Negative Normal Negative [facility] Comment on above: Order Comment: Speci men Type: BLOOD SPECIMEN Ordering Facility: [facility] Address: [address] [place] [address] Performed By: #### L [id number] #### [facility] CLIA [id number] [address] [place] [address] [facility] Hyaline casts (Urine sed) [#/Area] /[LPF] Abnormal 0 /LPF [facility] Comment on above: Order Comment: Speci men Type: BLOOD SPECIMEN Ordering Facility: [facility] Address: [address] [place] [address] Performed By: #### L [id number] #### [facility] CLIA [id number] [address] [place] [address] [facility] Ketones Ql (U) Trace Abnormal Negative [facility] Comment on above: Order Comment: Speci men Type: BLOOD SPECIMEN Ordering Facility: [facility] Address: [address] [place] [address] Performed By: #### L [id number] #### [facility] CLIA [id number] [address] [place] [address] [facility] Leukocyte esterase Test strip Ql (U) Negative Normal Negative [facility] Comment on above: Order Comment: Speci men Type: BLOOD SPECIMEN Ordering Facility: [facility] Address: [address] [place] [address] Performed By: #### L [id number] #### [facility] CLIA [id number] [address] [place] [address] [place] Nitrite Ql (U) Negative Normal Negative [facility] Comment on above: Order Comment: Speci men Type: BLOOD SPECIMEN Ordering Facility: [facility] Address: [address] [place] [address] Performed By: #### L [id number] #### [facility] CLIA [id number] [address] [id number] [place] pH (U) 6.0 [pH] Normal 5.0-8.0 [facility] Comment on above: Order Comment: Speci men Type: BLOOD SPECIMEN Ordering Facility: [facility] Address: [address] [place] [address] Performed By: #### L [id number] #### [facility] CLIA [id number] [address] Protein (U) [Mass/Vol] 1+ Abnormal Negative [facility] Comment on above: Order Comment: Speci men Type: BLOOD SPECIMEN Ordering Facility: [facility] Address: [address] [place] [address] Performed By: #### L [id number] #### [facility] CLIA [id number] [address] [place] RBC LM.HPF (Urine sed) [#/Area] 0-3 /HPF Normal 0-3 /HPF [facility] Comment on above: Order Comment: Speci men Type: BLOOD SPECIMEN Ordering Facility: [facility] Address: [address] [place] [address] Performed By: #### L [id number] #### [facility] CLIA [id number] [address] [id number] [facility] Specific gravity (U) [Rel density] 1.025 Normal 1.005-1.030 [facility] Comment on above: Order Comment: Speci men Type: BLOOD SPECIMEN Ordering Facility: [facility] Address: [address] [place] [address] Performed By: #### L [id number] #### [facility] CLIA [id number] [address] [place] [address] [facility] Urobilinogen Ql (U) 0.2 EU/dL Normal 0.2-1.0 EU/dL [facility] Comment on above: Order Comment: Speci men Type: BLOOD SPECIMEN Ordering Facility: [facility] Address: [address] [place] [address] Performed By: #### L [id number] #### [facility] CLIA [id number] [address] [place] [address] [facility] [place] WBC LM.HPF (Urine sed) [#/Area] 0-5 /HPF Normal 0-5 /HPF [facility] Comment on above: Order Comment: Speci men Type: BLOOD SPECIMEN Ordering Facility: [facility] Address: [address] [place] [address] Performed By: #### L [id number] #### [facility] CLIA [id number] [address] [place] [address] [facility] [place] XR CHEST 1V FRONTALon 2023 XR CHEST 1V FRONTAL * * *Final Report* * * DATE OF EXAM: Jan 17 2024 9:15PM LDX [id number] - XR CHEST 1V FRONTAL / PROCEDURE REASON: Chest pain * * * * Physician Interpretation * * * * Exam: Single view of the chest. Reason for exam:Chest pain. FINDINGS: The cardiac silhouette is of normal size. The lungs are clear. There is no pneumothorax or pleural effusion. No acute osseous abnormality is seen. IMPRESSION:: No radiographic evidence of acute cardiopulmonary disease. Consulting Project Director: PSCB Transcribe Date/Time: Jan 17 2024 9:40P Dictated by : LALI BARRETT MD This examination was interpreted and the report reviewed and electronically signed by: LALI BARRETT MD on Jan 17 2024 9:41PM EST [id number] Normal [facility] Vital Signs Date Time Vital Sign Value Performing Clinician Denise castellanos 06-26-2024 07:38-0500 Body height 190.[address] Sigifredo Trimble MD Work Phone: [facility] 06-26-2024 07:38-0500 Body weight 106.[address] Sigifredo Trimble MD Work Phone: [facility] 05-25-2024 11:20-0500 Body weight 106.[address] Sigifredo Trimble MD Work Phone: [facility] 04-25-2024 10:50-0500 Body weight 107.[address] Sigifredo Trimble MD Work Phone: [facility] 03-07-2024 13:01-0400 Diastolic blood pressure 76 mm[Hg] Laverne Ash MD Work Phone: [facility] 03-07-2024 13:01-0400 Heart rate 76 /min Laverne Ash MD Work Phone: [facility] 03-07-2024 13:01-0400 Systolic blood pressure 148 mm[Hg] Laverne Ash MD Work Phone: [facility] 02-09-2024 15:07-0400 Body height 190.5 cm Zoya Pardo MD Work Phone: [facility] 02-09-2024 15:07-0400 Body mass index (BMI) [Ratio] 30.94 kg/m2 Zoya Pardo MD Work Phone: [facility] 02-09-2024 15:07-0400 Body weight 112.3 kg Zoya Pardo MD Work Phone: [facility] 02-09-2024 15:07-0400 Diastolic blood pressure 76 mm[Hg] Zoya Pardo MD Work Phone: [facility] 02-09-2024 15:07-0400 Heart rate 77 /min Zoya Pardo MD Work Phone: [facility] 02-09-2024 15:07-0400 SaO2% (BldA) [Mass fraction] 97 % Zoya Pardo MD Work Phone: [facility] 02-09-2024 [id number] Systolic blood pressure 124 mm[Hg] Zoya Pardo MD Work Phone: [facility] Encounters Encounter Date Encounter Type Care Provider Facility Start: 01-17-2025 ambulatory Sigifredo Trimble Facili ty:[facility] Start: 01-15-2025 ambulatory Sigifredo Cliffordi ty:[facility] Start: 12-20-2024 End: 12-20-[address] Sigifredo Trimble MD Work Phone: -[facility] Start: 12-20-2024 End: 12-20-2024 [facility] Work Phone: Start: 11-15-2024 End: 11-19-[address] Sigifredo Trimble MD Work Phone: -[facility] Start: 11-15-2024 End: 11-19-2024 [facility] Work Phone: Start: 10-18-2024 End: 10-20-[address] Sigifredo Trimble MD Work Phone: [facility] Work Phone: Start: 10-18-2024 End: 10-20-2024 [facility] Work Phone: Start: 09-18-2024 End: 09-19-2024 ambulatory Sigifredo Trimble Facility:[facility] Start: 09-18-2024 End: 09-19-2024 [facility] Work Phone: Start: 08-16-2024 End: 08-20-[address] Sigifredo Trimble MD Work Phone: [facility] Work Phone: Start: 08-16-2024 End: 08-20-2024 [facility] Work Phone: Start: 07-31-2024 ambulatory Sigifredo Trimble Facili ty:[facility] Start: 07-24-2024 End: 07-24-2024 Telephone encounter Laverne Ash MD Work Phone: Cardiology Start: 07-13-2024 End: 07-20-2024 ambulatory [facility] Facility:[facility] Start: 07-13-2024 End: 07-20-[address] Sigifredo Trimble MD -Cardiac Rehab Work Phone: Start: 06-22-2024 End: 06-22-2024 ambulatory [facility] Facility:[facility] Start: 06-22-2024 End: 06-22-2024 [facility] -[facility]iac Rehab Work Phone: Start: 05-21-2024 End: 05-22-2024 ambulatory [facility] Facility[facility] Start: 05-21-2024 End: 05-22-2024 Discharged [facility] -[facility] Work Phone: Start: 04-18-2024 End: 04-21-2024 ambulatory [facility] Facility[facility] Start: 03-26-[facility] Start: 03-16-2024 End: 03-19-2024 Telephone encounter Laverne Ash MD Work Phone: Cardiology Comment on above: Results Start: 03-07-2024 End: 03-07-2024 ambulatory LAVERNE ASH Facility:[facility] Start: 03-07-2024 End: 03-07-2024 Patient encounter procedure Laverne Ash MD Work Phone: Cardiology Comment on above: 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) (Primary Dx); CAD in [place] artery; DONNA (obstructive sleep apnea); Adrenal gland neoplasm Start: 02-20-2024 End: 02-20-2024 Telephone encounter Laverne Ash MD Work Phone: Cardiology Comment on above: Patient Question Start: 02-17-2024 End: 02-17-2024 Telephone encounter Laverne Ash MD Work Phone: Cardiology Comment on above: Orders Start: 02-16-2024 End: 02-17-2024 ambulatory ARLINE FAIR Facility:[facility] Start: 02-16-2024 End: 02-16-2024 Emergency department patient visit SIGIFREDO TRIMBLE Facility:[facility] Start: 02-10-2024 End: 02-10-2024 Telephone encounter Zoya Pardo MD Work Phone: Cardiology Comment on above: Patient Question Start: 02-09-2024 End: 02-09-2024 ambulatory ZOYA PARDO Facility:[facility] Start: 02-09-2024 End: 02-09-2024 Patient encounter procedure Zoya Pardo MD Work Phone: CARD INTERVENTION [facility] Comment on above: 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, unspecified vessel or lesion type (HCC) (Primary Dx) Start: 02-06-2024 End: 02-17-2024 Telephone encounter Oscar Flowers MD Work Phone: Cardiology Comment on above: Patient Question Start: 02-01-2024 End: 02-01-2024 Telephone encounter Oscar Flowers MD Work Phone: Cardiology Comment on above: Appointment (Appt re minder sent via mail) Start: 01-31-2024 ambulatory SELF Facility:[facility] Start: 01-31-2024 End: 01-31-2024 Subsequent hospital visit by physician Card/Pulm Lab [facility] CARDIO PULMONARY TESTING Comment on above: coronary plaque dise ase Start: 01-30-2024 End: 01-30-2024 Telephone encounter No One (Historical) Referring Physician Comment on above: External Referrals/r esources Start: 01-27-2024 End: 01-28-2024 ambulatory ANGI KWONG Facility:[facility] Start: 01-25-2024 End: 01-25-2024 Orders Only Danielle Alex DO Work Phone: Cardiology Comment on above: Coronary artery dise ase of [place] artery of [place] heart with stable angina pectoris (HCC) (Primary Dx) Procedure Scheduling (Heart Cath) Start: 01-20-2024 End: 01-25-2024 [facility] Start: 01-20-2024 End: 01-20-2024 Emergency department patient visit LAUREN DE PAZ Facility:[facility] Start: 01-17-2024 Emergency department patient visit SIGIFREDO TRIMBLE Facility:[facility] Procedures Date Procedure Procedure Detail Performing Clinician Start: 02-09-2024 Ecg routine ecg w/le ast 12 lds i&r only [facility] Provider Start: 01-31-2024 Echo tthrc r-t 2d w/ wom-mode compl spec&colr d [facility] Provider Plan of Treatment Date Care Activity Detail Author Start: 10-22-2031 Urine microalbumin profile DTaP,Tdap,Td Vaccine (3 - Td or Tdap) [facility] Start: 02-16-2027 Diabetes Screening Diabetes Screening [facility] Start: 01-27-2027 Diabetes Screening Diabetes Screening [facility] Start: 01-22-2027 Diabetes Screening Diabetes Screening [facility] Start: 02-08-2025 BP Controlled (<130/80) BP Controlled (<130/80) [facility] in Start: 01-20-2025 Hepatitis B surface antibody level LDL Cholesterol [facility] Start: 09-18-2024 End: 09-18-2024 Patient encounter procedure 09/18/2024 3:00 PM EDT Office Visit Cardiology [address] [id number] [place] [address] [place] [address] 6 mo f/u Cardiology Comment on above: 6 mo f/u Start: 07-12-2024 End: 07-12-2024 Patient encounter procedure 07/12/2024 2:00 PM EST Office Visit Cardiology [facility] [address] [address] Danielle Alex DO [address] [place] [address] 3 month Cardiology Comment on above: 3 month Start: 05-23-2024 Advance Directive Discussion Advance Directive Discussion [facility] Start: 03-29-2024 End: 03-29-2024 Patient encounter procedure 03/29/2024 9:15 AM EST Office Visit Cardiology [address] [place] [address] Oscar Flowers MD [address] [place] [address] Clinician, Interventional [address] [place] [address] Dx: Coronary atherosclerosis due to calcified coronary lesion Cardiology Comment on above: Dx: Coronary atherosclerosis due to calc ified coronary lesion Start: 03-07-2024 End: 03-07-2024 Patient encounter procedure 03/07/2024 1:00 PM EDT Office Visit Cardiology [address] [id number] [place] [address] [place] [address] F/U Cardiology Comment on above: F/U Start: 02-09-2024 End: 02-09-2024 Patient encounter procedure 02/09/2024 3:30 PM EDT Office Visit CARD INTERVENTION STEPHANIE [address] [place] [address] [place] [address] [place] [address] PCI stent; patient cannot arrive sooner due to ride arrangements, [place] CARD INTERVENTION [facility] Comment on above: PCI stent; patient cannot arrive sooner due to ride arrangements, [place] away Start: 01-31-2024 Subsequent hospital visit by physician 01/31/2024 8:00 AM EDT Hospital Encounter [facility] CARDIO PULMONARY TESTING [address] [place] [address] [facility] CARDIO PULMONARY TESTING Start: 01-27-2024 End: 01-27-2024 Admission to same day surgery center 01/27/2024 11:45 AM EDT - 01/27/2024 1:15 PM EDT Surgery [facility] Invasive Cardiology [address] [place] [address] [place] [address] [facility] [place] [address] INSERT INTRACORONARY STENT-PER MAJOR VESSEL OR BRANCH [facility] Comment on above: INSERT INTRACORONARY STENT-PER MAJOR VES KEMAL OR BRANCH Start: 01-27-2024 End: 01-27-2024 Prq trluml coronary stent w/angio one art/brnch INSERT INTRACORONARY STENT-PER MAJOR VESSEL OR BRANCH Coronary artery disease involving [place] heart with angina pectoris, unspecified vessel or lesion type (HCC) 01/27/2024 11:45 AM EDT [facility] CATH Start: 01-27-2024 Subsequent hospital visit by physician 01/27/2024 11:45 AM EDT Hospital Encounter [facility] Invasive Cardiology [address] [place] [address] [place] [address] [facility] [address] [place], [place] [id number] Coronary artery disease involving [place] heart with angina pectoris, unspecified vessel or lesion type (HCC) [I25.119] [facility] In[facility]iology Comment on above: Coronary artery disease involving [place] heart with angina pectoris, unspecified vessel or lesion type (HCC) [I25.119] Start: 01-25-2024 End: 01-25-2024 Cath plmt l hrt & arts w/njx & angio img s&i CORONARY ANGIO W CATH PLACE W IMAGE INJECT & INTERP W LT HEART CATH W INJECT LT VENTRGRAPHY Abnormal cardiovascular stress test 01/25/2024 8:59 AM EDT ME CATH Start: 01-22-2024 Covid-19 Vaccine ( season) Covid-19 Vaccine () [facility] Start: 01-22-2024 Covid-19 Vaccine (6 - 2024-25 season) Covid-19 Vaccine ( season) [facility] Start: 01-22-2024 Influenza vaccination Influenza Vaccine (#1) [facility] Start: 05-23-2023 Advance Directive Discussion Advance Directive Discussion [facility] Start: 08-04-2012 Hepatitis A Vaccine (4 of 4 - Hep A Twinrix risk 4-dose series) Hepatitis A Vaccine (4 of 4 - Hep A Twinrix risk 4-dose series) [facility] Start: 11-12-1965 Annual PCP Team Chronic Disease Visit Annual PCP Team Chronic Disease Visit [facility] Start: 11-12-1965 Anxiety Screening Anxiety Screening [facility] Start: 11-12-1965 BP Controlled (<130/80) BP Controlled (<130/80) [facility] Start: 11-12-1965 Depression Screening Depression Screening [facility] Start: 11-12-1965 Hepatitis C screening Hepatitis C Screening [facility] ECG COMPLETE [facility] Work Phone: Comment on above: Ordered: 02/09/2024 OUTSIDE VENDOR CARDI AC OUTPATIENT EXTENDED RHYTHM RECORDING (WITHOUT TELEMETRY) OUTSIDE VENDOR CARDIAC OUTPATIENT EXTENDED RHYTHM RECORDING (WITHOUT TELEMETRY) Holter Routine Coronary artery disease involving [place] coronary artery of [place] heart with angina pectoris (HCC) Ordered: 02/17/2024 [facility] Work Phone: Comment on above: Ordered: 02/17/2024 Immunizations Immunization Date Immunization Notes Care Provider Fa [facility] 02-17-2024 influenza, high dose seasonal, preservative-free Laverne Ash MD Work Phone: [facility] 02-17-2024 influenza virus vaccine, unspecified formulation Oscar Flowers MD Work Phone: [facility] 02-18-2023 influenza virus vaccine, unspecified formulation Danielle Alex DO Work Phone: [facility] Payers Date Payer Category Payer Unknown [id number] 2024 Self-pay 2020 Medicare UHC AAR MEDICAR E [facility]LY [facility] PPO [id number] 2020-Present [phone] [address] [address] [place] [address] PPO [id number] 2020 Medicare (Managed Care) [facility] PPO [id number] 2020 Medicare [id number] 2018 Private Health Insurance [facility] [id number] 2018-Present [phone] [address] [place] [address] PPO [id number] 2018 Unknown [id number] Unknown [id number] Unknown [id number]. [id number] Unknown [id number]. 2.462 Unknown [id number]. 2.462 Unknown [id number]. 2.462 Unknown [id number]. 2.462 Unknown [id number]. 2.462 Unknown [id number]. 2.462 Unknown [id number] [id number]. 2.462 Unknown [id number] [id number]. 2.462 Unknown [id number] [id number]. 2.462 Unknown [id number] [id number]. 2.462 Unknown [id number]. 2.462 Unknown [id number]. 2.462 Social History Date Type Detail Facility Start: 01-20-2024 End: 03-26-2024 Tobacco smoking status NHIS Ex-smoker [facility] History of tobacco use Current smoker [facility] History of tobacco use Cigarette Smoker [facility] Start: 01-20-2024 End: 03-07-2024 Alcoholic beverage intake Ex-drinker (finding) [facility] yenny Start: 01-22-2024 End: 03-07-2024 History of Social function [facility] yenny Start: 01-22-2024 End: 03-07-2024 [facility] [employer] [facility] Has the [employer], or water [employer] threatened to shut off services in your home in past 12Mo No [facility] (I/We) worried wheth er (my/our) food would run out before (I/we) got money to buy more. Never true [facility] In the past 12 month s, has lack of transportation kept you from medical appointments or from getting medications? No [facility] Start: 1945 Sex assigned at Not on file [facility] Start: 02-16-2024 Tobacco use and exposure Smoke less tobacco non-user [facility] Start: 08-21-2024 Sex Male (finding) [facility] Start: 1945 Sex Assigned At Male [facility] Goals Date Patient Goal Desired Activity /State Personal health goal Functional Status Date Assessment Result Facility 01-28-2024 Are you deaf, or do you have serious difficulty hearing No 01/28/2024 12:03 PM EDT Katie Yuen, JUDE No [facility] 01-28-2024 Are you blind, or do you have serious difficulty seeing, even when wearing glasses No 01/28/2024 12:03 PM EDT Katie Yuen, RN No [facility] 01-28-2024 Do you have serious difficulty walking or climbing stairs No 01/28/2024 12:03 PM EDT Katie Yuen, RN No [facility] 01-28-2024 Do you have difficul ty dressing or bathing No 01/28/2024 12:03 PM EDT Katie Yuen, RN No [facility] 01-28-2024 Because of a physica l, mental, or emotional condition, do you have difficulty doing errands alone such as visiting a physician's office or shopping No 01/28/2024 12:03 PM EDKatie Parra, JUDE No [facility] Mental Status Date Assessment Result Facility 01-28-2024 Because of a physica l, mental, or emotional condition, do you have serious difficulty concentrating, remembering, or making decisions No 01/28/2024 12:03 PM Katie Adams, JUDE No [facility] Clinical Notes 01-21-2024 to 07-24-2024 Telephone Encounter - Gil Hill RN - 07/24/2024 9:32 AM ESTTelephone Encounter - Gil Hill RN - 07/24/2024 9:32 AM ESTPatient Instructions Note Date & Type Note Facility 07-24-2024 Miscellaneous Notes Fax received from [facility] received, placed in folder to be scanned into chart documented in this encounter [facility] 07-24-2024 Telephone encounter Note Fax received from [facility] received, placed in folder to be scanned into chart [facility] 03-19-2024 Telephone encounter Note Spoke with patient, verbalized understanding. Patient is inquiring om if it is ok for him to start cardiac rehab now? (He stated he was waiting for the monitor results to come back prior to starting) ANTONIO: 03/07/2024- Blue CAD status post 3 stents to the right and left coronary arteries. - Zio patch until 03/09 - continue with DAPT (Plavix and Aspirin 81 mg daily). - continue with blood pressure maintenance, uptitrating lisinopril as necessary - recommend cardiac rehabilitation s/p URMILA placement at [place] that will be started next week Forward to Dr. Ash. Please advise. [facility] 03-19-2024 Miscellaneous Notes Spoke with patient, verbalized understanding. Patient is inquiring om if it is ok for him to start cardiac rehab now? (He stated he was waiting for the monitor results to come back prior to starting) ANTONIO: 03/07/2024- Blue CAD status post 3 stents to the right and left coronary arteries. - Zio patch until 03/09 - continue with DAPT (Plavix and Aspirin 81 mg daily). - continue with blood pressure maintenance, uptitrating lisinopril as necessary - recommend cardiac rehabilitation s/p URMILA placement at [place] that will be started next week Forward to Dr. Ash. Please advise. I reviewed his event monitor. He has few extra beats and will benefit from Toprol 25 mg daily that I have ordered today Forward to Dr. Ash Please advise on Zio results. 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 Predominant underlying rhythm was Sinus Rhythm. First Degree AV Block was present. Bundle Branch Block/IVCD was present. 3 Ventricular Tachycardia runs occurred, the run with the fastest interval lasting 4 beats with a max rate of 146 bpm, the longest lasting 7 beats with an avg rate of 107 bpm. 24 Supraventricular Tachycardia runs occurred, the run with the fastest interval lasting 6 beats with a max rate of 203 bpm, the longest lasting 27.9 secs with an avg rate of 96 bpm. Some episodes of Supraventricular Tachycardia may be possible Atrial Tachycardia with variable block. Isolated SVEs were rare (<1.0%), SVE Couplets were rare (<1.0%), and SVE Triplets were rare (<1.0%). Isolated VEs were occasional (1.7%, [id number]), VE Couplets were rare (<1.0%, 397), and VE Triplets were rare (< 1.0%, 30). Ventricular Bigeminy and Trigeminy were present. Patient called and asked if Dr Ash has reviewed the results of the Holter monitor. Please advise documented in this encounter [facility] 03-16-2024 Telephone encounter Note I reviewed his event monitor. He has few extra beats and will benefit from Toprol 25 mg daily that I have ordered today [facility] 03-16-2024 Telephone encounter Note Forward to Dr. Ash Please advise on Zio results. 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 Predominant underlying rhythm was Sinus Rhythm. First Degree AV Block was present. Bundle Branch Block/IVCD was present. 3 Ventricular Tachycardia runs occurred, the run with the fastest interval lasting 4 beats with a max rate of 146 bpm, the longest lasting 7 beats with an avg rate of 107 bpm. 24 Supraventricular Tachycardia runs occurred, the run with the fastest interval lasting 6 beats with a max rate of 203 bpm, the longest lasting 27.9 secs with an avg rate of 96 bpm. Some episodes of Supraventricular Tachycardia may be possible Atrial Tachycardia with variable block. Isolated SVEs were rare (<1.0%), SVE Couplets were rare (<1.0%), and SVE Triplets were rare (<1.0%). Isolated VEs were occasional (1.7%, [id number]), VE Couplets were rare (<1.0%, 397), and VE Triplets were rare (< 1.0%, 30). Ventricular Bigeminy and Trigeminy were present. [facility] 03-16-2024 Telephone encounter Note Patient called and asked if Dr Ash has reviewed the results of the Holter monitor. Please advise [facility] 03-07-2024 Laverne Leal MD - 03/07/2024 1:20 PM EDT Coronary Artery Disease: The coronary arteries are the blood vessels that supply your heart with blood. Your heart needs this blood to work properly. Every day, your heart pumps about 3,000 gallons of blood through your body. What is coronary artery disease? Coronary artery disease is the narrowing or blockage of the coronary arteries. This condition is usually caused by atherosclerosis. Atherosclerosis is the build-up of cholesterol and fatty deposits (called plaques) on the inner rodriguez of the arteries. These plaques can limit or stop blood flow to the heart muscle by clogging the artery or by causing damage to the arteries. If the heart does not get enough blood, it cannot get the oxygen and nutrients it needs to work properly. This can cause chest pain called angina. If the blood supply to an area of the heart muscle is completely blocked, or if the heart can t work as hard as it needs to because it lacks blood, you can have a heart attack. What causes the coronary arteries to narrow? Healthy coronary arteries are smooth and elastic. The inside of these muscular hollow tubes are lined with a layer of cells called the endothelium. The endothelium helps protect the vessel rodriguez and keep the arteries working properly. Blood can flow freely. Coronary artery disease starts when you are very young. Before your teen years, the blood vessel rodriguez start to show streaks of fat. As you get older, the fat builds up, causing minor damage to your blood vessel rodriguez. With time, other substances that move through your blood stream, such as inflammatory cells, cellular waste products, proteins and calcium, stick to the vessel rodriguez. These things combine with the fat and form plaque. Plaque deposits collect inside the arteries. They are different sizes, and many are soft on the inside with a hard, fibrous cap that covers the outside. If the hard surface cracks or tears, the soft, fatty inside is exposed. Platelets (disc-shaped particles in the blood that help form clots) move to the area, and blood clots form around the plaque. The endothelium can also become irritated and stop working properly, which causes the artery to squeeze at the wrong times. This causes the artery to narrow even more. Sometimes, the blood clot breaks apart and blood can flow through the area again. Other times, the blood clot (coronary thrombus) suddenly blocks the blood supply to the heart muscle (coronary occlusion), causing one of three serious conditions known as an acute coronary syndrome. Reduce your risk factors The first step in treatment for coronary artery disease is reducing your risk factors. This involves making changes in your lifestyle. Don t smoke. If you smoke or use tobacco products, quit. Talk to your doctor about ways to help you stop smoking, including medications. Manage health problems like high cholesterol, high blood pressure, diabetes. Eat a heart-healthy diet. Talk to your doctor or a registered dietitian about ways to change your diet to reduce your risk of heart disease. Limit alcohol use. Daily limits are one drink per day for women, two drinks per day for men. Increase your activity level. Exercise helps you lose weight, improve your physical condition and relieve stress. Most people can reduce their risk of heart attack by doing the equivalent of 30 minutes of walking 5 times per week or walking 10,000 steps per day It is important to talk to your doctor before you start any exercise program. Medications Your doctor may prescribe medication as part of your treatment plan for coronary artery disease. These can include medications to lower cholesterol levels and blood pressure or treat other health conditions you have. It is important to take all medications as prescribed. Ask your doctor if you have any questions about which medications you should take or how to take them. Interventional procedures Interventional procedures are not considered surgery. A weaver axminster (not a surgeon) performs these procedures to reduce plaque build-up in the arteries and prevent blockages. Common procedures are balloon angioplasty (PTCA) and stenting. During an interventional procedure, a long, thin tube called a catheter is inserted into an artery through a small incision. The catheter is guided to the blocked area of the artery, and the plaque build-up is cleared. Your doctor will give you more information if you need an interventional procedure as part of your treatment. documented in this encounter [facility] 03-07-2024 Note HNO ID: [id number] Author: LAVERNE ASH MD Service: ? Author Type: Physician Type: Progress Notes Filed: 05/04/2024 16:58 Note Text: Heart and Vascular [facility] Department of Cardiovascular Medicine SECTION OF REGIONAL CARDIOLOGY [facility] March 07, 2024 OUTPATIENT VISIT TYPE Follow Up Follow up after recent hospitalization (02/16/2024 - 02/17/2024) for lightheadedness. Patient records from [facility] reviewed. HISTORY OF PRESENT ILLNESS: Mr. Loomis is a 78 year old male with past medical hx of DONNA on Bipap, obesity, HTN CAD, recent hospital stay for palpitations/presyncope with finding of + stress test at [place], transferred to [facility] where he underwent cardiac catheterization and URMILA placement in distal RCA and proximal LAD (01/27/2024). He was hospitalized recently at [facility] for lightheadedness. He presented with lightheadedness while driving. Patient stated he was driving when he suddenly felt lightheaded and dizzy for a few minutes but then resolved. States he had a fluttering sensation in his chest at the time, but no chest tightness or pain. After the episode he felt unwell and his legs felt weak. Denied any chest pain/SOB/palpitations/new leg edema. Reported that he had been feeling well after the stent placement and this was the first time he had an episode of dizziness since placement of the stents. Patient here today for cardiology follow up. Currently wearing Zio Patch and will wear until 03/09. [facility] has an [facility] Patient has no symptoms of chest pain. Patient has mild exertional shortness of breath. Dizziness - No Palpitations - Intermittent Leg swelling - No Fatigue - No Snoring - Yes Sleep apnea - Yes Reports he is taking DAPT. Reports good compliance with his BIPAP at night. Drinks one cup of coffee/tea per day. He does not drink soda but drinks green tea intermittently. Patient does not smoke tobacco products. Patient denies alcohol use. Patient denies recreational drug use / abuse. Social History Tobacco Use Smoking status: Former Types: Cigarettes Smokeless tobacco: Never Vaping Use Vaping status: Never Used Substance Use Topics Alcohol use: Not Currently Drug use: Never No family history on file. PAST MEDICAL HISTORY Diagnosis Date Aftercare following left knee joint replacement surgery 04/23/2021 Arthritis Coronary artery disease Hypertension Sleep apnea PAST SURGICAL HISTORY Procedure Laterality Date CARDIAC CATHETERIZATION HX ORTHOPEDICS SURGERY HX REVIEW OF SYSTEMS: SYSTEMIC: No fever, chills, or change in weight or appetite HEENT: No recent change in vision or hearing. Respiratory: No hemoptysis, cough. CARDIOVASCULAR: See HPI. GI: No recent nausea, vomiting or diarrhea. : No recent hematuria or dysuria. SKIN: No recent itching or eruption. PSYCH: No recent active anxiety or depression. HEMATOLOGY/ONCOLOGY: No recent diagnosis of bleeding or cancer. ENDOCRINE: No recent polyuria or heat intolerance. NEURO: No recent TIA, stroke or seizures. MSK / RHEUMATOLOGY: No recent active connective tissue disease. Rest of the review of system is unremarkable. ALLERGIES No Known Allergies CURRENT MEDICATIONS: famotidine (PEPCID) 20 mg tablet Take 1 tablet by mouth once daily. atorvastatin (LIPITOR) 40 mg tablet Take 1 tablet by mouth once daily. clopidogrel (PLAVIX) 75 mg tablet Take 1 tablet by mouth once daily. lisinopril (ZESTRIL) 20 mg tablet Take 1 tablet by mouth once daily. finasteride (PROSCAR) 5 mg tablet Take 5 mg by mouth once daily. aspirin, enteric coated (ASPIRIN, ENTERIC COATED) 81 mg EC tablet Take 81 mg by mouth. loratadine (CLARITIN) 10 mg tablet Take 10 mg by mouth. cholecalciferol (VITAMIN D3) 50 mcg (2,000 unit) tablet Take 50 mcg by mouth. ketoconazole (NIZORAL) 2 % cream Apply to affected area. PHYSICAL EXAM: BP 148/76 Pulse 76 There is no height or weight on file to calculate BMI. After resting for 10 minutes repeat blood pressure taken in the left brachial artery was 138/72 mmHg Last 2 Encounter Wt Readings: Date: Wt: 02/16/2024 110.2 kg (242 lb 15.2 oz) 02/16/2024 109.3 kg (241 lb) Awake, alert, oriented times 3. Patient is not in acute respiratory distress. SKIN: No petechial rash or ecchymosis noted. Head : Normocephalic. Face is symmetrical NECK: Supple. No JVD. No carotid bruit. No thyromegaly. ENT: Pharyngeal structures are crowded and uvula is well visualized. Mallampati 4 LUNGS: Clear to auscultation bilaterally. CARDIAC: Normal S1 and S2, no systolic murmur. ABDOMEN: Soft, nontender, bowel sounds present. EXTREMITIES: Moderate varicose veins on the bilateral lower extremities, RLE 2+ pitting edema, LLE 1+ pitting edema PULSES: Peripheral pulses are palpable in DP and PT arteries. NEURO: Non-focal. Moves all extremities. Musculos (more content not included)... [facility] 03-07-2024 History of Presen t illness Narrative Images from the original note were not included. [facility] Department of Cardiovascular Medicine SECTION OF REGIONAL CARDIOLOGY [facility] March 07, 2024 OUTPATIENT VISIT TYPE Follow Up Follow up after recent hospitalization (02/16/2024 - 02/17/2024) for lightheadedness. [facility]. HISTORY OF PRESENT ILLNESS: Mr. Loomis is a 78 year old male with past medical hx of DONNA on Bipap, obesity, HTN CAD, recent hospital stay for palpitations/presyncope with finding of + stress test at [place], transferred to [facility] where he underwent cardiac catheterization and URMILA placement in distal RCA and proximal LAD (01/27/2024). He was hospitalized recently at [facility] for lightheadedness. He presented with lightheadedness while driving. Patient stated he was driving when he suddenly felt lightheaded and dizzy for a few minutes but then resolved. States he had a fluttering sensation in his chest at the time, but no chest tightness or pain. After the episode he felt unwell and his legs felt weak. Denied any chest pain/SOB/palpitations/new leg edema. Reported that he had been feeling well after the stent placement and this was the first time he had an episode of dizziness since placement of the stents. His presyncopal episode could be due to bradycardia, hypertension, or vasovagal. EKG/telemetry was significant for known RBBB, mild bradycardia to 50s, and occasional PVCs, and recommended that we further evaluate with outpatient Zio patch. Negative orthostatic vitals, orthostatic causes less likely. Carotid artery disease is a possibility given this patient's history of coronary artery disease, and can be further evaluated with carotid ultrasound. Patient here today for cardiology follow up. Currently wearing Zio Patch and will wear until 03/09. He has an adrenal mass which is being followed by the [facility]. Patient has no symptoms of chest pain. Patient has mild exertional shortness of breath. Dizziness - No Palpitations - Intermittent Leg swelling - No Fatigue - No Snoring - Yes Sleep apnea - Yes Reports he is taking DAPT. Reports good compliance with his BIPAP at night. Drinks one cup of coffee/tea per day. He does not drink soda but drinks green tea intermittently. Patient does not smoke tobacco products. Patient denies alcohol use. Patient denies recreational drug use / abuse. Social History Tobacco Use Smoking status: Former Types: Cigarettes Smokeless tobacco: Never Vaping Use Vaping status: Never Used Substance Use Topics Alcohol use: Not Currently Drug use: Never No family history on file. PAST MEDICAL HISTORY Diagnosis Date Aftercare following left knee joint replacement surgery 04/23/2021 Arthritis Coronary artery disease Hypertension Sleep apnea PAST SURGICAL HISTORY Procedure Laterality Date CARDIAC CATHETERIZATION HX ORTHOPEDICS SURGERY HX REVIEW OF SYSTEMS: SYSTEMIC: No fever, chills, or change in weight or appetite HEENT: No recent change in vision or hearing. Respiratory: No hemoptysis, cough. CARDIOVASCULAR: See HPI. GI: No recent nausea, vomiting or diarrhea. : No recent hematuria or dysuria. SKIN: No recent itching or eruption. PSYCH: No recent active anxiety or depression. HEMATOLOGY/ONCOLOGY: No recent diagnosis of bleeding or cancer. ENDOCRINE: No recent polyuria or heat intolerance. NEURO: No recent TIA, stroke or seizures. MSK / RHEUMATOLOGY: No recent active connective tissue disease. Rest of the review of system is unremarkable. ALLERGIES No Known Allergies CURRENT MEDICATIONS: famotidine (PEPCID) 20 mg tablet Take 1 tablet by mouth once daily. atorvastatin (LIPITOR) 40 mg tablet Take 1 tablet by mouth once daily. clopidogrel (PLAVIX) 75 mg tablet Take 1 tablet by mouth once daily. lisinopril (ZESTRIL) 20 mg tablet Take 1 tablet by mouth once daily. finasteride (PROSCAR) 5 mg tablet Take 5 mg by mouth once daily. aspirin, enteric coated (ASPIRIN, ENTERIC COATED) 81 mg EC tablet Take 81 mg by mouth. loratadine (CLARITIN) 10 mg tablet Take 10 mg by mouth. cholecalciferol (VITAMIN D3) 50 mcg (2,000 unit) tablet Take 50 mcg by mouth. ketoconazole (NIZORAL) 2 % cream Apply to affected area. PHYSICAL EXAM: BP 148/76 Pulse 76 There is no height or weight on file to calculate BMI. After resting for 10 minutes repeat blood pressure taken in the left brachial artery was 138/72 mmHg Last 2 Encounter Wt Readings: Date: Wt: 02/16/2024 110.2 kg (242 lb 15.2 oz) 02/16/2024 109.3 kg (241 lb) Awake, alert, oriented times 3. Patient is not in acute respiratory distress. SKIN: No petechial rash or ecchymosis noted. Head : Normocephalic. Face is symmetrical NECK: Supple. No JVD. No carotid bruit. No thyromegaly. ENT: Pharyngeal structures are crowded and uvula is well visualized. Mallampati 4 LUNGS: Clear to auscultation bilaterally. CARDIAC: Normal S1 and S2, no systolic murmur. ABDOMEN: Soft, nontender, bowel sounds present. EXTREMITIES: Moderate varicose veins on the bilateral lower extremities, RLE 2+ pitting edema, LLE 1+ pitting edema PULSES: Peripheral pulses are palpable in DP and PT arteries. NEURO: Non-focal. Moves all extremities. Musculoskeletal: No significant deformities. Last Labs: I reviewed personally. Sodium Date Value Ref Range Status 02/17/2024 137 136 - 144 mmol/L Final Potassium Date Value Ref Range Status 02/17/2024 4.6 3.7 - 5.1 mmol/L Final Chloride Date Value Ref Range Status 02/17/2024 103 98 - 107 mmol/L Final CO2 Date Value Ref Range Status 02/17/2024 26 22 - 30 mmol/L Final Glucose Date Value Ref Range Status 02/17/2024 101 (H) 74 - 99 mg/dL Final Comment: The [place] [employer] (ADA) provides guidance for cutoff values for fasting glucose and random glucose. The ADA defines fasting as no caloric intake for at least 8 hours. Fasting plasma glucose results between 100 to 125 mg/dL indicate increased risk for diabetes (prediabetes). Fasting plasma glucose results greater than or equal to 126 mg/dL meet the criteria for diagnosis of diabetes. In the absence of unequivocal hyperglycemia, results should be confirmed by repeat testing. In a patient with classic symptoms of hyperglycemia or hyperglycemic crisis, random plasma glucose results greater than or equal to 200 mg/dL meet the criteria for diagnosis of diabetes. Reference: Standards of Medical Care in Diabetes 2016, [place] [employer]. Diabetes Care. 2016.39(Suppl 1). BUN Date Value Ref Range Status 02/17/2024 15 9 - 24 mg/dL Final Creatinine Date Value Ref Range Status 02/17/2024 1.20 0.73 - 1.22 mg/dL Final Calcium, Total Date Value Ref Range Status 02/17/2024 9.2 8.5 - 10.2 mg/dL Final Albumin Date Value Ref Range Status 01/23/2024 4.1 3.9 - 4.9 g/dL Final Protein, Total Date Value Ref Range Status 01/23/2024 6.4 6.3 - 8.0 g/dL Final AST Date Value Ref Range Status 01/23/2024 21 14 - 40 U/L Final ALT Date Value Ref Range Status 01/23/2024 14 10 - 54 U/L Final Alkaline Phosphatase Date Value Ref Range Status 01/23/2024 104 38 - 113 U/L Final Bilirubin, Total Date Value Ref Range Status 01/23/2024 0.5 0.2 - 1.3 mg/dL Final Triglyceride Date Value Ref Range Status 01/21/2024 112 <150 mg/dL Final Comment: <150 mg/dL, Normal 150-199 mg/dL, Borderline high 200-499 mg/dL, High >499 mg/dL, Very high Cholesterol, Total Date Value Ref Range Status 01/21/2024 91 <200 mg/dL Final Comment: <200 mg/dL, Desirable 200-239 mg/dL, Borderline high >239 mg/dL, High HDL Cholesterol Date Value Ref Range Status 01/21/2024 37 (L) >39 mg/dL Final Comment: 40-59 mg/dL, Acceptable >59 mg/dL, High: Negative risk factor for coronary heart disease <40 mg/dL, Low: Positive risk factor for coronary heart disease LDL Cholesterol Date Value Ref Range Status 01/21/2024 32 <100 mg/dL Final Comment: <100 mg/dL, Optimal 100-129 mg/dL, Near optimal/above optimal 130-159 mg/dL, Borderline high 160-189 mg/dL, High >189 mg/dL, Very high Secondary prevention optimal LDL Cholesterol levels are recommended to be < 70 mg/dL INR Date Value Ref Range Status 02/16/2024 1.0 0.9 - 1.3 Final Comment: Vitamin K Antagonist (VKA) Therapeutic Range: INR 2 to 3 (Target INR of 2.5) Note: For patients treated with VKA drugs, such as warfarin, the [place] [employer] 2012 Guideline recommends a therapeutic INR range of 2 to 3 (target INR of 2.5). This recommendation includes high-risk patients with antiphospholipid syndrome with previous arterial or venous thromboembolism, current-generation mechanical or bioprosthetic aortic heart valve replacement. Note: Patients with mechanical aortic valve replacement and additional risk factors for thromboembolic events (atrial fibrillation, previous thromboembolism, LV dysfunction, hypercoagulable conditions) or an older generation mechanical AVR (i.e., ball in-Cage) or any mechanical MVR should have a INR therapeutic range of 2.5 to 3.5 (target INR of 3). Guyatt GH, et al. Chest 2012, 141:7S-47S Juan F PEÑALOZA, et al. [facility] 2017, 70: 252-289 Cardiovascular Testing: I reviewed personally. I have personally reviewed the Electrocardiogram, Chest X-ray, Laboratory Testing, Echocardiogram [facility] Chest 02/16/2024: No CT evidence of pulmonary embolism. There is no other active disease in the chest. There is a simple cyst of the upper pole of the right kidney that requires no further follow-up. There is a 19 mm left adrenal nodule. There is an indeterminate peripheral lesion in the spleen measuring 17 mm. This lesion can be followed up at the same time the left adrenal nodule is evaluated. US Carotid B/L 02/17/2024: 1. Findings in the RIGHT internal carotid suggest 30-49% narrowing 2. No hemodynamically significant lesion is seen in the LEFT carotid arteries 3. Moderate plaque formation distal common proximal internal carotid arteries. EKG 02/16/2024: NSR, LAD, RBBB IMPRESSION / RECOMMENDATIONS / PLAN: Encounter Diagnosis ICD-10-CM 1. Coronary artery disease involving [place] coronary artery of [place] heart with angina pectoris (HCC) I25.119 2. CAD in [place] artery I25.10 3. DONNA (obstructive sleep apnea) G47.33 4. 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 - Zio patch until 03/09 - continue with DAPT (Plavix and Aspirin 81 mg daily). - continue with blood pressure maintenance, uptitrating lisinopril as necessary - recommend cardiac rehabilitation s/p URMILA placement at [place] that will be started next week DONNA and hypertension. Continue taking present medical therapy with lisinopril 20 mg daily. If his blood pressure is elevated in future we can start him on beta-duncan Toprol 25 mg daily or increase the dose of lisinopril to 30 mg daily. I advised him to restrict salt intake and caffeine intake as well as alcohol can be used in moderation. - continue with compliance to BIPAP Adrenal gland neoplasm - CT Adrenal was to be ordered but patient tells me that it is being followed closely at his [facility]. Follow up in 6 months, or sooner if new or worsening symptoms arise. Patient is counseled at length regarding importance of aggressive risk factor modification including compliance with medication, increased activity/exercise, low cholesterol low fat diet. Laverne Ash MD, [facility]. Hogshead Opener, Dept of Medicine, [facility]. Psychology Department Chair of Ambulatory Cardiology, [facility]. Psychology Department Chair of Cardiac Catheterization laboratory, [facility]. Clinical Asst. stakeholder manager, [facility]. Staff Shampoo Technician, [facility], [facility] Department of Cardiovascular Medicine. By signing my name below, I, Rachel Cary, attest that this documentation has been prepared under the direction and presence of Dr. Laverne Ash MD. Electronically signed, Rachel Cary, Medical Student/Scribe March 07, 2024 12:58 PM documented in this encounter [facility] 02-20-2024 Telephone encounter Note PT returned call. I spoke with Nila who told me I could relay the message below. Message relayed and PT expressed understanding. Pt will reach out to PCP to advise when to begin physical therapy. Thank you [facility] 02-20-2024 Miscellaneous Notes PT returned call. I spoke with Nila who told me I could relay the message below. Message relayed and PT expressed understanding. Pt will reach out to PCP to advise when to begin physical therapy. Thank you Attempt made to reach patient - call unable to be placed (number out of service per recorded message). Contact made with Arlette (patient's sister) who states she will relay message to patient regarding contacting his PCP for advice regarding PT participation. If calls back please warm call / call cardiology department to see if nurse available phone transfer Patient called and asked if its okay for him to do PT. Please advise documented in this encounter [facility] 02-20-2024 Telephone encounter Note Attempt made to reach patient - call unable to be placed (number out of service per recorded message). Contact made with Arlette (patient's sister) who states she will relay message to patient regarding contacting his PCP for advice regarding PT participation. If calls back please warm call / call cardiology department to see if nurse available phone transfer [facility] 02-20-2024 Telephone encounter Note Patient called and asked if its okay for him to do PT. Please advise [facility] 02-17-2024 Telephone encounter Note Images from the original note were not included. Laverne Ash MD1 hour ago (1:38 PM) Can you send him a Zio patch for two weeks Note Zio monitor registration faxed to [facility]. Confirmation [place] Results Report received, sending is complete. [facility] 02-17-2024 Miscellaneous Notes Images from the original note were not included. Laverne Ash MD1 hour ago (1:38 PM) Can you send him a Zio patch for two weeks Note Zio monitor registration faxed to [facility]. Confirmation [place] Results Report received, sending is complete. documented in this encounter [facility] 02-17-[address] Ash note placed in a new encounter [facility] 02-17-[address] Ash note placed in a new encounter Can you send him a Zio patch for two weeks Pt called stating that he sees Dr. Peacock which is an site foreman at [facility]. He wanted to know why he is scheduled to see Dr. Flowers at [facility]. Pt is unable to get transportation to this location. Pt can be reached at [phone] documented in this encounter [facility] 02-17-2024 Telephone encounter Note Can you send him a Zio patch for two weeks [facility] 02-17-2024 Telephone encounter Note Left Message for Patient [place] would like to see you Mar 07@1pm already scheduled just need to make sure this works for patient [facility] 02-17-2024 Telephone encounter Note ----- Message from Laverne Ash MD sent at 02/17/2024 11:17 AM EDT ----- This patient needs a follow-up appointment after his hospital admission. I can see him on 07 March in the afternoon appointments. [facility] 02-17-2024 Miscellaneous Notes Left Message for Patient [place] would like to see you Mar 07@1pm already scheduled just need to make sure this works for patient ----- Message from Laverne Ash MD sent at 02/17/2024 11:17 AM EDT ----- This patient needs a follow-up appointment after his hospital admission. I can see him on 07 March in the afternoon appointments. documented in this encounter [facility] 02-10-2024 Telephone encounter Note Called and spoke to patient regarding message below. Verbalizes understanding. [facility] 02-10-2024 Miscellaneous Notes Called and spoke to patient regarding message below. Verbalizes understanding. Images from the original note were not included. Pt had been seen on 02/09/[address] Pardo. Pt stated Dr Pardo never mentioned what pts restrictions were and when he can start physical therapy. Please advise. Carly Santiago PSS documented in this encounter [facility] 02-10-2024 Telephone encounter Note Images from the original note were not included. [facility] 02-10-2024 Telephone encounter Note Pt had been seen on 02/09/[address] Pardo. Pt stated Dr Pardo never mentioned what pts restrictions were and when he can start physical therapy. Please advise. FREDDY Busby [facility] 02-09-2024 Note HNO ID: [id number] Author: ZOYA PARDO MD Service: ? Author Type: Physician Type: Progress Notes Filed: 02/10/2024 11:50 Note Text: [facility] Department of Cardiovascular Medicine [facility] OUTPATIENT VISIT DATE February 09, 2024 OUTPATIENT VISIT TYPE Established Patient PRIMARY CARE PHYSICIAN: [place] [address] REFERRING PHYSICIAN: DARIAN PAEZ [facility] CHIEF COMPLAINT: Office Follow-Up Visit HISTORY OF PRESENT ILLNESS: Mr. Loomis is a 78 year old male who presents today for follow up . Had complex stent to rca and lad. He denies chest pain, shortness of breath, orthopnea, cough, edema, palpitations, PND, lightheadedness or syncope. 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) Near syncope Palpitations PVC's (premature ventricular contractions) Abnormal nuclear stress test Orthostatic lightheadedness CAD in [place] artery Primary hypertension RISK FACTORS FOR CORONARY ARTERY DISEASE: PAST MEDICAL HISTORY Diagnosis Date Aftercare following left knee joint replacement surgery 04/23/2021 Arthritis Coronary artery disease Hypertension Sleep apnea PAST SURGICAL HISTORY Procedure Laterality Date ORTHOPEDICS SURGERY HX SOCIAL HISTORY Social History Tobacco Use Smoking status: Former Types: Cigarettes Substance Use Topics Alcohol use: Not Currently Drug use: Never No family history on file. ALLERGIES: ALLERGIES No Known Allergies MEDICATIONS: clopidogrel (PLAVIX) 75 mg tablet Take 1 tablet by mouth once daily. finasteride (PROSCAR) 5 mg tablet Take 5 mg by mouth once daily. aspirin, enteric coated (ASPIRIN, ENTERIC COATED) 81 mg EC tablet Take 81 mg by mouth. atorvastatin (LIPITOR) 40 mg tablet Take 40 mg by mouth. lisinopril (ZESTRIL) 20 mg tablet Take 20 mg by mouth. loratadine (CLARITIN) 10 mg tablet Take 10 mg by mouth. ketoconazole (NIZORAL) 2 % cream Apply to affected area. cholecalciferol (VITAMIN D3) 50 mcg (2,000 unit) tablet Take 50 mcg by mouth. famotidine (PEPCID) 20 mg tablet Take 20 mg by mouth two times a day. REVIEW OF SYSTEMS: GENERAL: Negative for: Weight loss or gain, HEENT: Negative for: Headache, Impaired Vision, NECK: Negative for: Swelling, Pain, GASTROINTESTINAL: Negative for: Trouble swallowing, Heartburn, SKIN: Negative for: Rashes, Itching HEMATOLOGICAL/LYMPHATIC: Negative for: bleeding I personally interviewed, confirmed and edited the above information if obtained by others. PHYSICAL EXAMINATION: BP 124/76 Pulse 77 Ht 190.5 cm (6' 3) Wt 112.3 kg (247 lb 9.2 oz) SpO2 97% BMI 30.94 kg/m? General: Well appearing, in no acute distress. Skin: No clubbing, no cyanosis. Eyes: Extra ocular movements intact Neck: No jugular venous distention, no carotid bruits, carotids have a normal upstroke, no palpable thyromegaly. Lungs: Clear to auscultation bilaterally, no wheezing or rhonchi. Heart: Regular rhythm, PMI not displaced, S1, S2 normal, no S3, no S4, no heaves, no rub and no murmur. Extremities: No peripheral edema . Grade 2/4 distal pulses bilaterally. Neuro: Oriented to person, place and time, alert. CARDIOVASCULAR MEDICINE TESTING: Electrocardiogram: unchanged from previous tracings Recent Lab Values 01/21/2024 LDL 32 HDL 37 Comment for LDL at 4:48 AM on 01/21/2024: <100 mg/dL, Optimal 100-129 mg/dL, Near optimal/above optimal 130-159 mg/dL, Borderline high 160-189 mg/dL, High >189 mg/dL, Very high Secondary prevention optimal LDL Cholesterol levels are recommended to be < 70 mg/dL Comment for HDL at 4:48 AM on 01/21/2024: 40-59 mg/dL, Acceptable >59 mg/dL, High: Negative risk factor for coronary heart disease <40 mg/dL, Low: Positive risk factor for coronary heart disease I have personally reviewed the tests above. IMPRESSION: Mr. Loomis is a 78 year old male stable . (I25.119) Coronary artery disease involving [place] heart with angina pectoris, unspecified vessel or lesion type (HCC) (primary encounter diagnosis) I have reviewed the medications, adjusted it and renew it for another year. During this visit PLAN AND RECOMMENDATIONS: Lipid is managed and blood testing is done by pcp Continue present treatment CONTACT INFORMATION: MD Danielle Schwarz and Anjelica [facility] Department of Cardiovascular Medicine [facility] [address] [place] [address] [facility] 02-09-2024 History of Presen t illness Narrative Images from the original note were not included. Heart [facility] Vascular [facility] and Anjelica [facility] Department of Cardiovascular Medicine [facility] OUTPATIENT VISIT DATE February 09, 2024 OUTPATIENT VISIT TYPE Established Patient PRIMARY CARE PHYSICIAN: Sigifredo Trimble [address] [place] [address] REFERRING PHYSICIAN: DARIAN PAEZ [facility] [place] CHIEF COMPLAINT: Office Follow-Up Visit HISTORY OF PRESENT ILLNESS: Mr. Loomis is a 78 year old male who presents today for follow up . Had complex stent to rca and lad. He denies chest pain, shortness of breath, orthopnea, cough, edema, palpitations, PND, lightheadedness or syncope. 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) Near syncope Palpitations PVC's (premature ventricular contractions) Abnormal nuclear stress test Orthostatic lightheadedness CAD in [place] artery Primary hypertension RISK FACTORS FOR CORONARY ARTERY DISEASE: PAST MEDICAL HISTORY Diagnosis Date Aftercare following left knee joint replacement surgery 04/23/2021 Arthritis Coronary artery disease Hypertension Sleep apnea PAST SURGICAL HISTORY Procedure Laterality Date ORTHOPEDICS SURGERY HX SOCIAL HISTORY Social History Tobacco Use Smoking status: Former Types: Cigarettes Substance Use Topics Alcohol use: Not Currently Drug use: Never No family history on file. ALLERGIES: ALLERGIES No Known Allergies MEDICATIONS: clopidogrel (PLAVIX) 75 mg tablet Take 1 tablet by mouth once daily. finasteride (PROSCAR) 5 mg tablet Take 5 mg by mouth once daily. aspirin, enteric coated (ASPIRIN, ENTERIC COATED) 81 mg EC tablet Take 81 mg by mouth. atorvastatin (LIPITOR) 40 mg tablet Take 40 mg by mouth. lisinopril (ZESTRIL) 20 mg tablet Take 20 mg by mouth. loratadine (CLARITIN) 10 mg tablet Take 10 mg by mouth. ketoconazole (NIZORAL) 2 % cream Apply to affected area. cholecalciferol (VITAMIN D3) 50 mcg (2,000 unit) tablet Take 50 mcg by mouth. famotidine (PEPCID) 20 mg tablet Take 20 mg by mouth two times a day. REVIEW OF SYSTEMS: GENERAL: Negative for: Weight loss or gain, HEENT: Negative for: Headache, Impaired Vision, NECK: Negative for: Swelling, Pain, GASTROINTESTINAL: Negative for: Trouble swallowing, Heartburn, SKIN: Negative for: Rashes, Itching HEMATOLOGICAL/LYMPHATIC: Negative for: bleeding I personally interviewed, confirmed and edited the above information if obtained by others. PHYSICAL EXAMINATION: BP 124/76 Pulse 77 Ht 190.5 cm (6' 3) Wt 112.3 kg (247 lb 9.2 oz) SpO2 97% BMI 30.94 kg/m General: Well appearing, in no acute distress. Skin: No clubbing, no cyanosis. Eyes: Extra ocular movements intact Neck: No jugular venous distention, no carotid bruits, carotids have a normal upstroke, no palpable thyromegaly. Lungs: Clear to auscultation bilaterally, no wheezing or rhonchi. Heart: Regular rhythm, PMI not displaced, S1, S2 normal, no S3, no S4, no heaves, no rub and no murmur. Extremities: No peripheral edema . Grade 2/4 distal pulses bilaterally. Neuro: Oriented to person, place and time, alert. CARDIOVASCULAR MEDICINE TESTING: Electrocardiogram: unchanged from previous tracings Recent Lab Values 01/21/2024 LDL 32 HDL 37 Comment for LDL at 4:48 AM on 01/21/2024: <100 mg/dL, Optimal 100-129 mg/dL, Near optimal/above optimal 130-159 mg/dL, Borderline high 160-189 mg/dL, High >189 mg/dL, Very high Secondary prevention optimal LDL Cholesterol levels are recommended to be < 70 mg/dL Comment for HDL at 4:48 AM on 01/21/2024: 40-59 mg/dL, Acceptable >59 mg/dL, High: Negative risk factor for coronary heart disease <40 mg/dL, Low: Positive risk factor for coronary heart disease I have personally reviewed the tests above. IMPRESSION: Mr. Loomis is a 78 year old male stable . (I25.119) Coronary artery disease involving [place] heart with angina pectoris, unspecified vessel or lesion type (HCC) (primary encounter diagnosis) I have reviewed the medications, adjusted it and renew it for another year. During this visit PLAN AND RECOMMENDATIONS: Lipid is managed and blood testing is done by pcp Continue present treatment CONTACT INFORMATION: MD Danielle Schwarz and Anjelica Blake Department of Cardiovascular Medicine Heart and Vascular [facility] Cardiology [address] [place] [address] [address] [place] [address] documented in this encounter [facility] 02-06-2024 Telephone encounter Note Pt called stating that he sees Dr. Peacock which is an site foreman at [facility]. He wanted to know why he is scheduled to see Dr. Folwers at [facility]. Pt is unable to get transportation to this location. Pt can be reached at [phone] [facility] 02-06-2024 Note HNO ID: [id number] Author: DANIELLE ALEX DO Service: ? Author Type: Physician Type: Procedures Filed: 03/14/2024 11:53 Note Text: Patient Name: Kendrick Loomis : 1945 Ordering Provider: Laverne Ash Indication: I25.119 Artherosclerotic heart disease of [place] coronary artery wit Type of Monitor: Extended Monitoring-Zio Patch Enrollment Dates: 02/23/2024-03/08/2024 Patient had a min HR of 39 bpm, max HR of 203 bpm, and avg HR of 69 bpm. Predominant underlying rhythm was Sinus Rhythm. First Degree AV Block was present. Bundle Branch Block/IVCD was present. 3 Ventricular Tachycardia runs occurred, the run with the fastest interval lasting 4 beats with a max rate of 146 bpm, the longest lasting 7 beats with an avg rate of 107 bpm. 24 Supraventricular Tachycardia runs occurred, the run with the fastest interval lasting 6 beats with a max rate of 203 bpm, the longest lasting 27.9 secs with an avg rate of 96 bpm. Some episodes of Supraventricular Tachycardia may be possible Atrial Tachycardia with variable block. Isolated SVEs were rare (<1.0%), SVE Couplets were rare (<1.0%), and SVE Triplets were rare (<1.0%). Isolated VEs were occasional (1.7%, 93573), VE Couplets were rare (<1.0%, 397), and VE Triplets were rare (< 1.0%, 30). Ventricular Bigeminy and Trigeminy were present. Danielle Alex DO, [facility] Staff Shampoo Technician [facility] Anjel[facility] Todd Dept. of Cardiovascular Medicine Heart, Vascular and Thoracic [facility], [facility] 01-31-2024 Note HNO ID: [id number] Author: BRIAN AMBRIZ, JUDE Service: ? Author Type: Registered Nurse Type: Nursing Progress Note Filed: 01/31/2024 08:45 Note Text: 2 cc Dilute Definity administered per tech request. Instills easily. Site clear. Pt diana w/o c/o. [facility] 01-31-2024 Nurse Note 2 cc Dilute Definity administered per tech request. Instills easily. Site clear. Pt diana w/o c/o. [facility] 01-31-2024 Nurse Note 2 cc Dilute Definity administered per tech request. Instills easily. Site clear. Pt diana w/o c/o. #22 insyte, L AC per Gabby Pickett RN. 1 attempt. Site clear, flushes easily. [place] to site. Pt diana w/o c/o documented in this encounter [facility] 01-31-2024 Nurse Note #22 insyte, L AC per Gabby Pickett RN. 1 attempt. Site clear, flushes easily. [place] to site. Pt diana w/o c/o [facility] 01-30-2024 Miscellaneous Notes Patient: Kendrick Loomis Date of : 1945 Patient phone number: [phone] Referring Provider for the encounter: Sigifredo Trimble Requesting Provider: n/a Reason for requesting visit (RFV/signs and symptoms/diagnosis): Coronary atherosclerosis due to calcified coronary lesion (I2584). Person calling: caregiver: Chloe Return call to: self Medical Records/Insurance Card scanned into Epic: Yes Comments: documented in this encounter [facility] 01-30-2024 Telephone encounter Note Patient: Kendrick Loomis Date of : 1945 Patient phone number: [phone] Referring Provider for the encounter: Sigifredo Trimble Requesting Provider: n/a Reason for requesting visit (RFV/signs and symptoms/diagnosis): Coronary atherosclerosis due to calcified coronary lesion (I2584). Person calling: caregiver: Chloe Return call to: self Medical Records/Insurance Card scanned into Epic: Yes Comments: [facility] 01-28-2024 Note HNO ID: [id number] Author: ?, ?, ? Service: ? Author Type: ? Type: Plan of Care Filed: 01/30/2024 14:26 Note Text: PHARMACY BEDSIDE DELIVERY SERVICE Patient Name: Kendrick FLEMINGN: [id number] The marked outpatient medications were filled at [facility] pharmacy and picked up at the pharmacy by HIMSELF. Medication List START taking these medications clopidogrel 75 mg tablet Commonly known as: PLAVIX Take 1 tablet by mouth once daily. CONTINUE taking these medications aspirin, enteric coated 81 mg EC tablet Commonly known as: ASPIRIN, ENTERIC COATED atorvastatin 40 mg tablet Commonly known as: LIPITOR cholecalciferol 50 mcg (2,000 unit) tablet Commonly known as: VITAMIN D3 famotidine 20 mg tablet Commonly known as: PEPCID ketoconazole 2 % cream Commonly known as: NIZORAL lisinopril 20 mg tablet Commonly known as: ZESTRIL loratadine 10 mg tablet Commonly known as: CLARITIN PROSCAR 5 mg tablet Generic drug: finasteride You might also be taking other medications not listed above. If you have questions about any of your other medications, talk to the person who prescribed them or your Primary Care Provider. Mae Myers PAGER: [phone] January 30, 2024 2:26 PM [facility] 01-25-2024 Telephone encounter Note Received order to schedule Cardiac Stent at . Contacted patient and scheduled for TuesdayJanuary 26. Patient is making arrangements for a ride. Phone number to [facility] provided [phone] he will call if need to reschedule. Instructions provided per protocol. Thank You, Real Isaac [facility] 01-25-2024 Miscellaneous Notes Received order to schedule Cardiac Stent at . Contacted patient and scheduled for TuesdayJanuary 26. Patient is making arrangements for a ride. Phone number to [facility] provided [phone] he will call if need to reschedule. Instructions provided per protocol. Thank You, Real Isaac documented in this encounter [facility] 01-25-2024 Note HNO ID: [id number] Author: TROY BANG RN Service: Care Management Author Type: Registered Nurse Type: Care Mgt Progress Note Filed: 01/25/2024 13:24 Note Text: CARE MANAGEMENT PROGRESS NOTE SERVICE DATE: 01/25/2024 SERVICE TIME: 1:22 PM LOS: 0 days Needs Prior to Discharge: Other: See Comment (medical clearance) Patient scheduled to have HC today Per cardiology>plan will be to have patient follow up next wk at for stent placement Anticipate DC today SIGNATURE: Troy Bang RN PATIENT NAME: Kendrick Loomis DATE: January 25, 2024 TIME: 1:22 PM PAGER/CONTACT #: [phone] [facility] 01-24-2024 Note HNO ID: [id number] Author: ADRIANA RAO MD Service: Hospital Medicine Author Type: Physician Type: Progress Notes Filed: 01/24/2024 16:03 Note Text: DEPARTMENT OF HOSPITAL MEDICINE PROGRESS NOTE Name: Kendrick Loomis SERVICE DATE: January 24, 2024 SERVICE TIME: 4:00 PM Hospital Medicine/Primary Attending: Adriana Rao MD (pager: [phone]) NIGHT COVERAGE: pager # [phone] (Page between 5 PM - 7 AM) INTERVAL HPI: Feeling well. No CP ASSESSMENT AND PLAN 78 year old male with PMHx of adjustment disorder, adrenal gland neoplasm, cataract, colon polyps, GERD, KAKE, OA, chronic liver disease, DONNA, CAD and HTN presents with syncope. Also hx of palpitations 1) Syncope - unclear etiology 2) PVCs - appreciate Cards input - nuclear stress test with <10% ischemia/fixed defect in RCA territory - planned for LHC tomorrow - echo tomorrow vs as OP on 01/30 3) HTN 4) HPL - stable VTE Prophylaxis: Early Ambulation Disposition: Home Plan of care discussed with: Provider, RN, Patient MEDICATIONS: Current Facility-Administered Medications Medication Dose Route Frequency aspirin, enteric coated 81 mg tab(s) 81 mg ORAL DAILY cetirizine 10 mg tab(s) (ZYRTEC) 10 mg ORAL DAILY ketoconazole 2 % cream (NIZORAL) TOPICAL DAILY cholecalciferol 2,000 Units tab(s) (VITAMIN D3) 2,000 Units ORAL DAILY pantoprazole DR 40 mg tab(s) (PROTONIX) 40 mg ORAL DAILY (6 AM) NaCl 0.9% iv flush bag 20 mL INTRAVENOUS PRN ondansetron orally disintegrating 4 mg tab(s) (ZOFRAN ODT) 4 mg ORAL q 6 H PRN Or ondansetron (PF) 4 mg injection (ZOFRAN) 4 mg INTRAVENOUS q 6 H PRN sodium chloride 0.9 % (flush) 2-10 mL (BD POSIFLUSH) 2-10 mL INTRAVENOUS DIRECTED PRN And perflutren lipid microspheres 1.1 mg/mL 1.3 mL injection (DEFINITY) 1.3 mL INTRAVENOUS DIRECTED PRN carboxymethylcellulose sodium 1 Drop (CELLUVISC) 1 Drop BOTH EYES PRN finasteride 5 mg tab(s) (PROSCAR) 5 mg ORAL DAILY atorvastatin 40 mg tab(s) (LIPITOR) 40 mg ORAL DAILY melatonin 6 mg tab(s) 6 mg ORAL DAILY (8 PM) polyethylene glycol 3350 17 g packet 17 g ORAL DAILY acetaminophen 650 mg tab(s) (TYLENOL) 650 mg ORAL q 6 H PRN PHYSICAL EXAM: Blood pressure 101/81, pulse 60, temperature 36.7 ?C (98.1 ?F), temperature source Oral, resp. rate 18, height 190.5 cm (6' 3), weight 116.2 kg (256 lb 2.8 oz), SpO2 98%. GENERAL: alert, no distress, cooperative SKIN: No rash or lesions OROPHARYNX: Lips, mucosa, and tongue normal. Oropharynx moist. LUNGS: Lungs clear to auscultation. Good diaphragmatic excursion. CARDIAC: normal S1 and S2; no rubs, murmurs, or gallops. No JVD ABDOMEN: Abdomen soft, non-tender. BS normal. No masses or organomegaly. EXTREMITIES: No edema. NEURO: Negative DATA: Recent Labs 01/23/24 0506 01/22/24 0716 01/21/24 0448 01/20/24 1427 01/17/24 2234 01/17/24 2057 WBC 7.09 7.40 8.41 5.20 -- 8.41 HB 14.0 14.1 14.4 14.3 -- 15.0 HCT 41.1 41.4 43.1 42.9 -- 45.7 PLT 186 181 188 172 -- 189 MCV 94.7 94.3 95.6 96.0 -- 97.4 RDWCV 12.5 12.7 12.8 12.7 -- 12.8 NEUTP -- -- -- 68.2 -- -- ABSNEUT -- -- -- 3.55 -- -- LYMPHP -- -- -- 21.0 -- -- MONOP -- -- -- 8.8 -- -- EODINP -- -- -- 1.2 -- -- GLUC 104* 105* 100* 114* -- 106* NA 139 138 138 138 -- 140 K 4.6 4.3 3.9 4.3 -- 4.7 CHLOR 102 102 101 104 -- 102 CO2 26 24 26 22 -- 24 ANION 11 12 11 12 -- 14 BUN 19 17 19 22 -- 25* CREAT 1.24* 1.19 1.23* 1.25* 1.60* 1.54* (Some elements copied from note from yesterday, which have been updated where appropriate, and reflect current medical decision making from today January 24, 2024) SIGNATURE: Adriana Rao MD PAGER: [phone] DATE: January 24, 2024 TIME: 4:00 PM [facility] 01-24-2024 Note HNO ID: [id number] Author: DANIELLE ALEX DO Service: Cardiovascular Disease Author Type: Physician Type: Progress Notes Filed: 01/24/2024 15:54 Note Text: CARDIAC CATHETERIZATION RISK ASSESSMENT SERVICE DATE: January 24, 2024 SERVICE TIME: 3:54 PM Level 1 Cardiac Catheterization Lab Exclusion Check List Is the patient less than 22 years old? No Is there pulmonary edema due to ischemia? No Is there valvular or LV function limitations with severe (Class 4) symptoms? No Is there complex congenital heart disease? No Is there an acute coronary syndrome? No Is this a therapeutic procedure in adult congenital heart disease patient? No SIGNATURE: Danielle Alex DO PATIENT NAME: Kendrick Loomis DATE: January 24, 2024 TIME: 3:54 PM PAGER/CONTACT #: [facility] 01-24-2024 Note HNO ID: [id number] Author: KELLI SALCEDO APRN.CNP Service: Cardiovascular Medicine Author Type: Nurse Practitioner Type: Progress Notes Filed: 01/24/2024 15:53 Note Text: [facility] CARDIOVASCULAR MEDICINE PROGRESS NOTE (Template ID [id number]) SERVICE DATE: 01/24/2024 PRIMARY SERVICE: HOSPITAL DAY: #0 INTERVAL HISTORY Patient seen and examined resting comfortably in his wheelchair in the stress lab No acute events overnight Continues to note some palpitations Has had no recurrence of lightheadedness Feels as though he is been catching up on sleep during his admission He denies any shortness of breath or chest pain Nuclear stress test with small RCA scar and minimal byron-infarct ischemia with LVEF 72% PHYSICAL EXAM BP 129/63 Pulse (!) 55 Temp 36.7 ?C (98.1 ?F) (Oral) Resp 18 Ht 190.5 cm (6' 3) Wt 116.2 kg (256 lb 2.8 oz) SpO2 96% BMI 32.02 kg/m? Intake/Output Summary (Last 24 hours) at 01/24/2024 0830 Last data filed at 01/23/2024 1350 Gross per 24 hour Intake 240 ml Output -- Net 240 ml General Appearance: Well developed and No distress HEENT: EOM's intact, Fair dentition, and No lesions Lungs: Clear and Respiratory effort: normal Heart: Regular rate AND rhythm, no murmur , and no edema Abdomen: Soft, Non-tender, Bowel sounds present, and Non-distended Skin: Warm and Dry Musculoskeletal: No deformities Neurologic/Psychiatric: Oriented to time, place AND person MEDICATIONS Current Facility-Administered Medications Medication Dose Route Frequency aspirin, enteric coated 81 mg tab(s) 81 mg ORAL DAILY cetirizine 10 mg tab(s) (ZYRTEC) 10 mg ORAL DAILY ketoconazole 2 % cream (NIZORAL) TOPICAL DAILY cholecalciferol 2,000 Units tab(s) (VITAMIN D3) 2,000 Units ORAL DAILY pantoprazole DR 40 mg tab(s) (PROTONIX) 40 mg ORAL DAILY (6 AM) NaCl 0.9% iv flush bag 20 mL INTRAVENOUS PRN ondansetron orally disintegrating 4 mg tab(s) (ZOFRAN ODT) 4 mg ORAL q 6 H PRN Or ondansetron (PF) 4 mg injection (ZOFRAN) 4 mg INTRAVENOUS q 6 H PRN sodium chloride 0.9 % (flush) 2-10 mL (BD POSIFLUSH) 2-10 mL INTRAVENOUS DIRECTED PRN And perflutren lipid microspheres 1.1 mg/mL 1.3 mL injection (DEFINITY) 1.3 mL INTRAVENOUS DIRECTED PRN carboxymethylcellulose sodium 1 Drop (CELLUVISC) 1 Drop BOTH EYES PRN finasteride 5 mg tab(s) (PROSCAR) 5 mg ORAL DAILY atorvastatin 40 mg tab(s) (LIPITOR) 40 mg ORAL DAILY melatonin 6 mg tab(s) 6 mg ORAL DAILY (8 PM) polyethylene glycol 3350 17 g packet 17 g ORAL DAILY acetaminophen 650 mg tab(s) (TYLENOL) 650 mg ORAL q 6 H PRN DATA: Diagnostic tests reviewed for today's visit: Most recent labs Telemetry events from the last 24 hours ASSESSMENT AND PLAN Probable orthostatic lightheadedness/dizziness secondary to possible hypotension. Patient states he has been running some low blood pressures recently but stable thus far here in the hospital. Possible side effects from doxazosin which has since been discontinued. Has been able to ambulate during hospitalization in the hallway with no particular concerns. Stress test today with small RCA scar and minimal byron-infarct ischemia. Will plan for LHC tomorrow. Frequent PVCs and palpitations. Stress test today as above. Plan for LHC tomorrow. Echocardiogram tomorrow. Benign prostatic hypertrophy. Patient requested to be started on Proscar while in the hospital since his urologist had recommended and consider discontinuing doxazosin due to side effects/orthostatic hypotension. Impression and plan discussed with Dr. Alex SIGNATURE: Kelli Salcedo APRN.LUNCHROOM ATTENDANT PATIENT NAME: Kendrick Loomis DATE: January 24, 2024 TIME: 8:30 AM [facility] 01-23-2024 Note HNO ID: [id number] Author: ADRIANA RAO MD Service: Hospital Medicine Author Type: Physician Type: Progress Notes Filed: 01/23/2024 12:02 Note Text: DEPARTMENT OF HOSPITAL MEDICINE PROGRESS NOTE Name: Kendrick Loomis SERVICE DATE: January 23, 2024 SERVICE TIME: 12:00 PM Hospital Medicine/Primary Attending: Adriana Rao MD (pager: [phone]) NIGHT COVERAGE: pager # [phone] (Page between 5 PM - 7 AM) INTERVAL HPI: Feeling well. No further dizziness and ambulating well ASSESSMENT AND PLAN 78 year old male with PMHx of adjustment disorder, adrenal gland neoplasm, cataract, colon polyps, GERD, KAKE, OA, chronic liver disease, DONNA, CAD and HTN presents with syncope. Also hx of palpitations 1) Syncope - unclear etiology 2) PVCs - appreciate Cards input - planned for echo and nuclear stress test as IP - likely Tuesday 3) HTN 4) HPL - DC Mariahura (noted concern from Dr. Alex) - cont other home meds VTE Prophylaxis: Early Ambulation Disposition: Home Plan of care discussed with: Provider, RN, Patient MEDICATIONS: Current Facility-Administered Medications Medication Dose Route Frequency aspirin, enteric coated 81 mg tab(s) 81 mg ORAL DAILY cetirizine 10 mg tab(s) (ZYRTEC) 10 mg ORAL DAILY ketoconazole 2 % cream (NIZORAL) TOPICAL DAILY cholecalciferol 2,000 Units tab(s) (VITAMIN D3) 2,000 Units ORAL DAILY pantoprazole DR 40 mg tab(s) (PROTONIX) 40 mg ORAL DAILY (6 AM) NaCl 0.9% iv flush bag 20 mL INTRAVENOUS PRN ondansetron orally disintegrating 4 mg tab(s) (ZOFRAN ODT) 4 mg ORAL q 6 H PRN Or ondansetron (PF) 4 mg injection (ZOFRAN) 4 mg INTRAVENOUS q 6 H PRN sodium chloride 0.9 % (flush) 2-10 mL (BD POSIFLUSH) 2-10 mL INTRAVENOUS DIRECTED PRN And perflutren lipid microspheres 1.1 mg/mL 1.3 mL injection (DEFINITY) 1.3 mL INTRAVENOUS DIRECTED PRN carboxymethylcellulose sodium 1 Drop (CELLUVISC) 1 Drop BOTH EYES PRN finasteride 5 mg tab(s) (PROSCAR) 5 mg ORAL DAILY atorvastatin 40 mg tab(s) (LIPITOR) 40 mg ORAL DAILY melatonin 6 mg tab(s) 6 mg ORAL DAILY (8 PM) polyethylene glycol 3350 17 g packet 17 g ORAL DAILY acetaminophen 650 mg tab(s) (TYLENOL) 650 mg ORAL q 6 H PRN PHYSICAL EXAM: Blood pressure 130/63, pulse (!) 59, temperature 36.6 ?C (97.9 ?F), temperature source Oral, resp. rate 18, height 190.5 cm (6' 3), weight 117 kg (257 lb 15 oz), SpO2 99%. GENERAL: alert, no distress, cooperative SKIN: No rash or lesions OROPHARYNX: Lips, mucosa, and tongue normal. Oropharynx moist. LUNGS: Lungs clear to auscultation. Good diaphragmatic excursion. CARDIAC: normal S1 and S2; no rubs, murmurs, or gallops. No JVD ABDOMEN: Abdomen soft, non-tender. BS normal. No masses or organomegaly. EXTREMITIES: No edema. NEURO: Negative DATA: Recent Labs 01/23/24 0506 01/22/24 0716 01/21/24 0448 01/20/24 1427 01/17/24 2234 01/17/242056 WBC 7.09 7.40 8.41 5.20 -- 8.41 HB 14.0 14.1 14.4 14.3 -- 15.0 HCT 41.1 41.4 43.1 42.9 -- 45.7 PLT 186 181 188 172 -- 189 MCV 94.7 94.3 95.6 96.0 -- 97.4 RDWCV 12.5 12.7 12.8 12.7 -- 12.8 NEUTP -- -- -- 68.2 -- -- ABSNEUT -- -- -- 3.55 -- -- LYMPHP -- -- -- 21.0 -- -- MONOP -- -- -- 8.8 -- -- EODINP -- -- -- 1.2 -- -- GLUC 104* 105* 100* 114* -- 106* NA 139 138 138 138 -- 140 K 4.6 4.3 3.9 4.3 -- 4.7 CHLOR 102 102 101 104 -- 102 CO2 26 24 26 22 -- 24 ANION 11 12 11 12 -- 14 BUN 19 17 19 22 -- 25* CREAT 1.24* 1.19 1.23* 1.25* 1.60* 1.54* (Some elements copied from note from yesterday, which have been updated where appropriate, and reflect current medical decision making from today January 23, 2024) SIGNATURE: Adriana Rao MD PAGER: [phone] DATE: January 23, 2024 TIME: 12:00 PM [facility] 01-23-2024 Note HNO ID: [id number] Author: AMORY, DANIELLE, DO Service: Cardiovascular Disease Author Type: Physician Type: Progress Notes Filed: 01/23/2024 07:55 Note Text: Heart and Vascular [facility] Department of Cardiovascular Medicine SECTION OF [facility] Consultation Note Name: Kendrick Loomis : 1945 Primary Physician: Sigifredo Trimble MD Consulting Physician: Adriana Rao,* Primary Shampoo Technician: [facility] SERVICE DATE: January 23, 2024 Assessment/ Plan: Probable orthostatic lightheadedness/dizziness secondary to possible hypotension. Patient states he has been running some low blood pressures recently but stable thus far here in the hospital. I question the possibility of side effects from doxazosin. Ambulated this morning in the hallway with no particular concerns. 2. Frequent PVCs and palpitations. Patient will undergo an echocardiogram and Lexiscan nuclear stress test prior to discharge, hopefully tomorrow. 3. Benign prostatic hypertrophy. Patient requested to be started on Proscar while in the hospital since his urologist had recommended and consider discontinuing doxazosin due to side effects/orthostatic hypotension. History: Kendrick Loomis is a 78 year old male who presents with PMHx of adjustment disorder, adrenal gland neoplasm, cataract, colon polyps, GERD, KAKE, OA, chronic liver disease, DONNA, CAD, HTN. He receives the majority of his care through the [facility], and has been working with his PCP to get a full cardiac evaluation. Of note he has been seen prior with similar symptoms, in which workup was negative and he was discharged home. He states that he has had labile blood pressures with episodes of hypotension. He describes these symptoms as sudden onset with flushing, palpitations, lightheadedness, cold sweats and overall unwell feeling. Today, his EKG was c/f multiple PVCs and bigeminy. He had improvement spontaneously, without any intervention. He had a slight troponin elevation, however they are flat. Patient is currently scheduled on 01/30 for an OP ECHO. Due to the frequent recurrence of these episodes patient requested admission. Patient was transferred to [facility] for further management of his pre-syncope and PVC's. Subjective PAST MEDICAL HISTORY 04/23/2021: Aftercare following left knee joint replacement surgery PAST SURGICAL HISTORY No date: ORTHOPEDICS SURGERY HX No family history on file. Social History Tobacco Use Smoking status: Former Types: Cigarettes Substance Use Topics Alcohol use: Not Currently Drug use: Never Current Facility-Administered Medications Medication Dose Route Frequency aspirin, enteric coated 81 mg tab(s) 81 mg ORAL DAILY cetirizine 10 mg tab(s) (ZYRTEC) 10 mg ORAL DAILY ketoconazole 2 % cream (NIZORAL) TOPICAL DAILY cholecalciferol 2,000 Units tab(s) (VITAMIN D3) 2,000 Units ORAL DAILY pantoprazole DR 40 mg tab(s) (PROTONIX) 40 mg ORAL DAILY (6 AM) NaCl 0.9% iv flush bag 20 mL INTRAVENOUS PRN ondansetron orally disintegrating 4 mg tab(s) (ZOFRAN ODT) 4 mg ORAL q 6 H PRN Or ondansetron (PF) 4 mg injection (ZOFRAN) 4 mg INTRAVENOUS q 6 H PRN sodium chloride 0.9 % (flush) 2-10 mL (BD POSIFLUSH) 2-10 mL INTRAVENOUS DIRECTED PRN And perflutren lipid microspheres 1.1 mg/mL 1.3 mL injection (DEFINITY) 1.3 mL INTRAVENOUS DIRECTED PRN doxazosin 2 mg tab(s) (CARDURA) 2 mg ORAL DAILY carboxymethylcellulose sodium 1 Drop (CELLUVISC) 1 Drop BOTH EYES PRN finasteride 5 mg tab(s) (PROSCAR) 5 mg ORAL DAILY atorvastatin 40 mg tab(s) (LIPITOR) 40 mg ORAL DAILY melatonin 6 mg tab(s) 6 mg ORAL DAILY (8 PM) polyethylene glycol 3350 17 g packet 17 g ORAL DAILY acetaminophen 650 mg tab(s) (TYLENOL) 650 mg ORAL q 6 H PRN Allergies As of Date: 01/20/2024 (No Known Allergies) Fully Assessed 01/20/2024 Objective PHYSICAL EXAMINATION: BP 147/73 Pulse (!) 50 Temp 36.3 ?C (97.3 ?F) (Oral) Resp 16 Ht 190.5 cm (6' 3) Wt 117 kg (257 lb 15 oz) SpO2 97% BMI 32.24 kg/m? BP 147/73 Pulse 50 Temp (Src) 97.3 (Oral) Resp 16 Ht 6' 3 (1.91m) Wt 257 lb 15 oz (117.0kg) SpO2 97% BMI 32.24 kg/(m2). O2 Therapy: Room Air General: Well appearing, in no acute distress. Skin: No clubbing, no cyanosis. Eyes: Extra ocular movements intact Neck: No jugular venous distention, no carotid bruits, carotids have a normal upstroke, no palpable thyromegaly. Lungs: Clear to auscultation bilaterally, no wheezing or rhonchi. Heart: Regular rhythm, PMI not displaced, S1, S2 normal, no S3, no S4, no heaves, no murmur. Abdomen: Soft, nontender, bowel sounds normal, no palpable organomegaly, no bruits. Extremities: No peripheral edema . +2 distal pulses bilaterally. Neuro: Oriented to person, place and time, alert, cooperative LABS REVIEWED: Recent Labs 01/23/24 0506 01/22/24 0716 01/21/24 0448 (more content not included)... [facility] 01-22-2024 Note HNO ID: [id number] Author: ADRIANA RAO MD Service: Hospital Medicine Author Type: Physician Type: Progress Notes Filed: 01/22/2024 13:57 Note Text: DEPARTMENT OF HOSPITAL MEDICINE PROGRESS NOTE Name: Kendrick Loomis SERVICE DATE: January 22, 2024 SERVICE TIME: 1:56 PM Hospital Medicine/Primary Attending: Adriana Rao MD (pager: [phone]) NIGHT COVERAGE: pager # [phone] (Page between 5 PM - 7 AM) INTERVAL HPI: Feeling well. No CP/SOB or dizziness ASSESSMENT AND PLAN 78 year old male with PMHx of adjustment disorder, adrenal gland neoplasm, cataract, colon polyps, GERD, KAKE, OA, chronic liver disease, DONNA, CAD and HTN presents with syncope. Also hx of palpitations 1) Syncope - unclear etiology 2) PVCs - appreciate Cards input - planned for echo and nuclear stress test as IP 3) HTN 4) HPL - cont home meds VTE Prophylaxis: Early Ambulation Disposition: Home Plan of care discussed with: Provider, RN, Patient MEDICATIONS: Current Facility-Administered Medications Medication Dose Route Frequency aspirin, enteric coated 81 mg tab(s) 81 mg ORAL DAILY cetirizine 10 mg tab(s) (ZYRTEC) 10 mg ORAL DAILY ketoconazole 2 % cream (NIZORAL) TOPICAL DAILY cholecalciferol 2,000 Units tab(s) (VITAMIN D3) 2,000 Units ORAL DAILY pantoprazole DR 40 mg tab(s) (PROTONIX) 40 mg ORAL DAILY (6 AM) NaCl 0.9% iv flush bag 20 mL INTRAVENOUS PRN ondansetron orally disintegrating 4 mg tab(s) (ZOFRAN ODT) 4 mg ORAL q 6 H PRN Or ondansetron (PF) 4 mg injection (ZOFRAN) 4 mg INTRAVENOUS q 6 H PRN sodium chloride 0.9 % (flush) 2-10 mL (BD POSIFLUSH) 2-10 mL INTRAVENOUS DIRECTED PRN And perflutren lipid microspheres 1.1 mg/mL 1.3 mL injection (DEFINITY) 1.3 mL INTRAVENOUS DIRECTED PRN doxazosin 2 mg tab(s) (CARDURA) 2 mg ORAL DAILY carboxymethylcellulose sodium 1 Drop (CELLUVISC) 1 Drop BOTH EYES PRN finasteride 5 mg tab(s) (PROSCAR) 5 mg ORAL DAILY atorvastatin 40 mg tab(s) (LIPITOR) 40 mg ORAL DAILY melatonin 6 mg tab(s) 6 mg ORAL DAILY (8 PM) polyethylene glycol 3350 17 g packet 17 g ORAL DAILY PHYSICAL EXAM: Blood pressure 136/73, pulse 67, temperature 36.7 ?C (98.1 ?F), temperature source Oral, resp. rate 17, height 190.5 cm (6' 3), weight 113.6 kg (250 lb 8 oz), SpO2 98%. GENERAL: alert, no distress, cooperative SKIN: No rash or lesions OROPHARYNX: Lips, mucosa, and tongue normal. Oropharynx moist. LUNGS: Lungs clear to auscultation. Good diaphragmatic excursion. CARDIAC: normal S1 and S2; no rubs, murmurs, or gallops. No JVD ABDOMEN: Abdomen soft, non-tender. BS normal. No masses or organomegaly. EXTREMITIES: No edema. NEURO: Negative DATA: Recent Labs 01/22/24 0716 01/21/24 0448 01/20/24 1427 01/17/24 2234 01/17/24 2057 WBC 7.40 8.41 5.20 -- 8.41 HB 14.1 14.4 14.3 -- 15.0 HCT 41.4 43.1 42.9 -- 45.7 PLT 181 188 172 -- 189 MCV 94.3 95.6 96.0 -- 97.4 RDWCV 12.7 12.8 12.7 -- 12.8 NEUTP -- -- 68.2 -- -- ABSNEUT -- -- 3.55 -- -- LYMPHP -- -- 21.0 -- -- MONOP -- -- 8.8 -- -- EODINP -- -- 1.2 -- -- GLUC 105* 100* 114* -- 106* NA 138 138 138 -- 140 K 4.3 3.9 4.3 -- 4.7 CHLOR 102 101 104 -- 102 CO2 24 26 22 -- 24 ANION 12 11 12 -- 14 BUN 17 19 22 -- 25* CREAT 1.19 1.23* 1.25* 1.60* 1.54* (Some elements copied from note from yesterday, which have been updated where appropriate, and reflect current medical decision making from today January 22, 2024) SIGNATURE: Adriana Rao MD PAGER: [phone] DATE: January 22, 2024 TIME: 1:56 PM [facility] 01-22-2024 Note HNO ID: [id number] Author: DANIELLE ALEX DO Service: Cardiovascular Disease Author Type: Physician Type: Progress Notes Filed: 01/22/2024 09:48 Note Text: Heart and Vascular [facility] Department of Cardiovascular Medicine SECTION OF [facility] Consultation Note Name: Kendrick Loomis : 1945 Primary Physician: Sigifredo Trimble MD Consulting Physician: Adriana Rao,* Primary Shampoo Technician: [facility] SERVICE DATE: January 22, 2024 Assessment/ Plan: Probable orthostatic lightheadedness/dizziness secondary to possible hypotension. Patient states he has been running some low blood pressures recently but stable thus far here in the hospital. I question the possibility of side effects from doxazosin. Ambulated this morning in the hallway with no particular concerns. 2. Frequent PVCs and palpitations. Patient will undergo an echocardiogram and Lexiscan nuclear stress test prior to discharge for further evaluation, hopefully Tuesday. 3. Benign prostatic hypertrophy. Patient requested to be started on Proscar while in the hospital since his urologist had recommended and consider discontinuing doxazosin due to side effects/orthostatic hypotension. History: Kendrick Loomis is a 78 year old male who presents with PMHx of adjustment disorder, adrenal gland neoplasm, cataract, colon polyps, GERD, KAKE, OA, chronic liver disease, DONNA, CAD, HTN. He receives the majority of his care through the [facility], and has been working with his PCP to get a full cardiac evaluation. Of note he has been seen prior with similar symptoms, in which workup was negative and he was discharged home. He states that he has had labile blood pressures with episodes of hypotension. He describes these symptoms as sudden onset with flushing, palpitations, lightheadedness, cold sweats and overall unwell feeling. Today, his EKG was c/f multiple PVCs and bigeminy. He had improvement spontaneously, without any intervention. He had a slight troponin elevation, however they are flat. Patient is currently scheduled on 01/30 for an OP ECHO. Due to the frequent recurrence of these episodes patient requested admission. Patient was transferred to [facility] for further management of his pre-syncope and PVC's. Subjective PAST MEDICAL HISTORY 04/23/2021: Aftercare following left knee joint replacement surgery PAST SURGICAL HISTORY No date: ORTHOPEDICS SURGERY HX No family history on file. Social History Tobacco Use Smoking status: Former Types: Cigarettes Substance Use Topics Alcohol use: Not Currently Drug use: Never Current Facility-Administered Medications Medication Dose Route Frequency aspirin, enteric coated 81 mg tab(s) 81 mg ORAL DAILY cetirizine 10 mg tab(s) (ZYRTEC) 10 mg ORAL DAILY ketoconazole 2 % cream (NIZORAL) TOPICAL DAILY cholecalciferol 2,000 Units tab(s) (VITAMIN D3) 2,000 Units ORAL DAILY pantoprazole DR 40 mg tab(s) (PROTONIX) 40 mg ORAL DAILY (6 AM) NaCl 0.9% iv flush bag 20 mL INTRAVENOUS PRN ondansetron orally disintegrating 4 mg tab(s) (ZOFRAN ODT) 4 mg ORAL q 6 H PRN Or ondansetron (PF) 4 mg injection (ZOFRAN) 4 mg INTRAVENOUS q 6 H PRN sodium chloride 0.9 % (flush) 2-10 mL (BD POSIFLUSH) 2-10 mL INTRAVENOUS DIRECTED PRN And perflutren lipid microspheres 1.1 mg/mL 1.3 mL injection (DEFINITY) 1.3 mL INTRAVENOUS DIRECTED PRN doxazosin 2 mg tab(s) (CARDURA) 2 mg ORAL DAILY carboxymethylcellulose sodium 1 Drop (CELLUVISC) 1 Drop BOTH EYES PRN finasteride 5 mg tab(s) (PROSCAR) 5 mg ORAL DAILY atorvastatin 40 mg tab(s) (LIPITOR) 40 mg ORAL DAILY melatonin 6 mg tab(s) 6 mg ORAL DAILY (8 PM) Allergies As of Date: 01/20/2024 (No Known Allergies) Fully Assessed 01/20/2024 Objective PHYSICAL EXAMINATION: BP 132/71 Pulse 66 Temp 36.6 ?C (97.9 ?F) (Oral) Resp 17 Ht 190.5 cm (6' 3) Wt 113.6 kg (250 lb 8 oz) SpO2 98% BMI 31.31 kg/m? BP 132/71 Pulse 66 Temp (Src) 97.9 (Oral) Resp 17 Ht 6' 3 (1.91m) Wt 250 lb 8 oz (113.6kg) SpO2 98% BMI 31.31 kg/(m2). O2 Therapy: Room Air General: Well appearing, in no acute distress. Skin: No clubbing, no cyanosis. Eyes: Extra ocular movements intact Neck: No jugular venous distention, no carotid bruits, carotids have a normal upstroke, no palpable thyromegaly. Lungs: Clear to auscultation bilaterally, no wheezing or rhonchi. Heart: Regular rhythm, PMI not displaced, S1, S2 normal, no S3, no S4, no heaves, no murmur. Abdomen: Soft, nontender, bowel sounds normal, no palpable organomegaly, no bruits. Extremities: No peripheral edema . +2 distal pulses bilaterally. Neuro: Oriented to person, place and time, alert, cooperative LABS REVIEWED: Recent Labs 01/22/24 0716 01/21/24 0448 01/20/24 1427 NA 138 138 138 K 4.3 3.9 4.3 CO2 24 26 22 BUN 17 19 22 CREAT 1.19 1.23* 1.25* GLUC 105 (more content not included)... [facility] 01-21-2024 Note HNO ID: [id number] Author: ADRIANA RAO MD Service: Hospital Medicine Author Type: Physician Type: Progress Notes Filed: 01/21/2024 16:54 Note Text: DEPARTMENT OF HOSPITAL MEDICINE PROGRESS NOTE Name: Kendrick Loomis SERVICE DATE: January 21, 2024 SERVICE TIME: 4:51 PM Hospital Medicine/Primary Attending: Adriana Rao MD (pager: [phone]) NIGHT COVERAGE: pager # [phone] (Page between 5 PM - 7 AM) INTERVAL HPI: Feeling well and improved. No new symptoms. No fever. ASSESSMENT AND PLAN 78 year old male with PMHx of adjustment disorder, adrenal gland neoplasm, cataract, colon polyps, GERD, KAKE, OA, chronic liver disease, DONNA, CAD and HTN presents with syncope. Also hx of palpitations 1) Syncope - unclear etiology 2) PVCs - appreciate Cards input - planned for echo and nuclear stress test as IP 3) HTN 4) HPL - cont home meds VTE Prophylaxis: Early Ambulation Disposition: Home Plan of care discussed with: Provider, RN, Patient MEDICATIONS: Current Facility-Administered Medications Medication Dose Route Frequency aspirin, enteric coated 81 mg tab(s) 81 mg ORAL DAILY cetirizine 10 mg tab(s) (ZYRTEC) 10 mg ORAL DAILY ketoconazole 2 % cream (NIZORAL) TOPICAL DAILY cholecalciferol 2,000 Units tab(s) (VITAMIN D3) 2,000 Units ORAL DAILY pantoprazole DR 40 mg tab(s) (PROTONIX) 40 mg ORAL DAILY (6 AM) NaCl 0.9% iv flush bag 20 mL INTRAVENOUS PRN ondansetron orally disintegrating 4 mg tab(s) (ZOFRAN ODT) 4 mg ORAL q 6 H PRN Or ondansetron (PF) 4 mg injection (ZOFRAN) 4 mg INTRAVENOUS q 6 H PRN sodium chloride 0.9 % (flush) 2-10 mL (BD POSIFLUSH) 2-10 mL INTRAVENOUS DIRECTED PRN And perflutren lipid microspheres 1.1 mg/mL 1.3 mL injection (DEFINITY) 1.3 mL INTRAVENOUS DIRECTED PRN [START ON 01/22/2024] atorvastatin 40 mg tab(s) (LIPITOR) 40 mg ORAL DAILY [START ON 01/22/2024] doxazosin 2 mg tab(s) (CARDURA) 2 mg ORAL DAILY carboxymethylcellulose sodium 1 Drop (CELLUVISC) 1 Drop BOTH EYES PRN finasteride 5 mg tab(s) (PROSCAR) 5 mg ORAL DAILY PHYSICAL EXAM: Blood pressure 130/77, pulse 69, temperature 36.5 ?C (97.7 ?F), temperature source Oral, resp. rate 18, height 190.5 cm (6' 3), weight 114.4 kg (252 lb 3.3 oz), SpO2 97%. GENERAL: alert, no distress, cooperative SKIN: No rash or lesions OROPHARYNX: Lips, mucosa, and tongue normal. Oropharynx moist. LUNGS: Lungs clear to auscultation. Good diaphragmatic excursion. CARDIAC: normal S1 and S2; no rubs, murmurs, or gallops. No JVD ABDOMEN: Abdomen soft, non-tender. BS normal. No masses or organomegaly. EXTREMITIES: No edema. NEURO: Negative DATA: Recent Labs 01/21/24 0448 01/20/24 1427 01/17/24 2234 01/17/24 2057 WBC 8.41 5.20 -- 8.41 HB 14.4 14.3 -- 15.0 HCT 43.1 42.9 -- 45.7 PLT 188 172 -- 189 MCV 95.6 96.0 -- 97.4 RDWCV 12.8 12.7 -- 12.8 NEUTP -- 68.2 -- -- ABSNEUT -- 3.55 -- -- LYMPHP -- 21.0 -- -- MONOP -- 8.8 -- -- EODINP -- 1.2 -- -- GLUC 100* 114* -- 106* NA 138 138 -- 140 K 3.9 4.3 -- 4.7 CHLOR 101 104 -- 102 CO2 26 22 -- 24 ANION 11 12 -- 14 BUN 19 22 -- 25* CREAT 1.23* 1.25* 1.60* 1.54* SIGNATURE: Adriana Rao MD PAGER: [phone] DATE: January 21, 2024 TIME: 4:51 PM [facility] Evaluation note Diagnosis Coronary artery disease of [place] artery of [place] heart with stable angina pectoris (HCC)- Primary Coronary artery disease involving [place] heart with angina pectoris, unspecified vessel or lesion type (HCC) [facility] Diagnosis Coronary artery disease involving [place] heart with angina pectoris, unspecified vessel or lesion type (HCC)- Primary documented in this encounter [facility] note* Diagnosis Coronary artery disease involving [place] coronary artery of [place] heart with angina pectoris (HCC)- Primary documented in this encounter [facility] note* Diagnosis Coronary artery disease involving [place] coronary artery of [place] heart with angina pectoris (HCC)- Primary CAD in [place] artery Coronary atherosclerosis of [place] coronary artery DONNA (obstructive sleep apnea) Obstructive sleep apnea (adult) (pediatric) Adrenal gland neoplasm Neoplasm of unspecified nature of endocrine glands and other parts of nervous system [facility] noteNo assessment information availableWAkron Children's Hospital Work Phone: Reason for referral (narrative)* Outpatient Procedure (Routine) - New Request Specialty Diagnoses / Procedures Referred By Jeffrey conroy Referred To [facility] Diagnoses Coronary artery disease involving [place] heart with angina pectoris, unspecified vessel or lesion type (HCC) Procedures ECG COMPLETE ECG ROUTINE ECG W/LEAST 12 LDS W/I&[place] [address] [place] [address] [facility] [address] [address] Referral ID Status Reason Start Date Expiration Date Visits Requested Visits Authorized [id number] New Request Auto-Generat ed Referral 02/09/2024 02/08/2025 1 1 [facility] for referral (narrative)No reason for referral information availableWAkron Children's Hospital Work Phone: Reason for visit Narrative* Diagnostic Procedure Only (Routine) - Closed Specialty Diagnoses / Procedures Referred By Jeffrey conroy Referred To Contact [facility] Diagnoses Pt. Bringing Order Procedures ECHO TTHRC R-T 2D W/WOM-MODE COMPL SPEC&COLR D ECHO Sigifredo Trimble MD [address] [place] [address] [facility] [address] [place] [address] Referral ID Status Reason Start Date Expiration Date V isits Requested Visits Authorized [id number] Closed Clearance Not Met - Admin/Chairma n/Director Advise to Postpone/Resc hedule or Not Proceed Patient Cleared INN/SMCP Payor Auth Obtained 01/20/2024 03/25/2024 1 1 [facility] Advance Directives No Advanced Directives Records Found Date Activated Date Inactivated Comments 02/16/2024 10:59 PM 02/17/2024 10:57 PM Question Answer Comments Full Code Order Discussed With: Patient Date Activated Date Inactivated Comments 01/27/2024 3:05 PM 01/28/2024 3:16 PM Question Answer Comments Full Code Order Discussed With: Patient Date Activated Date Inactivated Comments 01/21/2024 12:47 AM 01/25/2024 6:21 PM Question Answer Comments Full Code Order Discussed With: Patient Date Activated Date Inactivated Comments 02/16/2024 10:59 PM Date Activated Date Inactivated Comments 01/27/2024 3:05 PM 01/28/2024 3:16 PM Date Activated Date Inactivated Comments 01/21/2024 12:47 AM 01/25/2024 6:21 PM Date Activated Date Inactivated Comments 01/21/2024 12:47 AM 01/25/2024 6:21 PM Date Activated Date Inactivated Comments 01/21/2024 12:47 AM Date Activated Date Inactivated Comments 01/27/2024 3:05 PM 01/28/2024 3:16 PM Question Answer Comments Full Code Order Discussed With: Patient Date Activated Date Inactivated Comments 01/21/2024 12:47 AM 01/25/2024 6:21 PM Question Answer Comments Full Code Order Discussed With: Patient Advance Directive Response Recorded Date/ Time Living Will No April 22 1:30am Do you have a Healthcare Power of Pantry Steward/Stewardess? No April 22, 2024 1:30am Living Will No May 23 1:19am Do you have a Healthcare Power of Pantry Steward/Stewardess? No May 23, 2024 1:19am Living Will No June 23 1:44am Do you have a Healthcare Power of Pantry Steward/Stewardess? No June 23, 2024 1:44am Advance Directive Response Recorded Date/ Time Living Will No June 23 1:44am Do you have a Healthcare Power of Pantry Steward/Stewardess? No June 23, 2024 1:44am Summary Purpose Family History No Family History Records FoundNo Family History Records FoundNo Family History Records FoundNo Family History Records FoundNo Family History Records Found Chief Complaint and Reason for Visit Chief Complaint Admit Date CAD s/p successful PCI [facility] LAD [facility]:15[facility] CAD s/p successful PCI of LAD and RCA [facility] 2024 2:30pm CAD s/p successful PCI of LAD and RCA [facility] 2024 2:30pm 2024 PH3 maintenance-self pay July 8:00am Chief Complaint Admit Date CAD s/p successful PCI of LAD and RCA [facility] 2024 2:30pm 2024 PH3 maintenance-self pay July 8:00am 2024 PH3 maintenance-self pay August 8:00am 2024 PH3 maintenance-self pay October 18, 2024 8:00am Chief Complaint Admit Date 2024 PH3 maintenance-self pay July 8:00am 2024 PH3 maintenance-self pay August 8:00am 2024 PH3 maintenance-self pay October 18, 2024 8:00am 2024 PH3 maintenance-self pay November 15, 2024 8:00am Chief Complaint Admit Date 2024 PH3 maintenance-self pay August 8:00am 2024 PH3 maintenance-self pay October 18, 2024 8:00am 2024 PH3 maintenance-self pay November 15, 2024 8:00am 2024 PH3 maintenance-self pay December 20, 2024 8:00am Additional Source Comments Source Comments (unrecognize d section and content) In the event this informatio n is protected by the Federal Confidentiality of Alcohol and Drug Abuse Patient Records regulations: The Federal rules restrict any use of the information to criminally investigate or prosecute any alcohol or drug abuse patient.[facility] Hospital[facility] the event this information is protected by the Federal Confidentiality of Alcohol and Drug Abuse Patient Records regulations: The Federal rules restrict any use of the information to criminally investigate or prosecute any alcohol or drug abuse patient.[facility] HospitalIn the event this information is protected by the Federal Confidentiality of Alcohol and Drug Abuse Patient Records regulations: The Federal rules restrict any use of the information to criminally investigate or prosecute any alcohol or drug abuse patient.[facility] HospitalIn the event this information is protected by the Federal Confidentiality of Alcohol and Drug Abuse Patient Records regulations: The Federal rules restrict any use of the information to criminally investigate or prosecute any alcohol or drug abuse patient.[facility] HospitalIn the event this information is protected by the Federal Confidentiality of Alcohol and Drug Abuse Patient Records regulations: The Federal rules restrict any use of the information to criminally investigate or prosecute any alcohol or drug abuse patient.[facility] HospitalIn the event this information is protected by the Federal Confidentiality of Alcohol and Drug Abuse Patient Records regulations: The Federal rules restrict any use of the information to criminally investigate or prosecute any alcohol or drug abuse patient.[facility] HospitalIn the event this information is protected by the Federal Confidentiality of Alcohol and Drug Abuse Patient Records regulations: The Federal rules restrict any use of the information to criminally investigate or prosecute any alcohol or drug abuse patient.[facility] HospitalIn the event this information is protected by the Federal Confidentiality of Alcohol and Drug Abuse Patient Records regulations: The Federal rules restrict any use of the information to criminally investigate or prosecute any alcohol or drug abuse patient.[facility] HospitalIn the event this information is protected by the Federal Confidentiality of Alcohol and Drug Abuse Patient Records regulations: The Federal rules restrict any use of the information to criminally investigate or prosecute any alcohol or drug abuse patient.[facility] HospitalIn the event this information is protected by the Federal Confidentiality of Alcohol and Drug Abuse Patient Records regulations: The Federal rules restrict any use of the information to criminally investigate or prosecute any alcohol or drug abuse patient.[facility] HospitalIn the event this information is protected by the Federal Confidentiality of Alcohol and Drug Abuse Patient Records regulations: The Federal rules restrict any use of the information to criminally investigate or prosecute any alcohol or drug abuse patient.[facility] HospitalIn the event this information is protected by the Federal Confidentiality of Alcohol and Drug Abuse Patient Records regulations: The Federal rules restrict any use of the information to criminally investigate or prosecute any alcohol or drug abuse patient.[facility] HospitalIn the event this information is protected by the Federal Confidentiality of Alcohol and Drug Abuse Patient Records regulations: The Federal rules restrict any use of the information to criminally investigate or prosecute any alcohol or drug abuse patient.[facility] HospitalIn the event this information is protected by the Federal Confidentiality of Alcohol and Drug Abuse Patient Records regulations: The Federal rules restrict any use of the information to criminally investigate or prosecute any alcohol or drug abuse patient.[facility] Care Teams (unrecognized sec tion and content) Pocket Machine Operator Relationship Specialty Start Date End Date Sigifredo Trimble MD [address] [place] [address] PCP - General Internal Medicine 01/20/24 Pocket Machine Operator Relationship Specialty Start Date End Date Sigifredo Trimble MD [address] [place] [address] PCP - General Internal Medicine 01/20/24 Pocket Machine Operator Relationship Specialty Start Date End Date Sigifredo Trimble MD [address] [place] [address] PCP - General Internal Medicine 01/20/24 Pocket Machine Operator Relationship Specialty Start Date End Date Sigifredo Trimble MD [address] [place] [address] PCP - General Internal Medicine 01/20/24 Pocket Machine Operator Relationship Specialty Start Date End Date Sigifredo Trimble MD [address] [place] [address] PCP - General Internal Medicine 01/20/24 Pocket Machine Operator Relationship Specialty Start Date End Date Sigifredo Trimble MD [address] [place] [address] PCP - General Internal Medicine 01/20/24 Pocket Machine Operator Relationship Specialty Start Date End Date Sigifredo Trimble MD [address] [place] [address] PCP - General Internal Medicine 01/20/24 Pocket Machine Operator Relationship Specialty Start Date End Date Sigifredo Trimble MD [address] [place] [address] PCP - General Internal Medicine 01/20/24 [place] [address] [place] [address] Shampoo Technician Cardiology 03/07/24 Pocket Machine Operator Relationship Specialty Start Date End Date Sigifredo Trimble MD [address] [place] [address] PCP - General Internal Medicine 01/20/24 [place] [address] [place] [address] Shampoo Technician Cardiology 03/07/24 Pocket Machine Operator Relationship Specialty Start Date End Date Sigifredo Trimble MD [address] [place] [address] PCP - General Internal Medicine 01/20/24 [place] [address] [place] [address] Shampoo Technician Cardiology 03/07/24 Team Status: Active Member Role Status Dates Dr. Sigifredo Trimble MD Primary Care Provider Active Team Status: Inactive Member Role Status Dates Dr. Sigifredo Trimble MD Primary Care Provider Active Start: May 21, 2024 End: May 22, 2024 [facility] Attending Provider Active Start: Vargas 2023 End: May 22, 2024 [facility] Referring Provider Active Start: Vargas 2023 End: May 22, 2024 Team Status: Inactive Member Role Status Dates Dr. Sigifredo Trimble MD Primary Care Provider Active Start: June 22, 2024 End: June 22, 2024 [facility] Attending Provider Active Start: Harshal stearns 2024 End: June 22, 2024 [facility] Referring Provider Active Start: Harshal stearns 2024 End: June 22, 2024 Team Status: Inactive Member Role Status Dates Dr. Sigifredo Trimble MD Primary Care Provider Active Start: July 13, 2024 End: July 20, 2024 Dr. Sigifredo Trimble MD Attending Provider Active Start: July 13, 2024 End: July 20, 2024 [facility] Referring Provider Active Start: Nola greenberg 2024 End: July 20, 2024 Team Status: Inactive Member Role Status Dates Dr. Sigifredo Tirmble MD Primary Care Provider Active Start: August 16, 2024 End: August 20, 2024 [facility] Attending Provider Active Start: [facility] 2024 End: August 20, 2024 Team Status: Inactive Member Role Status Dates Dr. Sigifredo Trimble MD Primary Care Provider Active Start: September 18, 2024 End: September 19, 2024 [facility] Attending Provider Active Start: [facility] 2024 End: September 19, 2024 Team Status: Inactive Member Role Status Dates Dr. Sigifredo Trimble MD Primary Care Provider Active Start: October 18, 2024 End: October 20, 2024 [facility] Attending Provider Active Start: Meg sinha 2024 End: October 20, 2024 Team Status: Active Member Role/Relationship Status Dates Dr. Sigifredo Trimble MD Primary Care Provider Active Team Status: Inactive Member Role/Relationship Status Dates Dr. Sigifredo Trimble MD Primary Care Provider Active Start: August 16, 2024 End: August 20, 2024 [facility] Attending Provider Active Start: Meg [facility] 2024 End: August 20, 2024 Team Status: Inactive Member Role/Relationship Status Dates Dr. Sigifredo Trimble MD Primary Care Provider Active Start: September 18, 2024 End: September 19, 2024 [facility] Attending Provider Active Start: Doug field 2024 End: September 19, 2024 Team Status: Inactive Member Role/Relationship Status Dates Dr. Sigifredo Trimble MD Primary Care Provider Active Start: October 18, 2024 End: October 20, 2024 [facility] Attending Provider Active Start: Meg sinha 2024 End: October 20, 2024 Team Status: Inactive Member Role/Relationship Status Dates Dr. Sigifredo Trimble MD Primary Care Provider Active Start: November 15, 2024 End: November 19, 2024 [facility] Attending Provider Active Start: Lulu gutiérrez 2024 End: November 19, 2024 Team Status: Inactive Member Role/Relationship Status Dates Dr. Sigifredo Trimble MD Primary Care Provider Active Start: September 18, 2024 End: September 19, 2024 [facility] Attending Provider Active Start: Doug field 2024 End: September 19, 2024 Team Status: Inactive Member Role/Relationship Status Dates Dr. Sigifredo Trimble MD Primary Care Provider Active Start: October 18, 2024 End: October 20, 2024 [facility] Attending Provider Active Start: Meg sinha 2024 End: October 20, 2024 Team Status: Inactive Member Role/Relationship Status Dates Dr. Sigifredo Trimble MD Primary Care Provider Active Start: November 15, 2024 End: November 19, 2024 [facility] Attending Provider Active Start: Lulu gutiérrez 2024 End: November 19, 2024 Team Status: Inactive Member Role/Relationship Status Dates Dr. 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 PCI stent; patient cannot arrive sooner due to ride arrangements, [place] Procedures OFFICE/OUTPATIENT ESTABLISHED [facility] [place] [address] [place] [address] Referral ID Status Reason Start Date Expiration Date Visits Re quested Visits Authorized [id number] Closed 01/26/2024 03/26/2024 1 1 Reason Comments Orders Reason Comments Cardiology Follow Up Reason Comments Results (unrecognized sect ion and content) No Status Records FoundNo Status Records FoundNo Status Records FoundNo Status Records FoundNo Status Records Found INFORMATION SOURCE (unrecogn ized section and content) DATE CREATED AUTHOR 02/08/2024 [facility] DATE CREATED AUTHOR AUTHOR'S ORGANIZ ATION 02/18/2024 [facility] DATE CREATED AUTHOR AUTHOR'S ORGANIZ ATION 02/19/2024 [facility] DATE CREATED AUTHOR AUTHOR'S ORGANIZ ATION 07/25/2024 [facility] DATE CREATED AUTHOR AUTHOR'S ORGANIZ ATION 01/17/2025 [facility] Goals (unrecognized section and content) Goals may be documented in a n alternate sectionGoals may be documented in an alternate sectionGoals may be documented in an alternate sectionGoals may be documented in an alternate section FOR RECORDS PERTAINING TO PATIENTS WHO ARE OR HAVE BEEN ENROLLED IN A CHEMICAL DEPENDENCY/SUBSTANCEABUSE PROGRAM, SOME INFORMATION MAY BE OMITTED. This clinical summary was aggregated from multiple sources. Caution should be exercised in using it in the provision of clinical care. This summary normalizes information from multiple sources, and as a consequence, information in this document may materially change the coding, format and clinical context of patient data. In addition, data may be omitted in some cases. CLINICAL DECISIONS SHOULD BE BASED ON THE PRIMARY CLINICAL RECORDS. [facility]. provides no warranty or guarantee of the accuracy or completeness of information in this document.
== END | disposition home or self-care (01) ==
PROVIDERS: PCP Internal Medicine; Referring Provider Internal Medicine; Visit Provider Internal Medicine
DX: R63.4 Abnormal weight loss (principal)
CPT/HCPCS: 70496; 71260; 74177; Q9967

== ENCOUNTER 2025-02-19 08:00 | Outpatient (RCR) | payer SELFPAY ==
[2024-06-26 07:38] VITALS: BMI 29.3
== END 2025-02-19 23:59 ==
LOC: CR 08:00
PROVIDERS: PCP Internal Medicine
DX: Z00.00 Encounter for general adult medical examination without abnormal findings (principal)

== ENCOUNTER 2025-03-21 08:00 | Outpatient (RCR) | payer SELFPAY ==
[2024-06-26 07:38] VITALS: BMI 29.3
== END 2025-03-22 23:59 ==
LOC: CR 08:00
PROVIDERS: PCP Internal Medicine
DX: Z00.00 Encounter for general adult medical examination without abnormal findings (principal)

== ENCOUNTER 2025-04-16 08:00 | Outpatient (RCR) | payer SELFPAY ==
[2024-06-26 07:38] VITALS: BMI 29.3
== END 2025-04-21 23:59 ==
LOC: CR 08:00
PROVIDERS: PCP Internal Medicine
DX: Z00.00 Encounter for general adult medical examination without abnormal findings (principal)

== ENCOUNTER 2025-04-23 08:43 | Outpatient (RCR) | payer SELFPAY ==
[2024-06-26 07:38] VITALS: BMI 29.3
== END 2025-05-22 23:59 ==
LOC: CR 08:43
PROVIDERS: PCP Internal Medicine
DX: Z00.00 Encounter for general adult medical examination without abnormal findings (principal)